=== PATIENT | male | born 1950 | race Caucasian/White ===

== ENCOUNTER 2018-04-24 16:20 | Inpatient (IN) | payer BC, OTHER ==
[2018-04-24 16:48] LABS: BASO % 0.9 % (0-2.0); EOS % 1.5 % (0-4.5); HEMATOCRIT 39.1 % (35.4-49); HEMOGLOBIN 13.2 GM/dL (11.7-16.9); LYMPH % 15.2 % (8-40); MCH 29.9 pg (25.7-33.7); MCHC 33.7 g/dl (32.0-35.9); MEAN CELL VOLUME 88.5 fl (80-96); MEAN PLT VOLUME 8.5 fl (7.5-11.1); MONO % 5.2 % (3.8-10.2); NEUT % 77.2 % (42.8-82.8); PLATELET COUNT 539 K/MM3 (134-434); RBC 4.41 M/mm3 (4.00-5.60); RDW 14.7 % (11.9-15.9)
[2018-04-24 16:51] LABS: VENOUS PC02 50.3 mmHg (38-52); VENOUS PH 7.32 (7.32-7.42); VENOUS PO2 74.2 mmHg (28-48)
[2018-04-24] MEDS ORDERED: methylPREDNISolone NA SUCC 125 MG/2 ML VIAL IVPB ONE (16:51)
[2018-04-24] MEDS ORDERED: ALBUTEROL SO4 0.083% IH SOL 2.5 MG/3 ML VIAL.NEB. NEB ONE (16:51)
--- NOTE | 2018-04-24 16:54 | PDOC ---
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 Per EMS received call from [facility] that patient disoriented, unable to follow commands, hypoxic, short of breath, and lethargic appearing, beginning this AM. EMS on scene note that patient hypoxic to 70 % O2 on vent, 02 improved to 95% on trach/bag mask ventilation. EMS reports increased resistance with bag ventilation. Received 2 duoneb treatments in route. Patient unable to provide history. PMHx: as noted above ROS: as noted Allergies: NKDA Past History - Past Medical History Allergies/Adverse Reactions: Allergies Allergy/AdvReac Type Severity Reaction Status Date / Time No Known Allergies Allergy Verified 04/24/18 16:46 Home Medications: Ambulatory Orders Acetylcysteine 220 mg GT DAILY 04/24/18 Albuterol 0.083% Nebulizer Asmita [Ventolin 0.083%] 1 neb NEB QID 04/24/18 Aspirin 81 mg GT DAILY 04/24/18 Atorvastatin Ca [Lipitor] 40 mg GT HS 04/24/18 Carvedilol 12.5 mg GT BID 04/24/18 Doxazosin Mesylate [Cardura -] 2 mg GT HS 04/24/18 Enoxaparin [Lovenox -] 40 mg SQ DAILY 04/24/18 Multivitamins [Tab-A-Vit -] 1 tab GT DAILY 04/24/18 Ramipril 1.25 mg GT DAILY 04/24/18 Simethicone 40 mg GT TID 04/24/18 Review of Systems - Review of Systems Comments:: 04/24/18 17:06 Unable to provide 13 point ROS inspection *Physical Exam - Physical Exam Comments: 04/24/18 17:07 GENERAL: Awake, alert, oriented,to self, able to follow commands. HEAD: No signs of trauma, normocephalic, atraumatic EYES: PERRLA, EOMI, sclera anicteric, conjunctiva clear ENT: Auricles normal inspection, hearing grossly normal, nares patent, oropharynx clear without exudates. Moist mucosa NECK: Normal ROM, supple, no lymphadenopathy, JVD, or masses LUNGS: + Diffuse exp wheezing, audible at bedside. +Labored breathing, with accessory muscle use. HEART: Regular rate and rhythm, normal S1 and S2, no murmurs, rubs or gallops, peripheral pulses normal and equal bilaterally. ABDOMEN: Soft, nontender, normoactive bowel sounds. No guarding, no rebound. No masses EXTREMITIES : Normal inspection, Normal range of motion, no edema. No clubbing or cyanosis. NEUROLOGICAL: Cranial nerves II through XII grossly intact. 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 HR 50, O2 95% on trach, with vent settings 450/16/5/100. + Diffuse exp wheezing, audible at bedside. +Labored breathing, with accessory muscle use. Patient with evidence of acute hypoxic resp distress. Will consider asthma/COPD exacerbation, or other obstructive process. + Resistance with bag mask ventilation. Possible mucous plugging. Will also consider other acute process, including PNA, PTX, PE, acute CHF exacerbation. Ed Course: Duonebs x 3, Methylprednisilone Per dr Pepe/ENT not available to come to ED, trach is able to be replaced within several weeks of initial placement, as tract has had time to matrue. Will require same size trach with obturator. Per ENT, surgery usually safety companion for trach malfunction at [facility] institution. 04/24/18 17:18 WBC: 24.0 BNP: 2665 04/24/18 17:22 VB.32/ 50.3/74.2 04/24/18 17:37 Called ICU consult pager, awaiting call back Called Dr. Gonzalez/Thien answering service. Awaiting call back 04/24/18 18:[address] Neumann, provide suction, possible trach change. No evidence of mucous plugging on CXR Patient endorsed to Miguel A ARTIFICIAL STONE SETTER 04/24/18 18:16 Miguel A at bedside to provide trach change. Following trach change, note rapid improvement in ventilation, and improvement of PIP and patient Tidal volume. Patient endorsed to Dr. Ocampo. *DC/Admit/Observation/Transfer Diagnosis at time of Disposition: Acute respiratory failure with hypoxia, COPD exacerbation - Discharge Dispostion Condition at time of disposition: Stable Decision to Admit order: Yes - Referrals - Patient Instructions - Post Discharge Activity
[2018-04-24] MEDS ORDERED: methylPREDNISolone NA SUCC 125 MG/2 ML VIAL ONE (16:56)
[2018-04-24] MEDS ORDERED: ALBUTEROL SO4 2.5/IPRATROPIUM 0.5 INH SOL 3 ML VIAL.NEB. NEB ONE (17:03)
--- NOTE | 2018-04-24 17:15 | PDOC ---
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 Per EMS, pt was encountered hypoxic to 70-80 on trach collar. EMS attempted to bag pt but encountered significant resistance. Unable to suction anything out. 2 nebs given en route. In ED, pt was satting 100% while being bagged. Lung sounds + wheezing bilaterally Respiratory at bedside - attempts to pass suction catheter met with resistance. Saline flush administered with suction removal of thick mucus. Persistent resistance when passing suction catheter - Physicial Exam PE: 04/24/18 17:15 GENERAL: Awake, alert, and fully oriented, in no acute distress. HEAD: No signs of trauma EYES: PERRLA, EOMI, sclera anicteric, conjunctiva clear ENT: 8.[address] LUNGS: Breath sounds equal, + wheezing HEART: Regular rate and rhythm, normal S1 and S2, no murmurs, rubs or gallops ABDOMEN: Soft, nontender, normoactive bowel sounds. No guarding, no rebound. No masses EXTREMITIES: Normal range of motion, no edema. No clubbing or cyanosis. No cords, erythema, or tenderness NEUROLOGICAL: Cranial nerves II through XII intact. 5/5 strength and sensation in all extremities, Normal speech, normal gait, normal cerebellar function SKIN: Warm, Dry, normal turgor, no rashes or lesions noted. - Critical Care Time Total Critical Care Time: 120 Critical Care Statement: The care of this patient involved high complexity decision making to prevent further life threatening deterioration of the patient 's condition and/or to evaluate & treat vital organ system(s) failure or risk of failure. - Medical Decision Making 04/24/18 17:16 67 M with respiratory distress, found to be hypoxic at home. Significant difficulty bagging, with resistance when passing suction catheter. Concerning for mucus plug, with concomitant COPD exacerbation. Will also need to evaluate for trach dislodgment. Pt with bilateral breath sounds but will r/o PTX as well. - Labs, CXR - Nebs, steroids - ENT consult for trach eval - Pulm c/s for possible bronch 04/24/18 18:13 ENT called, unavailable to assist in ED ICU GENERATION ENGINEERING TECHNOLOGIST Miguel A in ED to assist with trach replacement Trach removed and replaced with new one Pt with improved work of breathing, now with better lung aeration, TV and pressures improved on vent
[2018-04-24 17:30] LABS: PLATELET ESTIMATE INCREASED
[2018-04-24 17:59] LABS: ALBUMIN 2.9 g/dl (3.4-5.0); ALK PHOS 270 U/L (45-117); ANION GAP 10 MMOL/L (8-16); BILIRUBIN,TOTAL 0.6 mg/dL (0.2-1); BLOOD UREA NITROGEN 26 mg/dL (7-18); CALCIUM 9.2 mg/dL (8.5-10.1); CHLORIDE 99 mmol/L (98-107); CO2 24 mmol/L (21-32); CREATININE 0.8 mg/dL (0.55-1.3); GLUCOSE,RANDOM 168 mg/dL (74-106); POTASSIUM 5.6 mmol/L (3.5-5.1); SGOT/AST 31 U/L (15-37); SGPT/ALT 36 U/L (13-61); SODIUM 134 mmol/L (136-145); TOT PROT 8.3 g/dl (6.4-8.2)
[2018-04-24] MEDS ORDERED: MIDAZOLAM HCL 2 MG/2 ML SINGLE DOSE VIAL IVPUSH ONE (18:00)
[2018-04-24 18:01] LABS: CARBOXYHEMOGLOBIN 0.8 gm% (0.5-2.0)
[2018-04-24 18:03] LABS: ARTERIAL BLOOD GAS BASE EXCESS 1.3 meq/l (-2-2); ARTERIAL BLOOD GAS PCO2 32.7 mmHg (35-45); ARTERIAL BLOOD GAS pH 7.48 (7.35-7.45)
[2018-04-24 18:05] LABS: ALLENS TEST POSITIVE
[2018-04-24] MEDS ORDERED: RAPID SEQUENCE INTUBATION KIT NR ONE (18:06)
[2018-04-24] MEDS ORDERED: MIDAZOLAM HCL 2 MG/2 ML SINGLE DOSE VIAL ONE (18:06)
[2018-04-24 18:10] LABS: ARTERIAL BLD GAS O2 SATURATION 99.7 % (90-98.9)
--- NOTE | 2018-04-24 18:30 | PN ---
Progress Note (short form) - Note Progress Note: Called to ED by ER MD for possible ICU admission. Pt 67 y/o man w/ hx of CVA, s/ p trach for airway protection unclear if [facility]. Today at [place] found to be hypoxic and in distress. Not getting good volumes on vent, unable to pass suction catheter, brought urgently to ED. Bagging via trach, stacked nebs assisted with pt getting better volumes. On evaluation pt is in distress, PIP of 60+ on vent, large leak out of mouth and pt with retractions, increased WOB. Pt has 8.0 DCT, that is significantly protruding from stoma. Pt given sedation 2mg Versed, Fent 100. Trach replaced with 8.0 portex (only 8 avail). Immediately after trach replacement PIP 60+--->27. Good TV on vent. Excellent air entry. No upper airway sounds. Care returned to ED staff. Plan for possible admission. Pulm/vent service to follow if pt admitted. Tadeo ACNP [phone]
--- NOTE | 2018-04-24 20:11 | PN ---
Teaching Attending Note Name of Resident: Helen Oh ATTENDING PHYSICIAN STATEMENT I saw and evaluated the patient. I reviewed the resident's note and discussed the case with the resident. I agree with the resident's findings and plan as documented. SUBJECTIVE: Seen and examined; please refer to resident note for further historical informaiton. Briefly, recent hemorrhagic CVA with R-sided hemiparesis (seen at [facility]), HTN, s/p PPM (2010), s/p tracheostomy 1 month ago (was unable to be weaned from the vent) who has been at [facility] for the past month. Hypoxic to 70s in [place] with apparent respiratory distress. Unable to suction easily and what they got was thick, brown. He was bagged and brought here; satting 100%. In ER tracheostomy was changed by ICU NETWORK MANAGEMENT SPECIALIST and his respiratory issues resolved; he had a 60+ PIP, large leak out of mouth, and the 8.0 DCT protruding rom the stoma. He continues to have the R-sided hemiparesis; normally can communicate but was sedated for the resident team; when I spoke with him he was more alert and can gesture with his hand. He told me the area around his trach is painful. His indicates he makes his own health care decisions. 10 sys ROS done and negative aside from HPI PMH, PSH (trach/peg, pacemaker 2010), Family hx, Social hx reviewed ASA, acetylcystine, ramipril, coreg, ventolin, atorva, cardura; confirming doses and reconciling OBJECTIVE: VS, labs, imaging reviewed NAD, opens eyes spontaneously and gestures with his L-arm. R-sided hemiparesis noted. R-facial droop and residual deficits noted PEG site clear with gauze Trach recently changed with no new issues; no copious secretions, etc. RRR s1/2 no mgr NT ND +BS Not agitated ASSESSMENT AND PLAN: Patient presents from his skilled nursing to the ER due to hypoxia and was found to have issue with his trach. Trach replaced with 8.0 portex with PIP from 60+ to 27 and acceptable TV. 1) Acute Respiratory Failure 2) S/P PPM (unknown primary condition with old records pending from [place]) 3) Hx recent hemorrhagic CVA w/ resulting R-sided hemiparesis 4) HTN 5) S/P PEG 6) S/P Tracheostomy -2/2 trach issue; resolved. Does not need ICU. Can place on observation with pulm/vent service to follow in AM. Likely DC soon. He did have what appeared to be large amount atelectesis vs pleural effusion on the L-side with elevated BNP so will obtain CT chest to investigate if any lung pathology and compare to old studies. Furthermore, given the elevated BNP, he likely had an echo done ( due to recent stroke) and we can see if there's any pump dysfunction on the old study. He is oxygenating very well on the vent and appears euvolemic and the BNP elevation could be due to cardiac strain from the preceeding event. Will continue other meds and observe.
[2018-04-24 20:25] LABS: GAMMA GLUTAMYL TRANSPEPTIDASE 70 U/L (5-85)
--- NOTE | 2018-04-24 20:34 | HP ---
CHIEF COMPLAINT: hypoxia, acute respiratory distress PCP: Dr. Mcknight (comes from [facility]) HISTORY OF PRESENT ILLNESS: Unable to speak to pt, history taken by family. 67M w/ pmhx of CVA (02/25/17) w/ R residual deficits s/p trach placement (04/05), TIA x2 (both in 01/2007), HTN, CAD, ? arrhythmia s/p PPM (07/26) was found to be hypoxic in ~70-80s at [facility] and in acute respiratory distress. Per ED documentation, pt was unable to be suctioned, bagged via trach which improved his O2 sat to 100% and given Duonebs. He was assessed by ICU SUPPORT WORKER after which trach tube was noticed to be protruding from stoma and as a result, trach tube was replaced. At baseline, pt is bed bound has R sided neurological deficits, but is alert and oriented and speaks with slurred speech according to family. He is able to move his L u/l extremities and respond to commands. POC: Julieta () - [phone] Travis (son) - [phone] ER course was notable for: (1) RR 50 --> 20, WBC 24, K 5.6, ABG showed acute respiratory alkalosis, ALK P 270, BNP 2665 (2) Trach changed by ICU SUPPORT WORKER, Versed 2 mg, Solumedrol 125, Fentanyl given (3) CXR ordered, pulm consulted Recent Travel: Denies PAST MEDICAL HISTORY: CVA (x2 in 2006) Hemorrhagic stroke (03/05) HTN CAD COPD PAST SURGICAL HISTORY: Trach placement (04/05) PPM placement (07/2010) Social History: Smoking: Stopped smoking x25 years ago Alcohol: prior to stroke, drank 3-4 alcoholic beverages multiple times a week Drugs: Denies 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 Family History: Mother- [place], Breast cx (diagnosed in her ~70s) Father- Lung cx (diagnosed at age 76) Brother- HLD, stroke ( at 54) Allergies No Known Allergies Allergy (Verified 04/24/18 16:46) HOME MEDICATIONS: Home Medications Medication Instructions Recorded Acetylcysteine 220 mg GT DAILY 04/24/18 Albuterol 0.083% Nebulizer Asmita 1 neb NEB QID 04/24/18 [Ventolin 0.083%] Aspirin 81 mg GT DAILY 04/24/18 Atorvastatin Ca [Lipitor] 40 mg GT HS 04/24/18 Carvedilol 12.5 mg GT BID 04/24/18 Doxazosin Mesylate [Cardura -] 2 mg GT HS 04/24/18 Enoxaparin [Lovenox -] 40 mg SQ DAILY 04/24/18 Multivitamins [Tab-A-Vit -] 1 tab GT DAILY 04/24/18 Ramipril 1.25 mg GT DAILY 04/24/18 Simethicone 40 mg GT TID 04/24/18 REVIEW OF SYSTEMS Unable to obtain PHYSICAL EXAMINATION Vital Signs - 24 hr 04/24/18 04/24/18 04/24/18 16:21 18:02 18:29 Temperature 99.2 F Pulse Rate 70 70 Pulse Rate [ 71 Apical] Respiratory 50 H 29 H 23 H Rate Blood Pressure 145/72 Blood Pressure 124/68 [Left Arm] O2 Sat by Pulse 99 99 Oximetry (%) 04/24/18 04/24/18 04/24/18 18:31 18:39 18:56 Temperature Pulse Rate 70 Pulse Rate [ 70 Apical] Respiratory 20 Rate Blood Pressure Blood Pressure 112/59 L [Left Arm] O2 Sat by Pulse 97 97 99 Oximetry (%) GENERAL: Awake, alert, NAD. Opens eyes spontaneously w/ L arm. HEENT: R sided facial droop. NECK: Trach changed in ED, no secretions noted. LUNGS: Breath sounds equal, clear to auscultation bilaterally. No wheezes, and no crackles. No accessory muscle use. HEART: RRR. Normal S1, S2. No murmurs noted. ABDOMEN: Soft, NT/ND. +G tube in place, gauze c/d/i. EXTREMITIES: 2+ dorsalis pedis pulses b/l, 2+ radial pulses b/l. Moves RUE spontaneously. NEUROLOGICAL: Responds to commands. Able to comprehend and respond to questions given hand gestures. Laboratory Results - last 24 hr 04/24/18 04/24/18 04/24/18 16:43 16:43 16:43 WBC 24.0 H RBC 4.41 Hgb 13.2 Hct 39.1 MCV 88.5 MCH 29.9 MCHC 33.7 RDW 14.7 Plt Count 539 H MPV 8.5 Absolute Neuts (auto) 18.5 H Neutrophils % 77.2 Neutrophils % (Manual) 65.0 Band Neutrophils % 8.0 Lymphocytes % 15.2 Lymphocytes % (Manual) 19.0 Monocytes % 5.2 Monocytes % (Manual) 4 Eosinophils % 1.5 Eosinophils % (Manual) 4.0 Basophils % 0.9 Basophils % (Manual) 0.0 Nucleated RBC % 0 Platelet Estimate Increased Platelet Comment No clumping noted Puncture Site ABG pH ABG pCO2 at Pt Temp ABG pO2 at Pt Temp ABG HCO3 ABG O2 Sat (Measured) ABG O2 Content ABG Base Excess Michael Test VBG pH 7.32 POC VBG pCO2 50.3 POC VBG pO2 74.2 H VBG Base Excess -1.3 Carboxyhemoglobin Methemoglobin Oxygen Flow Rate PEEP Sodium 134 L Potassium 5.6 H Chloride 99 Carbon Dioxide 24 Anion Gap 10 BUN 26 H Creatinine 0.8 Creat Clearance w eGFR > 60 Random Glucose 168 H Calcium 9.2 Total Bilirubin 0.6 GGT 70 AST 31 ALT 36 Alkaline Phosphatase 270 H B-Natriuretic Peptide Total Protein 8.3 H Albumin 2.9 L 04/24/18 04/24/18 04/24/18 16:43 17:42 17:46 WBC RBC Hgb Hct MCV MCH MCHC RDW Plt Count MPV Absolute Neuts (auto) Neutrophils % Neutrophils % (Manual) Band Neutrophils % Lymphocytes % Lymphocytes % (Manual) Monocytes % Monocytes % (Manual) Eosinophils % Eosinophils % (Manual) Basophils % Basophils % (Manual) Nucleated RBC % Platelet Estimate Platelet Comment Puncture Site Right radial ABG pH 7.48 H ABG pCO2 at Pt Temp 32.7 L ABG pO2 at Pt Temp 221.0 H* ABG HCO3 23.9 ABG O2 Sat (Measured) 99.7 H* ABG O2 Content 18.2 ABG Base Excess 1.3 Michael Test Positive VBG pH POC VBG pCO2 POC VBG pO2 VBG Base Excess Carboxyhemoglobin 0.8 Methemoglobin 0.2 L Oxygen Flow Rate Yes PEEP 5.0 Sodium Potassium Chloride Carbon Dioxide Anion Gap BUN Creatinine Creat Clearance w eGFR Random Glucose Calcium Total Bilirubin GGT AST ALT Alkaline Phosphatase B-Natriuretic Peptide 2665.1 H Total Protein Albumin CONSULT: Pulm- Dr. Neumann IMAGING: * CXR: * CT chest w/o contrast (prelim): No pneumonia. Dependent atelectasis b/l lungs , greatest in L lower lobe, trace L pleural fluid, tracheostomy tube, CAD, L chest ICD, R lung apex incompletely seen. * EKG: Paced rhythm, HR 119 bpm, QTc 301 Past Imaging: * ASSESSMENT/PLAN: 67M w/ pmhx of CVA (02/25/17) w/ R residual deficits s/p trach placement (04/05), TIA x2 (both in 01/2007), HTN, CAD, ? arrhythmia s/p PPM (07/26) was found to be in acute respiratory distress. #Acute Respiratory Failure; s/p trach (04/04) -Resolved. Pt's trach tube was replaced by ICU SUPPORT WORKER, and pt is now setting well at 100% on vent no longer in respiratory distress -CT chest w/o contrast (prelim) noted above, no evidence of pneumonia; will hold off on IV abx for now. -Pulm consult #COPD - #Hx of Stroke (03/05) w/ R sided residual deficits -Pt currently at baseline neurologically -Cont to monitor #HTN/CAD/HLD Cont home meds: ASA 81, Ramipril 1.25 GT daily, Atorvastatin 40 QD, Carvedilol 12.5 BID #S/p PPM (07/26) -Outpatient follow up #Prophylaxis -Lovenox 40 SQ #FEN -no IVf needed -recheck BMP (K+) -chopped diet w/ thin liquids dispo -admit to inpt med-surg -full code Visit type - Emergency Visit Emergency Visit: Yes ED Registration Date: 04/24/18 Care time: The patient presented to the Emergency Department on the above date and was hospitalized for further evaluation of their emergent condition. - New Patient This patient is new to me today: Yes Date on this admission: 04/26/18 - Critical Care Critical Care patient: No
[2018-04-24] MEDS ORDERED: ENOXAPARIN NA (PORCINE) 40 MG/0.4 ML DISP.SYRIN SQ ONE (21:54)
[2018-04-24] MEDS: ENOXAPARIN NA (PORCINE) 40 MG/0.4 ML DISP.SYRIN SQ SCH (22:00)
[2018-04-24 22:07] LABS: ANION GAP 11 MMOL/L (8-16); BLOOD UREA NITROGEN 28 mg/dL (7-18); CHLORIDE 100 mmol/L (98-107); CO2 24 mmol/L (21-32); CREATININE 0.8 mg/dL (0.55-1.3); GLUCOSE,RANDOM 147 mg/dL (74-106); POTASSIUM 4.9 mmol/L (3.5-5.1); SODIUM 135 mmol/L (136-145)
[2018-04-25] MEDS: CARVEDILOL 12.5 MG TABLET (FP) GT SCH ×3 (02:54→22:43)
[2018-04-25] MEDS: SIMETHICONE 40 MG/0.6 ML BOTTLE GT SCH ×4 (02:54→22:44)
[2018-04-25 06:42] LABS: BASO % 0.2 % (0-2.0); HEMATOCRIT 35.7 % (35.4-49); HEMOGLOBIN 12.2 GM/dL (11.7-16.9); LYMPH % 10.2 % (8-40); MCH 30.2 pg (25.7-33.7); MCHC 34.2 g/dl (32.0-35.9); MEAN CELL VOLUME 88.5 fl (80-96); MEAN PLT VOLUME 8.9 fl (7.5-11.1); MONO % 1.4 % (3.8-10.2); NEUT % 88.2 % (42.8-82.8); PLATELET COUNT 500 K/MM3 (134-434); RBC 4.04 M/mm3 (4.00-5.60); RDW 14.9 % (11.9-15.9); WHITE BLOOD COUNT 16.2 K/mm3 (4.0-10.0)
[2018-04-25 07:15] LABS: ALBUMIN 2.8 g/dl (3.4-5.0); ALK PHOS 214 U/L (45-117); ANION GAP 11 MMOL/L (8-16); BLOOD UREA NITROGEN 32 mg/dL (7-18); CHLORIDE 100 mmol/L (98-107); CO2 25 mmol/L (21-32); CREATININE 0.8 mg/dL (0.55-1.3); GLUCOSE,RANDOM 136 mg/dL (74-106); POTASSIUM 4.8 mmol/L (3.5-5.1); SGOT/AST 18 U/L (15-37); SGPT/ALT 31 U/L (13-61); SODIUM 135 mmol/L (136-145); TOT PROT 7.9 g/dl (6.4-8.2)
[2018-04-25] MEDS: ACETYLCYSTEINE 20% 200MG/ML 4 ML VIAL *FOR ORAL / INH USE ONLY NEB SCH ×4 (07:20→21:35)
[2018-04-25] MEDS ORDERED: ACETYLCYSTEINE 20% 200MG/ML 4 ML VIAL *FOR ORAL / INH USE ONLY GT SCH (08:00)
[2018-04-25] MEDS ORDERED: ALBUTEROL SO4 0.083% IH SOL 2.5 MG/3 ML VIAL.NEB. NEB ONE (10:22)
[2018-04-25 10:37] LABS: ANION GAP 10 MMOL/L (8-16); BLOOD UREA NITROGEN 34 mg/dL (7-18); CALCIUM 8.9 mg/dL (8.5-10.1); CHLORIDE 100 mmol/L (98-107); CO2 25 mmol/L (21-32); CREATININE 0.7 mg/dL (0.55-1.3); GLUCOSE,RANDOM 138 mg/dL (74-106); N-TERMINAL BNP 4942.2 pg/ml (5-125); POTASSIUM 4.6 mmol/L (3.5-5.1); SODIUM 136 mmol/L (136-145)
[2018-04-25] MEDS ORDERED: PT OWN MED DRAWER 7, Y5N ONE ×2 (10:58→21:32)
[2018-04-25] MEDS: ENOXAPARIN NA (PORCINE) 40 MG/0.4 ML DISP.SYRIN SQ SCH (11:06)
[2018-04-25] MEDS: ASPIRIN 81 MG CHEWABLE TABLETS GT SCH (11:06)
[2018-04-25] MEDS: ALBUTEROL SO4 0.083% IH SOL 2.5 MG/3 ML VIAL.NEB. NEB SCH ×3 (11:48→21:35)
--- NOTE | 2018-04-25 12:20 | CON.PULM ---
Consult Consult Specialty:: PULMONARY Referred by:: Dr. Mcknight Reason for Consultation:: hypoxia - History of Present Illness Chief Complaint: hypoxia History of Present Illness: 67yo male with h/o HTN, CAD, COPD, h/o CVA, chronic respiratory failure s/o tracheostomy who was transferred from the [facility] for hypoxia and respiratory distress. Pt unable to provide further history at this time. Per chart, pt was unable to be suctioned, oxygenation improved with ambu-bagging. Tracheostomy noted to be dislodged, replaced in the ER with improvement in symptoms and oxygenation. CT chest done showing bibasilar infiltrates. Febrile to 100.9 this admission. - History Source History Provided By: Medical Record Limitations to Obtaining History: Clinical Condition - Past Medical History Cardio/Vascular: Yes: CAD, HTN Pulmonary: Yes: COPD - Alcohol/Substance Use Hx Alcohol Use: No - Smoking History Smoking history: Unknown if ever smoked Have you smoked in the past 12 months: No Home Medications - Allergies Allergies/Adverse Reactions: Allergies Allergy/AdvReac Type Severity Reaction Status Date / Time No Known Allergies Allergy Verified 04/24/18 16:46 - Home Medications Home Medications: Ambulatory Orders Acetylcysteine 220 mg NEB QID 04/24/18 Albuterol 0.083% Nebulizer Asmita [Ventolin 0.083%] 1 neb NEB QID 04/24/18 Aspirin 81 mg GT DAILY 04/24/18 Atorvastatin Ca [Lipitor] 40 mg GT HS 04/24/18 Carvedilol 12.5 mg GT BID 04/24/18 Doxazosin Mesylate [Cardura -] 2 mg GT HS 04/24/18 Enoxaparin [Lovenox -] 1.2 ml GT Q8H 04/24/18 Multivitamins [Tab-A-Vit -] 1 tab GT DAILY 04/24/18 Ramipril 1.25 mg GT DAILY 04/24/18 Simethicone 40 mg GT TID 04/24/18 Review of Systems Unable to obtain ROS, reason: pt nonverbal Physical Exam Vital Sings: Vital Signs Temperature 98.6 F 04/25/18 10:00 Pulse Rate 70 04/25/18 10:00 Respiratory Rate 22 H 04/25/18 11:46 Blood Pressure 120/64 04/25/18 10:00 O2 Sat by Pulse Oximetry (%) 96 04/25/18 08:25 Constitutional: Yes: Calm Eyes: Yes: Conjunctiva Clear, EOM Intact HENT: Yes: Atraumatic, Normocephalic Neck: Yes: Supple, Trachea Midline Cardiovascular: Yes: Regular Rate and Rhythm Respiratory: Yes: Mechanically Ventilated, Rhonchi (scattered) ...Clubbing: No Gastrointestinal: Yes: Normal Bowel Sounds, Soft. No: Tenderness Edema: No Labs: CBC, BMP 04/25/18 06:12 04/25/18 09:40 ABG Results ABG pH 7.48 (7.35-7.45) H 04/24/18 17:46 ABG pCO2 at Pt Temp 32.7 mmHg (35-45) L 04/24/18 17:46 ABG pO2 at Pt Temp 221.0 mmHg (80-100) H* 04/24/18 17:46 ABG HCO3 23.9 meq/L (22-26) 04/24/18 17:46 ABG O2 Sat (Measured) 99.7 % (90-98.9) H* 04/24/18 17:46 ABG O2 Content 18.2 % vol (15-22) 04/24/18 17:46 ABG Base Excess 1.3 meq/l (-2-2) 04/24/18 17:46 Imaging - Results Chest X-ray: Report Reviewed, Image Reviewed Cat Scan: Report Reviewed, Image Reviewed (bibasilar infiltrates) Problem List - Problems (1) Acute respiratory failure with hypoxia Code(s): J96.01 - ACUTE RESPIRATORY FAILURE WITH HYPOXIA (2) Pneumonia Code(s): J18.9 - PNEUMONIA, UNSPECIFIED ORGANISM (3) COPD exacerbation Code(s): J44.1 - CHRONIC OBSTRUCTIVE PULMONARY DISEASE W (ACUTE) EXACERBATION Assessment/Plan Acute on Chronic Hypoxic Respiratory Failure Dislodged Tracheostomy replaced Pneumonia Severe Sepsis +Troponins likely Demand Ischemia Acute COPD Exacerbation CAD h/o CVA s/p PPM - would start antibiotics - send sputum cultures if any secretions - O2 to keep SpO2 >90% - inhaled bronchodilators - short course of medrol x 48hrs - consider ID eval - continue volume assist control for now - enteral feeds - DVT/GI prophylaxis
[2018-04-25] MEDS ORDERED: PIPERACILLIN/TAZOB 4.5 GM 4.5 GM in DEXTROSE 5%-WATER 100 ML IVPB SCH (12:30)
[2018-04-25] MEDS ORDERED: DEXTROSE 5%-WATER 100 ML IVPB ONE ×2 (13:00→18:10)
[2018-04-25] MEDS ORDERED: PIPERACILLIN/TAZOBACTAM 4.5 GM VIAL IVPB ONE ×2 (13:00→18:10)
[2018-04-25] MEDS: MULTIVIT-MINERALS ORAL LIQUID GT SCH (13:05)
[2018-04-25] MEDS: RAMIPRIL 1.25 MG CAPSULE GT SCH (13:07)
[2018-04-25] MEDS: methylPREDNISolone NA SUCC 40 MG/1 ML VIAL IVPUSH SCH ×2 (13:15→17:58)
--- NOTE | 2018-04-25 13:48 | PN ---
Progress Note, Physician Chief Complaint: patient seen and examined admitted for hypoxia chest ct done bibasilar consolidation - Current Medication List Current Medications: Active Medications Acetylcysteine (Mucomyst 20 Oral / Inh Use Only*) 220 mg NEB RQID [facility] Last Admin: 04/25/18 11:47 Dose: 220 mg Albuterol Sulfate (Ventolin 0.083% Nebulizer Soln -) 1 amp NEB RQID [facility] Last Admin: 04/25/18 11:48 Dose: 1 amp Aspirin (Asa -) 81 mg GT DAILY [facility] Last Admin: 04/25/18 11:06 Dose: 81 mg Atorvastatin Calcium (Lipitor -) 40 mg GT HS [facility] Carvedilol (Coreg -) 12.5 mg GT BID [facility] Last Admin: 04/25/18 11:06 Dose: 12.5 mg Doxazosin Mesylate (Cardura -) 2 mg GT HS [facility] Enoxaparin Sodium (Lovenox -) 40 mg SQ DAILY [facility] Last Admin: 04/25/18 11:06 Dose: 40 mg Piperacillin Sod/Tazobactam (Sod 4.5 gm/ Dextrose) 100 mls @ 200 mls/hr IVPB Q6H [facility]; Protocol Stop: 04/26/18 12:29 Last Admin: 04/25/18 13:33 Dose: 200 mls/hr Piperacillin Sod/Tazobactam (Sod 4.5 gm/ Dextrose) 100 mls @ 200 mls/hr IVPB Q6H [facility]; Protocol Stop: 04/26/18 12:29 Methylprednisolone Sodium Succinate (Solu-Medrol -) 40 mg IVPUSH Q8H-IV [facility] Stop: 04/27/18 02:01 Last Admin: 04/25/18 13:15 Dose: 40 mg Ramipril (Altace -) 1.25 mg GT DAILY [facility] Last Admin: 04/25/18 13:07 Dose: 1.25 mg Simethicone (Mylicon Liquid -) 40 mg GT TID [facility] Last Admin: 04/25/18 05:50 Dose: 40 mg - Objective Vital Signs: Vital Signs Temperature 98.6 F 04/25/18 10:00 Pulse Rate 70 04/25/18 10:00 Respiratory Rate 22 H 04/25/18 11:46 Blood Pressure 120/64 04/25/18 10:00 O2 Sat by Pulse Oximetry (%) 96 04/25/18 08:25 Constitutional: Yes: Calm Neck: Yes: Other (trach) Cardiovascular: Yes: Regular Rate and Rhythm, S1, S2 Respiratory: Yes: Diminished Gastrointestinal: Yes: Normal Bowel Sounds, Soft, Other (g tube) Labs: CBC, BMP 04/25/18 06:12 04/25/18 09:40 Problem List - Problems (1) Acute respiratory failure with hypoxia Assessment/Plan: medrol for 48 hrs pulm on board lovenox Code(s): J96.01 - ACUTE RESPIRATORY FAILURE WITH HYPOXIA (2) Pneumonia Assessment/Plan: ID eval zosyjeremy Code(s): J18.9 - PNEUMONIA, UNSPECIFIED ORGANISM
[2018-04-25 14:52] VITALS: BMI 28.4
--- NOTE | 2018-04-25 17:19 | PN ---
Progress Note (short form) - Note Progress Note: ID consult dictated imp/reccd acute hypoxia /chronic respiratory failure pneumonia- fever/leukocytosis trach malfunction positive troponins s/p CVA vanco/zosyn after sputum culture f/u blood cultures legionella urinary antigens Problem List - Problems (1) Acute and chronic respiratory failure (ozqoo-we-laqajhy) Code(s): J96.20 - ACUTE AND CHR RESP FAILURE, UNSP W HYPOXIA OR HYPERCAPNIA (2) Pneumonia Code(s): J18.9 - PNEUMONIA, UNSPECIFIED ORGANISM (3) Tracheostomy malfunction Code(s): J95.03 - MALFUNCTION OF TRACHEOSTOMY STOMA (4) Elevated troponin Code(s): R74.8 - ABNORMAL LEVELS OF OTHER SERUM ENZYMES (5) CVA, old, hemiparesis Code(s): I69.359 - HEMIPLGA FOLLOWING CEREBRAL INFARCTION AFFECTING UNSP SIDE
[2018-04-25] MEDS: VANCOMYCIN HCL 1,250 MG in DEXTROSE 5%-WATER - 250 ML IVPB SCH (17:58)
[2018-04-25] MEDS: PIPERACILLIN/TAZOB 4.5 GM 4.5 GM in DEXTROSE 5%-WATER 100 ML IVPB SCH (18:12)
--- NOTE | 2018-04-25 20:29 | CONS ---
DATE OF CONSULTATION: DATE OF DICTATION: 04/25/2018 INFECTIOUS DISEASE CONSULTATION REQUESTING PHYSICIAN: Sree Mcknight M.D. CONSULTING PHYSICIAN: Ariella Haynes M.D. HISTORY OF PRESENT ILLNESS: This is a 67-year-old man who is admitted from the [facility]. He has a history of a recent CVA in February of this year, and he required a tracheostomy in March. After that he was transferred to the [facility]. He presented to the ER with shortness of breath and hypoxia. He was saturating 70%. He was taken off the ventilator and bagged until saturations improved. But there was a feeling that there was a lot of resistance with the bagging. He was evaluated by the helicopter dispatcher, who noted that the trach was significantly protruding from the stoma. He was able to replace the trach with much improvement in the patient's respiratory status. The patient subsequently had a CAT scan of his chest that revealed bibasilar infiltrates, left greater than right. I am asked to see him for antibiotic management. He is currently awake and alert, and he is resting quite comfortably. PAST MEDICAL HISTORY: Notable for CVA in February of 2017 with subsequent trach placement in March of 2018. He also has a history of TIAs. He has had hypertension, coronary artery disease, and COPD. He has a history of an arrhythmia. He is status post pacemaker and tracheostomy. 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 ALLERGIES: No known drug allergies. MEDICATION: Include acetylcysteine, aspirin, atorvastatin, Coreg, Cardura, Lovenox, multivitamins, ramipril and simethicone. FAMILY HISTORY: Notable for breast cancer in his mother and lung cancer in his father. Brother of a stroke at age 54. ALLERGIES: No known drug allergies. REVIEW OF SYSTEMS: He notes he has frequent headaches, which he has had since his stroke, and he gets intermittent abdominal discomfort around the G-tube site. PHYSICAL EXAMINATION: GENERAL: He is awake and alert. VITAL SIGNS: Current temperature is 99.2, T-max is 100.9, pulse 74, blood pressure 127/74, respiratory rate 20. He is saturating well with FiO2 of 40%. HEENT: Normocephalic. Eyes are anicteric. He has a right hemiparesis. His trach is hooked up to the vent. He looks comfortable. HEART: Regular rate and rhythm. LUNGS: Diminished breath sounds at the bases. ABDOMEN: Soft, nontender. G-tube site is clean. EXTREMITIES: Without edema. He has a stage 2 sacral ulcer. LABORATORY: White count was 24,000 on admission, this morning is 16.2, hemoglobin of 12.2, platelets of 500,000. BUN and creatinine are 34 and 0.7. Blood cultures are pending. Chest CT as mentioned has bibasilar infiltrates left greater than right. IMPRESSION: 1. In summary, this is a 67-year-old man with pneumonia most likely on the basis of his trach malfunction and leukocytosis it certainly would be reasonable to treat him for hospital/[facility] acquired pneumonia with vancomycin and Zosyn. Would obtain cultures of sputum. Blood cultures have been sent as well as a legionella and pneumococcal antigen. 2. He has acute on chronic respiratory failure. 3. Dislodged trach. 4. Sepsis with positive troponins, most likely on the basis of the acute hypoxia. 5. Lastly, he is status post cerebrovascular accident. Further recommendations to follow. Caroline [id number] [place]
[2018-04-25] MEDS: ATORVASTATIN CA 40 MG TABLET (FP) GT SCH (22:43)
[2018-04-25] MEDS: DOXAZOSIN MESYLATE 2 MG TABLET (FP) GT SCH (22:43)
[2018-04-26] MEDS ORDERED: DEXTROSE 5%-WATER 100 ML IVPB ONE ×3 (00:52→16:34)
[2018-04-26] MEDS ORDERED: PIPERACILLIN/TAZOBACTAM 4.5 GM VIAL IVPB ONE ×3 (00:52→16:34)
[2018-04-26] MEDS: PIPERACILLIN/TAZOB 4.5 GM 4.5 GM in DEXTROSE 5%-WATER 100 ML IVPB SCH ×3 (01:44→17:59)
[2018-04-26] MEDS: methylPREDNISolone NA SUCC 40 MG/1 ML VIAL IVPUSH SCH ×3 (01:44→17:58)
[2018-04-26] MEDS: SIMETHICONE 40 MG/0.6 ML BOTTLE GT SCH ×3 (07:03→22:42)
[2018-04-26 07:19] LABS: BASO % 0.1 % (0-2.0); HEMATOCRIT 34.2 % (35.4-49); LYMPH % 9.8 % (8-40); MCH 30.7 pg (25.7-33.7); MCHC 35.1 g/dl (32.0-35.9); MEAN CELL VOLUME 87.6 fl (80-96); MEAN PLT VOLUME 8.9 fl (7.5-11.1); MONO % 2.7 % (3.8-10.2); NEUT % 87.4 % (42.8-82.8); PLATELET COUNT 515 K/MM3 (134-434); RBC 3.91 M/mm3 (4.00-5.60); RDW 15.2 % (11.9-15.9); WHITE BLOOD COUNT 17.5 K/mm3 (4.0-10.0)
[2018-04-26 07:47] LABS: ALBUMIN 2.7 g/dl (3.4-5.0); ALK PHOS 192 U/L (45-117); ANION GAP 11 MMOL/L (8-16); BILIRUBIN,TOTAL 0.6 mg/dL (0.2-1); BLOOD UREA NITROGEN 39 mg/dL (7-18); CALCIUM 9.1 mg/dL (8.5-10.1); CHLORIDE 100 mmol/L (98-107); CO2 26 mmol/L (21-32); CREATININE 0.9 mg/dL (0.55-1.3); GLUCOSE,RANDOM 209 mg/dL (74-106); POTASSIUM 4.4 mmol/L (3.5-5.1); SGOT/AST 15 U/L (15-37); SGPT/ALT 31 U/L (13-61); SODIUM 136 mmol/L (136-145); TOT PROT 7.6 g/dl (6.4-8.2)
[2018-04-26] MEDS: ACETYLCYSTEINE 20% 200MG/ML 4 ML VIAL *FOR ORAL / INH USE ONLY NEB SCH ×4 (08:55→19:59)
[2018-04-26] MEDS: ALBUTEROL SO4 0.083% IH SOL 2.5 MG/3 ML VIAL.NEB. NEB SCH ×4 (08:55→20:00)
--- NOTE | 2018-04-26 10:17 | CON.CARD ---
Consult Consult Specialty:: Cardiology Referred by:: Dr. Diaz Reason for Consultation:: elevated bnp, troponin - History of Present Illness Chief Complaint: sob History of Present Illness: 67 year old man with pmh HTN, CAD unknown details, reported h/o arrhythmia s/p PPM 07/2010, h/o CVA 2017, TIA x2 2006, residual deficits s/p trach 03/2018 sent from [place] for respiratory distress, hypoxia, unable to be suctioned, trach was replaced and hypoxia improved. Pt incidentally noted to have a minimally elevated troponin with a normal ck and elevated BNP. Pt seen and examined today in nad. awake and alert, able to communicate but difficult to understand. he denies having had any chest pain prior to this event. states he is feeling better now. no reported pnd, orthopnea, or LE edema. - History Source History Provided By: Patient, Medical Record Limitations to Obtaining History: Physical Impairment - Past Medical History Cardio/Vascular: Yes: CAD, HTN Pulmonary: Yes: COPD - Alcohol/Substance Use Hx Alcohol Use: No - Smoking History Smoking history: Unknown if ever smoked Have you smoked in the past 12 months: No - Social History Usual Living Arrangement: Correction ADL: Support Services History of Recent Travel: No Home Medications - Allergies Allergies/Adverse Reactions: Allergies Allergy/AdvReac Type Severity Reaction Status Date / Time No Known Allergies Allergy Verified 04/24/18 16:46 - Home Medications Home Medications: Ambulatory Orders Acetylcysteine 220 mg NEB QID 04/24/18 Albuterol 0.083% Nebulizer Asmita [Ventolin 0.083%] 1 neb NEB QID 04/24/18 Aspirin 81 mg GT DAILY 04/24/18 Atorvastatin Ca [Lipitor] 40 mg GT HS 04/24/18 Carvedilol 12.5 mg GT BID 04/24/18 Doxazosin Mesylate [Cardura -] 2 mg GT HS 04/24/18 Enoxaparin [Lovenox -] 1.2 ml GT Q8H 04/24/18 Multivitamins [Tab-A-Vit -] 1 tab GT DAILY 04/24/18 Ramipril 1.25 mg GT DAILY 04/24/18 Simethicone 40 mg GT TID 04/24/18 Family Disease History - Family Disease History Family History: Unable to Obtain Review of Systems - Review of Systems Constitutional: denies: No Symptoms, Chills, Diaphoresis, Fever, Lethargy, Loss of Appetite, Malaise, Night Sweats, Unintentional Wgt. Loss, Weakness, Other Eyes: denies: No Symptoms, Blind Spots, Blurred Vision, Double Vision, Eye Pain , Floaters, Photophobia, Recent Change in Vision, Other HENT: denies: No Symptoms, Difficult Swallowing, Ear Discharge, Ear Pain, Epistaxis, Gingival Bleeding, Hearing Loss, Mouth Swelling, Nasal Congestion, Ocular Prosthesis, Throat Pain, Toothache, Ringing in Ears, Other Neck: denies: No Symptoms, Decreased ROM, Lumps, Pain on Movement, Stiffness, Swollen Glands, Tenderness, Other Cardiovascular: reports: Shortness of Breath. denies: No Symptoms, Chest Pain, Edema, Palpitations, Other Respiratory: reports: SOB. denies: No Symptoms, Cough, Exercise Intolerance, Hemoptysis, Orthopnea, PND, Snoring, SOB on Exertion, Wheezing, Other Gastrointestinal: denies: No Symptoms, Abdominal Pain, Bloating, Constipation, Diarrhea, Dysphagia, Indigestion, Melena, Nausea, Rectal Bleeding, Vomiting, Vomiting Blood, Other Genitourinary: denies: No Symptoms, Burning, Discharge, Dysuria, Flank Pain, Frequency, Hematuria, Incontinence, Lesions, Menses, Pain, Testicular Mass, Testicular Pain, Testicular Swelling, Urgency, Vaginal Bleeding, Other Breasts: denies: No Symptoms Reported, See HPI, Breast Implants, Discharge from Nipple, Lumps, Pain, Skin Changes, Other Musculoskeletal: denies: No Symptoms, Back Pain, Crepitus, Decreased ROM, Extremity Pain, Joint Pain, Joint Swelling, Muscle Pain, Muscle Cramps, Muscle Weakness, Other Integumentary: denies: No Symptoms, Blister, Bruising, Change in Color, Eczema, Erythema, Incision, Lesions, Lump, Pallor, Pruritis, Rash, Wound, Other Neurological: denies: No Symptoms, Change in LOC, Change in Speech, Confusion, Dizziness, Headache, Incoordination, Numbness, Parasthesia, Pre-Existing Deficit , Seizure, Syncope, Tremors, Unsteady Gait, Weakness, Other Endocrine: denies: No Symptoms, Excessive Sweating, Flushing, Increased Hunger, Increased Thirst, Intolerance to Cold, Intolerance to Heat, Unexplained Weight Gain, Unexplained Weight Loss, Other Hematology/Lymphatic: denies: No Symptoms, Easily Bruised, Excessive Bleeding, Swollen Glands, Other Psychiatric: denies: No Symptoms, Altered Sleep Pattern, Anxiety, Depression, Hallucinations, Panic, Paranoia, Suicidal, Other Vital Signs: Vital Signs Temperature 98.1 F 04/26/18 07:22 Pulse Rate 70 04/26/18 08:54 Respiratory Rate 18 04/26/18 07:22 Blood Pressure 136/78 04/26/18 07:22 O2 Sat by Pulse Oximetry (%) 98 04/26/18 08:54 Constitutional: Yes: No Distress, Calm Eyes: Yes: Conjunctiva Clear, EOM Intact HENT: Yes: Atraumatic, Normocephalic Neck: Yes: Supple, Trachea Midline Respiratory: Yes: Regular, Diminished, Mechanically Ventilated, Rhonchi. No: Rales, SOB, Wheezes Gastrointestinal: Yes: Normal Bowel Sounds, Soft. No: Distention, Tenderness Cardiovascular: Yes: Regular Rate and Rhythm. No: Bradycardia, Tachycardia, Pulse Irregular, Gallop, Rub, Varicosities JVD: No Carotid Bruit: No PMI: Non-Displaced Heart Sounds: Yes: S1, S2. No: Split S2, S3, S4, Clicks, Gallop, Rub, Bruit Murmur: No: Systolic Murmur, Diastolic Murmur Edema: No Peripheral Pulses WNL: Yes Neurological: Yes: Alert Psychiatric: Yes: Alert - Other Data Labs, Other Data: CBC, BMP 04/26/18 06:40 04/26/18 06:40 Troponin, BNP 04/25/18 04/25/18 09:40 14:30 Troponin I 0.12 H B-Natriuretic Peptide 4942.2 H 3927.6 H Troponin, BNP 04/25/18 04/25/18 09:40 14:30 Troponin I 0.12 H B-Natriuretic Peptide 4942.2 H 3927.6 H not available in chart for review Echo: Pending Imaging - Results Chest X-ray: Report Reviewed, Image Reviewed EKG: Report Reviewed, Image Reviewed Other: Report Reviewed, Image Reviewed Assessment/Plan 67 year old man with pmh HTN, CAD unknown details, reported h/o arrhythmia s/p PPM 07/2010, h/o CVA 2017, TIA x2 2006, residual deficits s/p trach 03/2018 sent [place] for respiratory distress, hypoxia, unable to be suctioned, trach was replaced and hypoxia improved. Pt incidentally noted to have a minimally elevated troponin with a normal ck and elevated BNP. awake and alert, able to communicate but difficult to understand. he denies having had any chest pain prior to this event. states he is feeling better now. no reported pnd, orthopnea, or LE edema. Elevated troponin, normal CK, elevated BNP -in setting of presumed sepsis, respiratory failure, PNA -unlikely ACS, unlikely type 1 [place] -does not appear to be in decompensated CHF -most likely demand ischemia secondary to respiratory distress and presumed sepsis -fup echo -does not require diuresis at this time, can use lasix prn -cont asa, lipitor and coreg -check EKG if not already done (not in chart) -would not pursue an ischemic work up at this time. -will fup
--- NOTE | 2018-04-26 11:06 | PN ---
Progress Note (short form) - Note Progress Note: PULMONARY Vented on volume assist control. Feels congested. More awake, alert today. Vital Signs Period Temp Pulse Resp BP Sys/Richards Pulse Ox Last 24 Hr 98.1 F-99.2 F 70-136 14-24 119-140/58-78 98 Gen: vented, awake Heart: RRR Lung: scattered rhonchi Abd: soft, nontender Ext: no edema CBC, BMP 04/26/18 06:40 04/26/18 06:40 Active Medications Acetylcysteine (Mucomyst 20 Oral / Inh Use Only*) 220 mg NEB RQID [facility]UD[facility] Last Admin: 04/26/18 08:55 Dose: 220 mg Albuterol Sulfate (Ventolin 0.083% Nebulizer Soln -) 1 amp NEB RQID [facility] Last Admin: 04/26/18 08:55 Dose: 1 amp Aspirin (Asa -) 81 mg GT DAILY [facility] Last Admin: 04/25/18 11:06 Dose: 81 mg Atorvastatin Calcium (Lipitor -) 40 mg GT HS [facility] Last Admin: 04/25/18 22:43 Dose: 40 mg Carvedilol (Coreg -) 12.5 mg GT BID [facility] Last Admin: 04/25/18 22:43 Dose: 12.5 mg Doxazosin Mesylate (Cardura -) 2 mg GT HS [facility] Last Admin: 04/25/18 22:43 Dose: 2 mg Enoxaparin Sodium (Lovenox -) 40 mg SQ DAILY [facility] Last Admin: 04/25/18 11:06 Dose: 40 mg Piperacillin Sod/Tazobactam (Sod 4.5 gm/ Dextrose) 100 mls @ 200 mls/hr IVPB Q8H-IV [facility]; Protocol Last Admin: 04/26/18 01:44 Dose: 200 mls/hr Vancomycin HCl 1,250 mg/ (Dextrose) 250 mls @ 250 mls/2 hr IVPB Q24H [facility]; Protocol Last Admin: 04/25/18 17:58 Dose: 250 mls/2 hr Methylprednisolone Sodium Succinate (Solu-Medrol -) 40 mg IVPUSH Q8H-IV [facility] Stop: 04/27/18 02:01 Last Admin: 04/26/18 01:44 Dose: 40 mg Ramipril (Altace -) 1.25 mg GT DAILY [facility] Last Admin: 04/25/18 13:07 Dose: 1.25 mg Simethicone (Mylicon Liquid -) 40 mg GT TID [facility] Last Admin: 04/26/18 07:03 Dose: 40 mg A/P Acute on Chronic Hypoxic Respiratory Failure Dislodged Tracheostomy replaced Pneumonia Severe Sepsis +Troponins likely Demand Ischemia Acute COPD Exacerbation CAD h/o CVA s/p PPM - continue antibiotics - f/u cultures - O2 to keep SpO2 >90% - inhaled bronchodilators - short course of medrol x 48hrs - spontaneous breathing trials as tolerated - enteral feeds - DVT/GI prophylaxis Problem List - Problems (1) Acute respiratory failure with hypoxia Code(s): J96.01 - ACUTE RESPIRATORY FAILURE WITH HYPOXIA (2) Pneumonia Code(s): J18.9 - PNEUMONIA, UNSPECIFIED ORGANISM (3) COPD exacerbation Code(s): J44.1 - CHRONIC OBSTRUCTIVE PULMONARY DISEASE W (ACUTE) EXACERBATION
[2018-04-26] MEDS: CARVEDILOL 12.5 MG TABLET (FP) GT SCH ×2 (12:22→22:42)
[2018-04-26] MEDS: ENOXAPARIN NA (PORCINE) 40 MG/0.4 ML DISP.SYRIN SQ SCH (12:22)
[2018-04-26] MEDS: RAMIPRIL 1.25 MG CAPSULE GT SCH (12:23)
[2018-04-26] MEDS: MULTIVIT-MINERALS ORAL LIQUID GT SCH (12:23)
[2018-04-26] MEDS: ASPIRIN 81 MG CHEWABLE TABLETS GT SCH (12:25)
--- NOTE | 2018-04-26 15:30 | PN ---
Progress Note (short form) - Note Progress Note: awake and alert wants some juice trach to vent Vital Signs Period Temp Pulse Resp BP Sys/Richards Pulse Ox Last 24 Hr 98.1 F-99.2 F 70-136 12-24 119-146/58-79 98-98 cor-rrr lungs decreased bs at bases abd soft,nt +GT ext no edema CBC, BMP 04/26/18 06:40 04/26/18 06:40 Microbiology 04/24/18 17:50 Blood - Peripheral Venous Blood Culture - Preliminary NO GROWTH OBTAINED AFTER 24 HOURS, INCUBATION TO CONTINUE FOR 4 DAYS. 04/24/18 16:43 Blood - Peripheral Venous Blood Culture - Preliminary NO GROWTH OBTAINED AFTER 24 HOURS, INCUBATION TO CONTINUE FOR 4 DAYS. sputum culture pending Active Medications Acetylcysteine (Mucomyst 20 Oral / Inh Use Only*) 220 mg NEB RQID TRUDY Last Admin: 04/26/18 11:19 Dose: 220 mg Albuterol Sulfate (Ventolin 0.083% Nebulizer Soln -) 1 amp NEB RQID [facility] Last Admin: 04/26/18 11:19 Dose: 1 amp Aspirin (Asa -) 81 mg GT DAILY [facility] Last Admin: 04/26/18 12:25 Dose: 81 mg Atorvastatin Calcium (Lipitor -) 40 mg GT HS [facility] Last Admin: 04/25/18 22:43 Dose: 40 mg Carvedilol (Coreg -) 12.5 mg GT BID [facility] Last Admin: 04/26/18 12:22 Dose: 12.5 mg Doxazosin Mesylate (Cardura -) 2 mg GT HS [facility] Last Admin: 04/25/18 22:43 Dose: 2 mg Enoxaparin Sodium (Lovenox -) 40 mg SQ DAILY [facility] Last Admin: 04/26/18 12:22 Dose: 40 mg Piperacillin Sod/Tazobactam (Sod 4.5 gm/ Dextrose) 100 mls @ 200 mls/hr IVPB Q8H-IV [facility]; Protocol Last Admin: 04/26/18 12:22 Dose: 200 mls/hr Vancomycin HCl 1,250 mg/ (Dextrose) 250 mls @ 250 mls/2 hr IVPB Q24H [facility]; Protocol Last Admin: 04/25/18 17:58 Dose: 250 mls/2 hr Methylprednisolone Sodium Succinate (Solu-Medrol -) 40 mg IVPUSH Q8H-IV [facility] Stop: 04/27/18 02:01 Last Admin: 04/26/18 12:23 Dose: 40 mg Ramipril (Altace -) 1.25 mg GT DAILY [facility] Last Admin: 04/26/18 12:23 Dose: 1.25 mg Simethicone (Mylicon Liquid -) 40 mg GT TID [facility] Last Admin: 04/26/18 07:03 Dose: 40 mg imp/reccd acute hypoxia /chronic respiratory failure pneumonia- fever/leukocytosis trach malfunction positive troponins s/p CVA vanco/zosyn legionella urinary antigen sputum culture pending leukocytosis may be partially due to steroids Problem List - Problems (1) Acute and chronic respiratory failure ([id number]-bphesla) Code(s): J96.20 - ACUTE AND CHR RESP FAILURE, UNSP W HYPOXIA OR HYPERCAPNIA (2) Pneumonia Code(s): J18.9 - PNEUMONIA, UNSPECIFIED ORGANISM (3) Tracheostomy malfunction Code(s): J95.03 - MALFUNCTION OF TRACHEOSTOMY STOMA (4) Elevated troponin Code(s): R74.8 - ABNORMAL LEVELS OF OTHER SERUM ENZYMES (5) CVA, old, hemiparesis Code(s): I69.359 - HEMIPLGA FOLLOWING CEREBRAL INFARCTION AFFECTING UNSP SIDE
[2018-04-26] MEDS ORDERED: ACETAMINOPHEN 325 MG TABLET (FP) PO PRN (16:00)
--- NOTE | 2018-04-26 16:05 | PN ---
Progress Note, Physician Chief Complaint: Hypoxia Pneumonia History of Present Illness: Previous notes and events reviewed awake and alert NAD mechanically ventilated c/o intermittent episodes of SOB complain of headache---tylenol PO ordered - Current Medication List Current Medications: Active Medications Acetylcysteine (Mucomyst 20 Oral / Inh Use Only*) 220 mg NEB RQID [facility] Last Admin: 04/26/18 11:19 Dose: 220 mg Albuterol Sulfate (Ventolin 0.083% Nebulizer Soln -) 1 amp NEB RQID [facility] Last Admin: 04/26/18 11:19 Dose: 1 amp Aspirin (Asa -) 81 mg GT DAILY [facility] Last Admin: 04/26/18 12:25 Dose: 81 mg Atorvastatin Calcium (Lipitor -) 40 mg GT HS [facility] Last Admin: 04/25/18 22:43 Dose: 40 mg Carvedilol (Coreg -) 12.5 mg GT BID [facility] Last Admin: 04/26/18 12:22 Dose: 12.5 mg Doxazosin Mesylate (Cardura -) 2 mg GT HS [facility] Last Admin: 04/25/18 22:43 Dose: 2 mg Enoxaparin Sodium (Lovenox -) 40 mg SQ DAILY [facility] Last Admin: 04/26/18 12:22 Dose: 40 mg Piperacillin Sod/Tazobactam (Sod 4.5 gm/ Dextrose) 100 mls @ 200 mls/hr IVPB Q8H-IV [facility]; Protocol Last Admin: 04/26/18 12:22 Dose: 200 mls/hr Vancomycin HCl 1,250 mg/ (Dextrose) 250 mls @ 250 mls/2 hr IVPB Q24H [facility]; Protocol Last Admin: 04/25/18 17:58 Dose: 250 mls/2 hr Methylprednisolone Sodium Succinate (Solu-Medrol -) 40 mg IVPUSH Q8H-IV TRUDY Stop: 04/27/18 02:01 Last Admin: 04/26/18 12:23 Dose: 40 mg Ramipril (Altace -) 1.25 mg GT DAILY [facility] Last Admin: 04/26/18 12:23 Dose: 1.25 mg Simethicone (Mylicon Liquid -) 40 mg GT TID [facility] Last Admin: 04/26/18 15:31 Dose: 40 mg - Objective Vital Signs: Vital Signs Temperature 98.8 F 04/26/18 13:56 Pulse Rate 70 04/26/18 13:56 Respiratory Rate 12 04/26/18 13:56 Blood Pressure 146/79 04/26/18 13:56 O2 Sat by Pulse Oximetry (%) 98 04/26/18 10:00 Constitutional: Yes: No Distress, Calm Eyes: Yes: Conjunctiva Clear HENT: Yes: Atraumatic Neck: Yes: Other (trach) Cardiovascular: Yes: Regular Rate and Rhythm Respiratory: Yes: Mechanically Ventilated, Rhonchi Gastrointestinal: Yes: Normal Bowel Sounds, Soft, Other (non tender) Genitourinary: Yes: [place] Present Musculoskeletal: Yes: Muscle Weakness Extremities: Yes: WNL Edema: No Peripheral Pulses WNL: Yes Neurological: Yes: Alert, Oriented Psychiatric: Yes: Alert, Oriented Labs: CBC, BMP 04/26/18 06:40 04/26/18 06:40 Microbiology 04/25/18 18:34 Sputum - Endotrachea Suction/Ventilator Gram Stain - Final 04/24/18 17:50 Blood - Peripheral Venous Blood Culture - Preliminary NO GROWTH OBTAINED AFTER 24 HOURS, INCUBATION TO CONTINUE FOR 4 DAYS. 04/24/18 16:43 Blood - Peripheral Venous Blood Culture - Preliminary NO GROWTH OBTAINED AFTER 24 HOURS, INCUBATION TO CONTINUE FOR 4 DAYS. <Jerri Longoria - Last Filed: 04/26/18 15:59> - Current Medication List Current Medications: Active Medications Acetaminophen (Tylenol Oral Solution -) 650 mg GT Q6H PRN PRN Reason: PAIN LEVEL 1-5 Last Admin: 04/26/18 16:36 Dose: 650 mg Acetylcysteine (Mucomyst 20 Oral / Inh Use Only*) 220 mg NEB RQID [facility] Last Admin: 04/27/18 08:14 Dose: 220 mg Albuterol Sulfate (Ventolin 0.083% Nebulizer Soln -) 1 amp NEB RQID [facility] Last Admin: 04/27/18 08:14 Dose: 1 amp Aspirin (Asa -) 81 mg GT DAILY [facility] Last Admin: 04/26/18 12:25 Dose: 81 mg Atorvastatin Calcium (Lipitor -) 40 mg GT HS [facility] Last Admin: 04/26/18 22:42 Dose: 40 mg Carvedilol (Coreg -) 12.5 mg GT BID [facility] Last Admin: 04/26/18 22:42 Dose: 12.5 mg Doxazosin Mesylate (Cardura -) 2 mg GT HS TRUDY Last Admin: 04/26/18 22:42 Dose: 2 mg Enoxaparin Sodium (Lovenox -) 40 mg SQ DAILY [facility] Last Admin: 04/26/18 12:22 Dose: 40 mg Piperacillin Sod/Tazobactam (Sod 4.5 gm/ Dextrose) 100 mls @ 200 mls/hr IVPB Q8H-IV TRUDY; Protocol Last Admin: 04/27/18 01:30 Dose: 200 mls/hr Vancomycin HCl 1,250 mg/ (Dextrose) 250 mls @ 250 mls/2 hr IVPB Q24H [facility]; Protocol Last Admin: 04/26/18 16:33 Dose: 250 mls/2 hr Ramipril (Altace -) 1.25 mg GT DAILY [facility] Last Admin: 04/26/18 12:23 Dose: 1.25 mg Simethicone (Mylicon Liquid -) 40 mg GT TID [facility] Last Admin: 04/27/18 06:53 Dose: 40 mg - Objective Vital Signs: Vital Signs Temperature 99.5 F 04/27/18 06:00 Pulse Rate 70 04/27/18 08:13 Respiratory Rate 16 04/27/18 08:13 Blood Pressure 144/75 04/27/18 06:00 O2 Sat by Pulse Oximetry (%) 98 04/27/18 08:13 Labs: CBC, BMP 04/27/18 06:00 04/27/18 06:00 <Elva Carias - Last Filed: 04/27/18 08:57> Problem List - Problems (1) Acute and chronic respiratory failure ([id number]) Assessment/Plan: -pulm on board -mechanically ventilated -albuterol tx via neb PRN for SOB -keep SpO2 >90% Code(s): J96.20 - ACUTE AND CHR RESP FAILURE, UNSP W HYPOXIA OR HYPERCAPNIA (2) COPD exacerbation Assessment/Plan: -pulm on board -albuterol tx via neb PRN for SOB -keep SpO2 >90% -BNP 3927.6 Code(s): J44.1 - CHRONIC OBSTRUCTIVE PULMONARY DISEASE W (ACUTE) EXACERBATION (3) CVA, old, hemiparesis Assessment/Plan: -fall precaution -PT Code(s): I69.359 - HEMIPLGA FOLLOWING CEREBRAL INFARCTION AFFECTING UNSP SIDE (4) Pneumonia Assessment/Plan: -pulm and ID on board -continue IV vanco and zosyn -wbc 17.5 -Chest CT show bibasilar atelectasis/consolidation, left greater than right with trace pleural fluid Code(s): J18.9 - PNEUMONIA, UNSPECIFIED ORGANISM (5) Elevated troponin Assessment/Plan: -trop trendin down, current 0.12 -cardiology on board Code(s): R74.8 - ABNORMAL LEVELS OF OTHER SERUM ENZYMES <Jerri Longoria - Last Filed: 04/26/18 15:59> Assessment/Plan see problem list dvt ppx <Jerri Longoria - Last Filed: 04/26/18 15:59> PATIENT SEEN AND EXAMINED AND I AGREE WITH ABOVE NOTE <Elva Carias - Last Filed: 04/27/18 08:57>
[2018-04-26] MEDS: VANCOMYCIN HCL 1,250 MG in DEXTROSE 5%-WATER - 250 ML IVPB SCH (16:33)
[2018-04-26] MEDS: ACETAMINOPHEN 650 MG/20.3 ML ORAL SOLUTION (CUPS) GT PRN (16:36)
--- NOTE | 2018-04-26 17:00 | ECHO ---
Name: ALYCE SCANLON Exam:Adult Echocardiogram Study Date: 04/26/2018 11:04 AM Age: 67 yrs Reason For Study: LVEF WALL MOTION Height: 70 in Weight: 198 lb BSA: 2.1 m2 MMode/2D Measurements & Calculations IVSd: 1.0 cm Ao root diam: 3.3 cm LVIDd: 5.6 cm LA dimension: 4.9 cm LVIDs: 4.1 cm LVPWd: 1.1 cm EDV(Teich): 155.0 ml ESV(Teich): 75.3 ml Doppler Measurements & Calculations MV E max bridger: 77.5 cm/sec Ao V2 max: 96.2 cm/sec MV A max bridger: 29.6 cm/sec Ao max P.7 mmHg MV E/A: 2.6 MV dec time: 0.25 sec LV V1 max P.7 mmHg MR max bridger: 416.4 cm/sec LV V1 max: 64.8 cm/sec MR max P.0 mmHg TR max bridger: 164.0 cm/sec Med Peak E' Bridger: 3.4 cm/sec TR max P.8 mmHg Med E/e': 22.9 Lat Peak E' Bridger: 7.7 cm/sec Lat E/e': 10.0 Procedure The study was technically difficult with many images being suboptimal in quality. The study was techn ically limited with all images being suboptimal in quality. Left Ventricle The left ventricle is grossly normal size. Paradoxical septal motion. Left ventricular systolic funct ion is low normal. E/A reversal consistent with but not diagnostic of poor LV compliance. Right Ventricle The right ventricle is not well visualized. Atria The left atrium is mildly dilated. Right atrial size is normal. Mitral Valve The mitral valve is not well visualized. Tricuspid Valve The tricuspid valve is not well visualized. Aortic Valve The aortic valve is not well visualized. Pulmonic Valve The pulmonic valve is not well visualized. Great Vessels The aortic root is not well visualized. Pericardium/Pleura There is no pericardial effusion. Interpretation Summary The study was technically difficult with many images being suboptimal in quality. The study was techn ically limited with all images being suboptimal in quality. The left ventricle is grossly normal size. Paradoxical septal motion. Left ventricular systolic funct ion is low normal. The right ventricle is not well visualized. The left atrium is mildly dilated. Right atrial size is normal. The aortic valve is not well visualized. The mitral valve is not well visualized. The tricuspid valve is not well visualized. MD Wanda Barnett 04/26/2018 05:00 PM
[2018-04-26] MEDS ORDERED: PT OWN MED DRAWER 7, Y5N ONE ×2 (21:11→22:56)
[2018-04-26] MEDS: DOXAZOSIN MESYLATE 2 MG TABLET (FP) GT SCH (22:42)
[2018-04-26] MEDS: ATORVASTATIN CA 40 MG TABLET (FP) GT SCH (22:42)
[2018-04-27] MEDS ORDERED: PIPERACILLIN/TAZOBACTAM 4.5 GM VIAL IVPB ONE ×3 (00:34→17:54)
[2018-04-27] MEDS ORDERED: DEXTROSE 5%-WATER 100 ML IVPB ONE ×3 (00:34→17:54)
[2018-04-27] MEDS: PIPERACILLIN/TAZOB 4.5 GM 4.5 GM in DEXTROSE 5%-WATER 100 ML IVPB SCH ×3 (01:30→18:11)
[2018-04-27] MEDS: methylPREDNISolone NA SUCC 40 MG/1 ML VIAL IVPUSH SCH ×3 (01:30→23:08)
[2018-04-27 06:38] LABS: HEMATOCRIT 32.5 % (35.4-49); HEMOGLOBIN 11.2 GM/dL (11.7-16.9); MCH 30.1 pg (25.7-33.7); MCHC 34.4 g/dl (32.0-35.9); MEAN CELL VOLUME 87.4 fl (80-96); MEAN PLT VOLUME 8.4 fl (7.5-11.1); PLATELET COUNT 482 K/MM3 (134-434); RBC 3.72 M/mm3 (4.00-5.60); WHITE BLOOD COUNT 15.7 K/mm3 (4.0-10.0)
[2018-04-27] MEDS: SIMETHICONE 40 MG/0.6 ML BOTTLE GT SCH ×3 (06:53→23:07)
[2018-04-27 07:16] LABS: ALBUMIN 2.5 g/dl (3.4-5.0); ALK PHOS 173 U/L (45-117); ANION GAP 8 MMOL/L (8-16); BILIRUBIN,TOTAL 0.5 mg/dL (0.2-1); BLOOD UREA NITROGEN 35 mg/dL (7-18); CALCIUM 8.4 mg/dL (8.5-10.1); CHLORIDE 100 mmol/L (98-107); CO2 27 mmol/L (21-32); CREATININE 0.8 mg/dL (0.55-1.3); GLUCOSE,RANDOM 251 mg/dL (74-106); POTASSIUM 4.2 mmol/L (3.5-5.1); SGOT/AST 20 U/L (15-37); SGPT/ALT 41 U/L (13-61); SODIUM 134 mmol/L (136-145); TOT PROT 7.2 g/dl (6.4-8.2)
[2018-04-27] MEDS: ACETYLCYSTEINE 20% 200MG/ML 4 ML VIAL *FOR ORAL / INH USE ONLY NEB SCH ×4 (08:14→20:51)
[2018-04-27] MEDS: ALBUTEROL SO4 0.083% IH SOL 2.5 MG/3 ML VIAL.NEB. NEB SCH ×4 (08:14→20:51)
--- NOTE | 2018-04-27 08:59 | PN ---
Progress Note, Physician Chief Complaint: AWAKE AND TALKING LIPSYNCHING EVENTS AND NOTES REVIEWED - Current Medication List Current Medications: Active Medications Acetaminophen (Tylenol Oral Solution -) 650 mg GT Q6H PRN PRN Reason: PAIN LEVEL 1-5 Last Admin: 04/26/18 16:36 Dose: 650 mg Acetylcysteine (Mucomyst 20 Oral / Inh Use Only*) 220 mg NEB RQID [facility] Last Admin: 04/27/18 08:14 Dose: 220 mg Albuterol Sulfate (Ventolin 0.083% Nebulizer Soln -) 1 amp NEB RQID [facility] Last Admin: 04/27/18 08:14 Dose: 1 amp Aspirin (Asa -) 81 mg GT DAILY [facility] Last Admin: 04/26/18 12:25 Dose: 81 mg Atorvastatin Calcium (Lipitor -) 40 mg GT HS [facility] Last Admin: 04/26/18 22:42 Dose: 40 mg Carvedilol (Coreg -) 12.5 mg GT BID [facility] Last Admin: 04/26/18 22:42 Dose: 12.5 mg Doxazosin Mesylate (Cardura -) 2 mg GT HS [facility] Last Admin: 04/26/18 22:42 Dose: 2 mg Enoxaparin Sodium (Lovenox -) 40 mg SQ DAILY [facility] Last Admin: 04/26/18 12:22 Dose: 40 mg Piperacillin Sod/Tazobactam (Sod 4.5 gm/ Dextrose) 100 mls @ 200 mls/hr IVPB Q8H-IV TRUDY; Protocol Last Admin: 04/27/18 01:30 Dose: 200 mls/hr Vancomycin HCl 1,250 mg/ (Dextrose) 250 mls @ 250 mls/2 hr IVPB Q24H [facility]; Protocol Last Admin: 04/26/18 16:33 Dose: 250 mls/2 hr Ramipril (Altace -) 1.25 mg GT DAILY [facility] Last Admin: 04/26/18 12:23 Dose: 1.25 mg Simethicone (Mylicon Liquid -) 40 mg GT TID [facility] Last Admin: 04/27/18 06:53 Dose: 40 mg - Objective Vital Signs: Vital Signs Temperature 99.5 F 04/27/18 06:00 Pulse Rate 70 04/27/18 08:13 Respiratory Rate 16 04/27/18 08:13 Blood Pressure 144/75 04/27/18 06:00 O2 Sat by Pulse Oximetry (%) 98 04/27/18 08:13 Constitutional: Yes: Mild Distress Eyes: Yes: WNL Cardiovascular: Yes: Regular Rate and Rhythm Respiratory: Yes: Mechanically Ventilated Gastrointestinal: Yes: Soft Genitourinary: Yes: Incontinence Musculoskeletal: Yes: Muscle Weakness Edema: No Neurological: Yes: Pre-Existing Deficit Labs: CBC, BMP 04/27/18 06:00 04/27/18 06:00 Problem List - Problems (1) Acute and chronic respiratory failure ([id number]) Code(s): J96.20 - ACUTE AND CHR RESP FAILURE, UNSP W HYPOXIA OR HYPERCAPNIA (2) Acute respiratory failure with hypoxia Code(s): J96.01 - ACUTE RESPIRATORY FAILURE WITH HYPOXIA (3) COPD exacerbation Code(s): J44.1 - CHRONIC OBSTRUCTIVE PULMONARY DISEASE W (ACUTE) EXACERBATION (4) CVA, old, hemiparesis Code(s): I69.359 - HEMIPLGA FOLLOWING CEREBRAL INFARCTION AFFECTING UNSP SIDE (5) Pneumonia Code(s): J18.9 - PNEUMONIA, UNSPECIFIED ORGANISM (6) Tracheostomy malfunction Code(s): J95.03 - MALFUNCTION OF TRACHEOSTOMY STOMA Assessment/Plan IV ABX PER ID 02 SUPPORT DVT PROPHYLAXIS [place] CATH FOR PAGE AWAIT CX PULM CLEARANCE BACK TO SNF
--- NOTE | 2018-04-27 10:26 | PN ---
Progress Note (short form) - Note Progress Note: awake and alert trached one month ago at [facility], GT plced at that time has been NPO since Vital Signs Period Temp Pulse Resp BP Sys/[place] Pulse Ox Last 24 Hr 98.8 F-99.5 F 70-72 12-26 132-146/53-79 98-99 trach to vent cor-rrr lungs decreased bs at bases abd soft, +GT ext no edema CBC, BMP 04/27/18 06:00 04/27/18 06:00 Microbiology 04/24/18 17:50 Blood - Peripheral Venous Blood Culture - Preliminary NO GROWTH OBTAINED AFTER 48 HOURS, INCUBATION TO CONTINUE FOR 3 DAYS. 04/24/18 16:43 Blood - Peripheral Venous Blood Culture - Preliminary NO GROWTH OBTAINED AFTER 48 HOURS, INCUBATION TO CONTINUE FOR 3 DAYS. 04/25/18 18:34 Sputum - Endotrachea Suction/Ventilator Gram Stain - Final Current Medications Acetaminophen (Tylenol Oral Solution -) 650 mg GT Q6H PRN PRN Reason: PAIN LEVEL 1-5 Last Admin: 04/26/18 16:36 Dose: 650 mg Acetylcysteine (Mucomyst 20 Oral / Inh Use Only*) 220 mg NEB RQID [facility] Last Admin: 04/27/18 08:14 Dose: 220 mg Albuterol Sulfate (Ventolin 0.083% Nebulizer Soln -) 1 amp NEB RQID [facility] Last Admin: 04/27/18 08:14 Dose: 1 amp Aspirin (Asa -) 81 mg GT DAILY [facility] Last Admin: 04/26/18 12:25 Dose: 81 mg Atorvastatin Calcium (Lipitor -) 40 mg GT HS [facility] Last Admin: 04/26/18 22:42 Dose: 40 mg Carvedilol (Coreg -) 12.5 mg GT BID [facility] Last Admin: 04/26/18 22:42 Dose: 12.5 mg Doxazosin Mesylate (Cardura -) 2 mg GT HS TRUDY Last Admin: 04/26/18 22:42 Dose: 2 mg Enoxaparin Sodium (Lovenox -) 40 mg SQ DAILY [facility] Last Admin: 04/26/18 12:22 Dose: 40 mg Piperacillin Sod/Tazobactam (Sod 4.5 gm/ Dextrose) 100 mls @ 200 mls/hr IVPB Q8H-IV TRUDY; Protocol Last Admin: 04/27/18 01:30 Dose: 200 mls/hr Vancomycin HCl 1,250 mg/ (Dextrose) 250 mls @ 250 mls/2 hr IVPB Q24H [facility]UD[facility]; Protocol Last Admin: 04/26/18 16:33 Dose: 250 mls/2 hr Ramipril (Altace -) 1.25 mg GT DAILY [facility] Last Admin: 04/26/18 12:23 Dose: 1.25 mg Simethicone (Mylicon Liquid -) 40 mg GT TID [facility] Last Admin: 04/27/18 06:53 Dose: 40 mg imp/reccd acute hypoxia /chronic respiratory failure pneumonia- fever/leukocytosis trach malfunction positive troponins s/p CVA vanco/zosyn legionella urinary antigen sputum culture pending leukocytosis may be partially due to steroids- now discontinued d/w at bedside Problem List - Problems (1) Acute and chronic respiratory failure ([id number]) Code(s): J96.20 - ACUTE AND CHR RESP FAILURE, UNSP W HYPOXIA OR HYPERCAPNIA (2) Pneumonia Code(s): J18.9 - PNEUMONIA, UNSPECIFIED ORGANISM (3) Tracheostomy malfunction Code(s): J95.03 - MALFUNCTION OF TRACHEOSTOMY STOMA (4) Elevated troponin Code(s): R74.8 - ABNORMAL LEVELS OF OTHER SERUM ENZYMES (5) CVA, old, hemiparesis Code(s): I69.359 - HEMIPLGA FOLLOWING CEREBRAL INFARCTION AFFECTING UNSP SIDE
[2018-04-27] MEDS ORDERED: PT OWN MED DRAWER 7, Y5N ONE ×3 (11:12→22:31)
[2018-04-27] MEDS: ASPIRIN 81 MG CHEWABLE TABLETS GT SCH (11:19)
[2018-04-27] MEDS: CARVEDILOL 12.5 MG TABLET (FP) GT SCH ×2 (11:19→23:08)
[2018-04-27] MEDS: ENOXAPARIN NA (PORCINE) 40 MG/0.4 ML DISP.SYRIN SQ SCH (11:19)
[2018-04-27] MEDS: MULTIVIT-MINERALS ORAL LIQUID GT SCH (11:20)
[2018-04-27] MEDS: RAMIPRIL 1.25 MG CAPSULE GT SCH (11:21)
[2018-04-27] MEDS: ACETAMINOPHEN 650 MG/20.3 ML ORAL SOLUTION (CUPS) GT PRN (11:26)
--- NOTE | 2018-04-27 13:13 | PN ---
Progress Note, Physician History of Present Illness: pulmonary alert,on vent support,ac mode,less congested - Current Medication List Current Medications: Active Medications Acetaminophen (Tylenol Oral Solution -) 650 mg GT Q6H PRN PRN Reason: PAIN LEVEL 1-5 Last Admin: 04/27/18 11:26 Dose: 650 mg Acetylcysteine (Mucomyst 20 Oral / Inh Use Only*) 220 mg NEB RQID [facility] Last Admin: 04/27/18 12:17 Dose: 220 mg Albuterol Sulfate (Ventolin 0.083% Nebulizer Soln -) 1 amp NEB RQID [facility] Last Admin: 04/27/18 12:17 Dose: 1 amp Aspirin (Asa -) 81 mg GT DAILY [facility] Last Admin: 04/27/18 11:19 Dose: 81 mg Atorvastatin Calcium (Lipitor -) 40 mg GT HS TRUDY Last Admin: 04/26/18 22:42 Dose: 40 mg Carvedilol (Coreg -) 12.5 mg GT BID [facility] Last Admin: 04/27/18 11:19 Dose: 12.5 mg Doxazosin Mesylate (Cardura -) 2 mg GT HS [facility] Last Admin: 04/26/18 22:42 Dose: 2 mg Enoxaparin Sodium (Lovenox -) 40 mg SQ DAILY [facility] Last Admin: 04/27/18 11:19 Dose: 40 mg Piperacillin Sod/Tazobactam (Sod 4.5 gm/ Dextrose) 100 mls @ 200 mls/hr IVPB Q8H-IV TRUDY; Protocol Last Admin: 04/27/18 11:19 Dose: 200 mls/hr Vancomycin HCl 1,250 mg/ (Dextrose) 250 mls @ 250 mls/2 hr IVPB Q24H [facility]; Protocol Last Admin: 04/26/18 16:33 Dose: 250 mls/2 hr Ramipril (Altace -) 1.25 mg GT DAILY [facility] Last Admin: 04/27/18 11:21 Dose: 1.25 mg Simethicone (Mylicon Liquid -) 40 mg GT TID [facility] Last Admin: 04/27/18 06:53 Dose: 40 mg - Objective Vital Signs: Vital Signs Temperature 98.6 F 04/27/18 10:00 Pulse Rate 70 04/27/18 10:00 Respiratory Rate 22 H 04/27/18 12:16 Blood Pressure 154/77 04/27/18 10:00 O2 Sat by Pulse Oximetry (%) 98 04/27/18 08:13 Constitutional: Yes: Well Nourished, Calm Eyes: Yes: WNL HENT: Yes: WNL Neck: Yes: Supple (trach) Cardiovascular: Yes: Regular Rate and Rhythm, S1, S2 Respiratory: Yes: Rhonchi (scattered courtney rhonchi) Gastrointestinal: Yes: Normal Bowel Sounds, Soft Extremities: Yes: WNL Edema: No Labs: CBC, BMP 04/27/18 06:00 04/27/18 06:00 Problem List - Problems (1) Acute and chronic respiratory failure ([id number]) Code(s): J96.20 - ACUTE AND CHR RESP FAILURE, UNSP W HYPOXIA OR HYPERCAPNIA (2) Elevated troponin Code(s): R74.8 - ABNORMAL LEVELS OF OTHER SERUM ENZYMES (3) Tracheostomy malfunction Code(s): J95.03 - MALFUNCTION OF TRACHEOSTOMY STOMA Assessment/Plan A/P Acute on Chronic Hypoxic Respiratory Failure Dislodged Tracheostomy replaced Pneumonia Severe Sepsis +Troponins likely Demand Ischemia Acute COPD Exacerbation CAD h/o CVA s/p PPM - antibiotics - O2 to keep SpO2 >90% - inhaled bronchodilators - short course of medrol - spontaneous breathing trials as tolerated - enteral feeds - DVT/GI prophylaxis Problem List - Problems (1) Acute respiratory failure with hypoxia Code(s): J96.01 - ACUTE RESPIRATORY FAILURE WITH HYPOXIA (2) Pneumonia Code(s): J18.9 - PNEUMONIA, UNSPECIFIED ORGANISM (3) COPD exacerbation Code(s): J44.1 - CHRONIC OBSTRUCTIVE PULMONARY DISEASE W (ACUTE) EXACERBATION
[2018-04-27] MEDS: VANCOMYCIN HCL 1,250 MG in DEXTROSE 5%-WATER - 250 ML IVPB SCH (18:11)
--- NOTE | 2018-04-27 20:10 | PN ---
Progress Note, Physician Chief Complaint: The patient appears comfortable, awake and alter. No acute distress. History of Present Illness: 67 year old man with a PMHx of HTN, CAD unknown details, reported h/o arrhythmia s/p PPM 07/2010, h/o CVA 2017, TIA x2 2006, residual deficits s/p trach 03/2018 sent from [place] for respiratory distress, hypoxia, unable to be suctioned, trach was replaced and hypoxia improved. Pt incidentally noted to have a minimally elevated troponin with a normal ck and elevated BNP. Echo 04/26/2018: Very technically difficult study with limited information. LV grossly normal in size with paradoxical septal motion and low normal LV systolic function. Elevated troponin, normal CK, elevated BNP -in setting of presumed sepsis, respiratory failure, PNA -unlikely ACS, unlikely type 1 ID -does not appear to be in decompensated CHF -most likely demand ischemia secondary to respiratory distress and presumed sepsis -fup echo -does not require diuresis at this time, can use lasix prn -cont asa, lipitor and coreg -check EKG if not already done (not in chart) -would not pursue an ischemic work up at this time. -will fup - Current Medication List Current Medications: Active Medications Acetaminophen (Tylenol Oral Solution -) 650 mg GT Q6H PRN PRN Reason: PAIN LEVEL 1-5 Last Admin: 04/27/18 11:26 Dose: 650 mg Acetylcysteine (Mucomyst 20 Oral / Inh Use Only*) 220 mg NEB RQID [facility] Last Admin: 04/27/18 16:14 Dose: 220 mg Albuterol Sulfate (Ventolin 0.083% Nebulizer Soln -) 1 amp NEB RQID [facility] Last Admin: 04/27/18 16:15 Dose: 1 amp Aspirin (Asa -) 81 mg GT DAILY [facility] Last Admin: 04/27/18 11:19 Dose: 81 mg Atorvastatin Calcium (Lipitor -) 40 mg GT HS [facility] Last Admin: 04/26/18 22:42 Dose: 40 mg Carvedilol (Coreg -) 12.5 mg GT BID [facility] Last Admin: 04/27/18 11:19 Dose: 12.5 mg Doxazosin Mesylate (Cardura -) 2 mg GT HS [facility] Last Admin: 04/26/18 22:42 Dose: 2 mg Enoxaparin Sodium (Lovenox -) 40 mg SQ DAILY [facility] Last Admin: 04/27/18 11:19 Dose: 40 mg Piperacillin Sod/Tazobactam (Sod 4.5 gm/ Dextrose) 100 mls @ 200 mls/hr IVPB Q8H-IV TRUDY; Protocol Last Admin: 04/27/18 18:11 Dose: 200 mls/hr Vancomycin HCl 1,250 mg/ (Dextrose) 250 mls @ 250 mls/2 hr IVPB Q24H [facility]UD[facility]; Protocol Last Admin: 04/27/18 18:11 Dose: 250 mls/2 hr Methylprednisolone Sodium Succinate (Solu-Medrol -) 40 mg IVPUSH Q6H-IV [facility] Last Admin: 04/27/18 16:02 Dose: 40 mg Ramipril (Altace -) 1.25 mg GT DAILY [facility] Last Admin: 04/27/18 11:21 Dose: 1.25 mg Simethicone (Mylicon Liquid -) 40 mg GT TID [facility] Last Admin: 04/27/18 16:02 Dose: 40 mg - Objective Vital Signs: Vital Signs Temperature 97.8 F 04/27/18 18:30 Pulse Rate 70 04/27/18 18:30 Respiratory Rate 14 04/27/18 18:30 Blood Pressure 137/68 04/27/18 18:30 O2 Sat by Pulse Oximetry (%) 98 04/27/18 09:00 General: Well developed. Well nourished. No acute distress. Head: Normocephalic. Atraumatic, Eyes: PERRLA, EOMI. Sclerae anicteric. Conjunctivae clear. Neck: Trach in place.. Heart: Normal S1, S2: Regular rhythm and rate. No murmur. No gallop or rub. Lungs: Symmetrical Coarse BS. No crackle. No wheezing or rhonchi. Abdomen: Soft. Bowel sound positive. Non tender. No masses. Extremities: No edema. No clubbing or cyanosis. Labs: CBC, BMP 04/27/18 06:00 04/27/18 06:00 Assessment/Plan 67 year old man with a PMHx of HTN, CAD unknown details, reported h/o arrhythmia s/p PPM 07/2010, h/o CVA 2017, TIA x2 2006, residual deficits s/p trach 03/2018 sent from [place] for respiratory distress, hypoxia, unable to be suctioned, trach was replaced and hypoxia improved. Pt incidentally noted to have a minimally elevated troponin with a normal ck and elevated BNP. Echo 04/26/2018: Very technically difficult study with limited information. LV grossly normal in size with paradoxical septal motion and low normal LV systolic function. Elevated troponin, normal CK, elevated BNP -in setting of presumed sepsis, respiratory failure, PNA -unlikely ACS, most likely demand ischemia secondary to respiratory distress and presumed sepsis. -does not appear to be in decompensated CHF, euvolemic with preserved LV systolic function from TDS echo on 04/26/2018. -does not require diuresis at this time, can use lasix prn -cont asa, lipitor and coreg -would not pursue an ischemic work up at this time. Please call us for reconsult as needed.
[2018-04-27] MEDS: ATORVASTATIN CA 40 MG TABLET (FP) GT SCH (23:11)
[2018-04-27] MEDS: DOXAZOSIN MESYLATE 2 MG TABLET (FP) GT SCH (23:11)
[2018-04-28] MEDS ORDERED: PIPERACILLIN/TAZOBACTAM 4.5 GM VIAL IVPB ONE ×2 (00:29→17:22)
[2018-04-28] MEDS ORDERED: DEXTROSE 5%-WATER 100 ML IVPB ONE ×2 (00:29→17:22)
[2018-04-28] MEDS: PIPERACILLIN/TAZOB 4.5 GM 4.5 GM in DEXTROSE 5%-WATER 100 ML IVPB SCH ×3 (01:55→17:24)
[2018-04-28] MEDS: methylPREDNISolone NA SUCC 40 MG/1 ML VIAL IVPUSH SCH ×2 (02:02→10:27)
[2018-04-28] MEDS: SIMETHICONE 40 MG/0.6 ML BOTTLE GT SCH ×3 (05:55→21:01)
[2018-04-28] MEDS: ACETYLCYSTEINE 20% 200MG/ML 4 ML VIAL *FOR ORAL / INH USE ONLY NEB SCH ×4 (08:41→21:46)
[2018-04-28] MEDS: ALBUTEROL SO4 0.083% IH SOL 2.5 MG/3 ML VIAL.NEB. NEB SCH ×4 (08:42→21:46)
--- NOTE | 2018-04-28 09:56 | PN ---
Progress Note, Physician Chief Complaint: C/O HEADACHE NO FEVER - Current Medication List Current Medications: Active Medications Acetaminophen (Tylenol Oral Solution -) 650 mg GT Q6H PRN PRN Reason: PAIN LEVEL 1-5 Last Admin: 04/27/18 11:26 Dose: 650 mg Acetylcysteine (Mucomyst 20 Oral / Inh Use Only*) 220 mg NEB RQID TRUDY Last Admin: 04/28/18 08:41 Dose: 220 mg Albuterol Sulfate (Ventolin 0.083% Nebulizer Soln -) 1 amp NEB RQID TRUDY Last Admin: 04/28/18 08:42 Dose: 1 amp Aspirin (Asa -) 81 mg GT DAILY TRUDY Last Admin: 04/27/18 11:19 Dose: 81 mg Atorvastatin Calcium (Lipitor -) 40 mg GT HS TRUDY Last Admin: 04/27/18 23:11 Dose: 40 mg Carvedilol (Coreg -) 12.5 mg GT BID TRUDY Last Admin: 04/27/18 23:08 Dose: 12.5 mg Doxazosin Mesylate (Cardura -) 2 mg GT HS TRUDY Last Admin: 04/27/18 23:11 Dose: 2 mg Enoxaparin Sodium (Lovenox -) 40 mg SQ DAILY TRUDY Last Admin: 04/27/18 11:19 Dose: 40 mg Piperacillin Sod/Tazobactam (Sod 4.5 gm/ Dextrose) 100 mls @ 200 mls/hr IVPB Q8H-IV TRUDY; Protocol Last Admin: 04/28/18 01:55 Dose: 200 mls/hr Vancomycin HCl 1,250 mg/ (Dextrose) 250 mls @ 250 mls/2 hr IVPB Q24H TRUDY; Protocol Last Admin: 04/27/18 18:11 Dose: 250 mls/2 hr Methylprednisolone Sodium Succinate (Solu-Medrol -) 40 mg IVPUSH Q6H-IV TRUDY Last Admin: 04/28/18 02:02 Dose: 40 mg Ramipril (Altace -) 1.25 mg GT DAILY TRUDY Last Admin: 04/27/18 11:21 Dose: 1.25 mg Simethicone (Mylicon Liquid -) 40 mg GT TID TRUDY Last Admin: 04/28/18 05:55 Dose: 40 mg - Objective Vital Signs: Vital Signs Temperature 98.8 F 03/14/19 09:51 Pulse Rate 70 04/28/18 09:51 Respiratory Rate 20 04/28/18 09:51 Blood Pressure 155/83 04/28/18 09:51 O2 Sat by Pulse Oximetry (%) 99 04/28/18 08:39 Constitutional: Yes: Mild Distress HENT: Yes: WNL Neck: Yes: WNL Cardiovascular: Yes: Regular Rate and Rhythm Respiratory: Yes: Mechanically Ventilated Gastrointestinal: Yes: Soft Genitourinary: Yes: Incontinence Edema: No Integumentary: Yes: Pressure Ulcer Neurological: Yes: Pre-Existing Deficit Labs: CBC, BMP 04/27/18 06:00 04/27/18 06:00 Problem List - Problems (1) Acute and chronic respiratory failure ([id number]) Code(s): J96.20 - ACUTE AND CHR RESP FAILURE, UNSP W HYPOXIA OR HYPERCAPNIA (2) Acute respiratory failure with hypoxia Code(s): J96.01 - ACUTE RESPIRATORY FAILURE WITH HYPOXIA (3) COPD exacerbation Code(s): J44.1 - CHRONIC OBSTRUCTIVE PULMONARY DISEASE W (ACUTE) EXACERBATION (4) CVA, old, hemiparesis Code(s): I69.359 - HEMIPLGA FOLLOWING CEREBRAL INFARCTION AFFECTING UNSP SIDE (5) Pneumonia Code(s): J18.9 - PNEUMONIA, UNSPECIFIED ORGANISM (6) Tracheostomy malfunction Code(s): J95.03 - MALFUNCTION OF TRACHEOSTOMY STOMA Assessment/Plan IV ABX PER ID ID F/U NEEDS PICC LINE? ILADSCHIDI TUTTLE SN[facility] TORADOL PRN 02 SUPPORT DVT PROPHYLAXIS [facility] PAGE AWAIT CX PULM CLEARANCE
[2018-04-28] MEDS ORDERED: PT OWN MED DRAWER 7, Y5N ONE ×3 (10:22→20:00)
[2018-04-28] MEDS: CARVEDILOL 12.5 MG TABLET (FP) GT SCH ×2 (10:27→21:01)
[2018-04-28] MEDS: ASPIRIN 81 MG CHEWABLE TABLETS GT SCH (10:27)
[2018-04-28] MEDS: ENOXAPARIN NA (PORCINE) 40 MG/0.4 ML DISP.SYRIN SQ SCH (10:28)
[2018-04-28] MEDS: RAMIPRIL 1.25 MG CAPSULE GT SCH (10:28)
[2018-04-28] MEDS: MULTIVIT-MINERALS ORAL LIQUID GT SCH (10:29)
[2018-04-28] MEDS: KETOROLAC TROMETHAMINE 15 MG/ML VIAL IVPUSH PRN ×2 (10:29→17:22)
--- NOTE | 2018-04-28 10:43 | PN ---
Progress Note (short form) - Note Progress Note: PULMONARY Vented on volume assist control. Feels congested. No fevers recorded. Vital Signs Period Temp Pulse Resp BP Sys/Richards Pulse Ox Last 24 Hr 97.5 F-99.1 F 70-70 12-22 132-155/68-83 99-99 Gen: vented, awake Heart: RRR Lung: scattered rhonchi Abd: soft, nontender Ext: no edema CBC, BMP 04/27/18 06:00 04/27/18 06:00 Active Medications Acetaminophen (Tylenol Oral Solution -) 650 mg GT Q6H PRN PRN Reason: PAIN LEVEL 1-5 Last Admin: 04/27/18 11:26 Dose: 650 mg Acetylcysteine (Mucomyst 20 Oral / Inh Use Only*) 220 mg NEB RQID TRUDY Last Admin: 04/28/18 08:41 Dose: 220 mg Albuterol Sulfate (Ventolin 0.083% Nebulizer Soln -) 1 amp NEB RQID TRUDY Last Admin: 04/28/18 08:42 Dose: 1 amp Aspirin (Asa -) 81 mg GT DAILY TRUDY Last Admin: 04/28/18 10:27 Dose: 81 mg Atorvastatin Calcium (Lipitor -) 40 mg GT HS TRUDY Last Admin: 04/27/18 23:11 Dose: 40 mg Carvedilol (Coreg -) 12.5 mg GT BID TRUDY Last Admin: 04/28/18 10:27 Dose: 12.5 mg Doxazosin Mesylate (Cardura -) 2 mg GT HS TRUDY Last Admin: 04/27/18 23:11 Dose: 2 mg Enoxaparin Sodium (Lovenox -) 40 mg SQ DAILY TRUDY Last Admin: 04/28/18 10:28 Dose: 40 mg Piperacillin Sod/Tazobactam (Sod 4.5 gm/ Dextrose) 100 mls @ 200 mls/hr IVPB Q8H-IV TRUDY; Protocol Last Admin: 04/28/18 10:35 Dose: 200 mls/hr Vancomycin HCl 1,250 mg/ (Dextrose) 250 mls @ 250 mls/2 hr IVPB Q24H TRUDY; Protocol Last Admin: 04/27/18 18:11 Dose: 250 mls/2 hr Ketorolac Tromethamine (Toradol Injection -) 15 mg IVPUSH Q6H PRN PRN Reason: PAIN LEVEL 6-10 Stop: 05/03/18 09:54 Last Admin: 04/28/18 10:29 Dose: 15 mg Methylprednisolone Sodium Succinate (Solu-Medrol -) 40 mg IVPUSH Q6H-IV [facility] Last Admin: 04/28/18 10:27 Dose: 40 mg Ramipril (Altace -) 1.25 mg GT DAILY [facility] Last Admin: 04/28/18 10:28 Dose: 1.25 mg Simethicone (Mylicon Liquid -) 40 mg GT TID [facility] Last Admin: 04/28/18 05:55 Dose: 40 mg A/P Acute on Chronic Hypoxic Respiratory Failure Dislodged Tracheostomy replaced Pneumonia Severe Sepsis +Troponins likely Demand Ischemia Acute COPD Exacerbation CAD h/o CVA s/p PPM - continue antibiotics - f/u cultures - O2 to keep SpO2 >90% - inhaled bronchodilators - can d/c medrol - spontaneous breathing trials as tolerated - PMV eval - enteral feeds - DVT/GI prophylaxis Problem List - Problems (1) Acute respiratory failure with hypoxia Code(s): J96.01 - ACUTE RESPIRATORY FAILURE WITH HYPOXIA (2) Pneumonia Code(s): J18.9 - PNEUMONIA, UNSPECIFIED ORGANISM (3) COPD exacerbation Code(s): J44.1 - CHRONIC OBSTRUCTIVE PULMONARY DISEASE W (ACUTE) EXACERBATION
--- NOTE | 2018-04-28 11:30 | CONSULT ---
Admitting History and Physical - Admission History of Present Illness: Per EMR; 67M w/ pmhx of CVA (02/25/17) w/ R residual deficits s/p trach placement (04/05), TIA x2 (both in 01/2007), HTN, CAD, ? arrhythmia s/p PPM (07/26) was found to be hypoxic in ~70-80s at [facility] and in acute respiratory distress. Per ED documentation, pt was unable to be suctioned, bagged via trach which improved his O2 sat to 100% and given Duonebs. He was assessed by ICU WALL MAN after which trach tube was noticed to be protruding from stoma and as a result, trach tube was replaced. At baseline, pt is bed bound has R sided neurological deficits, but is alert and oriented and speaks with slurred speech according to family. He is able to move his L u/l extremities and respond to commands. trached one month ago at [facility], GT plced at that time has been NPO since PMV trials performed at [facility]. History Source: Patient, Medical Record Limitations to Obtaining History: Clinical Condition - Past Medical History Cardiovascular: Yes: CAD, HTN Pulmonary: Yes: COPD - Smoking History Smoking history: Unknown if ever smoked Have you smoked in the past 12 months: No - Alcohol/Substance Use Hx Alcohol Use: No - Social History ADL: Support Services History of Recent Travel: No History - Admission Reason For Visit: ACUTE RESPIRATORY FAILURE WITH HYPOXIA ACUTE - Diagnostics X-ray: Report Reviewed CT Scan: Report Reviewed - General Mental Status: Alert and Oriented, Awake and Alert, Able to Follow Commands, Vague Attention: Distractible Ability to Follow Directions: Fair Head/Neck Control: Fair - Hearing Hearing: Normal With Patient: No Speech Evaluation - Communication Primary Language: LAO Communication: Yes: Non-Communicable (on vent. Mouthing words but difficult to read his lips) - Speech Characteristics Articulation: Yes: Imprecise - Swallow Evaluation/Bedside Assessment Current Nutritional Intake: NPO Facial Symmetry at Rest: Facial Droop Right Facial Symmetry on Retraction: Facial Droop Right Lingual Movement: Symmetric Lingual Speed of Movement: Reduced Lingual Movement Strgth Against Opposition: Reduced Lingual Movement Characteristics: Normal Laryngeal Movement: Reduced Excursion, Labored,delay initiation, Reduced Velocity Timing of Swallow: Delayed Recommendations - Speech Evaluation, Impression/Plan Impression: Slow to respond. Distractible. Vent. For PMV Recommendations: Passy [place] Valve
--- NOTE | 2018-04-28 14:01 | CONSULT ---
[place] Valve Eval - Assessment Prior to PMV Placement Patient and/or family educated re PMV: Yes Mental Status: Awake, Alert, Attempting to Communicate Pulse Rate: 70 O2 Sat by Pulse Oximetry (%): 100 Secretions: Small Amount Patient on Ventilator: Yes Patient on Trach Collar: No Suctioned: Yes Trach Type: Portex Trach Size: 8.0 Cuff Status: Inflated [place] Valve in Place - Speech Characteristics Able to Phonate with PMV in place: Yes Voice Loudness: Moderately Soft/Quiet, Excessive Variation Voice Pitch: Normal Voice Phonatory-based Quality: Dysphonia (intermittent sec reduced respiratory/ phonatory coordination vs size 8 trach too large for efficient PMV use) Speech Pattern: Impaired Speech Clarity: < 50% Nasal Resonance: Normal Articulation: Imprecise (mild) Rate of Speech: Too Fast - Assessment with PMV in Place Pulse Rate: 70 O2 Sat by Pulse Oximetry (%): 100 Change in Mental Status with PMV in Place: Yes (intermittently distractible. Flushed.) Length of time with PMV in place: 10 - Recommendations Recommendations: PMV as tolerated, Monitor Pulse Ox PMV on, Supervision while PMV on, Other (May benefit from downsizing trach size if Pulmonary/ENT agree Overtly tolerated trials of puree. Suggest MBS to r/o aspiration)
[2018-04-28 15:45] LABS: HEMATOCRIT 35.4 % (35.4-49); MCH 30.1 pg (25.7-33.7); MCHC 33.8 g/dl (32.0-35.9); MEAN CELL VOLUME 88.9 fl (80-96); MEAN PLT VOLUME 8.7 fl (7.5-11.1); PLATELET COUNT 497 K/MM3 (134-434); RBC 3.98 M/mm3 (4.00-5.60); RDW 15.1 % (11.9-15.9); WHITE BLOOD COUNT 13.4 K/mm3 (4.0-10.0)
[2018-04-28] MEDS: ACETAMINOPHEN 650 MG/20.3 ML ORAL SOLUTION (CUPS) GT PRN (15:49)
[2018-04-28 16:18] LABS: ANION GAP 8 MMOL/L (8-16); BLOOD UREA NITROGEN 35 mg/dL (7-18); CALCIUM 8.6 mg/dL (8.5-10.1); CHLORIDE 98 mmol/L (98-107); CO2 29 mmol/L (21-32); CREATININE 0.8 mg/dL (0.55-1.3); GLUCOSE,RANDOM 235 mg/dL (74-106); MAGNESIUM 2.6 mg/dL (1.8-2.4); POTASSIUM 4.1 mmol/L (3.5-5.1); SODIUM 135 mmol/L (136-145)
[2018-04-28] MEDS: VANCOMYCIN HCL 1,250 MG in DEXTROSE 5%-WATER - 250 ML IVPB SCH (18:05)
[2018-04-28] MEDS: DOXAZOSIN MESYLATE 2 MG TABLET (FP) GT SCH (21:01)
[2018-04-28] MEDS: ATORVASTATIN CA 40 MG TABLET (FP) GT SCH (21:01)
[2018-04-29] MEDS ORDERED: PIPERACILLIN/TAZOBACTAM 4.5 GM VIAL IVPB ONE ×3 (00:29→16:49)
[2018-04-29] MEDS ORDERED: DEXTROSE 5%-WATER 100 ML IVPB ONE ×3 (00:30→16:49)
[2018-04-29] MEDS: KETOROLAC TROMETHAMINE 15 MG/ML VIAL IVPUSH PRN ×3 (00:33→13:24)
[2018-04-29] MEDS: PIPERACILLIN/TAZOB 4.5 GM 4.5 GM in DEXTROSE 5%-WATER 100 ML IVPB SCH ×3 (01:48→17:03)
[2018-04-29] MEDS: ACETAMINOPHEN 650 MG/20.3 ML ORAL SOLUTION (CUPS) GT PRN (01:49)
[2018-04-29] MEDS: SIMETHICONE 40 MG/0.6 ML BOTTLE GT SCH ×4 (06:30→21:30)
[2018-04-29 07:38] LABS: BASO % 0.1 % (0-2.0); HEMATOCRIT 34.9 % (35.4-49); HEMOGLOBIN 11.8 GM/dL (11.7-16.9); LYMPH % 9.6 % (8-40); MCH 29.8 pg (25.7-33.7); MCHC 33.9 g/dl (32.0-35.9); MEAN CELL VOLUME 87.9 fl (80-96); MEAN PLT VOLUME 8.5 fl (7.5-11.1); MONO % 7.9 % (3.8-10.2); NEUT % 82.4 % (42.8-82.8); PLATELET COUNT 467 K/MM3 (134-434); RBC 3.97 M/mm3 (4.00-5.60); RDW 14.8 % (11.9-15.9); WHITE BLOOD COUNT 13.4 K/mm3 (4.0-10.0)
[2018-04-29] MEDS: ALBUTEROL SO4 0.083% IH SOL 2.5 MG/3 ML VIAL.NEB. NEB SCH ×4 (07:59→20:50)
[2018-04-29] MEDS: ACETYLCYSTEINE 20% 200MG/ML 4 ML VIAL *FOR ORAL / INH USE ONLY NEB SCH ×4 (07:59→20:50)
[2018-04-29] MEDS ORDERED: PT OWN MED DRAWER 7, Y5N ONE (08:50)
[2018-04-29] MEDS: CARVEDILOL 12.5 MG TABLET (FP) GT SCH ×2 (10:33→21:30)
[2018-04-29] MEDS: ASPIRIN 81 MG CHEWABLE TABLETS GT SCH (10:33)
[2018-04-29] MEDS: RAMIPRIL 1.25 MG CAPSULE GT SCH (10:33)
[2018-04-29] MEDS: MULTIVIT-MINERALS ORAL LIQUID GT SCH (10:34)
[2018-04-29] MEDS: ENOXAPARIN NA (PORCINE) 40 MG/0.4 ML DISP.SYRIN SQ SCH (10:35)
--- NOTE | 2018-04-29 11:23 | PN ---
Progress Note (short form) - Note Progress Note: awake and alert c/o daily headaches, worse today Vital Signs Period Temp Pulse Resp BP Sys/Richards Pulse Ox Last 24 Hr 98.2 F-100.3 F 70-70 14-23 140-150/58-89 98-100 cor-rrr lungs decreased bs at bases abd soft,+GT ext no edema CBC, BMP 04/29/18 07:00 04/28/18 15:20 Microbiology 04/24/18 17:50 Blood - Peripheral Venous Blood Culture - Preliminary NO GROWTH OBTAINED AFTER 96 HOURS, INCUBATION TO CONTINUE FOR 1 DAYS. 04/24/18 16:43 Blood - Peripheral Venous Blood Culture - Preliminary NO GROWTH OBTAINED AFTER 96 HOURS, INCUBATION TO CONTINUE FOR 1 DAYS. 04/25/18 18:34 Sputum - Endotrachea Suction/Ventilator Gram Stain - Final 04/25/18 18:34 Sputum - Endotrachea Suction/Ventilator Sputum Culture - Preliminary Citrobacter Koseri Lactose Fermenting Neg Bacilli Pending Organism (no staph) 04/26/18 18:00 Urine For Antigen Detection Legionella Antigen - Final 04/26/18 18:00 Urine For Antigen Detection Streptococcus pneumoniae Antigen (M - Final Current Medications Acetaminophen (Tylenol Oral Solution -) 650 mg GT Q6H PRN PRN Reason: PAIN LEVEL 1-5 Last Admin: 04/29/18 01:49 Dose: 650 mg Acetylcysteine (Mucomyst 20 Oral / Inh Use Only*) 220 mg NEB RQID TRUDY Last Admin: 04/29/18 07:59 Dose: 220 mg Albuterol Sulfate (Ventolin 0.083% Nebulizer Soln -) 1 amp NEB RQID TRUDY Last Admin: 04/29/18 07:59 Dose: 1 amp Aspirin (Asa -) 81 mg GT DAILY [facility] Last Admin: 04/29/18 10:33 Dose: 81 mg Atorvastatin Calcium (Lipitor -) 40 mg GT HS TRUDY Last Admin: 04/28/18 21:01 Dose: 40 mg Carvedilol (Coreg -) 12.5 mg GT BID [facility] Last Admin: 04/29/18 10:33 Dose: 12.5 mg Doxazosin Mesylate (Cardura -) 2 mg GT HS TRUDY Last Admin: 04/28/18 21:01 Dose: 2 mg Enoxaparin Sodium (Lovenox -) 40 mg SQ DAILY [facility] Last Admin: 04/29/18 10:35 Dose: 40 mg Piperacillin Sod/Tazobactam (Sod 4.5 gm/ Dextrose) 100 mls @ 200 mls/hr IVPB Q8H-IV TRUDY; Protocol Last Admin: 04/29/18 10:32 Dose: 200 mls/hr Ketorolac Tromethamine (Toradol Injection -) 15 mg IVPUSH Q6H PRN PRN Reason: PAIN LEVEL 6-10 Stop: 05/03/18 09:54 Last Admin: 04/29/18 06:49 Dose: 15 mg Ramipril (Altace -) 1.25 mg GT DAILY [facility] Last Admin: 04/29/18 10:33 Dose: 1.25 mg Simethicone (Mylicon Liquid -) 40 mg GT TID [facility] Last Admin: 04/29/18 06:49 Dose: 40 mg imp/reccd acute hypoxia /chronic respiratory failure pneumonia- fever/leukocytosis -improved, will d/c vancomycin, continue zosyn for now, repeat cxray trach malfunction positive troponins s/p CVA headaches- not improving with pain meds will get head ct he is awake and alert Problem List - Problems (1) Acute and chronic respiratory failure (exrcq-wg-pheenup) Code(s): J96.20 - ACUTE AND CHR RESP FAILURE, UNSP W HYPOXIA OR HYPERCAPNIA (2) Pneumonia Code(s): J18.9 - PNEUMONIA, UNSPECIFIED ORGANISM (3) Tracheostomy malfunction Code(s): J95.03 - MALFUNCTION OF TRACHEOSTOMY STOMA (4) Elevated troponin Code(s): R74.8 - ABNORMAL LEVELS OF OTHER SERUM ENZYMES (5) CVA, old, hemiparesis Code(s): I69.359 - HEMIPLGA FOLLOWING CEREBRAL INFARCTION AFFECTING UNSP SIDE
--- NOTE | 2018-04-29 15:21 | PN ---
Progress Note, Physician Chief Complaint: Hypoxia Pneumonia History of Present Illness: Previous notes and events reviewed awake and alert NAD mechanically ventilated patient complained of headache which is worse today, Head CT scan done STAT and show findings suspicious with acute/subacute infarct, no prior available for comparison on examination patient noted with R sided facial droop, code tesfaye called - Current Medication List Current Medications: Active Medications Acetaminophen (Tylenol Oral Solution -) 650 mg GT Q6H PRN PRN Reason: PAIN LEVEL 1-5 Last Admin: 04/29/18 01:49 Dose: 650 mg Acetylcysteine (Mucomyst 20 Oral / Inh Use Only*) 220 mg NEB RQID TRUDY Last Admin: 04/29/18 12:13 Dose: 220 mg Albuterol Sulfate (Ventolin 0.083% Nebulizer Soln -) 1 amp NEB RQID TRUDY Last Admin: 04/29/18 12:14 Dose: 1 amp Aspirin (Asa -) 81 mg GT DAILY [facility] Last Admin: 04/29/18 10:33 Dose: 81 mg Atorvastatin Calcium (Lipitor -) 40 mg GT HS TRUDY Last Admin: 04/28/18 21:01 Dose: 40 mg Carvedilol (Coreg -) 12.5 mg GT BID TRUD[facility] Last Admin: 04/29/18 10:33 Dose: 12.5 mg Doxazosin Mesylate (Cardura -) 2 mg GT HS TRUDY Last Admin: 04/28/18 21:01 Dose: 2 mg Enoxaparin Sodium (Lovenox -) 40 mg SQ DAILY [facility] Last Admin: 04/29/18 10:35 Dose: 40 mg Piperacillin Sod/Tazobactam (Sod 4.5 gm/ Dextrose) 100 mls @ 200 mls/hr IVPB Q8H-IV TRUDY; Protocol Last Admin: 04/29/18 10:32 Dose: 200 mls/hr Ketorolac Tromethamine (Toradol Injection -) 15 mg IVPUSH Q6H PRN PRN Reason: PAIN LEVEL 6-10 Stop: 05/03/18 09:54 Last Admin: 04/29/18 13:24 Dose: 15 mg Ramipril (Altace -) 1.25 mg GT DAILY [facility] Last Admin: 04/29/18 10:33 Dose: 1.25 mg Simethicone (Mylicon Liquid -) 40 mg GT TID [facility]UD[facility] Last Admin: 04/29/18 13:26 Dose: 40 mg - Objective Vital Signs: Vital Signs Temperature 99 F 04/29/18 14:12 Pulse Rate 71 04/29/18 14:12 Respiratory Rate 18 04/29/18 14:12 Blood Pressure 148/75 04/29/18 14:12 O2 Sat by Pulse Oximetry (%) 99 04/29/18 11:06 Constitutional: Yes: Mild Distress Eyes: Yes: Conjunctiva Clear HENT: Yes: Atraumatic, Other ( sided facial droop noted, asymmetrical smile) Neck: Yes: Other (trach) Cardiovascular: Yes: Bradycardia Respiratory: Yes: Diminished, Mechanically Ventilated Gastrointestinal: Yes: Normal Bowel Sounds, Soft, Other (non tender) Musculoskeletal: Yes: Muscle Weakness (RUE and RLE) Edema: No Neurological: Yes: Alert, Babinski positive (R foot), Facial Droop Psychiatric: Yes: Alert Labs: CBC, BMP 04/29/18 07:00 04/28/18 15:20 - ....Imaging Cat Scan: Report Reviewed Problem List - Problems (1) Acute and chronic respiratory failure (dyyak-em-ozchbpm) Assessment/Plan: -pulm on board -mechanically ventilated -albuterol tx via neb PRN for SOB -keep SpO2 >90% Code(s): J96.20 - ACUTE AND CHR RESP FAILURE, UNSP W HYPOXIA OR HYPERCAPNIA (2) COPD exacerbation Assessment/Plan: -pulm on board -albuterol tx via neb PRN for SOB -keep SpO2 >90% -BNP 3927.6 Code(s): J44.1 - CHRONIC OBSTRUCTIVE PULMONARY DISEASE W (ACUTE) EXACERBATION (3) CVA, old, hemiparesis Assessment/Plan: -fall precaution -PT Code(s): I69.359 - HEMIPLGA FOLLOWING CEREBRAL INFARCTION AFFECTING UNSP SIDE (4) Pneumonia Assessment/Plan: -pulm and ID on board -continue IV vanco and zosyn -wbc 13.4 -Chest CT show bibasilar atelectasis/consolidation, left greater than right with trace pleural fluid Code(s): J18.9 - PNEUMONIA, UNSPECIFIED ORGANISM (5) Elevated troponin Assessment/Plan: -trop trendin down, current 0.12 -cardiology on board Code(s): R74.8 - ABNORMAL LEVELS OF OTHER SERUM ENZYMES (6) Abnormal CT scan, head Assessment/Plan: -CT scan show findings suspicious of an acute/subacute infarct, no prior available for comparison -code tesfaye called -carotid US ordered -lipid panel stat -neurology consult -continue with aspirin and atorvastatin -fall precaution -neuro checks q4h -transfer to ICU Code(s): R93.0 - ABNORMAL FINDINGS ON DX IMAGING OF SKULL AND HEAD, NEC
--- NOTE | 2018-04-29 15:38 | PN ---
Progress Note (short form) - Note Progress Note: Attempted to call patient REDDY Rojas at [phone] 3 times in regards to husbands status. Message left for her to call back 5S unit. Problem List - Problems (1) Acute and chronic respiratory failure (gtgpy-ih-xfhnomn) Code(s): J96.20 - ACUTE AND CHR RESP FAILURE, UNSP W HYPOXIA OR HYPERCAPNIA (2) COPD exacerbation Code(s): J44.1 - CHRONIC OBSTRUCTIVE PULMONARY DISEASE W (ACUTE) EXACERBATION (3) CVA, old, hemiparesis Code(s): I69.359 - HEMIPLGA FOLLOWING CEREBRAL INFARCTION AFFECTING UNSP SIDE (4) Pneumonia Code(s): J18.9 - PNEUMONIA, UNSPECIFIED ORGANISM (5) Elevated troponin Code(s): R74.8 - ABNORMAL LEVELS OF OTHER SERUM ENZYMES (6) Abnormal CT scan, head Code(s): R93.0 - ABNORMAL FINDINGS ON DX IMAGING OF SKULL AND HEAD, NEC
--- NOTE | 2018-04-29 15:43 | CONSULT ---
Consult Consult Specialty:: Intesive Care Reason for Consultation:: Headache - History of Present Illness Chief Complaint: Headache History of Present Illness: 67 year old male with PMH trach, CVA with right sided residual defects, HTN, CAD , pacer presented to ED 04/24/18 from [facility] for acute shortness of breath and hypoxia. Pt was satting in the 70s, was bagged by EMS with improvement of saturation to 95%. Trach was seen to be protruding from stoma, was changed by ICU BOAT RENTAL CLERK to a 8.0 portex with improvement of PIP from 60+ to 27 immediately. Pt was found to have bibasilar consolidations, suspected HCAP with positive troponins, thought to be secondary to demand of sepsis. Pt was placed on Zosyn, Vancomycin. On 04/29/18 pt developed severe headache, tiarra tesfaye was called, and had stat head CT. RN reported pt is at his baseline neurologically except for a headache. Head CT 04/29/18 performed at 1117 report: Large area of low-attenuation density involving the left putamen, external and extreme capsule region extending to the left periventricular white matter with sparing of the left insular cortex. Findings are suspicious an acute/subacute infarct. no prior available for comparison. correlation with MRI of brain is needed. suggestion of chronic lacunar infarct in the left anterior paramedian aspect of the jasmeet. no gross mass lesion or acute intracranial hemorrhage are identified. Head CT 04/29/18 performed at 1532 report: no change from prior. Pt was seen and examined, complained of headache. 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 Cardio/Vascular: Yes: CAD, HTN, Other (Pacemaker) Pulmonary: Yes: COPD - Alcohol/Substance Use Hx Alcohol Use: No - Smoking History Smoking history: Unknown if ever smoked Have you smoked in the past 12 months: No - Social History Usual Living Arrangement: Retirement ADL: Support Services History of Recent Travel: No Home Medications - Allergies Allergies/Adverse Reactions: Allergies Allergy/AdvReac Type Severity Reaction Status Date / Time No Known Allergies Allergy Verified 04/24/18 16:46 - Home Medications Home Medications: Ambulatory Orders Acetylcysteine 220 mg NEB QID 04/24/18 Albuterol 0.083% Nebulizer Asmita [Ventolin 0.083%] 1 neb NEB QID 04/24/18 Aspirin 81 mg GT DAILY 04/24/18 Atorvastatin Ca [Lipitor] 40 mg GT HS 04/24/18 Carvedilol 12.5 mg GT BID 04/24/18 Doxazosin Mesylate [Cardura -] 2 mg GT HS 04/24/18 Enoxaparin [Lovenox -] 1.2 ml GT Q8H 04/24/18 Multivitamins [Tab-A-Vit -] 1 tab GT DAILY 04/24/18 Ramipril 1.25 mg GT DAILY 04/24/18 Simethicone 40 mg GT TID 04/24/18 Review of Systems - Review of Systems Constitutional: denies: Chills, Fever, Weakness Eyes: denies: Blurred Vision, Recent Change in Vision HENT: denies: Epistaxis, Throat Pain Neck: denies: Decreased ROM, Pain on Movement Cardiovascular: denies: Chest Pain, Palpitations, Shortness of Breath Respiratory: denies: Cough, SOB Gastrointestinal: denies: Abdominal Pain, Diarrhea, Nausea, Vomiting Genitourinary: denies: Burning, Discharge, Dysuria Musculoskeletal: denies: Muscle Pain Neurological: reports: Headache, Pre-Existing Deficit. denies: Change in Speech , Dizziness, Parasthesia, Seizure, Weakness Psychiatric: denies: Anxiety, Depression Physical Exam Vital Signs: Vital Signs Temperature 99 F 04/29/18 14:12 Pulse Rate 71 04/29/18 14:12 Respiratory Rate 18 04/29/18 14:12 Blood Pressure 148/75 04/29/18 14:12 O2 Sat by Pulse Oximetry (%) 99 04/29/18 11:06 Constitutional: Yes: Other (Awake, alert and in no distress.) Eyes: Yes: EOM Intact, PERRL HENT: No: Pharyngeal Erythema Neck: No: Decreased ROM, Tenderness Cardiovascular: Yes: Other (Normal S1 and S2.). No: Murmur Respiratory: Yes: WNL. No: Rales, Rhonchi, Stridor, Wheezes Gastrointestinal: Yes: WNL, Normal Bowel Sounds, Soft. No: Tenderness ...Rectal Exam: Yes: Deferred Musculoskeletal: Yes: WNL Extremities: Yes: WNL Peripheral Pulses WNL: Yes Neurological: Yes: Alert, Oriented, Other (CN2-12 intact on left. CN 11 not intact on right. Lip drooping on right. 0/5 stregth RUE, RLE. 5/5 strength LLE and LUE.) Psychiatric: Yes: Alert, Oriented Labs: CBC, BMP 04/29/18 07:00 04/28/18 15:20 Assessment/Plan ASSESSMENT AND PLAN: NEURO: -CT revealed large subacute/acute to the left putamen area -Pt remained neurologically at baseline with 0/5 on the right and 5/5 on the left, confirmed by his nurse and family at bedside. When asking patient if headache has improved, patient nodded yes. Patient has had prior CVA's and a recent hemorrhagic stroke. He is currently on ASA and Lipitor. Patient may still be monitored on the floors with frequent neuro checks and BP checks. Patient may maintain BP around 150 SBP in the next 24 hours. Documented vitals reveal SBP between 120s-150's Spoke to the medicine team, Jerri. Recommend contacting neurology team Continue ASA and Lipitor Continue frequent checks, fall precaution, aspiration precaution, HOB Patient continues to be at baseline. If symptoms worsen such as Altered mental status, vision changes, worsening weakness, or new focal deficits, will re- evaluate for transfer to the ICU. Discussed case with senior resident, Dr. Singh who also discussed case with Attending, Dr. Vasquez.
[2018-04-29 16:44] LABS: ARTERIAL BLD GAS O2 SATURATION 99.7 % (95-98); ARTERIAL BLOOD GAS BASE EXCESS 7.2 meq/l (-2-2); ARTERIAL BLOOD GAS PCO2 37.6 mmHg (35-45); ARTERIAL BLOOD GAS PO2 153 mmHg (80-105); ARTERIAL BLOOD GAS pH 7.52 (7.35-7.45)
[2018-04-29 16:46] LABS: ALLENS TEST POSITIVE
[2018-04-29 17:27] LABS: CHOLESTEROL 130 mg/dL (50-200); HDL CHOLESTEROL 32 mg/dL (40-60); TRIGLYCERIDES 159 mg/dL (0-150)
--- NOTE | 2018-04-29 19:56 | CONSULT ---
Consult - text type - Consultation Consultation Note: NEUROLOGY CONSULTATION is greatly appreciated: Events reviewed and discussed with Dr. Winchester, Jerri Longoria, FRAUD ANALYST, MICHELLE Moser and Patients family at the bedside. This 67 yo RH man with HTN, COPD, ASHD is s/p Left CVA in February with residual , severe Right hemiparesis. His described his presentation at [facility] and transfer to [facility] due to "hemorrhage." S/P trache in Mar due to respiratory arrest +/- anoxia. [place] but now admitted with dislodged trache, hypoxemia and bronchial plugging due to secretions. Found to have Klebsiella sp. pneumonia. WBC= 24K Now on Zosyn. According to history of others, Pt notes exacerbation of chronic headaches but denies significant prior h/o headaches. She and her son note about 1 week of persistent headaches. CRP (04/22/18)= 84 mg% CT of head x 2 (reviewed): Old left Basal ganglia/internal capsule CVA, Mild generalized atrophy, No edema or mass effect LORETA: No bruits. Neck supple. Neg. Kernigs. Cor reg. No TA palp tenderness. NEURO: MS/Speech: Awake, alert. In NAD. Follows all commands. No speech secondary to trache CN II-XII: No blink to threat from the right. Right exotropia and Ptosis. Mild right facial Motor: Right hemiplegia. Brisk reflexes. R Babinski. Left side moves well Coord: No Left FTN dystaxia Sensory: Decreased sensation right body. IMP: 1. s/p Left CVA with right hemiplegia. No evidence of new CVA or increased ICP. 2. Toxic-metabolic encephalopathy due to Klebsiella Pneumonia/ hypoxemia. 3. Consider Temporal Arteritis (helga with milagros high CRP as out pt)> SUGGEST: Repeat ESR, CRP If elevated would consider left temporal artery Biopsy and trial of Prednisone (60 PO qd x4d, 40 mg PO qd x 4 days then 20 mg qd) Continue antibiotics and hydration Ophthalmol;ogy consultation Tylenol 1 gm q 6 hrs PRN. Thank you very much, Kyle Rahman MD
[2018-04-29] MEDS: DOXAZOSIN MESYLATE 2 MG TABLET (FP) GT SCH (21:30)
[2018-04-29] MEDS: ATORVASTATIN CA 40 MG TABLET (FP) GT SCH (21:30)
[2018-04-30] MEDS ORDERED: DEXTROSE 5%-WATER 100 ML IVPB ONE ×3 (00:58→13:56)
[2018-04-30] MEDS ORDERED: PIPERACILLIN/TAZOBACTAM 4.5 GM VIAL IVPB ONE ×2 (00:58→10:27)
[2018-04-30] MEDS: PIPERACILLIN/TAZOB 4.5 GM 4.5 GM in DEXTROSE 5%-WATER 100 ML IVPB SCH ×2 (01:10→10:28)
[2018-04-30] MEDS: ACETAMINOPHEN 650 MG/20.3 ML ORAL SOLUTION (CUPS) GT PRN ×3 (05:28→21:39)
[2018-04-30] MEDS: SIMETHICONE 40 MG/0.6 ML BOTTLE GT SCH ×3 (05:28→21:39)
[2018-04-30] MEDS: ALBUTEROL SO4 0.083% IH SOL 2.5 MG/3 ML VIAL.NEB. NEB SCH ×4 (08:16→20:54)
[2018-04-30] MEDS: ACETYLCYSTEINE 20% 200MG/ML 4 ML VIAL *FOR ORAL / INH USE ONLY NEB SCH ×4 (08:16→20:53)
[2018-04-30 08:41] LABS: HEMATOCRIT 35.4 % (35.4-49); HEMOGLOBIN 12.1 GM/dL (11.7-16.9); MCHC 34.2 g/dl (32.0-35.9); MEAN CELL VOLUME 87.6 fl (80-96); MEAN PLT VOLUME 8.4 fl (7.5-11.1); PLATELET COUNT 492 K/MM3 (134-434); RBC 4.04 M/mm3 (4.00-5.60); RDW 15.1 % (11.9-15.9); WHITE BLOOD COUNT 15.9 K/mm3 (4.0-10.0)
[2018-04-30] MEDS: KETOROLAC TROMETHAMINE 15 MG/ML VIAL IVPUSH PRN ×2 (08:41→18:32)
[2018-04-30 10:06] LABS: ALBUMIN 2.4 g/dl (3.4-5.0); ALK PHOS 150 U/L (45-117); ANION GAP 7 MMOL/L (8-16); BILIRUBIN,TOTAL 0.4 mg/dL (0.2-1); BLOOD UREA NITROGEN 32 mg/dL (7-18); CALCIUM 8.3 mg/dL (8.5-10.1); CHLORIDE 98 mmol/L (98-107); CO2 30 mmol/L (21-32); CREATININE 0.6 mg/dL (0.55-1.3); GLUCOSE,RANDOM 164 mg/dL (74-106); POTASSIUM 4.4 mmol/L (3.5-5.1); SGOT/AST 29 U/L (15-37); SGPT/ALT 69 U/L (13-61); SODIUM 135 mmol/L (136-145); TOT PROT 6.4 g/dl (6.4-8.2)
[2018-04-30] MEDS: CARVEDILOL 12.5 MG TABLET (FP) GT SCH ×2 (10:28→21:39)
[2018-04-30] MEDS: ASPIRIN 81 MG CHEWABLE TABLETS GT SCH (10:28)
[2018-04-30] MEDS: RAMIPRIL 1.25 MG CAPSULE GT SCH (10:29)
[2018-04-30] MEDS ORDERED: PT OWN MED DRAWER 7, Y5N ONE ×2 (10:29→21:38)
[2018-04-30] MEDS: MULTIVIT-MINERALS ORAL LIQUID GT SCH (10:30)
--- NOTE | 2018-04-30 12:16 | PN ---
Progress Note (short form) - Note Progress Note: awake and alert still with headache Vital Signs Period Temp Pulse Resp BP Sys/Richards Pulse Ox Last 24 Hr 98.2 F-99 F 70-75 14-30 124-148/68-86 98-100 cor-rrr lungs decreased bs at bases abd soft,nt ext no edema trach to vent CBC, BMP 04/30/18 07:00 04/30/18 07:00 Microbiology 04/25/18 18:34 Sputum - Endotrachea Suction/Ventilator Gram Stain - Final 04/25/18 18:34 Sputum - Endotrachea Suction/Ventilator Sputum Culture - Preliminary Citrobacter Koseri Klebsiella Pneumoniae Streptococcus Pyogenes Grp A 04/24/18 17:50 Blood - Peripheral Venous Blood Culture - Final NO GROWTH AFTER 5 DAYS INCUBATION 04/24/18 16:43 Blood - Peripheral Venous Blood Culture - Final NO GROWTH AFTER 5 DAYS INCUBATION 04/26/18 18:00 Urine For Antigen Detection Legionella Antigen - Final 04/26/18 18:00 Urine For Antigen Detection Streptococcus pneumoniae Antigen (M - Final Current Medications Acetaminophen (Tylenol Oral Solution -) 650 mg GT Q6H PRN PRN Reason: PAIN LEVEL 1-5 Last Admin: 04/30/18 05:28 Dose: 650 mg Acetylcysteine (Mucomyst 20 Oral / Inh Use Only*) 220 mg NEB RQID [facility] Last Admin: 04/30/18 08:16 Dose: 220 mg Aspirin (Asa -) 81 mg GT DAILY [facility] Last Admin: 04/30/18 10:28 Dose: 81 mg Atorvastatin Calcium (Lipitor -) 40 mg GT HS [facility] Last Admin: 04/29/18 21:30 Dose: 40 mg Carvedilol (Coreg -) 12.5 mg GT BID [facility] Last Admin: 04/30/18 10:28 Dose: 12.5 mg Doxazosin Mesylate (Cardura -) 2 mg GT HS [facility] Last Admin: 04/29/18 21:30 Dose: 2 mg Enoxaparin Sodium (Lovenox -) 40 mg SQ DAILY [facility] Last Admin: 04/29/18 10:35 Dose: 40 mg Piperacillin Sod/Tazobactam (Sod 4.5 gm/ Dextrose) 100 mls @ 200 mls/hr IVPB Q8H-IV [facility]; Protocol Last Admin: 04/30/18 10:28 Dose: 200 mls/hr Ketorolac Tromethamine (Toradol Injection -) 15 mg IVPUSH Q6H PRN PRN Reason: PAIN LEVEL 6-10 Stop: 05/03/18 09:54 Last Admin: 04/30/18 08:41 Dose: 15 mg Ramipril (Altace -) 1.25 mg GT DAILY [facility] Last Admin: 04/30/18 10:29 Dose: 1.25 mg Simethicone (Mylicon Liquid -) 40 mg GT TID [facility] Last Admin: 04/30/18 05:28 Dose: 40 mg imp/reccd acute hypoxia /chronic respiratory failure pneumonia- fever/leukocytosis -day #5 antibiotics, switch to ceftriaxone trach malfunction positive troponins s/p CVA headaches- not improving with pain meds neurology f/u Problem List - Problems (1) Acute and chronic respiratory failure ([id number]) Code(s): J96.20 - ACUTE AND CHR RESP FAILURE, UNSP W HYPOXIA OR HYPERCAPNIA (2) Pneumonia Code(s): J18.9 - PNEUMONIA, UNSPECIFIED ORGANISM (3) Tracheostomy malfunction Code(s): J95.03 - MALFUNCTION OF TRACHEOSTOMY STOMA (4) Elevated troponin Code(s): R74.8 - ABNORMAL LEVELS OF OTHER SERUM ENZYMES (5) CVA, old, hemiparesis Code(s): I69.359 - HEMIPLGA FOLLOWING CEREBRAL INFARCTION AFFECTING UNSP SIDE
[2018-04-30] MEDS: ENOXAPARIN NA (PORCINE) 40 MG/0.4 ML DISP.SYRIN SQ SCH (12:25)
--- NOTE | 2018-04-30 12:34 | PN ---
Progress Note, Physician Chief Complaint: Hypoxia Pneumonia History of Present Illness: Still having headaches Seen by Neurology ESR/CRP elevated Ophthalmology consult pending Mechanically ventilated NAD Being treated for pne Seen by ID On IV abx afebrile overnight - Current Medication List Current Medications: Active Medications Acetaminophen (Tylenol Oral Solution -) 650 mg GT Q6H PRN PRN Reason: PAIN LEVEL 1-5 Last Admin: 04/30/18 05:28 Dose: 650 mg Acetylcysteine (Mucomyst 20 Oral / Inh Use Only*) 220 mg NEB RQID [facility] Last Admin: 04/30/18 08:16 Dose: 220 mg Aspirin (Asa -) 81 mg GT DAILY [facility] Last Admin: 04/30/18 10:28 Dose: 81 mg Atorvastatin Calcium (Lipitor -) 40 mg GT HS [facility] Last Admin: 04/29/18 21:30 Dose: 40 mg Carvedilol (Coreg -) 12.5 mg GT BID [facility] Last Admin: 04/30/18 10:28 Dose: 12.5 mg Doxazosin Mesylate (Cardura -) 2 mg GT HS [facility] Last Admin: 04/29/18 21:30 Dose: 2 mg Enoxaparin Sodium (Lovenox -) 40 mg SQ DAILY [facility] Last Admin: 04/30/18 12:25 Dose: 40 mg Ceftriaxone Sodium 2 gm/ (Dextrose) 100 mls @ 100 mls/hr IVPB DAILY [facility]; Protocol Ketorolac Tromethamine (Toradol Injection -) 15 mg IVPUSH Q6H PRN PRN Reason: PAIN LEVEL 6-10 Stop: 05/03/18 09:54 Last Admin: 04/30/18 08:41 Dose: 15 mg Ramipril (Altace -) 1.25 mg GT DAILY [facility] Last Admin: 04/30/18 10:29 Dose: 1.25 mg Simethicone (Mylicon Liquid -) 40 mg GT TID [facility] Last Admin: 04/30/18 05:28 Dose: 40 mg - Objective Vital Signs: Vital Signs Temperature 98.2 F 04/30/18 10:00 Pulse Rate 70 04/30/18 10:01 Respiratory Rate 18 04/30/18 10:00 Blood Pressure 141/68 04/30/18 10:00 O2 Sat by Pulse Oximetry (%) 100 04/30/18 10:01 Constitutional: Yes: Well Nourished, No Distress, Calm Cardiovascular: Yes: Regular Rate and Rhythm Respiratory: Yes: Mechanically Ventilated Gastrointestinal: Yes: Normal Bowel Sounds, Soft Genitourinary: Yes: Incontinence Musculoskeletal: Yes: WNL Extremities: Yes: WNL Edema: No Peripheral Pulses WNL: Yes Neurological: Yes: Alert, Pre-Existing Deficit Psychiatric: Yes: Alert Labs: CBC, BMP 04/30/18 07:00 04/30/18 07:00 Problem List - Problems (1) Acute respiratory failure with hypoxia Assessment/Plan: -pulm on board -mechanically ventilated -Bronchodilators -keep SpO2 >90% Code(s): J96.01 - ACUTE RESPIRATORY FAILURE WITH HYPOXIA (2) Pneumonia Assessment/Plan: cultures: Microbiology 04/25/18 18:34 Sputum - Endotrachea Suction/Ventilator Gram Stain - Final 04/25/18 18:34 Sputum - Endotrachea Suction/Ventilator Sputum Culture - Preliminary Citrobacter Koseri Klebsiella Pneumoniae Streptococcus Pyogenes Grp A 04/24/18 17:50 Blood - Peripheral Venous Blood Culture - Final NO GROWTH AFTER 5 DAYS INCUBATION 04/24/18 16:43 Blood - Peripheral Venous Blood Culture - Final NO GROWTH AFTER 5 DAYS INCUBATION 04/26/18 18:00 Urine For Antigen Detection Legionella Antigen - Final 04/26/18 18:00 Urine For Antigen Detection Streptococcus pneumoniae Antigen (M - Final -IV abx changed by ID -ID and pulmonary on board -Afebrile Code(s): J18.9 - PNEUMONIA, UNSPECIFIED ORGANISM (3) CVA (cerebral vascular accident) Assessment/Plan: -CT scan show findings suspicious of an acute/subacute infarct, no prior available for comparison-No new deficits -carotid US pending -LDL at goal -Seen by neurology consult -continue with aspirin and atorvastatin -fall precaution -neuro checks q4h Code(s): I63.9 - CEREBRAL INFARCTION, UNSPECIFIED (4) Headache Assessment/Plan: -ESR+ CRp elevated -Seen by Neurology -Suspicion fro temporal arteritis -Ophthalmology consult -Would start prednisone at 60 mg until diagnosis is confirmed Code(s): R51 - HEADACHE Assessment/Plan see problem list
--- NOTE | 2018-04-30 13:15 | EKG ---
Test Reason : Blood Pressure : / mmHG Vent. Rate : 096 BPM Atrial Rate : 063 BPM P-R Int : 000 ms QRS Dur : 202 ms QT Int : 472 ms P-R-T Axes : 000 -61 111 degrees QTc Int : 596 ms Ventricular-paced rhythm WITH FREQUENT PREMATURE VENTRICULAR COMPLEXES ABNORMAL ECG WHEN COMPARED WITH ECG OF 29-APR-2018 11:59, PREMATURE VENTRICULAR COMPLEXES ARE NOW PRESENT VENT. RATE HAS INCREASED BY 26 BPM Confirmed by MD RHODA, LAKESHA ([id number]) on 04/30/2018 1:15:04 PM Referred By: Confirmed By:LAKESHA DUONG MD
--- NOTE | 2018-04-30 13:28 | PN ---
Progress Note, Physician Chief Complaint: Reconsult for acute/early subacute left basal ganglaia infarct. The patient complains of headache, awake and alter. No acute distress. History of Present Illness: 67 year old man with a PMHx of HTN, CAD unknown details, reported h/o arrhythmia s/p PPM 07/2010, h/o CVA 2017, TIA x2 2006, residual deficits s/p trach 03/2018 [place] for [place], hypoxia, unable to be suctioned, trach was replaced and hypoxia improved. Pt incidentally noted to have a minimally elevated troponin with a normal ck and elevated BNP. CT Head 04/29/2018 showed a large (5.3 X4.0 X1.4 cm) acute/early subacute non- hemorrhagic infarct within left basal ganglia extending to frontal sumner. Seen by Dr. Rahman for neurology evaluation. Temporal arteritis suspected. ECG 04/29/2018 showed atrial fibrillation with ventricular paced rhythm. Echo 04/26/2018: Very technically difficult study with limited information. LV grossly normal in size with paradoxical septal motion and low normal LV systolic function. - Current Medication List Current Medications: Active Medications Acetaminophen (Tylenol Oral Solution -) 650 mg GT Q6H PRN PRN Reason: PAIN LEVEL 1-5 Last Admin: 04/30/18 05:28 Dose: 650 mg Acetylcysteine (Mucomyst 20 Oral / Inh Use Only*) 220 mg NEB RQID [facility] Last Admin: 04/30/18 08:16 Dose: 220 mg Aspirin (Asa -) 81 mg GT DAILY [facility] Last Admin: 04/30/18 10:28 Dose: 81 mg Atorvastatin Calcium (Lipitor -) 40 mg GT HS [facility] Last Admin: 04/29/18 21:30 Dose: 40 mg Carvedilol (Coreg -) 12.5 mg GT BID [facility] Last Admin: 04/30/18 10:28 Dose: 12.5 mg Doxazosin Mesylate (Cardura -) 2 mg GT HS [facility] Last Admin: 04/29/18 21:30 Dose: 2 mg Enoxaparin Sodium (Lovenox -) 40 mg SQ DAILY [facility] Last Admin: 04/30/18 12:25 Dose: 40 mg Ceftriaxone Sodium 2 gm/ (Dextrose) 100 mls @ 100 mls/hr IVPB DAILY [facility]; Protocol Ketorolac Tromethamine (Toradol Injection -) 15 mg IVPUSH Q6H PRN PRN Reason: PAIN LEVEL 6-10 Stop: 05/03/18 09:54 Last Admin: 04/30/18 08:41 Dose: 15 mg Prednisone (Deltasone -) 60 mg GT DAILY [facility] Ramipril (Altace -) 1.25 mg GT DAILY [facility] Last Admin: 04/30/18 10:29 Dose: 1.25 mg Simethicone (Mylicon Liquid -) 40 mg GT TID [facility] Last Admin: 04/30/18 05:28 Dose: 40 mg - Objective Vital Signs: Vital Signs Temperature 98.2 F 04/30/18 10:00 Pulse Rate 70 04/30/18 12:50 Respiratory Rate 18 04/30/18 12:50 Blood Pressure 130/72 04/30/18 12:50 O2 Sat by Pulse Oximetry (%) 100 04/30/18 10:01 General: Well developed. Well nourished. No acute distress. Head: Normocephalic. Atraumatic, Eyes: PERRLA, EOMI. Sclerae anicteric. Conjunctivae clear. Neck: Trach in place.. Heart: Normal S1, S2: Regular rhythm and rate. No murmur. No gallop or rub. Lungs: Symmetrical Coarse BS. No crackle. No wheezing or rhonchi. Abdomen: Soft. Bowel sound positive. Non tender. No masses. Extremities: No edema. No clubbing or cyanosis. Labs: CBC, BMP 04/30/18 07:00 04/30/18 07:00 Assessment/Plan 67 year old man with a PMHx of HTN, CAD unknown details, reported h/o arrhythmia s/p PPM 07/2010, h/o CVA 2017, TIA x2 2006, residual deficits s/p trach 03/2018 [place] respiratory distress, hypoxia, unable to be suctioned, trach was replaced and hypoxia improved. Pt incidentally noted to have a minimally elevated troponin with a normal ck and elevated BNP. CT Head 04/29/2018 showed a large (5.3 X4.0 X1.4 cm) acute/early subacute non- hemorrhagic infarct within left basal ganglia extending to frontal sumner. Seen by Dr. Rahman for neurology evaluation. Temporal arteritis suspected. ECG 04/29/2018 showed atrial fibrillation with ventricular paced rhythm. Echo 04/26/2018: Very technically difficult study with limited information. LV grossly normal in size with paradoxical septal motion and low normal LV systolic function. 1) Acute/subacute acute/early subacute non-hemorrhagic infarct within left basal ganglia, likely embolic origin. The patient has persistent atrial fibrillation with paced rhythm. Atrial fibrillation is likely the cause of CVA. Full anticoagulation with warfarin or one of the NOACs recommended if no neurological contraindications. 2) Elevated troponin, normal CK, elevated BNP -in setting of presumed sepsis, respiratory failure, PNA -unlikely ACS, most likely demand ischemia secondary to respiratory distress and presumed sepsis. -does not appear to be in decompensated CHF, euvolemic with preserved LV systolic function from TDS echo on 04/26/2018. -does not require diuresis at this time, can use lasix prn -cont asa, lipitor and coreg -would not pursue an ischemic work up at this time. Please call us for reconsult as needed.
[2018-04-30] MEDS: predniSONE 20 MG TABLET (UD) GT SCH (13:45)
--- NOTE | 2018-04-30 14:12 | PN ---
Progress Note (short form) - Note Progress Note: PULMONARY Vented on volume assist control. Less congested. No fevers recorded. Vital Signs Period Temp Pulse Resp BP Sys/Richards Pulse Ox Last 24 Hr 98.2 F-99 F 70-75 14-30 124-148/68-86 99-100 Gen: vented, awake Heart: RRR Lung: scattered rhonchi Abd: soft, nontender Ext: no edema CBC, BMP 04/30/18 07:00 04/30/18 07:00 Active Medications Acetaminophen (Tylenol Oral Solution -) 650 mg GT Q6H PRN PRN Reason: PAIN LEVEL 1-5 Last Admin: 04/30/18 05:28 Dose: 650 mg Acetylcysteine (Mucomyst 20 Oral / Inh Use Only*) 220 mg NEB RQID [facility] Last Admin: 04/30/18 11:25 Dose: 220 mg Albuterol Sulfate (Ventolin 0.083% Nebulizer Soln -) 1 amp NEB RQID [facility] Last Admin: 04/30/18 11:25 Dose: 1 amp Aspirin (Asa -) 81 mg GT DAILY [facility] Last Admin: 04/30/18 10:28 Dose: 81 mg Atorvastatin Calcium (Lipitor -) 40 mg GT HS [facility] Last Admin: 04/29/18 21:30 Dose: 40 mg Carvedilol (Coreg -) 12.5 mg GT BID [facility] Last Admin: 04/30/18 10:28 Dose: 12.5 mg Doxazosin Mesylate (Cardura -) 2 mg GT HS [facility] Last Admin: 04/29/18 21:30 Dose: 2 mg Enoxaparin Sodium (Lovenox -) 40 mg SQ DAILY [facility] Last Admin: 04/30/18 12:25 Dose: 40 mg Ceftriaxone Sodium 2 gm/ (Dextrose) 100 mls @ 100 mls/hr IVPB DAILY [facility]; Protocol Ketorolac Tromethamine (Toradol Injection -) 15 mg IVPUSH Q6H PRN PRN Reason: PAIN LEVEL 6-10 Stop: 05/03/18 09:54 Last Admin: 04/30/18 08:41 Dose: 15 mg Prednisone (Deltasone -) 60 mg GT DAILY [facility] Last Admin: 04/30/18 13:45 Dose: 60 mg Ramipril (Altace -) 1.25 mg GT DAILY [facility] Last Admin: 04/30/18 10:29 Dose: 1.25 mg Simethicone (Mylicon Liquid -) 40 mg GT TID [facility] Last Admin: 04/30/18 13:46 Dose: 40 mg A/P Acute on Chronic Hypoxic Respiratory Failure Dislodged Tracheostomy replaced Pneumonia Severe Sepsis +Troponins likely Demand Ischemia Acute COPD Exacerbation CAD h/o CVA s/p PPM - continue antibiotics - f/u cultures - O2 to keep SpO2 >90% - inhaled bronchodilators - can d/c steroids - spontaneous breathing trials/PMV as tolerated - enteral feeds - DVT/GI prophylaxis Problem List - Problems (1) Acute respiratory failure with hypoxia Code(s): J96.01 - ACUTE RESPIRATORY FAILURE WITH HYPOXIA (2) Pneumonia Code(s): J18.9 - PNEUMONIA, UNSPECIFIED ORGANISM (3) COPD exacerbation Code(s): J44.1 - CHRONIC OBSTRUCTIVE PULMONARY DISEASE W (ACUTE) EXACERBATION
[2018-04-30] MEDS: CEFTRIAXONE 2 GM in DEXTROSE 5%-WATER 100 ML IVPB SCH (14:47)
--- NOTE | 2018-04-30 18:04 | EKG ---
Test Reason : Blood Pressure : / mmHG Vent. Rate : 070 BPM Atrial Rate : 052 BPM P-R Int : 000 ms QRS Dur : 200 ms QT Int : 472 ms P-R-T Axes : 000 -63 107 degrees QTc Int : 509 ms ATRIAL FIBRILLATION Ventricular-paced rhythm ABNORMAL ECG WHEN COMPARED WITH ECG OF 24-APR-2018 16:33, VENT. RATE HAS DECREASED BY 49 BPM Confirmed by MD RHODA, LAKESHA ([id number]) on 04/30/2018 6:04:25 PM Referred By: SOCO STAPLETON Confirmed By:LAKESHA DUONG MD
[2018-04-30] MEDS: ATORVASTATIN CA 40 MG TABLET (FP) GT SCH (21:39)
[2018-04-30] MEDS: DOXAZOSIN MESYLATE 2 MG TABLET (FP) GT SCH (21:39)
[2018-05-01] MEDS: SIMETHICONE 40 MG/0.6 ML BOTTLE GT SCH ×3 (05:50→22:07)
[2018-05-01] MEDS: KETOROLAC TROMETHAMINE 15 MG/ML VIAL IVPUSH PRN ×2 (05:51→16:23)
[2018-05-01] MEDS: ACETYLCYSTEINE 20% 200MG/ML 4 ML VIAL *FOR ORAL / INH USE ONLY NEB SCH ×4 (08:00→20:50)
[2018-05-01] MEDS: ALBUTEROL SO4 0.083% IH SOL 2.5 MG/3 ML VIAL.NEB. NEB SCH ×4 (08:00→20:50)
[2018-05-01 08:37] LABS: BASO % 0.1 % (0-2.0); EOS % 0.3 % (0-4.5); HEMATOCRIT 34.8 % (35.4-49); HEMOGLOBIN 12.2 GM/dL (11.7-16.9); LYMPH % 10.1 % (8-40); MCH 30.6 pg (25.7-33.7); MCHC 35.1 g/dl (32.0-35.9); MEAN CELL VOLUME 87.3 fl (80-96); MEAN PLT VOLUME 8.3 fl (7.5-11.1); MONO % 5.4 % (3.8-10.2); NEUT % 84.1 % (42.8-82.8); PLATELET COUNT 466 K/MM3 (134-434); RBC 3.98 M/mm3 (4.00-5.60); RDW 15.4 % (11.9-15.9); WHITE BLOOD COUNT 15.4 K/mm3 (4.0-10.0)
--- NOTE | 2018-05-01 09:16 | CONSULT ---
Consult - text type - Consultation Consultation Note: Ophthalmology Consult: 67 year old male with PMH HTN, CAD, CVA 03/04 with right sided mik, trach collar , non-verbal, but communicative, s/p ppm , afib admitted on 04/24/18 with hypoxia , trach collar changed and diagnosed with Klebsiella PNA and started on Vancomycin and Zosyn. On 04/29, after starting Abx, developed left sided frontal headaches requiring ice packs. Stat CT scan showed subacute/acute CVA ( large area of low-attenuation denistiy involving the left putamen, external and extreme capsule region, extending to the left periventricular white matter with sparing of the left insular cortex. Chronic lacunar infarct in left anterior paramedian aspect of left jasmeet. No gross mass lesion or acute hemmorhage noted. He denies changes in vision diplopia, or pain on eye movement, jaw claudication. He nods yes to scalp tenderness. PMHX: HTN, CVA, CAD, CVA on trach, ppm, afib ALL: NKDA Social: [facility], non-smoker POCHx: unknown FOCHx: unknown Meds: Tylenol, mucomyst, albertol sulfate, ASA, lipitor, coreg, cardura, lovenox , ceftriaxone, ketorolac, prednisone 60 mg, ramipril, simethicone Exam: VAsc 20/50 od 20/100 os on near card, P2 sluggish ou no apd, Rotations: 3- limited adduction od, large XT (90 by hirsberg) and RHT, no proptosis, PLE: LLL ptosis right >left , mrd O right mrd 2 left, sc white, k clear ou, AC formed ou, I wnl, L ns OU DFE: c:d o.2 m/v wnl, p drusen OD Imp: Left-sided headache with Right third nerve palsy: Discussed with Dr. Rahman who states that headache in this condition is non-localizable. Suspicion for GCA is low, given ESR 44 (very mild elevation) and young age. Would re-check CRP and d/c Prednisone 60mg. Would obtain stat CTA of deshawn r/o PCOM aneurysm as patient unable to undergo MRI/MRA given pacemaker, despite lack of pupillary involvement at this time. Thank you for this consultation Irma Delarosa MD
[2018-05-01] MEDS ORDERED: DEXTROSE 5%-WATER 100 ML IVPB ONE (10:46)
[2018-05-01] MEDS: ACETAMINOPHEN 650 MG/20.3 ML ORAL SOLUTION (CUPS) GT PRN ×2 (10:59→22:13)
[2018-05-01] MEDS: CARVEDILOL 12.5 MG TABLET (FP) GT SCH ×2 (11:00→22:07)
[2018-05-01] MEDS: predniSONE 20 MG TABLET (UD) GT SCH (11:00)
[2018-05-01] MEDS: CEFTRIAXONE 2 GM in DEXTROSE 5%-WATER 100 ML IVPB SCH (11:00)
[2018-05-01] MEDS: ASPIRIN 81 MG CHEWABLE TABLETS GT SCH (11:01)
[2018-05-01] MEDS: RAMIPRIL 1.25 MG CAPSULE GT SCH (11:01)
[2018-05-01] MEDS: ENOXAPARIN NA (PORCINE) 40 MG/0.4 ML DISP.SYRIN SQ SCH (11:01)
[2018-05-01] MEDS: MULTIVIT-MINERALS ORAL LIQUID GT SCH (11:04)
--- NOTE | 2018-05-01 11:25 | PN ---
Progress Note, Physician Chief Complaint: Hypoxia Pneumonia History of Present Illness: Still having headaches Seen by Neurology ESR/CRP elevated Ophthalmology consult appreciated Mechanically ventilated NAD Being treated for pne Seen by ID On IV abx afebrile overnight Going to radiology for CTA of deshawn r/o PCOM aneurysm as patient unable to undergo MRI/MRA given pacemaker - Current Medication List Current Medications: Active Medications Acetaminophen (Tylenol Oral Solution -) 650 mg GT Q6H PRN PRN Reason: PAIN LEVEL 1-5 Last Admin: 05/01/18 10:59 Dose: 650 mg Acetylcysteine (Mucomyst 20 Oral / Inh Use Only*) 220 mg NEB RQID [facility] Last Admin: 05/01/18 11:20 Dose: 220 mg Albuterol Sulfate (Ventolin 0.083% Nebulizer Soln -) 1 amp NEB RQID [facility] Last Admin: 05/01/18 11:21 Dose: 1 amp Aspirin (Asa -) 81 mg GT DAILY [facility] Last Admin: 05/01/18 11:01 Dose: 81 mg Atorvastatin Calcium (Lipitor -) 40 mg GT HS [facility] Last Admin: 04/30/18 21:39 Dose: 40 mg Carvedilol (Coreg -) 12.5 mg GT BID [facility] Last Admin: 05/01/18 11:00 Dose: 12.5 mg Doxazosin Mesylate (Cardura -) 2 mg GT HS [facility] Last Admin: 04/30/18 21:39 Dose: 2 mg Enoxaparin Sodium (Lovenox -) 40 mg SQ DAILY [facility] Last Admin: 05/01/18 11:01 Dose: 40 mg Ceftriaxone Sodium 2 gm/ (Dextrose) 100 mls @ 100 mls/hr IVPB DAILY [facility]; Protocol Last Admin: 05/01/18 11:00 Dose: 100 mls/hr Ketorolac Tromethamine (Toradol Injection -) 15 mg IVPUSH Q6H PRN PRN Reason: PAIN LEVEL 6-10 Stop: 05/03/18 09:54 Last Admin: 05/01/18 05:51 Dose: 15 mg Prednisone (Deltasone -) 60 mg GT DAILY [facility] Last Admin: 05/01/18 11:00 Dose: 60 mg Ramipril (Altace -) 1.25 mg GT DAILY [facility] Last Admin: 05/01/18 11:01 Dose: 1.25 mg Simethicone (Mylicon Liquid -) 40 mg GT TID [facility] Last Admin: 05/01/18 05:50 Dose: 40 mg - Objective Vital Signs: Vital Signs Temperature 98.9 F 05/01/18 10:00 Pulse Rate 71 05/01/18 10:00 Respiratory Rate 22 H 05/01/18 10:00 Blood Pressure 144/81 05/01/18 10:00 O2 Sat by Pulse Oximetry (%) 100 05/01/18 10:00 Constitutional: Yes: Well Nourished, No Distress, Calm Cardiovascular: Yes: Regular Rate and Rhythm Respiratory: Yes: Mechanically Ventilated Gastrointestinal: Yes: Normal Bowel Sounds, Soft Musculoskeletal: Yes: Muscle Weakness Extremities: Yes: WNL Edema: No Neurological: Yes: Alert, Pre-Existing Deficit Psychiatric: Yes: Alert Labs: CBC, BMP 05/01/18 07:30 04/30/18 07:00 Problem List - Problems (1) Acute respiratory failure with hypoxia Assessment/Plan: -pulm on board -mechanically ventilated -Bronchodilators -keep SpO2 >90% Code(s): J96.01 - ACUTE RESPIRATORY FAILURE WITH HYPOXIA (2) Pneumonia Assessment/Plan: cultures: Microbiology 04/25/18 18:34 Sputum - Endotrachea Suction/Ventilator Gram Stain - Final 04/25/18 18:34 Sputum - Endotrachea Suction/Ventilator Sputum Culture - Preliminary Citrobacter Koseri Klebsiella Pneumoniae Streptococcus Pyogenes Grp A 04/24/18 17:50 Blood - Peripheral Venous Blood Culture - Final NO GROWTH AFTER 5 DAYS INCUBATION 04/24/18 16:43 Blood - Peripheral Venous Blood Culture - Final NO GROWTH AFTER 5 DAYS INCUBATION 04/26/18 18:00 Urine For Antigen Detection Legionella Antigen - Final 04/26/18 18:00 Urine For Antigen Detection Streptococcus pneumoniae Antigen (M - Final -IV abx changed by ID -ID and pulmonary on board -Afebrile Code(s): J18.9 - PNEUMONIA, UNSPECIFIED ORGANISM (3) CVA (cerebral vascular accident) Assessment/Plan: -CT scan show findings suspicious of an acute/subacute infarct, no prior available for comparison-No new deficits -carotid US pending -LDL at goal -Seen by neurology consult -continue with aspirin and atorvastatin -fall precaution -neuro checks q4h Code(s): I63.9 - CEREBRAL INFARCTION, UNSPECIFIED (4) Headache Assessment/Plan: -Repeat ESR+ CRP -Seen by Neurology -Ophthalmology consult appreciated Code(s): R51 - HEADACHE (5) Functional quadriplegia Code(s): R53.2 - FUNCTIONAL QUADRIPLEGIA Assessment/Plan see problem list
--- NOTE | 2018-05-01 11:41 | PN ---
Progress Note (short form) - Note Progress Note: PULMONARY Vented on volume assist control. No fevers recorded. Still with headache. Vital Signs Period Temp Pulse Resp BP Sys/Richards Pulse Ox Last 24 Hr 97.7 F-99.2 F 70-82 18-27 130-154/72-82 98-100 Gen: vented, awake Heart: RRR Lung: scattered rhonchi Abd: soft, nontender Ext: no edema CBC, BMP 05/01/18 07:30 04/30/18 07:00 Active Medications Acetaminophen (Tylenol Oral Solution -) 650 mg GT Q6H PRN PRN Reason: PAIN LEVEL 1-5 Last Admin: 05/01/18 10:59 Dose: 650 mg Acetylcysteine (Mucomyst 20 Oral / Inh Use Only*) 220 mg NEB RQID [facility] Last Admin: 05/01/18 11:20 Dose: 220 mg Albuterol Sulfate (Ventolin 0.083% Nebulizer Soln -) 1 amp NEB RQID [facility] Last Admin: 05/01/18 11:21 Dose: 1 amp Aspirin (Asa -) 81 mg GT DAILY [facility] Last Admin: 05/01/18 11:01 Dose: 81 mg Atorvastatin Calcium (Lipitor -) 40 mg GT HS [facility] Last Admin: 04/30/18 21:39 Dose: 40 mg Carvedilol (Coreg -) 12.5 mg GT BID [facility] Last Admin: 05/01/18 11:00 Dose: 12.5 mg Doxazosin Mesylate (Cardura -) 2 mg GT HS [facility] Last Admin: 04/30/18 21:39 Dose: 2 mg Enoxaparin Sodium (Lovenox -) 40 mg SQ DAILY [facility] Last Admin: 05/01/18 11:01 Dose: 40 mg Ceftriaxone Sodium 2 gm/ (Dextrose) 100 mls @ 100 mls/hr IVPB DAILY [facility]; Protocol Last Admin: 05/01/18 11:00 Dose: 100 mls/hr Ketorolac Tromethamine (Toradol Injection -) 15 mg IVPUSH Q6H PRN PRN Reason: PAIN LEVEL 6-10 Stop: 05/03/18 09:54 Last Admin: 05/01/18 05:51 Dose: 15 mg Prednisone (Deltasone -) 60 mg GT DAILY [facility] Last Admin: 05/01/18 11:00 Dose: 60 mg Ramipril (Altace -) 1.25 mg GT DAILY [facility] Last Admin: 05/01/18 11:01 Dose: 1.25 mg Simethicone (Mylicon Liquid -) 40 mg GT TID [facility] Last Admin: 05/01/18 05:50 Dose: 40 mg A/P Acute on Chronic Hypoxic Respiratory Failure Dislodged Tracheostomy replaced Pneumonia Severe Sepsis +Troponins likely Demand Ischemia COPD CAD h/o CVA s/p PPM - continue antibiotics - f/u cultures - O2 to keep SpO2 >90% - inhaled bronchodilators - on prednisone per neuro - spontaneous breathing trials/PMV as tolerated - enteral feeds - DVT/GI prophylaxis Problem List - Problems (1) Acute respiratory failure with hypoxia Code(s): J96.01 - ACUTE RESPIRATORY FAILURE WITH HYPOXIA (2) Pneumonia Code(s): J18.9 - PNEUMONIA, UNSPECIFIED ORGANISM (3) COPD exacerbation Code(s): J44.1 - CHRONIC OBSTRUCTIVE PULMONARY DISEASE W (ACUTE) EXACERBATION
[2018-05-01] MEDS ORDERED: PT OWN MED DRAWER 7, Y5N ONE (20:54)
[2018-05-01] MEDS: DOXAZOSIN MESYLATE 2 MG TABLET (FP) GT SCH (22:07)
[2018-05-01] MEDS: ATORVASTATIN CA 40 MG TABLET (FP) GT SCH (22:07)
[2018-05-01] MEDS: LYTES/YERBA SANTA 240 ML BOTTLE MM PRN (22:11)
[2018-05-02] MEDS: KETOROLAC TROMETHAMINE 15 MG/ML VIAL IVPUSH PRN ×2 (05:31→21:41)
[2018-05-02] MEDS: SIMETHICONE 40 MG/0.6 ML BOTTLE GT SCH ×3 (05:32→21:38)
[2018-05-02 07:36] LABS: BASO % 0.2 % (0-2.0); EOS % 0.7 % (0-4.5); HEMATOCRIT 34.9 % (35.4-49); LYMPH % 12.3 % (8-40); MCH 30.3 pg (25.7-33.7); MCHC 34.5 g/dl (32.0-35.9); MEAN CELL VOLUME 87.8 fl (80-96); MEAN PLT VOLUME 8.6 fl (7.5-11.1); MONO % 6.4 % (3.8-10.2); NEUT % 80.4 % (42.8-82.8); PLATELET COUNT 436 K/MM3 (134-434); RBC 3.97 M/mm3 (4.00-5.60); RDW 15.2 % (11.9-15.9)
[2018-05-02] MEDS: ALBUTEROL SO4 0.083% IH SOL 2.5 MG/3 ML VIAL.NEB. NEB SCH ×4 (07:58→21:56)
[2018-05-02] MEDS: ACETYLCYSTEINE 20% 200MG/ML 4 ML VIAL *FOR ORAL / INH USE ONLY NEB SCH ×4 (07:58→21:57)
[2018-05-02 08:00] LABS: ALBUMIN 2.3 g/dl (3.4-5.0); ALK PHOS 144 U/L (45-117); BILIRUBIN,TOTAL 0.6 mg/dL (0.2-1); BLOOD UREA NITROGEN 32 mg/dL (7-18); CALCIUM 8.1 mg/dL (8.5-10.1); CHLORIDE 100 mmol/L (98-107); CO2 27 mmol/L (21-32); CREATININE 0.5 mg/dL (0.55-1.3); GLUCOSE,RANDOM 161 mg/dL (74-106); POTASSIUM 4.7 mmol/L (3.5-5.1); SGOT/AST 41 U/L (15-37); SGPT/ALT 51 U/L (13-61); SODIUM 136 mmol/L (136-145); TOT PROT 6.1 g/dl (6.4-8.2)
[2018-05-02 08:25] LABS: ANION GAP 10 MMOL/L (8-16)
[2018-05-02 08:35] LABS: ERYTHROCYTE SEDIMENTATION RATE 36 mm/hr (0-20)
[2018-05-02] MEDS ORDERED: PT OWN MED DRAWER 7, Y5N ONE (10:37)
[2018-05-02] MEDS ORDERED: DEXTROSE 5%-WATER 100 ML IVPB ONE (10:38)
--- NOTE | 2018-05-02 10:51 | PN ---
Progress Note (short form) - Note Progress Note: NEUROLOGY PROGRESS: Events reviewed and discussed with staff. Ophthalmology consult appreciated. Case d/w Drs. Delarosa and Christina. Pt. still c/o frontal headache, however, these are less frequent and less severe. No associated PP/PP/N/V/Kinesiophobia. Continues on prednisone taper at this time. Receiving tylenol 650mg q6H prn. CTA brain (reviewed): No AVM or aneurysm appreciated carotid duplex doppler: no hemodynamically significant stenosis ESR downtrending to 36, CRP 0.5; WBC still 14 with L shift LORETA: BP 130/70s. Oral temp 99.4. Rectal temp 100. S/P trache. Cor reg. Neck supple. Neg Kernig's. On vent and PEG. Incontinent in diaper NEURO: Able to nod and follow simple commands. Attempts at speech. R exotropia and ptosis. R facial. R hemiparesis. Strength normal on L. Brisk reflexes R > L. R Babinski. No L FTN dystaxia. Reduced pinch on R. Impression: 1. s/p Left CVA with right hemiplegia 2. 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 New onset headache- improving 4. Toxic-metabolic encephalopathy (Klebsiella Pneumonia, ? R/O UTI) Suggest: D/C Prednisone, low suspicion for Temporal Arteritis and agreement from pulmonary standpoint Would increase carvedilol to 25 mg BID to help with migraine prophylaxis Continue Tylenol prn for breakthrough headache Continue Abx, tube feeds, hydration Obtain UA, C & S Trial of PMV as tolerated Thank you very much, Kyle Rahman MD
[2018-05-02] MEDS: predniSONE 20 MG TABLET (UD) GT SCH (11:01)
[2018-05-02] MEDS: ENOXAPARIN NA (PORCINE) 40 MG/0.4 ML DISP.SYRIN SQ SCH (11:01)
[2018-05-02] MEDS: CEFTRIAXONE 2 GM in DEXTROSE 5%-WATER 100 ML IVPB SCH (11:01)
[2018-05-02] MEDS: CARVEDILOL 12.5 MG TABLET (FP) GT SCH (11:02)
[2018-05-02] MEDS: ASPIRIN 81 MG CHEWABLE TABLETS GT SCH (11:02)
[2018-05-02] MEDS: MULTIVIT-MINERALS ORAL LIQUID GT SCH (11:03)
[2018-05-02] MEDS: RAMIPRIL 1.25 MG CAPSULE GT SCH (11:04)
--- NOTE | 2018-05-02 11:30 | PN ---
Progress Note (short form) - Note Progress Note: Vented on volume assist control. No fevers recorded. No acute events overnight. Intake & Output 04/29/18 04/30/18 05/01/18 05/02/18 23:59 23:59 23:59 23:59 Intake Total 1250 2500 1360 1195 Balance 1250 2500 1360 1195 Last Vital Signs Temp Pulse Resp BP Pulse Ox 99.4 F 70 17 136/73 99 05/02/18 09:00 05/02/18 10:10 05/02/18 10:06 05/02/18 09:00 05/02/18 10:10 Active Medications Acetaminophen (Tylenol Oral Solution -) 650 mg GT Q6H PRN PRN Reason: PAIN LEVEL 1-5 Last Admin: 05/01/18 22:13 Dose: 650 mg Acetylcysteine (Mucomyst 20 Oral / Inh Use Only*) 220 mg NEB RQID [facility] Last Admin: 05/02/18 11:13 Dose: 220 mg Albuterol Sulfate (Ventolin 0.083% Nebulizer Soln -) 1 amp NEB RQID [facility] Last Admin: 05/02/18 11:14 Dose: 1 amp Aspirin (Asa -) 81 mg GT DAILY [facility] Last Admin: 05/02/18 11:02 Dose: 81 mg Atorvastatin Calcium (Lipitor -) 40 mg GT HS [facility] Last Admin: 05/01/18 22:07 Dose: 40 mg Carvedilol (Coreg -) 25 mg GT BID [facility] Doxazosin Mesylate (Cardura -) 2 mg GT HS [facility] Last Admin: 05/01/18 22:07 Dose: 2 mg Enoxaparin Sodium (Lovenox -) 40 mg SQ DAILY [facility] Last Admin: 05/02/18 11:01 Dose: 40 mg Ceftriaxone Sodium 2 gm/ (Dextrose) 100 mls @ 100 mls/hr IVPB DAILY [facility]; Protocol Last Admin: 05/02/18 11:01 Dose: 100 mls/hr Ketorolac Tromethamine (Toradol Injection -) 15 mg IVPUSH Q6H PRN PRN Reason: PAIN LEVEL 6-10 Stop: 05/03/18 09:54 Last Admin: 05/02/18 05:31 Dose: 15 mg Prednisone (Deltasone -) 60 mg GT DAILY [facility] Last Admin: 05/02/18 11:01 Dose: 60 mg Ramipril (Altace -) 1.25 mg GT DAILY [facility] Last Admin: 05/02/18 11:04 Dose: 1.25 mg Saliva Substitute (Mouthkote Solution -) 1 applic MM DAILY PRN PRN Reason: dry mouth Last Admin: 05/01/18 22:11 Dose: 1 applic Simethicone (Mylicon Liquid -) 40 mg GT TID [facility] Last Admin: 05/02/18 05:32 Dose: 40 mg Gen: vented, awake Heart: RRR Lung: scattered rhonchi Abd: soft, nontender Ext: no edema Laboratory Results - last 24 hr 05/02/18 05/02/18 05:30 05:30 WBC 14.0 H RBC 3.97 L Hgb 12.0 Hct 34.9 L MCV 87.8 MCH 30.3 MCHC 34.5 RDW 15.2 Plt Count 436 H MPV 8.6 Absolute Neuts (auto) 11.3 H Neutrophils % 80.4 Lymphocytes % 12.3 D Monocytes % 6.4 Eosinophils % 0.7 D Basophils % 0.2 Nucleated RBC % 0 ESR 36 H Sodium 136 Potassium 4.7 Chloride 100 Carbon Dioxide 27 Anion Gap 10 BUN 32 H Creatinine 0.5 L Creat Clearance w eGFR 166.36 Random Glucose 161 H Calcium 8.1 L Total Bilirubin 0.6 AST 41 H ALT 51 Alkaline Phosphatase 144 H C-Reactive Protein 0.5 H Total Protein 6.1 L Albumin 2.3 L Problem List - Problems (1) Acute respiratory failure with hypoxia Code(s): J96.01 - ACUTE RESPIRATORY FAILURE WITH HYPOXIA (2) Pneumonia Code(s): J18.9 - PNEUMONIA, UNSPECIFIED ORGANISM (3) COPD exacerbation Code(s): J44.1 - CHRONIC OBSTRUCTIVE PULMONARY DISEASE W (ACUTE) EXACERBATION A/P Acute on Chronic Hypoxic Respiratory Failure Dislodged Tracheostomy replaced Pneumonia Severe Sepsis +Troponins likely Demand Ischemia COPD CAD h/o CVA s/p PPM - ABX - Current vent settings - inhaled bronchodilators - D/C Prednisone as there is no longer a suspicion of Temporal arteritis - spontaneous breathing trials/PMV as tolerated - enteral feeds - DVT/GI prophylaxis Dr Vasquez
--- NOTE | 2018-05-02 16:31 | PN ---
Progress Note, [employer] - Note Progress Note: Po trials noted on 04/30 with cuff deflated/pmv in place with reported chocolate pudding noted at trach site, consistent with aspiration. Selected Entries 04/30/18 04/30/18 04/30/18 04:59 10:00 14:45 Temperature 98.7 F 98.2 F 98.2 F 04/30/18 05/01/18 05/01/18 18:17 06:00 10:00 Temperature 97.7 F 99.2 F 98.9 F 05/01/18 05/01/18 05/02/18 14:50 18:10 06:00 Temperature 98.9 F 98.3 F 99.2 F 05/02/18 05/02/18 05/02/18 09:00 11:50 13:52 Temperature 99.4 F 100.0 F H 98.6 F Laboratory Tests 04/28/18 04/29/18 04/30/18 15:20 07:00 07:00 WBC 13.4 H 13.4 H 15.9 H 05/01/18 05/02/18 07:30 05:30 WBC 15.4 H 14.0 H I believe PO trials and PMV has not been attempted since. Pt with size 8 Portex-possibly adversely affecting speech and swallow function. Consider assessment to downsize trach, if not medically contraindicated.
--- NOTE | 2018-05-02 16:57 | PN ---
Progress Note, Physician Chief Complaint: Hypoxia Pneumonia History of Present Illness: Previous notes and events reviewed awake and alert NAD mechanically ventilated continue to complain of headache low grade fever 100F noted x 1 episode which went down to 98.6F - Current Medication List Current Medications: Active Medications Acetaminophen (Tylenol Oral Solution -) 650 mg GT Q6H PRN PRN Reason: PAIN LEVEL 1-5 Last Admin: 05/01/18 22:13 Dose: 650 mg Acetylcysteine (Mucomyst 20 Oral / Inh Use Only*) 220 mg NEB RQID [facility] Last Admin: 05/02/18 11:13 Dose: 220 mg Albuterol Sulfate (Ventolin 0.083% Nebulizer Soln -) 1 amp NEB RQID [facility] Last Admin: 05/02/18 11:14 Dose: 1 amp Aspirin (Asa -) 81 mg GT DAILY [facility] Last Admin: 05/02/18 11:02 Dose: 81 mg Atorvastatin Calcium (Lipitor -) 40 mg GT HS [facility] Last Admin: 05/01/18 22:07 Dose: 40 mg Carvedilol (Coreg -) 25 mg GT BID [facility] Doxazosin Mesylate (Cardura -) 2 mg GT HS [facility] Last Admin: 05/01/18 22:07 Dose: 2 mg Enoxaparin Sodium (Lovenox -) 40 mg SQ DAILY [facility] Last Admin: 05/02/18 11:01 Dose: 40 mg Ceftriaxone Sodium 2 gm/ (Dextrose) 100 mls @ 100 mls/hr IVPB DAILY [facility]; Protocol Last Admin: 05/02/18 11:01 Dose: 100 mls/hr Ketorolac Tromethamine (Toradol Injection -) 15 mg IVPUSH Q6H PRN PRN Reason: PAIN LEVEL 6-10 Stop: 05/03/18 09:54 Last Admin: 05/02/18 05:31 Dose: 15 mg Prednisone (Deltasone -) 60 mg GT DAILY [facility] Last Admin: 05/02/18 11:01 Dose: 60 mg Ramipril (Altace -) 1.25 mg GT DAILY [facility] Last Admin: 05/02/18 11:04 Dose: 1.25 mg Saliva Substitute (Mouthkote Solution -) 1 applic MM DAILY PRN PRN Reason: dry mouth Last Admin: 05/01/18 22:11 Dose: 1 applic Simethicone (Mylicon Liquid -) 40 mg GT TID [facility] Last Admin: 03/18/19 05:32 Dose: 40 mg - Objective Vital Signs: Vital Signs Temperature 98.6 F 05/02/18 13:52 Pulse Rate 70 05/02/18 13:21 Respiratory Rate 22 H 05/02/18 14:03 Blood Pressure 138/71 05/02/18 13:21 O2 Sat by Pulse Oximetry (%) 99 05/02/18 10:10 Constitutional: Yes: No Distress, Calm Eyes: Yes: Conjunctiva Clear HENT: Yes: Atraumatic Neck: Yes: Other (trach) Cardiovascular: Yes: Regular Rate and Rhythm Respiratory: Yes: Mechanically Ventilated, Rales Gastrointestinal: Yes: Normal Bowel Sounds, Soft, Other (non tender, PEG tube) Musculoskeletal: Yes: Muscle Weakness Extremities: Yes: WNL Edema: No Neurological: Yes: Alert, Pre-Existing Deficit Psychiatric: Yes: Alert Labs: CBC, BMP 05/02/18 05:30 05/02/18 05:30 Microbiology 04/25/18 18:34 Sputum - Endotrachea Suction/Ventilator Gram Stain - Final 04/25/18 18:34 Sputum - Endotrachea Suction/Ventilator Sputum Culture - Final Citrobacter Koseri Klebsiella Pneumoniae Streptococcus Pyogenes Grp A 04/24/18 17:50 Blood - Peripheral Venous Blood Culture - Final NO GROWTH AFTER 5 DAYS INCUBATION 04/24/18 16:43 Blood - Peripheral Venous Blood Culture - Final NO GROWTH AFTER 5 DAYS INCUBATION 04/26/18 18:00 Urine For Antigen Detection Legionella Antigen - Final 04/26/18 18:00 Urine For Antigen Detection Streptococcus pneumoniae Antigen (M - Final Problem List - Problems (1) Acute and chronic respiratory failure ([id number]) Assessment/Plan: -pulm on board -mechanically ventilated -albuterol tx via neb PRN for SOB -keep SpO2 >90% Code(s): J96.20 - ACUTE AND CHR RESP FAILURE, UNSP W HYPOXIA OR HYPERCAPNIA (2) COPD exacerbation Assessment/Plan: -pulm on board -albuterol tx via neb PRN for SOB -keep SpO2 >90% -BNP 3927.6 Code(s): J44.1 - CHRONIC OBSTRUCTIVE PULMONARY DISEASE W (ACUTE) EXACERBATION (3) CVA, old, hemiparesis Assessment/Plan: -fall precaution -PT Code(s): I69.359 - HEMIPLGA FOLLOWING CEREBRAL INFARCTION AFFECTING UNSP SIDE (4) Pneumonia Assessment/Plan: -pulm and ID on board -continue IV ceftriaxone -wbc 14.0 -Chest CT show bibasilar atelectasis/consolidation, left greater than right with trace pleural fluid Code(s): J18.9 - PNEUMONIA, UNSPECIFIED ORGANISM (5) Elevated troponin Assessment/Plan: -trop trendin down, current 0.12 -cardiology on board Code(s): R74.8 - ABNORMAL LEVELS OF OTHER SERUM ENZYMES (6) Abnormal CT scan, head Assessment/Plan: -CT scan show findings suspicious of an acute/subacute infarct, no prior available for comparison -neurology on board -continue with aspirin and atorvastatin -fall precaution -neuro checks q4h Code(s): R93.0 - ABNORMAL FINDINGS ON DX IMAGING OF SKULL AND HEAD, NEC (7) Headache Assessment/Plan: -Head CTA show findings may represent subacute stroke possibly resolving basal ganglia hematoma, no evidence of aneurysm, no evidence of AVM, dominant left vertebral artery, no significant occlusion or stenosis identified -Carotid US show moderate atherosclerotic disease with no evidence of hemodynamically signficant stenoses -neurology on board -optho on board -CRP and ESR elev but trending down Code(s): R51 - HEADACHE
[2018-05-02 19:03] LABS: URINE APPEARANCE CLEAR; URINE BILIRUBIN NEGATIVE (<2.0 mg/dL); URINE COLOR YELLOW; URINE GLUCOSE (UA) NEGATIVE (NEGATIVE); URINE KETONE NEGATIVE (NEGATIVE); URINE LEUK ESTERASE NEGATIVE (NEGATIVE); URINE NITRITE NEGATIVE (NEGATIVE); URINE PROTEIN NEGATIVE (NEGATIVE); URINE UROBILINOGEN 4.0 E.U/dl mg/dL (0.2-1.0)
[2018-05-02] MEDS: DOXAZOSIN MESYLATE 2 MG TABLET (FP) GT SCH (21:38)
[2018-05-02] MEDS: ATORVASTATIN CA 40 MG TABLET (FP) GT SCH (21:40)
[2018-05-02] MEDS: CARVEDILOL 25 MG TABLET (FP) GT SCH (21:41)
[2018-05-03] MEDS: KETOROLAC TROMETHAMINE 15 MG/ML VIAL IVPUSH PRN (05:11)
[2018-05-03] MEDS: SIMETHICONE 40 MG/0.6 ML BOTTLE GT SCH ×3 (05:11→21:40)
[2018-05-03 07:16] LABS: BASO % 0.1 % (0-2.0); EOS % 0.4 % (0-4.5); HEMATOCRIT 34.4 % (35.4-49); HEMOGLOBIN 11.9 GM/dL (11.7-16.9); LYMPH % 12.4 % (8-40); MCH 30.3 pg (25.7-33.7); MCHC 34.5 g/dl (32.0-35.9); MEAN CELL VOLUME 87.9 fl (80-96); MEAN PLT VOLUME 8.6 fl (7.5-11.1); MONO % 7.1 % (3.8-10.2); PLATELET COUNT 420 K/MM3 (134-434); RBC 3.92 M/mm3 (4.00-5.60); RDW 15.6 % (11.9-15.9); WHITE BLOOD COUNT 14.3 K/mm3 (4.0-10.0)
[2018-05-03 07:50] LABS: ALBUMIN 2.4 g/dl (3.4-5.0); ALK PHOS 140 U/L (45-117); ANION GAP 7 MMOL/L (8-16); BILIRUBIN,TOTAL 0.5 mg/dL (0.2-1); BLOOD UREA NITROGEN 33 mg/dL (7-18); CALCIUM 8.4 mg/dL (8.5-10.1); CHLORIDE 100 mmol/L (98-107); CO2 30 mmol/L (21-32); CREATININE 0.5 mg/dL (0.55-1.3); GLUCOSE,RANDOM 157 mg/dL (74-106); POTASSIUM 4.6 mmol/L (3.5-5.1); SGOT/AST 25 U/L (15-37); SGPT/ALT 52 U/L (13-61); SODIUM 136 mmol/L (136-145); TOT PROT 6.1 g/dl (6.4-8.2)
[2018-05-03] MEDS: ACETYLCYSTEINE 20% 200MG/ML 4 ML VIAL *FOR ORAL / INH USE ONLY NEB SCH ×4 (08:53→20:48)
[2018-05-03] MEDS: ALBUTEROL SO4 0.083% IH SOL 2.5 MG/3 ML VIAL.NEB. NEB SCH ×4 (08:53→20:48)
[2018-05-03] MEDS ORDERED: PT OWN MED DRAWER 7, Y5N ONE ×2 (10:40→20:32)
[2018-05-03] MEDS ORDERED: DEXTROSE 5%-WATER 100 ML IVPB ONE (10:41)
[2018-05-03] MEDS: ENOXAPARIN NA (PORCINE) 40 MG/0.4 ML DISP.SYRIN SQ SCH (10:43)
[2018-05-03] MEDS: CARVEDILOL 25 MG TABLET (FP) GT SCH ×2 (10:43→21:40)
[2018-05-03] MEDS: predniSONE 20 MG TABLET (UD) GT SCH (10:44)
[2018-05-03] MEDS: ASPIRIN 81 MG CHEWABLE TABLETS GT SCH (10:44)
[2018-05-03] MEDS: MULTIVIT-MINERALS ORAL LIQUID GT SCH (10:45)
[2018-05-03] MEDS: CEFTRIAXONE 2 GM in DEXTROSE 5%-WATER 100 ML IVPB SCH (11:06)
[2018-05-03] MEDS: RAMIPRIL 1.25 MG CAPSULE GT SCH (11:08)
--- NOTE | 2018-05-03 11:41 | PN ---
Progress Note (short form) - Note Progress Note: Vented on volume assist control. No fevers recorded. No acute events overnight. Intake & Output 04/30/18 05/01/18 05/02/18 05/03/18 23:59 23:59 23:59 23:59 Intake Total 2500 1360 2870 785 Balance 2500 1360 2870 785 Last Vital Signs Temp Pulse Resp BP Pulse Ox 98.2 F 70 23 H 133/77 100 05/03/18 08:30 05/03/18 08:56 05/03/18 08:55 05/03/18 08:30 05/03/18 08:56 Active Medications Acetaminophen (Tylenol Oral Solution -) 650 mg GT Q6H PRN PRN Reason: PAIN LEVEL 1-5 Last Admin: 05/01/18 22:13 Dose: 650 mg Acetylcysteine (Mucomyst 20 Oral / Inh Use Only*) 220 mg NEB RQID [facility] Last Admin: 05/03/18 08:53 Dose: 220 mg Albuterol Sulfate (Ventolin 0.083% Nebulizer Soln -) 1 amp NEB RQID [facility] Last Admin: 05/03/18 08:53 Dose: 1 amp Aspirin (Asa -) 81 mg GT DAILY [facility] Last Admin: 05/03/18 10:44 Dose: 81 mg Atorvastatin Calcium (Lipitor -) 40 mg GT HS [facility] Last Admin: 05/02/18 21:40 Dose: 40 mg Carvedilol (Coreg -) 25 mg GT BID [facility] Last Admin: 05/03/18 10:43 Dose: 25 mg Doxazosin Mesylate (Cardura -) 2 mg GT HS [facility] Last Admin: 05/02/18 21:38 Dose: 2 mg Enoxaparin Sodium (Lovenox -) 40 mg SQ DAILY [facility] Last Admin: 05/03/18 10:43 Dose: 40 mg Ceftriaxone Sodium 2 gm/ (Dextrose) 100 mls @ 100 mls/hr IVPB DAILY [facility]; Protocol Last Admin: 05/03/18 11:06 Dose: 100 mls/hr Prednisone (Deltasone -) 60 mg GT DAILY [facility] Last Admin: 05/03/18 10:44 Dose: 60 mg Ramipril (Altace -) 1.25 mg GT DAILY [facility] Last Admin: 05/03/18 11:08 Dose: 1.25 mg Saliva Substitute (Mouthkote Solution -) 1 applic MM DAILY PRN PRN Reason: dry mouth Last Admin: 05/01/18 22:11 Dose: 1 applic Simethicone (Mylicon Liquid -) 40 mg GT TID [facility] Last Admin: 05/03/18 05:11 Dose: 40 mg Gen: vented, awake Heart: RRR Lung: scattered rhonchi Abd: soft, nontender Ext: no edema Laboratory Results - last 24 hr 05/02/18 05/03/18 05/03/18 17:35 06:05 06:05 WBC 14.3 H RBC 3.92 L Hgb 11.9 Hct 34.4 L MCV 87.9 MCH 30.3 MCHC 34.5 RDW 15.6 Plt Count 420 MPV 8.6 Absolute Neuts (auto) 11.4 H Neutrophils % 80.0 Lymphocytes % 12.4 Monocytes % 7.1 Eosinophils % 0.4 Basophils % 0.1 Nucleated RBC % 0 ESR Sodium 136 Potassium 4.6 Chloride 100 Carbon Dioxide 30 Anion Gap 7 L BUN 33 H Creatinine 0.5 L Creat Clearance w eGFR 166.36 Random Glucose 157 H Calcium 8.4 L Total Bilirubin 0.5 AST 25 ALT 52 Alkaline Phosphatase 140 H C-Reactive Protein Total Protein 6.1 L Albumin 2.4 L Urine Color Yellow Urine Appearance Clear Urine pH 8.0 Ur Specific Clubb 1.014 Urine Protein Negative Urine Glucose (UA) Negative Urine Ketones Negative Urine Blood Negative Urine Nitrite Negative Urine Bilirubin Negative Urine Urobilinogen 4.0 e.u/dl Ur Leukocyte Esterase Negative 05/03/18 05/03/18 06:05 06:05 WBC RBC Hgb Hct MCV MCH MCHC RDW Plt Count MPV Absolute Neuts (auto) Neutrophils % Lymphocytes % Monocytes % Eosinophils % Basophils % Nucleated RBC % ESR 33 H Sodium Potassium Chloride Carbon Dioxide Anion Gap BUN Creatinine Creat Clearance w eGFR Random Glucose Calcium Total Bilirubin AST ALT Alkaline Phosphatase C-Reactive Protein 0.4 H Total Protein Albumin Urine Color Urine Appearance Urine pH Ur Specific Clubb Urine Protein Urine Glucose (UA) Urine Ketones Urine Blood Urine Nitrite Urine Bilirubin Urine Urobilinogen Ur Leukocyte Esterase Problem List - Problems (1) Acute respiratory failure with hypoxia Code(s): J96.01 - ACUTE RESPIRATORY FAILURE WITH HYPOXIA (2) Pneumonia Code(s): J18.9 - PNEUMONIA, UNSPECIFIED ORGANISM (3) COPD exacerbation Code(s): J44.1 - CHRONIC OBSTRUCTIVE PULMONARY DISEASE W (ACUTE) EXACERBATION A/P Acute on Chronic Hypoxic Respiratory Failure Dislodged Tracheostomy replaced Pneumonia Severe Sepsis +Troponins likely Demand Ischemia COPD CAD h/o CVA s/p PPM - ABX - Current vent settings - inhaled bronchodilators - Monitor off Prednisone as there is no longer a suspicion of Temporal arteritis - Can call ENT to assess for Trach downsizing - Enteral feeds - DVT/GI prophylaxis Dr Vasquez
--- NOTE | 2018-05-03 12:21 | PN ---
Progress Note, Physician - Current Medication List Current Medications: Active Medications Acetaminophen (Tylenol Oral Solution -) 650 mg GT Q6H PRN PRN Reason: PAIN LEVEL 1-5 Last Admin: 05/01/18 22:13 Dose: 650 mg Acetylcysteine (Mucomyst 20 Oral / Inh Use Only*) 220 mg NEB RQID [facility] Last Admin: 05/03/18 08:53 Dose: 220 mg Albuterol Sulfate (Ventolin 0.083% Nebulizer Soln -) 1 amp NEB RQID [facility] Last Admin: 05/03/18 08:53 Dose: 1 amp Aspirin (Asa -) 81 mg GT DAILY [facility] Last Admin: 05/03/18 10:44 Dose: 81 mg Atorvastatin Calcium (Lipitor -) 40 mg GT HS [facility] Last Admin: 05/02/18 21:40 Dose: 40 mg Carvedilol (Coreg -) 25 mg GT BID [facility] Last Admin: 05/03/18 10:43 Dose: 25 mg Doxazosin Mesylate (Cardura -) 2 mg GT [facility] Last Admin: 05/02/18 21:38 Dose: 2 mg Enoxaparin Sodium (Lovenox -) 40 mg SQ DAILY [facility] Last Admin: 05/03/18 10:43 Dose: 40 mg Ceftriaxone Sodium 2 gm/ (Dextrose) 100 mls @ 100 mls/hr IVPB DAILY [facility]; Protocol Last Admin: 05/03/18 11:06 Dose: 100 mls/hr Prednisone (Deltasone -) 60 mg GT DAILY [facility] Last Admin: 05/03/18 10:44 Dose: 60 mg Ramipril (Altace -) 1.25 mg GT DAILY [facility] Last Admin: 05/03/18 11:08 Dose: 1.25 mg Saliva Substitute (Mouthkote Solution -) 1 applic MM DAILY PRN PRN Reason: dry mouth Last Admin: 05/01/18 22:11 Dose: 1 applic Simethicone (Mylicon Liquid -) 40 mg GT TID [facility] Last Admin: 05/03/18 05:11 Dose: 40 mg - Objective Vital Signs: Vital Signs Temperature 98.2 F 05/03/18 08:30 Pulse Rate 70 05/03/18 08:56 Respiratory Rate 23 H 05/03/18 08:55 Blood Pressure 133/77 05/03/18 08:30 O2 Sat by Pulse Oximetry (%) 100 05/03/18 08:56 Labs: CBC, BMP 05/03/18 06:05 05/03/18 06:05 Microbiology 04/25/18 18:34 Sputum - Endotrachea Suction/Ventilator Gram Stain - Final 04/25/18 18:34 Sputum - Endotrachea Suction/Ventilator Sputum Culture - Final Citrobacter Koseri Klebsiella Pneumoniae Streptococcus Pyogenes Grp A 04/24/18 17:50 Blood - Peripheral Venous Blood Culture - Final NO GROWTH AFTER 5 DAYS INCUBATION 04/24/18 16:43 Blood - Peripheral Venous Blood Culture - Final NO GROWTH AFTER 5 DAYS INCUBATION 04/26/18 18:00 Urine For Antigen Detection Legionella Antigen - Final 04/26/18 18:00 Urine For Antigen Detection Streptococcus pneumoniae Antigen (M - Final Problem List - Problems (1) Acute and chronic respiratory failure ([id number]) Code(s): J96.20 - ACUTE AND CHR RESP FAILURE, UNSP W HYPOXIA OR HYPERCAPNIA (2) COPD exacerbation Code(s): J44.1 - CHRONIC OBSTRUCTIVE PULMONARY DISEASE W (ACUTE) EXACERBATION (3) CVA, old, hemiparesis Code(s): I69.359 - HEMIPLGA FOLLOWING CEREBRAL INFARCTION AFFECTING UNSP SIDE (4) Pneumonia Code(s): J18.9 - PNEUMONIA, UNSPECIFIED ORGANISM (5) Elevated troponin Code(s): R74.8 - ABNORMAL LEVELS OF OTHER SERUM ENZYMES (6) Abnormal CT scan, head Code(s): R93.0 - ABNORMAL FINDINGS ON DX IMAGING OF SKULL AND HEAD, NEC (7) Headache Code(s): R51 - HEADACHE
--- NOTE | 2018-05-03 12:25 | PN ---
Progress Note, [employer] - Note Progress Note: Po trials noted on 04/30 with cuff deflated/pmv in place with reported chocolate pudding noted at trach site, consistent with aspiration. Selected Entries 04/30/18 04/30/18 04/30/18 04:59 10:00 14:45 Temperature 98.7 F 98.2 F 98.2 F 04/30/18 05/01/18 05/01/18 18:17 06:00 10:00 Temperature 97.7 F 99.2 F 98.9 F 05/01/18 05/01/18 05/02/18 14:50 18:10 06:00 Temperature 98.9 F 98.3 F 99.2 F 05/02/18 05/02/18 05/02/18 09:00 11:50 13:52 Temperature 99.4 F 100.0 F H 98.6 F Laboratory Tests 04/28/18 04/29/18 04/30/18 15:20 07:00 07:00 WBC 13.4 H 13.4 H 15.9 H 05/01/18 05/02/18 07:30 05:30 WBC 15.4 H 14.0 H Selected Entries 05/02/18 05/02/18 05/02/18 06:00 09:00 11:50 Supper Temperature 99.2 F 99.4 F 100.0 F H 05/02/18 05/02/18 05/03/18 13:52 18:53 03:10 Supper NPO Temperature 98.6 F 98.1 F 98.3 F 05/03/18 08:30 Supper Temperature 98.2 F I believe PO trials and PMV has not been attempted since. Hold PO trials for now due to aspiration risk. Pt with size 8 Portex-possibly adversely affecting speech and swallow function. Consider assessment to downsize trach, if not medically contraindicated.
--- NOTE | 2018-05-03 12:42 | PN ---
Progress Note, Physician Chief Complaint: Hypoxia Pneumonia History of Present Illness: Previous notes and events reviewed awake and alert NAD mechanically ventilated continue to complain of headache - Current Medication List Current Medications: Active Medications Acetaminophen (Tylenol Oral Solution -) 650 mg GT Q6H PRN PRN Reason: PAIN LEVEL 1-5 Last Admin: 05/01/18 22:13 Dose: 650 mg Acetylcysteine (Mucomyst 20 Oral / Inh Use Only*) 220 mg NEB RQID [facility] Last Admin: 05/03/18 08:53 Dose: 220 mg Albuterol Sulfate (Ventolin 0.083% Nebulizer Soln -) 1 amp NEB RQID [facility] Last Admin: 05/03/18 08:53 Dose: 1 amp Aspirin (Asa -) 81 mg GT DAILY [facility] Last Admin: 05/03/18 10:44 Dose: 81 mg Atorvastatin Calcium (Lipitor -) 40 mg GT HS [facility] Last Admin: 05/02/18 21:40 Dose: 40 mg Carvedilol (Coreg -) 25 mg GT BID [facility] Last Admin: 05/03/18 10:43 Dose: 25 mg Doxazosin Mesylate (Cardura -) 2 mg GT HS [facility] Last Admin: 05/02/18 21:38 Dose: 2 mg Enoxaparin Sodium (Lovenox -) 40 mg SQ DAILY [facility] Last Admin: 05/03/18 10:43 Dose: 40 mg Ceftriaxone Sodium 2 gm/ (Dextrose) 100 mls @ 100 mls/hr IVPB DAILY [facility]; Protocol Last Admin: 05/03/18 11:06 Dose: 100 mls/hr Prednisone (Deltasone -) 60 mg GT DAILY [facility] Last Admin: 05/03/18 10:44 Dose: 60 mg Ramipril (Altace -) 1.25 mg GT DAILY [facility] Last Admin: 05/03/18 11:08 Dose: 1.25 mg Saliva Substitute (Mouthkote Solution -) 1 applic MM DAILY PRN PRN Reason: dry mouth Last Admin: 05/01/18 22:11 Dose: 1 applic Simethicone (Mylicon Liquid -) 40 mg GT TID [facility] Last Admin: 05/03/18 05:11 Dose: 40 mg - Objective Vital Signs: Vital Signs Temperature 98.2 F 05/03/18 08:30 Pulse Rate 70 05/03/18 08:56 Respiratory Rate 23 H 05/03/18 08:55 Blood Pressure 133/77 05/03/18 08:30 O2 Sat by Pulse Oximetry (%) 100 05/03/18 08:56 Constitutional: Yes: No Distress, Calm Eyes: Yes: Conjunctiva Clear HENT: Yes: Atraumatic Neck: Yes: Other (trach) Cardiovascular: Yes: Regular Rate and Rhythm Respiratory: Yes: Mechanically Ventilated, Rhonchi Gastrointestinal: Yes: Normal Bowel Sounds, Soft, Other (non tender) Genitourinary: Yes: Incontinence Musculoskeletal: Yes: Muscle Weakness Extremities: Yes: WNL Edema: No Neurological: Yes: Alert, Pre-Existing Deficit Psychiatric: Yes: Alert Labs: CBC, BMP 05/03/18 06:05 05/03/18 06:05 Microbiology 04/25/18 18:34 Sputum - Endotrachea Suction/Ventilator Gram Stain - Final 04/25/18 18:34 Sputum - Endotrachea Suction/Ventilator Sputum Culture - Final Citrobacter Koseri Klebsiella Pneumoniae Streptococcus Pyogenes Grp A 04/24/18 17:50 Blood - Peripheral Venous Blood Culture - Final NO GROWTH AFTER 5 DAYS INCUBATION 04/24/18 16:43 Blood - Peripheral Venous Blood Culture - Final NO GROWTH AFTER 5 DAYS INCUBATION 04/26/18 18:00 Urine For Antigen Detection Legionella Antigen - Final 04/26/18 18:00 Urine For Antigen Detection Streptococcus pneumoniae Antigen (M - Final Problem List - Problems (1) Acute and chronic respiratory failure ([id number]-ixwvrap) Assessment/Plan: -pulm on board -mechanically ventilated -albuterol tx via neb PRN for SOB -keep SpO2 >90% Code(s): J96.20 - ACUTE AND CHR RESP FAILURE, UNSP W HYPOXIA OR HYPERCAPNIA (2) COPD exacerbation Assessment/Plan: -pulm on board -albuterol tx via neb PRN for SOB -keep SpO2 >90% -BNP 3927.6 Code(s): J44.1 - CHRONIC OBSTRUCTIVE PULMONARY DISEASE W (ACUTE) EXACERBATION (3) CVA, old, hemiparesis Assessment/Plan: -fall precaution -PT Code(s): I69.359 - HEMIPLGA FOLLOWING CEREBRAL INFARCTION AFFECTING UNSP SIDE (4) Pneumonia Assessment/Plan: -pulm and ID on board -continue IV ceftriaxone -wbc 14.3 -Chest CT show bibasilar atelectasis/consolidation, left greater than right with trace pleural fluid Code(s): J18.9 - PNEUMONIA, UNSPECIFIED ORGANISM (5) Elevated troponin Assessment/Plan: -trop trendin down, current 0.12 -cardiology on board Code(s): R74.8 - ABNORMAL LEVELS OF OTHER SERUM ENZYMES (6) Abnormal CT scan, head Assessment/Plan: -CT scan show findings suspicious of an acute/subacute infarct, no prior available for comparison -neurology on board -continue with aspirin and atorvastatin -fall precaution -neuro checks q4h Code(s): R93.0 - ABNORMAL FINDINGS ON DX IMAGING OF SKULL AND HEAD, NEC (7) Headache Assessment/Plan: -Head CTA show findings may represent subacute stroke possibly resolving basal ganglia hematoma, no evidence of aneurysm, no evidence of AVM, dominant left vertebral artery, no significant occlusion or stenosis identified -Carotid US show moderate atherosclerotic disease with no evidence of hemodynamically signficant stenoses -neurology on board -optho on board -CRP and ESR elev but trending down Code(s): R51 - HEADACHE Assessment/Plan see problem list dvt ppx
--- NOTE | 2018-05-03 15:51 | PN ---
Progress Note (short form) - Note Progress Note: awake and alert still with headache trach to vent steroids d/norma today (got a dose earlier this am) Vital Signs Period Temp Pulse Resp BP Sys/Richards Pulse Ox Last 24 Hr 98.1 F-99.8 F 70-71 17-25 122-141/65-78 99-100 cor-rrr lungs decreased bs at bases abd soft,nt ext no edema CBC, BMP 05/03/18 06:05 05/03/18 06:05 Microbiology 04/25/18 18:34 Sputum - Endotrachea Suction/Ventilator Gram Stain - Final 04/25/18 18:34 Sputum - Endotrachea Suction/Ventilator Sputum Culture - Final Citrobacter Koseri Klebsiella Pneumoniae Streptococcus Pyogenes Grp A 04/24/18 17:50 Blood - Peripheral Venous Blood Culture - Final NO GROWTH AFTER 5 DAYS INCUBATION 04/24/18 16:43 Blood - Peripheral Venous Blood Culture - Final NO GROWTH AFTER 5 DAYS INCUBATION 04/26/18 18:00 Urine For Antigen Detection Legionella Antigen - Final 04/26/18 18:00 Urine For Antigen Detection Streptococcus pneumoniae Antigen (M - Final Current Medications Acetaminophen (Tylenol Oral Solution -) 650 mg GT Q6H PRN PRN Reason: PAIN LEVEL 1-5 Last Admin: 05/01/18 22:13 Dose: 650 mg Acetylcysteine (Mucomyst 20 Oral / Inh Use Only*) 220 mg NEB RQID [facility] Last Admin: 05/03/18 12:08 Dose: 220 mg Albuterol Sulfate (Ventolin 0.083% Nebulizer Soln -) 1 amp NEB RQID [facility] Last Admin: 05/03/18 12:09 Dose: 1 amp Aspirin (Asa -) 81 mg GT DAILY [facility] Last Admin: 05/03/18 10:44 Dose: 81 mg Atorvastatin Calcium (Lipitor -) 40 mg GT HS [facility] Last Admin: 05/02/18 21:40 Dose: 40 mg Carvedilol (Coreg -) 25 mg GT BID [facility] Last Admin: 05/03/18 10:43 Dose: 25 mg Doxazosin Mesylate (Cardura -) 2 mg GT HS [facility] Last Admin: 05/02/18 21:38 Dose: 2 mg Enoxaparin Sodium (Lovenox -) 40 mg SQ DAILY [facility] Last Admin: 05/03/18 10:43 Dose: 40 mg Ceftriaxone Sodium 2 gm/ (Dextrose) 100 mls @ 100 mls/hr IVPB DAILY [facility]; Protocol Last Admin: 05/03/18 11:06 Dose: 100 mls/hr Ramipril (Altace -) 1.25 mg GT DAILY [facility] Last Admin: 05/03/18 11:08 Dose: 1.25 mg Saliva Substitute (Mouthkote Solution -) 1 applic MM DAILY PRN PRN Reason: dry mouth Last Admin: 05/01/18 22:11 Dose: 1 applic Simethicone (Mylicon Liquid -) 40 mg GT TID [facility] Last Admin: 05/03/18 15:27 Dose: 40 mg imp/reccd acute hypoxia /chronic respiratory failure pneumonia- fever/leukocytosis -day #9 antibiotics, on ceftriaxone, repeat cxray trach malfunction positive troponins s/p CVA leukocytosis mybe due to steroids headaches- not improving with pain meds neurology f/u Problem List - Problems (1) Acute and chronic respiratory failure ([id number]-[id number]-[id number]) Code(s): J96.20 - ACUTE AND CHR RESP FAILURE, UNSP W HYPOXIA OR HYPERCAPNIA (2) Pneumonia Code(s): J18.9 - PNEUMONIA, UNSPECIFIED ORGANISM (3) Tracheostomy malfunction Code(s): J95.03 - MALFUNCTION OF TRACHEOSTOMY STOMA (4) Elevated troponin Code(s): R74.8 - ABNORMAL LEVELS OF OTHER SERUM ENZYMES (5) CVA, old, hemiparesis Code(s): I69.359 - HEMIPLGA FOLLOWING CEREBRAL INFARCTION AFFECTING UNSP SIDE
--- NOTE | 2018-05-03 18:34 | CONSULT ---
Consult - text type - Consultation Consultation Note: Ophthalmology f/u Son states that headaches have improved. 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 Left frontal headache improving, ESR and CRP trending down on steroid taper. Continue mgmt as per Dr. Rahman. Irma Delarosa MD
[2018-05-03] MEDS: DOXAZOSIN MESYLATE 2 MG TABLET (FP) GT SCH (21:39)
[2018-05-03] MEDS: ATORVASTATIN CA 40 MG TABLET (FP) GT SCH (21:40)
[2018-05-03] MEDS: ACETAMINOPHEN 650 MG/20.3 ML ORAL SOLUTION (CUPS) GT PRN (21:41)
[2018-05-04] MEDS: ACETAMINOPHEN 650 MG/20.3 ML ORAL SOLUTION (CUPS) GT PRN ×2 (05:42→11:30)
[2018-05-04] MEDS: SIMETHICONE 40 MG/0.6 ML BOTTLE GT SCH ×3 (05:42→22:09)
[2018-05-04 07:04] LABS: BASO % 0.2 % (0-2.0); EOS % 0.2 % (0-4.5); HEMATOCRIT 34.2 % (35.4-49); HEMOGLOBIN 11.8 GM/dL (11.7-16.9); LYMPH % 11.6 % (8-40); MCH 30.4 pg (25.7-33.7); MCHC 34.5 g/dl (32.0-35.9); MEAN CELL VOLUME 88.2 fl (80-96); MEAN PLT VOLUME 8.6 fl (7.5-11.1); MONO % 6.6 % (3.8-10.2); NEUT % 81.4 % (42.8-82.8); PLATELET COUNT 405 K/MM3 (134-434); RBC 3.87 M/mm3 (4.00-5.60); RDW 15.4 % (11.9-15.9); WHITE BLOOD COUNT 16.3 K/mm3 (4.0-10.0)
[2018-05-04 07:35] LABS: ALBUMIN 2.5 g/dl (3.4-5.0); ALK PHOS 137 U/L (45-117); ANION GAP 6 MMOL/L (8-16); BILIRUBIN,TOTAL 0.6 mg/dL (0.2-1); BLOOD UREA NITROGEN 28 mg/dL (7-18); CALCIUM 8.2 mg/dL (8.5-10.1); CHLORIDE 102 mmol/L (98-107); CO2 29 mmol/L (21-32); CREATININE 0.6 mg/dL (0.55-1.3); GLUCOSE,RANDOM 131 mg/dL (74-106); POTASSIUM 4.5 mmol/L (3.5-5.1); SGOT/AST 22 U/L (15-37); SGPT/ALT 51 U/L (13-61); SODIUM 137 mmol/L (136-145); TOT PROT 6.2 g/dl (6.4-8.2)
[2018-05-04] MEDS: ALBUTEROL SO4 0.083% IH SOL 2.5 MG/3 ML VIAL.NEB. NEB SCH ×4 (07:40→20:20)
[2018-05-04] MEDS: ACETYLCYSTEINE 20% 200MG/ML 4 ML VIAL *FOR ORAL / INH USE ONLY NEB SCH ×4 (07:40→20:20)
[2018-05-04] MEDS ORDERED: DEXTROSE 5%-WATER 100 ML IVPB ONE (09:25)
[2018-05-04] MEDS ORDERED: PT OWN MED DRAWER 7, Y5N ONE ×3 (09:26→21:32)
[2018-05-04] MEDS: RAMIPRIL 1.25 MG CAPSULE GT SCH (09:40)
[2018-05-04] MEDS: CARVEDILOL 25 MG TABLET (FP) GT SCH ×2 (09:40→21:35)
[2018-05-04] MEDS: ENOXAPARIN NA (PORCINE) 40 MG/0.4 ML DISP.SYRIN SQ SCH (09:41)
[2018-05-04] MEDS: ASPIRIN 81 MG CHEWABLE TABLETS GT SCH (09:41)
[2018-05-04] MEDS: CEFTRIAXONE 2 GM in DEXTROSE 5%-WATER 100 ML IVPB SCH (09:42)
[2018-05-04] MEDS: MULTIVIT-MINERALS ORAL LIQUID GT SCH (09:43)
--- NOTE | 2018-05-04 12:27 | PN ---
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 Pt with size 8 Portex-possibly adversely affecting speech and swallow function. ENT assessment pending to consider trach downsize if appropriate and not medically contraindicated, for improved PMV use and possibly PO trials.. CXR improvement noted.
--- NOTE | 2018-05-04 13:47 | PN ---
Progress Note, Physician History of Present Illness: PULMONARY NO DISTRESS ON VENT SUPPORT AC MODE,-RESP DISTRESS - Current Medication List Current Medications: Active Medications Acetaminophen (Tylenol Oral Solution -) 650 mg GT Q6H PRN PRN Reason: PAIN LEVEL 1-5 Last Admin: 05/04/18 11:30 Dose: 650 mg Acetylcysteine (Mucomyst 20 Oral / Inh Use Only*) 220 mg NEB RQID [facility] Last Admin: 05/04/18 12:37 Dose: 220 mg Albuterol Sulfate (Ventolin 0.083% Nebulizer Soln -) 1 amp NEB RQID [facility] Last Admin: 05/04/18 12:37 Dose: 1 amp Aspirin (Asa -) 81 mg GT DAILY [facility] Last Admin: 05/04/18 09:41 Dose: 81 mg Atorvastatin Calcium (Lipitor -) 40 mg GT HS [facility] Last Admin: 05/03/18 21:40 Dose: 40 mg Carvedilol (Coreg -) 25 mg GT BID [facility] Last Admin: 05/04/18 09:40 Dose: 25 mg Doxazosin Mesylate (Cardura -) 2 mg GT HS [facility] Last Admin: 05/03/18 21:39 Dose: 2 mg Enoxaparin Sodium (Lovenox -) 40 mg SQ DAILY [facility] Last Admin: 05/04/18 09:41 Dose: 40 mg Ceftriaxone Sodium 2 gm/ (Dextrose) 100 mls @ 100 mls/hr IVPB DAILY [facility]; Protocol Last Admin: 05/04/18 09:42 Dose: 100 mls/hr Ramipril (Altace -) 1.25 mg GT DAILY [facility] Last Admin: 05/04/18 09:40 Dose: 1.25 mg Saliva Substitute (Mouthkote Solution -) 1 applic MM DAILY PRN PRN Reason: dry mouth Last Admin: 05/01/18 22:11 Dose: 1 applic Simethicone (Mylicon Liquid -) 40 mg GT TID [facility] Last Admin: 05/04/18 05:42 Dose: 40 mg - Objective Vital Signs: Vital Signs Temperature 98.6 F 05/04/18 12:51 Pulse Rate 70 05/04/18 12:51 Respiratory Rate 14 05/04/18 12:51 Blood Pressure 116/63 05/04/18 12:51 O2 Sat by Pulse Oximetry (%) 99 05/04/18 11:07 Constitutional: Yes: Well Nourished, Calm Eyes: Yes: WNL HENT: Yes: WNL Neck: Yes: Supple (TRACH) Cardiovascular: Yes: Regular Rate and Rhythm, S1, S2 Respiratory: Yes: Rhonchi (FEW SCATTERED RHONCHI) Gastrointestinal: Yes: Normal Bowel Sounds, Soft Musculoskeletal: Yes: Muscle Weakness Extremities: Yes: WNL Edema: No Labs: CBC, BMP 05/04/18 06:10 05/04/18 06:10 Problem List - Problems (1) Acute and chronic respiratory failure (dnmbp-es-aqekiaz) Code(s): J96.20 - ACUTE AND CHR RESP FAILURE, UNSP W HYPOXIA OR HYPERCAPNIA (2) Elevated troponin Code(s): R74.8 - ABNORMAL LEVELS OF OTHER SERUM ENZYMES (3) Tracheostomy malfunction Code(s): J95.03 - MALFUNCTION OF TRACHEOSTOMY STOMA Assessment/Plan Problem List - Problems (1) Acute respiratory failure with hypoxia Code(s): J96.01 - ACUTE RESPIRATORY FAILURE WITH HYPOXIA (2) Pneumonia Code(s): J18.9 - PNEUMONIA, UNSPECIFIED ORGANISM (3) COPD exacerbation Code(s): J44.1 - CHRONIC OBSTRUCTIVE PULMONARY DISEASE W (ACUTE) EXACERBATION A/P Acute on Chronic Hypoxic Respiratory Failure Dislodged Tracheostomy replaced Pneumonia Severe Sepsis +Troponins likely Demand Ischemia COPD CAD h/o CVA s/p PPM - ABX - Current vent settings - inhaled bronchodilators - Monitor off Prednisone as there is no longer a suspicion of Temporal arteritis - ENT to assess for Trach downsizing - Enteral feeds - DVT/GI prophylaxis DR MOORE
--- NOTE | 2018-05-04 14:35 | PN ---
Progress Note (short form) - Note Progress Note: awake and alert headache is a bit improved trach to vent Vital Signs Period Temp Pulse Resp BP Sys/Richards Pulse Ox Last 24 Hr 98.6 F-100.3 F 70-71 10-25 105-138/63-73 99-100 cor-rrr lungs decreased bs at baes abd soft,nt ext no edema +right sided paresis CBC, BMP 05/04/18 06:10 05/04/18 06:10 Microbiology 05/02/18 17:35 Urine - Urine Clean Catch Urine Culture - Final NO GROWTH OBTAINED 04/25/18 18:34 Sputum - Endotrachea Suction/Ventilator Gram Stain - Final 04/25/18 18:34 Sputum - Endotrachea Suction/Ventilator Sputum Culture - Final Citrobacter Koseri Klebsiella Pneumoniae Streptococcus Pyogenes Grp A 04/24/18 17:50 Blood - Peripheral Venous Blood Culture - Final NO GROWTH AFTER 5 DAYS INCUBATION 04/24/18 16:43 Blood - Peripheral Venous Blood Culture - Final NO GROWTH AFTER 5 DAYS INCUBATION 04/26/18 18:00 Urine For Antigen Detection Legionella Antigen - Final 04/26/18 18:00 Urine For Antigen Detection Streptococcus pneumoniae Antigen (M - Final cxray improved imp/reccd acute hypoxia /chronic respiratory failure pneumonia- fever/leukocytosis -day #10 antibiotics, on ceftriaxone, repeat cxray improved will d/c antibiotics and observe trach malfunction positive troponins s/p CVA leukocytosis maybe due to steroids headaches- not improving with pain meds neurology f/u d/w hospitalist Problem List - Problems (1) Acute and chronic respiratory failure (irkqk-on-ivtwsiu) Code(s): J96.20 - ACUTE AND CHR RESP FAILURE, UNSP W HYPOXIA OR HYPERCAPNIA (2) Pneumonia Code(s): J18.9 - PNEUMONIA, UNSPECIFIED ORGANISM (3) Tracheostomy malfunction Code(s): J95.03 - MALFUNCTION OF TRACHEOSTOMY STOMA (4) Elevated troponin Code(s): R74.8 - ABNORMAL LEVELS OF OTHER SERUM ENZYMES (5) CVA, old, hemiparesis Code(s): I69.359 - HEMIPLGA FOLLOWING CEREBRAL INFARCTION AFFECTING UNSP SIDE
--- NOTE | 2018-05-04 17:04 | PN ---
Progress Note, Physician Chief Complaint: Hypoxia Pneumonia History of Present Illness: Previous notes and events reviewed awake and alert NAD mechanically ventilated continue to complain of headache - Current Medication List Current Medications: Active Medications Acetaminophen (Tylenol Oral Solution -) 650 mg GT Q6H PRN PRN Reason: PAIN LEVEL 1-5 Last Admin: 05/04/18 11:30 Dose: 650 mg Acetylcysteine (Mucomyst 20 Oral / Inh Use Only*) 220 mg NEB RQID [facility] Last Admin: 05/04/18 15:58 Dose: 220 mg Albuterol Sulfate (Ventolin 0.083% Nebulizer Soln -) 1 amp NEB RQID [facility] Last Admin: 05/04/18 15:59 Dose: 1 amp Aspirin (Asa -) 81 mg GT DAILY [facility] Last Admin: 05/04/18 09:41 Dose: 81 mg Atorvastatin Calcium (Lipitor -) 40 mg GT HS [facility] Last Admin: 05/03/18 21:40 Dose: 40 mg Carvedilol (Coreg -) 25 mg GT BID [facility] Last Admin: 05/04/18 09:40 Dose: 25 mg Doxazosin Mesylate (Cardura -) 2 mg GT HS [facility] Last Admin: 05/03/18 21:39 Dose: 2 mg Enoxaparin Sodium (Lovenox -) 40 mg SQ DAILY [facility] Last Admin: 05/04/18 09:41 Dose: 40 mg Ramipril (Altace -) 1.25 mg GT DAILY [facility] Last Admin: 05/04/18 09:40 Dose: 1.25 mg Saliva Substitute (Mouthkote Solution -) 1 applic MM DAILY PRN PRN Reason: dry mouth Last Admin: 05/01/18 22:11 Dose: 1 applic Simethicone (Mylicon Liquid -) 40 mg GT TID [facility] Last Admin: 05/04/18 05:42 Dose: 40 mg - Objective Vital Signs: Vital Signs Temperature 99.6 F 05/04/18 14:30 Pulse Rate 70 05/04/18 14:30 Respiratory Rate 20 05/04/18 16:58 Blood Pressure 121/71 05/04/18 14:30 O2 Sat by Pulse Oximetry (%) 99 05/04/18 11:07 Constitutional: Yes: No Distress, Calm Eyes: Yes: Conjunctiva Clear HENT: Yes: Atraumatic Neck: Yes: Other (trach) Cardiovascular: Yes: Regular Rate and Rhythm Respiratory: Yes: Mechanically Ventilated, Rhonchi Gastrointestinal: Yes: Normal Bowel Sounds, Soft, Other (non tender, PEG tube) Genitourinary: Yes: Incontinence Musculoskeletal: Yes: Muscle Weakness Extremities: Yes: WNL Neurological: Yes: Alert, Pre-Existing Deficit, Weakness (R side) Psychiatric: Yes: Alert Labs: CBC, BMP 05/04/18 06:10 05/04/18 06:10 Problem List - Problems (1) Acute and chronic respiratory failure (yzdiq-gm-lirohtg) Assessment/Plan: -pulm on board -mechanically ventilated -albuterol tx via neb PRN for SOB -keep SpO2 >90% Code(s): J96.20 - ACUTE AND CHR RESP FAILURE, UNSP W HYPOXIA OR HYPERCAPNIA (2) COPD exacerbation Assessment/Plan: -pulm on board -albuterol tx via neb PRN for SOB -keep SpO2 >90% -BNP 3927.6 Code(s): J44.1 - CHRONIC OBSTRUCTIVE PULMONARY DISEASE W (ACUTE) EXACERBATION (3) CVA, old, hemiparesis Assessment/Plan: -fall precaution -PT Code(s): I69.359 - HEMIPLGA FOLLOWING CEREBRAL INFARCTION AFFECTING UNSP SIDE (4) Pneumonia Assessment/Plan: -pulm and ID on board -CXR improved, will observe off antibiotic therapy -wbc 16.3 -Chest CT show bibasilar atelectasis/consolidation, left greater than right with trace pleural fluid Code(s): J18.9 - PNEUMONIA, UNSPECIFIED ORGANISM (5) Elevated troponin Assessment/Plan: -trop trendin down, current 0.12 -cardiology on board Code(s): R74.8 - ABNORMAL LEVELS OF OTHER SERUM ENZYMES (6) Abnormal CT scan, head Assessment/Plan: -CT scan show findings suspicious of an acute/subacute infarct, no prior available for comparison -neurology on board -continue with aspirin and atorvastatin -fall precaution -neuro checks q4h Code(s): R93.0 - ABNORMAL FINDINGS ON DX IMAGING OF SKULL AND HEAD, NEC (7) Headache Assessment/Plan: -Head CTA show findings may represent subacute stroke possibly resolving basal ganglia hematoma, no evidence of aneurysm, no evidence of AVM, dominant left vertebral artery, no significant occlusion or stenosis identified -Carotid US show moderate atherosclerotic disease with no evidence of hemodynamically signficant stenoses -neurology on board -optho on board -CRP and ESR elev but trending down Code(s): R51 - HEADACHE Assessment/Plan see problem list dvt ppx
[2018-05-04] MEDS: DOXAZOSIN MESYLATE 2 MG TABLET (FP) GT SCH (21:35)
[2018-05-04] MEDS: ATORVASTATIN CA 40 MG TABLET (FP) GT SCH (21:35)
[2018-05-05] MEDS: ACETAMINOPHEN 650 MG/20.3 ML ORAL SOLUTION (CUPS) GT PRN ×2 (03:31→09:55)
[2018-05-05] MEDS: SIMETHICONE 40 MG/0.6 ML BOTTLE GT SCH ×3 (06:21→21:48)
[2018-05-05] MEDS ORDERED: PT OWN MED DRAWER 7, Y5N ONE ×3 (06:24→20:55)
[2018-05-05 09:29] LABS: BASO % 0.1 % (0-2.0); EOS % 1.3 % (0-4.5); HEMATOCRIT 34.9 % (35.4-49); HEMOGLOBIN 11.8 GM/dL (11.7-16.9); LYMPH % 9.9 % (8-40); MCH 29.9 pg (25.7-33.7); MEAN PLT VOLUME 8.8 fl (7.5-11.1); MONO % 5.6 % (3.8-10.2); NEUT % 83.1 % (42.8-82.8); PLATELET COUNT 392 K/MM3 (134-434); RBC 3.96 M/mm3 (4.00-5.60); RDW 15.7 % (11.9-15.9); WHITE BLOOD COUNT 16.8 K/mm3 (4.0-10.0)
[2018-05-05] MEDS: ACETYLCYSTEINE 20% 200MG/ML 4 ML VIAL *FOR ORAL / INH USE ONLY NEB SCH ×4 (09:33→20:18)
[2018-05-05] MEDS: ALBUTEROL SO4 0.083% IH SOL 2.5 MG/3 ML VIAL.NEB. NEB SCH ×2 (09:35→12:00)
[2018-05-05] MEDS: ENOXAPARIN NA (PORCINE) 40 MG/0.4 ML DISP.SYRIN SQ SCH (09:45)
[2018-05-05] MEDS: CARVEDILOL 25 MG TABLET (FP) GT SCH ×2 (09:45→21:48)
[2018-05-05] MEDS: ASPIRIN 81 MG CHEWABLE TABLETS GT SCH (09:45)
[2018-05-05] MEDS: MULTIVIT-MINERALS ORAL LIQUID GT SCH (09:46)
[2018-05-05] MEDS: RAMIPRIL 1.25 MG CAPSULE GT SCH (09:46)
--- NOTE | 2018-05-05 09:58 | PN ---
Progress Note (short form) - Note Progress Note: Vented on volume assist control. Afebrile this AM. VIDAL slowly improving. No acute events overnight. Intake & Output 05/02/18 05/03/18 05/04/18 05/05/18 23:59 23:59 23:59 23:59 Intake Total 2870 5 2270 1100 Balance 2870 2054 2270 1100 Last Vital Signs Temp Pulse Resp BP Pulse Ox 98.9 F 70 29 H 123/72 100 05/05/18 06:42 05/05/18 06:42 05/05/18 09:25 05/05/18 06:42 05/04/18 21:00 Active Medications Acetaminophen (Tylenol Oral Solution -) 650 mg GT Q6H PRN PRN Reason: PAIN LEVEL 1-5 Last Admin: 05/05/18 09:55 Dose: 650 mg Acetylcysteine (Mucomyst 20 Oral / Inh Use Only*) 220 mg NEB RQID [facility] Last Admin: 05/05/18 09:33 Dose: 220 mg Albuterol Sulfate (Ventolin 0.083% Nebulizer Soln -) 1 amp NEB RQID [facility] Last Admin: 05/05/18 09:35 Dose: 1 amp Aspirin (Asa -) 81 mg GT DAILY [facility] Last Admin: 05/05/18 09:45 Dose: 81 mg Atorvastatin Calcium (Lipitor -) 40 mg GT HS [facility] Last Admin: 05/04/18 21:35 Dose: 40 mg Carvedilol (Coreg -) 25 mg GT BID [facility] Last Admin: 05/05/18 09:45 Dose: 25 mg Doxazosin Mesylate (Cardura -) 2 mg GT HS [facility] Last Admin: 05/04/18 21:35 Dose: 2 mg Enoxaparin Sodium (Lovenox -) 40 mg SQ DAILY [facility] Last Admin: 05/05/18 09:45 Dose: 40 mg Ramipril (Altace -) 1.25 mg GT DAILY [facility] Last Admin: 05/05/18 09:46 Dose: 1.25 mg Saliva Substitute (Mouthkote Solution -) 1 applic MM DAILY PRN PRN Reason: dry mouth Last Admin: 05/01/18 22:11 Dose: 1 applic Simethicone (Mylicon Liquid -) 40 mg GT TID [facility] Last Admin: 05/05/18 06:21 Dose: 40 mg Gen: vented, awake Heart: RRR Lung: scattered rhonchi Abd: soft, nontender Ext: no edema Laboratory Results - last 24 hr 05/05/18 08:25 WBC 16.8 H RBC 3.96 L Hgb 11.8 Hct 34.9 L MCV 88.0 MCH 29.9 MCHC 34.0 RDW 15.7 Plt Count 392 MPV 8.8 Absolute Neuts (auto) 13.9 H Neutrophils % 83.1 H Lymphocytes % 9.9 Monocytes % 5.6 Eosinophils % 1.3 D Basophils % 0.1 Nucleated RBC % 0 Problem List - Problems (1) Acute respiratory failure with hypoxia Code(s): J96.01 - ACUTE RESPIRATORY FAILURE WITH HYPOXIA (2) Pneumonia Code(s): J18.9 - PNEUMONIA, UNSPECIFIED ORGANISM (3) COPD exacerbation Code(s): J44.1 - CHRONIC OBSTRUCTIVE PULMONARY DISEASE W (ACUTE) EXACERBATION A/P Acute on Chronic Hypoxic Respiratory Failure Dislodged Tracheostomy replaced Pneumonia Severe Sepsis +Troponins likely Demand Ischemia COPD CAD h/o CVA s/p PPM - Off ABX per ID - Current vent settings - inhaled bronchodilators - Enteral feeds - DVT/GI prophylaxis - ENT evaluation pending to assess for Trach downsizing - There is no Pulmonary contraindication for D/C planning Dr Vasquez
[2018-05-05 11:08] LABS: ALBUMIN 2.5 g/dl (3.4-5.0); ALK PHOS 138 U/L (45-117); ANION GAP 7 MMOL/L (8-16); BILIRUBIN,TOTAL 0.6 mg/dL (0.2-1); BLOOD UREA NITROGEN 31 mg/dL (7-18); CALCIUM 8.3 mg/dL (8.5-10.1); CHLORIDE 101 mmol/L (98-107); CO2 28 mmol/L (21-32); CREATININE 0.5 mg/dL (0.55-1.3); GLUCOSE,RANDOM 151 mg/dL (74-106); POTASSIUM 4.3 mmol/L (3.5-5.1); SGOT/AST 27 U/L (15-37); SGPT/ALT 58 U/L (13-61); SODIUM 136 mmol/L (136-145); TOT PROT 6.3 g/dl (6.4-8.2)
--- NOTE | 2018-05-05 11:21 | PN ---
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 Message from nursing stated that changing trach would need to be deferred. PNP aware. Defer PO trials due to WBC. Aspiration on secretions? Documented aspiration on PO trials during MBS and brief PO trial 04/30
--- NOTE | 2018-05-05 11:31 | PN ---
Progress Note (short form) - Note Progress Note: NEUROLOGY PROGRESS: Events reviewed and discussed with ALEXANDRA Stafford and MICHELLE Moser Pt. still c/o frontal headache, lessened in severity with increase of coreg, usually in AM upon awakening. Denies neck pain. Receiving tylenol 650mg q6H prn. Continues with intermittent fever, off abx at this time per ID. Also reporting has not had recent BM. LORETA: WBC 16.8, Rectal temp 101.4. Neck supple. Neg Kernig's. On vent and PEG. Incontinent in diaper. Repeat UA, C & S negative. Old CT (03/16/18) reviewed in archives. 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 This fresh hemorrhage (in ) perfectly reflects the chronic white matter changes seen in CT of this admission. NEURO: +Glabella, snout, palmomentals. Neck supple. -Kernigs Awake, alert, expressive with lips. Able to nod and follow simple commands. R exotropia and ptosis. R facial. R hemiparesis. Strength normal on L. Brisk reflexes R > L. R Babinski. No L FTN dystaxia. Reduced pinch on R (mislocalizes pinch in hand to shoulder). Impression: 1. s/p Left CVA with right hemiplegia. 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 2. 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 New onset (?) headache- improved 4. Toxic-metabolic encephalopathy (Klebsiella Pneumonia, ? R/O other viral/infectious source) Suggest: Continue carvedilol 25 mg BID for migraine prophylaxis Consider low threshold for abx therapy for this patient, rectal temps, continued leukocytosis Continue Tylenol prn for breakthrough headache Cont tube feeds, hydration ID follow up appreciated to r/o other sources of fever, headache such as lyme, influenza, HSV, HIV,etc Can consider LP if fevers persist but negative meningeal signs and normal LOC mitigate strongly against a RADIATION PROTECTION TECHNICIAN/meningeal source of infection. Thank you very much, Kyle Rahman MD
--- NOTE | 2018-05-05 11:51 | PN ---
Progress Note, Physician Chief Complaint: Hypoxia Pneumonia History of Present Illness: Previous notes and events reviewed awake and alert NAD mechanically ventilated states his frontal headache is improving but still experiences in morning upon awakening leukocytosis noted with upward trend of WBC to 16.8 - Current Medication List Current Medications: Active Medications Acetaminophen (Tylenol Oral Solution -) 650 mg GT Q6H PRN PRN Reason: PAIN LEVEL 1-5 Last Admin: 05/05/18 09:55 Dose: 650 mg Acetylcysteine (Mucomyst 20 Oral / Inh Use Only*) 220 mg NEB RQID TRUDY Last Admin: 05/05/18 09:33 Dose: 220 mg Albuterol Sulfate (Ventolin 0.083% Nebulizer Soln -) 1 amp NEB RQID TRUDY Last Admin: 05/05/18 09:35 Dose: 1 amp Aspirin (Asa -) 81 mg GT DAILY [facility] Last Admin: 05/05/18 09:45 Dose: 81 mg Atorvastatin Calcium (Lipitor -) 40 mg GT HS [facility] Last Admin: 05/04/18 21:35 Dose: 40 mg Carvedilol (Coreg -) 25 mg GT BID [facility] Last Admin: 05/05/18 09:45 Dose: 25 mg Doxazosin Mesylate (Cardura -) 2 mg GT HS [facility] Last Admin: 05/04/18 21:35 Dose: 2 mg Enoxaparin Sodium (Lovenox -) 40 mg SQ DAILY [facility] Last Admin: 05/05/18 09:45 Dose: 40 mg Ramipril (Altace -) 1.25 mg GT DAILY [facility] Last Admin: 05/05/18 09:46 Dose: 1.25 mg Saliva Substitute (Mouthkote Solution -) 1 applic MM DAILY PRN PRN Reason: dry mouth Last Admin: 05/01/18 22:11 Dose: 1 applic Simethicone (Mylicon Liquid -) 40 mg GT TID [facility] Last Admin: 05/05/18 06:21 Dose: 40 mg - Objective Vital Signs: Vital Signs Temperature 98.9 F 05/05/18 06:42 Pulse Rate 70 05/05/18 06:42 Respiratory Rate 29 H 05/05/18 09:25 Blood Pressure 123/72 05/05/18 06:42 O2 Sat by Pulse Oximetry (%) 100 05/04/18 21:00 Constitutional: Yes: No Distress, Calm Eyes: Yes: Conjunctiva Clear HENT: Yes: Atraumatic Neck: Yes: Other (trach) Cardiovascular: Yes: Regular Rate and Rhythm Respiratory: Yes: Mechanically Ventilated, Rhonchi Gastrointestinal: Yes: Normal Bowel Sounds, Soft, Other (PEG) Genitourinary: Yes: Incontinence Musculoskeletal: Yes: Muscle Weakness Extremities: Yes: WNL Edema: No Neurological: Yes: Alert, Pre-Existing Deficit Psychiatric: Yes: Alert Labs: CBC, BMP 05/05/18 08:25 05/05/18 08:25 Microbiology 05/02/18 17:35 Urine - Urine Clean Catch Urine Culture - Final NO GROWTH OBTAINED 04/25/18 18:34 Sputum - Endotrachea Suction/Ventilator Gram Stain - Final 04/25/18 18:34 Sputum - Endotrachea Suction/Ventilator Sputum Culture - Final Citrobacter Koseri Klebsiella Pneumoniae Streptococcus Pyogenes Grp A 04/24/18 17:50 Blood - Peripheral Venous Blood Culture - Final NO GROWTH AFTER 5 DAYS INCUBATION 04/24/18 16:43 Blood - Peripheral Venous Blood Culture - Final NO GROWTH AFTER 5 DAYS INCUBATION 04/26/18 18:00 Urine For Antigen Detection Legionella Antigen - Final 04/26/18 18:00 Urine For Antigen Detection Streptococcus pneumoniae Antigen (M - Final Problem List - Problems (1) Acute and chronic respiratory failure ([id number]) Assessment/Plan: -pulm on board -mechanically ventilated -albuterol tx via neb PRN for SOB -keep SpO2 >90% Code(s): J96.20 - ACUTE AND CHR RESP FAILURE, UNSP W HYPOXIA OR HYPERCAPNIA (2) COPD exacerbation Assessment/Plan: -pulm on board -albuterol tx via neb PRN for SOB -keep SpO2 >90% -BNP 3927.6 Code(s): J44.1 - CHRONIC OBSTRUCTIVE PULMONARY DISEASE W (ACUTE) EXACERBATION (3) CVA, old, hemiparesis Assessment/Plan: -fall precaution -PT Code(s): I69.359 - HEMIPLGA FOLLOWING CEREBRAL INFARCTION AFFECTING UNSP SIDE (4) Pneumonia Assessment/Plan: -pulm and ID on board -CXR improved, will observe off antibiotic therapy -wbc 16.8--upward trend of WBC possible need for further ABT or investigate other source of infection -Chest CT show bibasilar atelectasis/consolidation, left greater than right with trace pleural fluid Code(s): J18.9 - PNEUMONIA, UNSPECIFIED ORGANISM (5) Elevated troponin Assessment/Plan: -trop trendin down, current 0.12 -cardiology on board Code(s): R74.8 - ABNORMAL LEVELS OF OTHER SERUM ENZYMES (6) Abnormal CT scan, head Assessment/Plan: -CT scan show findings suspicious of an acute/subacute infarct, no prior available for comparison -neurology on board -continue with aspirin and atorvastatin -fall precaution -neuro checks q4h Code(s): R93.0 - ABNORMAL FINDINGS ON DX IMAGING OF SKULL AND HEAD, NEC (7) Headache Assessment/Plan: -Head CTA show findings may represent subacute stroke possibly resolving basal ganglia hematoma, no evidence of aneurysm, no evidence of AVM, dominant left vertebral artery, no significant occlusion or stenosis identified -Carotid US show moderate atherosclerotic disease with no evidence of hemodynamically signficant stenoses -neurology on board -optho on board -CRP and ESR elev but trending down -carvedilol BID for migraine prophylaxis Code(s): R51 - HEADACHE (8) Leukocytosis Assessment/Plan: -WBC 16.8 -ID on board -re-ordered BC -leukocytosis and VIDAL consider other source of infection? possible LP if symptoms persist? Code(s): D72.829 - ELEVATED WHITE BLOOD CELL COUNT, UNSPECIFIED
[2018-05-05] MEDS: POLYETHYLENE GLYCOL 3350 119 GM BTL PEG SCH (14:23)
--- NOTE | 2018-05-05 16:27 | PN ---
Progress Note (short form) - Note Progress Note: awake and alert headache is a bit improved trach to vent rectal temp 101.4 this am no othr complaints no diarrhea no dysuria Vital Signs Period Temp Pulse Resp BP Sys/Richards Pulse Ox Last 24 Hr 98.2 F-101.4 F 70-71 15-29 110-138/63-73 100 cor rrr Lungs decreeased bs at bases abd soft,nt ext no edema CBC, BMP 05/05/18 08:25 05/05/18 08:25 Microbiology 05/02/18 17:35 Urine - Urine Clean Catch Urine Culture - Final NO GROWTH OBTAINED 04/25/18 18:34 Sputum - Endotrachea Suction/Ventilator Gram Stain - Final 04/25/18 18:34 Sputum - Endotrachea Suction/Ventilator Sputum Culture - Final Citrobacter Koseri Klebsiella Pneumoniae Streptococcus Pyogenes Grp A 04/24/18 17:50 Blood - Peripheral Venous Blood Culture - Final NO GROWTH AFTER 5 DAYS INCUBATION 04/24/18 16:43 Blood - Peripheral Venous Blood Culture - Final NO GROWTH AFTER 5 DAYS INCUBATION 04/26/18 18:00 Urine For Antigen Detection Legionella Antigen - Final 04/26/18 18:00 Urine For Antigen Detection Streptococcus pneumoniae Antigen (M - Final cxray improved imp/reccd FUO-observe off antibiotics- no sinusitis noted on ct scan, consider ct abd/ pelvis if fevers persist repeat blood cultures sent today acute hypoxia /chronic respiratory failure s/p 10 days of atibiotics trach malfunction positive troponins s/p CVA chronic headaches mildly improved d/w hospitalist Problem List - Problems (1) Acute and chronic respiratory failure ([id number]) Code(s): J96.20 - ACUTE AND CHR RESP FAILURE, UNSP W HYPOXIA OR HYPERCAPNIA (2) Pneumonia Code(s): J18.9 - PNEUMONIA, UNSPECIFIED ORGANISM (3) Tracheostomy malfunction Code(s): J95.03 - MALFUNCTION OF TRACHEOSTOMY STOMA (4) Elevated troponin Code(s): R74.8 - ABNORMAL LEVELS OF OTHER SERUM ENZYMES (5) CVA, old, hemiparesis Code(s): I69.359 - HEMIPLGA FOLLOWING CEREBRAL INFARCTION AFFECTING UNSP SIDE
[2018-05-05] MEDS: LYTES/YERBA SANTA 240 ML BOTTLE MM PRN (21:47)
[2018-05-05] MEDS: DOXAZOSIN MESYLATE 2 MG TABLET (FP) GT SCH (21:48)
[2018-05-05] MEDS: ATORVASTATIN CA 40 MG TABLET (FP) GT SCH (21:48)
[2018-05-06] MEDS: SIMETHICONE 40 MG/0.6 ML BOTTLE GT SCH ×3 (06:29→22:58)
[2018-05-06 07:29] LABS: BASO % 0.3 % (0-2.0); EOS % 1.9 % (0-4.5); HEMATOCRIT 33.9 % (35.4-49); HEMOGLOBIN 11.8 GM/dL (11.7-16.9); LYMPH % 11.4 % (8-40); MCH 30.8 pg (25.7-33.7); MCHC 34.8 g/dl (32.0-35.9); MEAN CELL VOLUME 88.4 fl (80-96); MEAN PLT VOLUME 8.8 fl (7.5-11.1); MONO % 6.2 % (3.8-10.2); NEUT % 80.2 % (42.8-82.8); PLATELET COUNT 381 K/MM3 (134-434); RBC 3.84 M/mm3 (4.00-5.60); RDW 16.1 % (11.9-15.9)
[2018-05-06] MEDS ORDERED: ALBUTEROL SO4 2.5/IPRATROPIUM 0.5 INH SOL 3 ML VIAL.NEB. NEB ONE (07:37)
[2018-05-06 08:09] LABS: ALBUMIN 2.4 g/dl (3.4-5.0); ALK PHOS 135 U/L (45-117); ANION GAP 7 MMOL/L (8-16); BILIRUBIN,TOTAL 0.7 mg/dL (0.2-1); BLOOD UREA NITROGEN 31 mg/dL (7-18); CALCIUM 8.3 mg/dL (8.5-10.1); CHLORIDE 100 mmol/L (98-107); CO2 28 mmol/L (21-32); CREATININE 0.5 mg/dL (0.55-1.3); GLUCOSE,RANDOM 165 mg/dL (74-106); POTASSIUM 4.3 mmol/L (3.5-5.1); SGOT/AST 23 U/L (15-37); SGPT/ALT 53 U/L (13-61); SODIUM 135 mmol/L (136-145)
[2018-05-06] MEDS: ACETYLCYSTEINE 20% 200MG/ML 4 ML VIAL *FOR ORAL / INH USE ONLY NEB SCH ×4 (08:28→21:11)
--- NOTE | 2018-05-06 10:44 | PN ---
Progress Note (short form) - Note Progress Note: awake NAD tmax 100.5 rectal no tylenol given overnight Vital Signs Period Temp Pulse Resp BP Sys/Richards Pulse Ox Last 24 Hr 98.2 F-101.4 F 70-71 14-30 110-126/63-71 99-100 cor-rrr lungs clear abd soft,nt GT site is clean ext no edema CBC, BMP 05/06/18 06:35 05/06/18 06:35 Microbiology 05/02/18 17:35 Urine - Urine Clean Catch Urine Culture - Final NO GROWTH OBTAINED 04/25/18 18:34 Sputum - Endotrachea Suction/Ventilator Gram Stain - Final 04/25/18 18:34 Sputum - Endotrachea Suction/Ventilator Sputum Culture - Final Citrobacter Koseri Klebsiella Pneumoniae Streptococcus Pyogenes Grp A 04/24/18 17:50 Blood - Peripheral Venous Blood Culture - Final NO GROWTH AFTER 5 DAYS INCUBATION 04/24/18 16:43 Blood - Peripheral Venous Blood Culture - Final NO GROWTH AFTER 5 DAYS INCUBATION 04/26/18 18:00 Urine For Antigen Detection Legionella Antigen - Final 04/26/18 18:00 Urine For Antigen Detection Streptococcus pneumoniae Antigen (M - Final cxray improved imp/reccd FUO- leukocytosis improving (recent steroids) repeat blood cultures off atibiotics if he has fever over 100.[address] scan abd/pelvis to r/o intaabdominal source of fever ultrasound gallbladder as alk phos remains elevated duplex legs r/o dvt as possible source of fever no antibiotics for now d/w hospitalist at length Problem List - Problems (1) Acute and chronic respiratory failure ([id number]-[id number]-[id number]) Code(s): J96.20 - ACUTE AND CHR RESP FAILURE, UNSP W HYPOXIA OR HYPERCAPNIA (2) Pneumonia Code(s): J18.9 - PNEUMONIA, UNSPECIFIED ORGANISM (3) Tracheostomy malfunction Code(s): J95.03 - MALFUNCTION OF TRACHEOSTOMY STOMA (4) Elevated troponin Code(s): R74.8 - ABNORMAL LEVELS OF OTHER SERUM ENZYMES (5) CVA, old, hemiparesis Code(s): I69.359 - HEMIPLGA FOLLOWING CEREBRAL INFARCTION AFFECTING UNSP SIDE
--- NOTE | 2018-05-06 10:59 | PN ---
Progress Note, Physician Chief Complaint: Hypoxia Pneumonia History of Present Illness: Previous notes and events reviewed awake and alert NAD mechanically ventilated states his frontal headache is improving, when asked only experienced 2 headaches yesterday - Current Medication List Current Medications: Active Medications Acetaminophen (Tylenol Oral Solution -) 650 mg GT Q6H PRN PRN Reason: PAIN LEVEL 1-5 Last Admin: 05/05/18 09:55 Dose: 650 mg Acetylcysteine (Mucomyst 20 Oral / Inh Use Only*) 220 mg NEB RQID [facility] Last Admin: 05/06/18 08:28 Dose: 220 mg Aspirin (Asa -) 81 mg GT DAILY [facility] Last Admin: 05/05/18 09:45 Dose: 81 mg Atorvastatin Calcium (Lipitor -) 40 mg GT HS [facility] Last Admin: 05/05/18 21:48 Dose: 40 mg Carvedilol (Coreg -) 25 mg GT BID [facility] Last Admin: 05/05/18 21:48 Dose: 25 mg Doxazosin Mesylate (Cardura -) 2 mg GT HS [facility] Last Admin: 05/05/18 21:48 Dose: 2 mg Enoxaparin Sodium (Lovenox -) 40 mg SQ DAILY [facility] Last Admin: 05/05/18 09:45 Dose: 40 mg Polyethylene Glycol (Miralax (For Daily Use) -) 17 gm PEG DAILY [facility] Last Admin: 05/05/18 14:23 Dose: 17 gm Ramipril (Altace -) 1.25 mg GT DAILY [facility] Last Admin: 05/05/18 09:46 Dose: 1.25 mg Saliva Substitute (Mouthkote Solution -) 1 applic MM DAILY PRN PRN Reason: dry mouth Last Admin: 05/05/18 21:47 Dose: 1 applic Simethicone (Mylicon Liquid -) 40 mg GT TID [facility] Last Admin: 05/06/18 06:29 Dose: 40 mg - Objective Vital Signs: Vital Signs Temperature 100.5 F H 05/06/18 02:00 Pulse Rate 70 05/06/18 09:45 Respiratory Rate 30 H 05/06/18 09:44 Blood Pressure 126/71 05/06/18 06:00 O2 Sat by Pulse Oximetry (%) 99 05/06/18 09:45 Constitutional: Yes: No Distress, Calm Eyes: Yes: Conjunctiva Clear HENT: Yes: Atraumatic Neck: Yes: Other (trach) Cardiovascular: Yes: Regular Rate and Rhythm Respiratory: Yes: Diminished, Mechanically Ventilated Gastrointestinal: Yes: Normal Bowel Sounds, Soft, Other (PEG) Genitourinary: Yes: Incontinence Musculoskeletal: Yes: Muscle Weakness (R sided) Edema: No Neurological: Yes: Alert, Pre-Existing Deficit Psychiatric: Yes: Alert Labs: CBC, BMP 05/06/18 06:35 05/06/18 06:35 Microbiology 05/02/18 17:35 Urine - Urine Clean Catch Urine Culture - Final NO GROWTH OBTAINED 04/25/18 18:34 Sputum - Endotrachea Suction/Ventilator Gram Stain - Final 04/25/18 18:34 Sputum - Endotrachea Suction/Ventilator Sputum Culture - Final Citrobacter Koseri Klebsiella Pneumoniae Streptococcus Pyogenes Grp A 04/24/18 17:50 Blood - Peripheral Venous Blood Culture - Final NO GROWTH AFTER 5 DAYS INCUBATION 04/24/18 16:43 Blood - Peripheral Venous Blood Culture - Final NO GROWTH AFTER 5 DAYS INCUBATION 04/26/18 18:00 Urine For Antigen Detection Legionella Antigen - Final 04/26/18 18:00 Urine For Antigen Detection Streptococcus pneumoniae Antigen (M - Final Problem List - Problems (1) Acute and chronic respiratory failure ([id number]) Assessment/Plan: -pulm on board -mechanically ventilated -albuterol tx via neb PRN for SOB -keep SpO2 >90% Code(s): J96.20 - ACUTE AND CHR RESP FAILURE, UNSP W HYPOXIA OR HYPERCAPNIA (2) COPD exacerbation Assessment/Plan: -pulm on board -albuterol tx via neb PRN for SOB -keep SpO2 >90% -BNP 3927.6 Code(s): J44.1 - CHRONIC OBSTRUCTIVE PULMONARY DISEASE W (ACUTE) EXACERBATION (3) CVA, old, hemiparesis Assessment/Plan: -fall precaution -PT Code(s): I69.359 - HEMIPLGA FOLLOWING CEREBRAL INFARCTION AFFECTING UNSP SIDE (4) Pneumonia Assessment/Plan: -pulm and ID on board -CXR improved, will observe off antibiotic therapy -wbc 15.0--upward trend of WBC possible need for further ABT or investigate other source of infection -Chest CT show bibasilar atelectasis/consolidation, left greater than right with trace pleural fluid Code(s): J18.9 - PNEUMONIA, UNSPECIFIED ORGANISM (5) Elevated troponin Assessment/Plan: -trop trendin down, current 0.12 -cardiology on board Code(s): R74.8 - ABNORMAL LEVELS OF OTHER SERUM ENZYMES (6) Abnormal CT scan, head Assessment/Plan: -CT scan show findings suspicious of an acute/subacute infarct, no prior available for comparison -neurology on board -continue with aspirin and atorvastatin -fall precaution -neuro checks q4h Code(s): R93.0 - ABNORMAL FINDINGS ON DX IMAGING OF SKULL AND HEAD, NEC (7) Headache Assessment/Plan: -Head CTA show findings may represent subacute stroke possibly resolving basal ganglia hematoma, no evidence of aneurysm, no evidence of AVM, dominant left vertebral artery, no significant occlusion or stenosis identified -Carotid US show moderate atherosclerotic disease with no evidence of hemodynamically signficant stenoses -neurology on board -optho on board -ESR 96 -carvedilol BID for migraine prophylaxis Code(s): R51 - HEADACHE (8) Leukocytosis Assessment/Plan: -WBC 15.0 -ID on board -re-ordered BC -leukocytosis with elevated ESR--abdomen/pelvic CT scan with PO contrast, gallbladder US ordered Code(s): D72.829 - ELEVATED WHITE BLOOD CELL COUNT, UNSPECIFIED Assessment/Plan see problem list dvt ppx
[2018-05-06] MEDS: RAMIPRIL 1.25 MG CAPSULE GT SCH (11:00)
[2018-05-06] MEDS: MULTIVIT-MINERALS ORAL LIQUID GT SCH (11:00)
[2018-05-06] MEDS: ENOXAPARIN NA (PORCINE) 40 MG/0.4 ML DISP.SYRIN SQ SCH (11:00)
[2018-05-06] MEDS: ASPIRIN 81 MG CHEWABLE TABLETS GT SCH (11:00)
[2018-05-06] MEDS: CARVEDILOL 25 MG TABLET (FP) GT SCH ×2 (11:00→22:58)
--- NOTE | 2018-05-06 11:09 | EKG ---
Test Reason : Blood Pressure : / mmHG Vent. Rate : 119 BPM Atrial Rate : 071 BPM P-R Int : 000 ms QRS Dur : 014 ms QT Int : 214 ms P-R-T Axes : 000 000 -72 degrees QTc Int : 301 ms ACCELERATED JUNCTIONAL RHYTHM WITH RETROGRADE CONDUCTION WITH FREQUENT ventricular-paced complexes underlying atrial fibrillation Confirmed by CAS WHALEN MD ([id number]) on 05/06/2018 11:08:57 AM Referred By: Confirmed By:CAS WHALEN MD
[2018-05-06] MEDS: POLYETHYLENE GLYCOL 3350 119 GM BTL PEG SCH (12:32)
--- NOTE | 2018-05-06 15:38 | CON.ENT ---
Consult Consult Specialty:: ENT Reason for Consultation:: trach - History of Present Illness History of Present Illness: 67yo male with h/o HTN, CAD, COPD, h/o CVA, chronic respiratory failure s/o tracheostomy [facility]. Pt unable to provide further history at this time. Per chart, pt was unable to be suctioned, oxygenation improved with ambu-bagging. Tracheostomy noted to be dislodged, replaced in the ER with improvement in symptoms and oxygenation. CT chest done showing bibasilar infiltrates. Febrile to 100.9 this admission. Since that time he has continued to have leukocytosis and need for ventilatory support. He has a Gtube feed. CLIENT SUCCESS DIRECTOR asked if downsizing and using a PMV was indicated. - History Source History Provided By: Medical Record - Past Medical History PUBLIC POLICY MEDIATOR: Yes: CVA Cardio/Vascular: Yes: CAD, HTN, Other (Pacemaker) Pulmonary: Yes: COPD - Alcohol/Substance Use Hx Alcohol Use: No - Smoking History Smoking history: Unknown if ever smoked Have you smoked in the past 12 months: No - Social History Usual Living Arrangement: Senior Living ADL: Support Services History of Recent Travel: No Home Medications - Allergies Allergies/Adverse Reactions: Allergies Allergy/AdvReac Type Severity Reaction Status Date / Time No Known Allergies Allergy Verified 04/24/18 16:46 - Home Medications Home Medications: Ambulatory Orders Acetylcysteine 220 mg NEB QID 04/24/18 Albuterol 0.083% Nebulizer Asmita [Ventolin 0.083%] 1 neb NEB QID 04/24/18 Aspirin 81 mg GT DAILY 04/24/18 Atorvastatin Ca [Lipitor] 40 mg GT HS 04/24/18 Carvedilol 12.5 mg GT BID 04/24/18 Doxazosin Mesylate [Cardura -] 2 mg GT HS 04/24/18 Enoxaparin [Lovenox -] 1.2 ml GT Q8H 04/24/18 Multivitamins [Tab-A-Vit -] 1 tab GT DAILY 04/24/18 Ramipril 1.25 mg GT DAILY 04/24/18 Simethicone 40 mg GT TID 04/24/18 Physical Exam-ENT Vital Signs: Vital Signs Temperature 100.5 F H 05/06/18 02:00 Pulse Rate 70 05/06/18 09:45 Respiratory Rate 19 05/06/18 14:29 Blood Pressure 126/71 05/06/18 06:00 O2 Sat by Pulse Oximetry (%) 99 05/06/18 09:45 Constitutional: Yes: Other (Awake and on ventilator, can respond with nodding and waving) Face: Yes: No Sinus Tenderness Nose: Yes: WNL Nasal Passage: Yes: WNL Oral/Pharynx: Yes: WNL Outer Ear: Yes: WNL Neck: Yes: Other (trach tube in place) Problem List - Problems (1) Tracheostomy malfunction Assessment/Plan: He reportedly had trach tube in the incorrect position, which was remedied. There is adequate ventilation with the ventilator and this trach tube. Downsizing is done prior to decannulation when someone is off the ventilator completely for some time. A Passe beckie valve really needs someone off the vent completely. In the light of continued possible infection, I would not downsize, not decannulate and not use a PMZV, nor give po intake without a Modfied ba swallow, which I would prefer to do after all sign of infection was eliminated. Code(s): J95.03 - MALFUNCTION OF TRACHEOSTOMY STOMA Procedure - Procedure and Findings -: Fiberoptic laryngoscopy with topical lidocaine/afrin spray nasally. No lesions or masses obstructing, but there is some pooling of mucus in the piriform sinuses and some arytenoid edema. No paralysis.
[2018-05-06] MEDS: ATORVASTATIN CA 40 MG TABLET (FP) GT SCH (22:58)
[2018-05-06] MEDS: DOXAZOSIN MESYLATE 2 MG TABLET (FP) GT SCH (22:58)
[2018-05-07] MEDS: SIMETHICONE 40 MG/0.6 ML BOTTLE GT SCH ×3 (06:45→22:01)
[2018-05-07] MEDS: ACETYLCYSTEINE 20% 200MG/ML 4 ML VIAL *FOR ORAL / INH USE ONLY NEB SCH ×4 (08:00→21:55)
[2018-05-07] MEDS ORDERED: ALBUTEROL SO4 2.5/IPRATROPIUM 0.5 INH SOL 3 ML VIAL.NEB. NEB ONE (08:03)
[2018-05-07 08:19] LABS: ALBUMIN 2.4 g/dl (3.4-5.0); ALK PHOS 139 U/L (45-117); ANION GAP 10 MMOL/L (8-16); BILIRUBIN,TOTAL 0.8 mg/dL (0.2-1); BLOOD UREA NITROGEN 26 mg/dL (7-18); CALCIUM 8.3 mg/dL (8.5-10.1); CHLORIDE 110 mmol/L (98-107); CO2 27 mmol/L (21-32); CREATININE 0.6 mg/dL (0.55-1.3); GLUCOSE,RANDOM 150 mg/dL (74-106); POTASSIUM 5.7 mmol/L (3.5-5.1); SGOT/AST 41 U/L (15-37); SGPT/ALT 45 U/L (13-61); SODIUM 148 mmol/L (136-145); TOT PROT 6.3 g/dl (6.4-8.2)
[2018-05-07 08:22] LABS: HEMATOCRIT 32.9 % (35.4-49); HEMOGLOBIN 11.4 GM/dL (11.7-16.9); MCH 30.7 pg (25.7-33.7); MCHC 34.7 g/dl (32.0-35.9); MEAN CELL VOLUME 88.4 fl (80-96); MEAN PLT VOLUME 9.8 fl (7.5-11.1); PLATELET COUNT 416 K/MM3 (134-434); RBC 3.72 M/mm3 (4.00-5.60); RDW 16.4 % (11.9-15.9); WHITE BLOOD COUNT 15.6 K/mm3 (4.0-10.0)
[2018-05-07] MEDS: ASPIRIN 81 MG CHEWABLE TABLETS GT SCH (09:09)
[2018-05-07] MEDS: MULTIVIT-MINERALS ORAL LIQUID GT SCH (09:09)
[2018-05-07] MEDS: RAMIPRIL 1.25 MG CAPSULE GT SCH (09:09)
[2018-05-07] MEDS: CARVEDILOL 25 MG TABLET (FP) GT SCH ×2 (09:10→22:01)
[2018-05-07] MEDS: ENOXAPARIN NA (PORCINE) 40 MG/0.4 ML DISP.SYRIN SQ SCH (09:10)
[2018-05-07] MEDS: POLYETHYLENE GLYCOL 3350 119 GM BTL PEG SCH (09:11)
[2018-05-07] MEDS ORDERED: SODIUM POLYSTYRENE SULFONATE 15 GM/60 ML BOTTLE PO ONE (12:37)
[2018-05-07 12:39] LABS: ERYTHROCYTE SEDIMENTATION RATE 45 mm/hr (0-20)
--- NOTE | 2018-05-07 13:17 | PN ---
Progress Note, Physician Chief Complaint: Hypoxia Pneumonia History of Present Illness: Previous notes and events reviewed awake and alert NAD mechanically ventilated states his frontal headache is improving - Current Medication List Current Medications: Active Medications Acetaminophen (Tylenol Oral Solution -) 650 mg GT Q6H PRN PRN Reason: PAIN LEVEL 1-5 Last Admin: 05/05/18 09:55 Dose: 650 mg Acetylcysteine (Mucomyst 20 Oral / Inh Use Only*) 220 mg NEB RQID [facility] Last Admin: 05/07/18 12:05 Dose: 220 mg Aspirin (Asa -) 81 mg GT DAILY [facility] Last Admin: 05/07/18 09:09 Dose: 81 mg Atorvastatin Calcium (Lipitor -) 40 mg GT HS [facility] Last Admin: 05/06/18 22:58 Dose: 40 mg Carvedilol (Coreg -) 25 mg GT BID [facility] Last Admin: 05/07/18 09:10 Dose: 25 mg Doxazosin Mesylate (Cardura -) 2 mg GT HS [facility] Last Admin: 05/06/18 22:58 Dose: 2 mg Enoxaparin Sodium (Lovenox -) 40 mg SQ DAILY [facility] Last Admin: 05/07/18 09:10 Dose: 40 mg Polyethylene Glycol (Miralax (For Daily Use) -) 17 gm PEG DAILY [facility] Last Admin: 05/07/18 09:11 Dose: 17 gm Ramipril (Altace -) 1.25 mg GT DAILY [facility] Last Admin: 05/07/18 09:09 Dose: 1.25 mg Saliva Substitute (Mouthkote Solution -) 1 applic MM DAILY PRN PRN Reason: dry mouth Last Admin: 05/05/18 21:47 Dose: 1 applic Simethicone (Mylicon Liquid -) 40 mg GT TID [facility] Last Admin: 05/07/18 06:45 Dose: 40 mg - Objective Vital Signs: Vital Signs Temperature 98.7 F 05/07/18 06:32 Pulse Rate 70 05/07/18 06:32 Respiratory Rate 15 05/07/18 09:53 Blood Pressure 120/69 05/07/18 06:32 O2 Sat by Pulse Oximetry (%) 100 05/06/18 21:00 Constitutional: Yes: No Distress, Calm Eyes: Yes: Conjunctiva Clear HENT: Yes: Atraumatic Neck: Yes: Other (trach) Cardiovascular: Yes: Regular Rate and Rhythm Respiratory: Yes: Mechanically Ventilated, Rhonchi Gastrointestinal: Yes: Normal Bowel Sounds, Soft Genitourinary: Yes: Incontinence Musculoskeletal: Yes: Muscle Weakness Extremities: Yes: WNL Edema: No Neurological: Yes: Alert, Pre-Existing Deficit Psychiatric: Yes: Alert Labs: CBC, BMP 05/07/18 06:30 05/07/18 06:30 Microbiology 05/05/18 12:48 Blood - Peripheral Venous Blood Culture - Preliminary NO GROWTH OBTAINED AFTER 48 HOURS, INCUBATION TO CONTINUE FOR 3 DAYS. 05/05/18 12:56 Blood - Peripheral Venous Blood Culture - Preliminary NO GROWTH OBTAINED AFTER 48 HOURS, INCUBATION TO CONTINUE FOR 3 DAYS. 05/02/18 17:35 Urine - Urine Clean Catch Urine Culture - Final NO GROWTH OBTAINED 04/25/18 18:34 Sputum - Endotrachea Suction/Ventilator Gram Stain - Final 04/25/18 18:34 Sputum - Endotrachea Suction/Ventilator Sputum Culture - Final Citrobacter Koseri Klebsiella Pneumoniae Streptococcus Pyogenes Grp A 04/24/18 17:50 Blood - Peripheral Venous Blood Culture - Final NO GROWTH AFTER 5 DAYS INCUBATION 04/24/18 16:43 Blood - Peripheral Venous Blood Culture - Final NO GROWTH AFTER 5 DAYS INCUBATION 04/26/18 18:00 Urine For Antigen Detection Legionella Antigen - Final 04/26/18 18:00 Urine For Antigen Detection Streptococcus pneumoniae Antigen (M - Final Problem List - Problems (1) Acute and chronic respiratory failure ([id number]) Assessment/Plan: -pulm on board -mechanically ventilated -albuterol tx via neb PRN for SOB -keep SpO2 >90% Code(s): J96.20 - ACUTE AND CHR RESP FAILURE, UNSP W HYPOXIA OR HYPERCAPNIA (2) COPD exacerbation Assessment/Plan: -pulm on board -albuterol tx via neb PRN for SOB -keep SpO2 >90% -BNP 3927.6 Code(s): J44.1 - CHRONIC OBSTRUCTIVE PULMONARY DISEASE W (ACUTE) EXACERBATION (3) CVA, old, hemiparesis Assessment/Plan: -fall precaution -PT Code(s): I69.359 - HEMIPLGA FOLLOWING CEREBRAL INFARCTION AFFECTING UNSP SIDE (4) Pneumonia Assessment/Plan: -pulm and ID on board -CXR improved, will observe off antibiotic therapy -wbc 15.6--upward trend of WBC possible need for further ABT or investigate other source of infection -Chest CT show bibasilar atelectasis/consolidation, left greater than right with trace pleural fluid Code(s): J18.9 - PNEUMONIA, UNSPECIFIED ORGANISM (5) Elevated troponin Assessment/Plan: -trop trendin down, current 0.12 -cardiology on board Code(s): R74.8 - ABNORMAL LEVELS OF OTHER SERUM ENZYMES (6) Abnormal CT scan, head Assessment/Plan: -CT scan show findings suspicious of an acute/subacute infarct, no prior available for comparison -neurology on board -continue with aspirin and atorvastatin -fall precaution -neuro checks q4h Code(s): R93.0 - ABNORMAL FINDINGS ON DX IMAGING OF SKULL AND HEAD, NEC (7) Headache Assessment/Plan: -Head CTA show findings may represent subacute stroke possibly resolving basal ganglia hematoma, no evidence of aneurysm, no evidence of AVM, dominant left vertebral artery, no significant occlusion or stenosis identified -Carotid US show moderate atherosclerotic disease with no evidence of hemodynamically signficant stenoses -neurology on board -optho on board -ESR 45 -carvedilol BID for migraine prophylaxis Code(s): R51 - HEADACHE (8) Leukocytosis Assessment/Plan: -WBC 15.6 -ID on board -re-ordered BC -leukocytosis with elevated ESR -Abdominal CT show bibasilar consolidation/atelectasis and small pleural effusion, right greater than left, cholelithiasis, prostatic enlargement, fecal retention, extenive heterotropic calcification about the right hip joint suggesting myositis ossificans -Gallbladder US shows cholelithiasis, inspissated bile/sludge also seen within gallbladder lumen Code(s): D72.829 - ELEVATED WHITE BLOOD CELL COUNT, UNSPECIFIED Assessment/Plan see problem list dvt ppx
--- NOTE | 2018-05-07 14:22 | PN ---
Progress Note (short form) - Note Progress Note: PULMONARY Vented on volume assist control. 10/500/40/ SPO2 97% VSS/AFEBRILE Gen: vented, awake Heart: RRR Lung: scattered rhonchi Abd: soft, nontender Ext: no edema LABS/MEDS/NOTES/IMAGES REVIEWED (1) Acute respiratory failure with hypoxia Code(s): J96.01 - ACUTE RESPIRATORY FAILURE WITH HYPOXIA (2) Pneumonia Code(s): J18.9 - PNEUMONIA, UNSPECIFIED ORGANISM (3) COPD exacerbation Code(s): J44.1 - CHRONIC OBSTRUCTIVE PULMONARY DISEASE W (ACUTE) EXACERBATION A/P Acute on Chronic Hypoxic Respiratory Failure Dislodged Tracheostomy replaced Pneumonia COPD CAD h/o CVA s/p PPM - Off ABX per ID - Current vent settings - inhaled bronchodilators - Enteral feeds - DVT/GI prophylaxis - ENT evaluation pending to assess for Trach downsizing - There is no Pulmonary contraindication for D/C planning Nicholas TRACY MD
[2018-05-07 14:40] LABS: ALBUMIN 2.4 g/dl (3.4-5.0); ALK PHOS 143 U/L (45-117); ANION GAP 7 MMOL/L (8-16); BILIRUBIN,TOTAL 0.8 mg/dL (0.2-1); BLOOD UREA NITROGEN 27 mg/dL (7-18); CALCIUM 8.2 mg/dL (8.5-10.1); CHLORIDE 100 mmol/L (98-107); CO2 28 mmol/L (21-32); CREATININE 0.4 mg/dL (0.55-1.3); GLUCOSE,RANDOM 162 mg/dL (74-106); SGOT/AST 18 U/L (15-37); SGPT/ALT 43 U/L (13-61); SODIUM 135 mmol/L (136-145)
--- NOTE | 2018-05-07 16:48 | CON.GI ---
Consult Consult Specialty:: Gastroenterology Referred by:: Jerri Longoria NP Reason for Consultation:: Gallstones - History of Present Illness Chief Complaint: Disorientation due to hypoxemia History of Present Illness: 67M BIBA when he became disoriented and hypoxemic. This corrected with repositioning the trach but he is felt to have developed aspiration pneumonia. Imaging reveals a gallstone and sludge but no imaging evidence of cholecystitis. He denies any biliary colic and his LFTs are normal. His bile ducts are normal in size. His tells me that he had a colonoscopy about a year ago which was normal. 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 Place of : Other ([facility]) History of Recent Travel: No Home Medications - Allergies Allergies/Adverse Reactions: Allergies Allergy/AdvReac Type Severity Reaction Status Date / Time No Known Allergies Allergy Verified 04/24/18 16:46 - Home Medications Home Medications: Ambulatory Orders Acetylcysteine 220 mg NEB QID 04/24/18 Albuterol 0.083% Nebulizer Asmita [Ventolin 0.083%] 1 neb NEB QID 04/24/18 Aspirin 81 mg GT DAILY 04/24/18 Atorvastatin Ca [Lipitor] 40 mg GT HS 04/24/18 Carvedilol 12.5 mg GT BID 04/24/18 Doxazosin Mesylate [Cardura -] 2 mg GT HS 04/24/18 Enoxaparin [Lovenox -] 1.2 ml GT Q8H 04/24/18 Multivitamins [Tab-A-Vit -] 1 tab GT DAILY 04/24/18 Ramipril 1.25 mg GT DAILY 04/24/18 Simethicone 40 mg GT TID 04/24/18 Family Disease History - Family Disease History Family History: Unable to Obtain Physical Exam-GI Vital Signs: Vital Signs Temperature 99.0 F 05/07/18 14:15 Pulse Rate 70 05/07/18 15:04 Respiratory Rate 17 05/07/18 15:04 Blood Pressure 110/64 05/07/18 14:15 O2 Sat by Pulse Oximetry (%) 100 05/07/18 15:04 CBC,CMP WBC 15.6 K/mm3 (4.0-10.0) H 05/07/18 06:30 Corrected WBC (auto) Cancelled 05/03/18 06:05 RBC 3.72 M/mm3 (4.00-5.60) L 05/07/18 06:30 Hgb 11.4 GM/dL (11.7-16.9) L 05/07/18 06:30 Hct 32.9 % (35.4-49) L 05/07/18 06:30 MCV 88.4 fl (80-96) 05/07/18 06:30 MCH 30.7 pg (25.7-33.7) 05/07/18 06:30 MCHC 34.7 g/dl (32.0-35.9) 05/07/18 06:30 RDW 16.4 % (11.9-15.9) H 05/07/18 06:30 Plt Count 416 K/MM3 (134-434) 05/07/18 06:30 MPV 9.8 fl (7.5-11.1) D 05/07/18 06:30 Absolute Neuts (auto) 12.0 K/mm3 (1.5-8.0) H 05/06/18 06:35 Neutrophils % 80.2 % (42.8-82.8) 05/06/18 06:35 Neutrophils % (Manual) 65.0 % (42.8-82.8) 04/24/18 16:43 Band Neutrophils % 8.0 % 04/24/18 16:43 Lymphocytes % 11.4 % (8-40) 05/06/18 06:35 Lymphocytes % (Manual) 19.0 % (8-40) 04/24/18 16:43 Monocytes % 6.2 % (3.8-10.2) 05/06/18 06:35 Monocytes % (Manual) 4 % (3.8-10.2) 04/24/18 16:43 Eosinophils % 1.9 % (0-4.5) 05/06/18 06:35 Eosinophils % (Manual) 4.0 % (0-4.5) 04/24/18 16:43 Basophils % 0.3 % (0-2.0) 05/06/18 06:35 Basophils % (Manual) 0.0 % (0-2.0) 04/24/18 16:43 Nucleated RBC % 0 % (0-0) 05/06/18 06:35 Manual Slide Review Cancelled 05/03/18 06:05 Platelet Estimate Increased 04/24/18 16:43 Platelet Comment No clumping noted 04/24/18 16:43 ESR 45 mm/hr (0-20) H 05/07/18 06:30 Sodium 135 mmol/L (136-145) L 05/07/18 14:05 Potassium 4.0 mmol/L (3.5-5.1) 05/07/18 14:05 Chloride 100 mmol/L (98-107) 05/07/18 14:05 Carbon Dioxide 28 mmol/L (21-32) 05/07/18 14:05 Anion Gap 7 MMOL/L (8-16) L 05/07/18 14:05 BUN 27 mg/dL (7-18) H 05/07/18 14:05 Creatinine 0.4 mg/dL (0.55-1.3) L 05/07/18 14:05 Creat Clearance w eGFR 215.22 (>60) 05/07/18 14:05 POC Glucometer 186 UNITS (80-120) 04/29/18 15:05 Random Glucose 162 mg/dL (74-106) H 05/07/18 14:05 Calcium 8.2 mg/dL (8.5-10.1) L 05/07/18 14:05 Magnesium 2.6 mg/dL (1.8-2.4) H 04/28/18 15:20 Total Bilirubin 0.8 mg/dL (0.2-1) 05/07/18 14:05 GGT 72 U/L (5-85) 04/24/18 21:30 AST 18 U/L (15-37) 05/07/18 14:05 ALT 43 U/L (13-61) 05/07/18 14:05 Alkaline Phosphatase 143 U/L (45-117) H 05/07/18 14:05 Creatine Kinase 66 U/L (26-308) 04/25/18 09:40 Troponin I 0.12 ng/ml (0.00-0.05) H 04/25/18 09:40 C-Reactive Protein 0.4 MG/DL (0.00-0.3) H 05/06/18 06:35 B-Natriuretic Peptide 3927.6 pg/ml (5-125) H 04/25/18 14:30 Total Protein 6.0 g/dl (6.4-8.2) L 05/07/18 14:05 Albumin 2.4 g/dl (3.4-5.0) L 05/07/18 14:05 Triglycerides 159 mg/dL (0-150) H 04/29/18 15:15 Cholesterol 130 mg/dL (50-200) 04/29/18 15:15 Total LDL Cholesterol 68 mg/dL (5-100) 04/29/18 15:15 HDL Cholesterol 32 mg/dL (40-60) L 04/29/18 15:15 Current Medications Generic Name Dose Route Start Last Admin Trade Name Freq PRN Reason Stop Dose Admin Acetaminophen 650 mg 04/26/18 16:28 05/05/18 09:55 Tylenol Oral Solution - GT 650 mg Q6H PRN Administration PAIN LEVEL 1-5 Acetylcysteine 220 mg 04/25/18 08:00 05/07/18 16:00 Mucomyst 20 Oral / Inh Use Only* NEB Not Given RQID [facility] Aspirin 81 mg 04/25/18 10:00 05/07/18 09:09 Asa - GT 81 mg DAILY [facility] Administration Atorvastatin Calcium 40 mg 04/25/18 22:00 05/06/18 22:58 Lipitor - GT 40 mg HS [facility] Administration Carvedilol 25 mg 05/02/18 11:14 05/07/18 09:10 Coreg - GT 25 mg BID [facility] Administration Doxazosin Mesylate 2 mg 04/25/18 22:00 05/06/18 22:58 Cardura - GT 2 mg HS [facility] Administration Polyethylene Glycol 17 gm 05/05/18 12:00 05/07/18 09:11 Miralax (For Daily Use) - PEG 17 gm DAILY [facility] Administration Ramipril 1.25 mg 04/25/18 10:00 05/07/18 09:09 Altace - GT 1.25 mg DAILY [facility] Administration Saliva Substitute 1 applic 05/01/18 16:58 05/05/18 21:47 Mouthkote Solution - MM 1 applic DAILY PRN Administration dry mouth Simethicone 40 mg 04/24/18 23:30 05/07/18 06:45 Mylicon Liquid - GT 40 mg TID [facility] Administration Constitutional: Yes: Calm, Other (tracheostomy linked to ventilator) Eyes: Yes: Conjunctiva Clear HENT: Yes: Atraumatic Neck: Yes: Supple Cardiovascular: Yes: Regular Rate and Rhythm, Other (left PPM) Gastrointestinal Inspection: Yes: Other (LUQ PEG tube) ...Auscultate: Yes: Normoactive Bowel Sounds ...Palpate: Yes: Soft, Other (nontender) ...Rectal Exam: Yes: Deferred Neurological: Yes: Other (right hemiparesis) Psychiatric: Yes: Alert Labs: CBC, BMP 05/07/18 06:30 05/07/18 14:05 Imaging - Results Cat Scan: Report Reviewed (Enrique Barbosa Name: [facility] SCAN[facility] DEPARTMENT OF RADIOLOGY Phys: Jerri Longoria : 1950 Age: 67 Sex: M [facility] Acct: [id number] Loc: [address] Exam Date: 05/06/18 Status: [place] [address] Unit Number: [id number] EXAM#: TYPE/EXAM: RESULT: [id number] CT/ABDOMEN PELVIS CT W/O CONTR HISTORY PROVIDED: Fever, elevated sedimentation rate TECHNIQUE: Sequential axial images were obtained from the domes of the diaphragm through the symphysis pubis following the administration of oral contrast material. Evaluation lung bases demonstrates dense consolidation within the right lower lobe with an associated pleural effusion. There is a small left pleural effusion with atelectatic changes involving the left lower lobe, as well. The heart is enlarged. The liver, spleen, pancreas, adrenal glands and kidneys demonstrate no significant abnormalities. The gallbladder is distended and does contain calculi. There is no definite evidence of acute cholecystitis. There is no evidence of biliary ductal dilatation. There is no evidence of intra - abdominal or retroperitoneal lymphadenopathy or fluid collections. There is no evidence of pneumoperitoneum, bowel obstruction or intra-abdominal abscess. There is no CT evidence of acute appendicitis or diverticulitis. Examination of the pelvis demonstrates no evidence of pelvic masses, fluid collections or lymphadenopathy. There is a moderate amount of retained fecal material throughout the colon and rectum. The prostate gland is enlarged measuring 5.6 x 3.7 x 4.5 cm. There is no evidence of acute bony abnormalities. There is extensive heterotopic calcification about the right hip joint. This may represent myositis ossificans. IMPRESSION: 1. Bibasilar consolidation/atelectasis and small pleural effusions, right greater than left. 2. Cholelithiasis. 3. Prostatic enlargement. 4. Fecal retention. 5. Extensive heterotopic calcification about the right hip joint suggesting myositis ossificans. Please see above discussion. Reported By: Matthieu Ronquillo MD 05/06/18 1447 Technologist: Waylon Ruiz Transcribed Date/Time: 05/06/18 1447 Skein Winder: Matthieu Ronquillo Printed Date/Time: By: Signed by: Matthieu Ronquillo Signed on: 06-May-2018 14:48) Ultrasound: Report Reviewed (Enrique Familia Name: [facility] SCAN[facility] DEPARTMENT OF RADIOLOGY Phys: Jerri Longoria : 1950 Age: 67 Sex: M [facility] Acct: [id number] Loc: [address] [facility] Exam Date: 05/06/18 Status: [place] [address] Unit Number: [id number] EXAM#: TYPE/EXAM : RESULT: [id number] US/ABDOMEN US -LIMITED Gallbladder ultrasound Clinical information: fever, elevated liver function studies Visualization is somewhat limited due to portable technique as well as the patient's inability at this time to cooperate in regards to standard breath-hold imaging (patient on ventilator). Multiple gallbladder calculi are noted. A moderate amount of inspissated bile/sludge is also seen within the gallbladder lumen. There is no definite gallbladder overdistention. Gallbladder wall thickness appears borderline. The common bile duct diameter appears unremarkable measuring 0.3 cm. The liver and right kidney demonstrate no obvious sonographic abnormality. The pancreas could not be visualized due to obscuring bowel gas. No free intraperitoneal fluid is noted. Impression: Cholelithiasis is noted without obvious CT evidence of acute cholecystitis. Inspissated bile/ sludge is also seen within the gallbladder lumen. Correlation with two-week follow-up sonography is suggested to document resolution of inspissated bile/sludge and exclude underlying pathology. There is no definite biliary tract dilatation. No obvious hepatic pathology is noted. Reported By: Sabino Zimmer MD 05/06/18 173 Technologist: Cynthia Velazquez Transcribed Date/Time: 05/06/181737 Skein Winder: Sabino Zimmer Printed Date/Time: By: Signed by: Sabino Zimmer Signed on: 06-May-2018 17:39) Problem List - Problems (1) Cholelithiasis without cholecystitis Assessment/Plan: Eyad gallstones appear to be asymptomatic and require no further investigation or therapy Code(s): K80.20 - CALCULUS OF GALLBLADDER W/O CHOLECYSTITIS W/O OBSTRUCTION (2) Constipation Assessment/Plan: Will start miralax. I assume there is no obstructing neoplasm as he had a recent colonoscopy Code(s): K59.00 - CONSTIPATION, UNSPECIFIED (3) Acute and chronic respiratory failure ([id number]) Code(s): J96.20 - ACUTE AND CHR RESP FAILURE, UNSP W HYPOXIA OR HYPERCAPNIA (4) COPD exacerbation Code(s): J44.1 - CHRONIC OBSTRUCTIVE PULMONARY DISEASE W (ACUTE) EXACERBATION (5) CVA, old, hemiparesis Code(s): I69.359 - HEMIPLGA FOLLOWING CEREBRAL INFARCTION AFFECTING UNSP SIDE Assessment/Plan Impression: Asymptomatic gallstones Constipation Plan: Miralax
--- NOTE | 2018-05-07 17:04 | EKG ---
Test Reason : Blood Pressure : / mmHG Vent. Rate : 070 BPM Atrial Rate : 070 BPM P-R Int : 000 ms QRS Dur : 196 ms QT Int : 474 ms P-R-T Axes : 000 -57 113 degrees QTc Int : 511 ms Ventricular-paced rhythm ABNORMAL ECG WHEN COMPARED WITH ECG OF 29-APR-2018 17:12, PREMATURE VENTRICULAR COMPLEXES ARE NO LONGER PRESENT VENT. RATE HAS DECREASED BY 26 BPM Confirmed by CODEY MANCIA, MERCY ([id number]) on 05/07/2018 5:04:29 PM Referred By: Jeovany GRAFF Confirmed By:MERCY ALEGRE MD
[2018-05-07] MEDS: ALBUTEROL SO4 0.083% IH SOL 2.5 MG/3 ML VIAL.NEB. NEB SCH (21:55)
[2018-05-07] MEDS: ATORVASTATIN CA 40 MG TABLET (FP) GT SCH (22:01)
[2018-05-07] MEDS: DOXAZOSIN MESYLATE 2 MG TABLET (FP) GT SCH (22:01)
[2018-05-08] MEDS: SIMETHICONE 40 MG/0.6 ML BOTTLE GT SCH ×3 (05:28→22:34)
[2018-05-08] MEDS: ALBUTEROL SO4 0.083% IH SOL 2.5 MG/3 ML VIAL.NEB. NEB SCH ×4 (08:08→20:03)
[2018-05-08] MEDS: ACETYLCYSTEINE 20% 200MG/ML 4 ML VIAL *FOR ORAL / INH USE ONLY NEB SCH ×4 (08:08→20:03)
[2018-05-08 08:28] LABS: HEMATOCRIT 31.6 % (35.4-49); HEMOGLOBIN 10.9 GM/dL (11.7-16.9); MCH 30.1 pg (25.7-33.7); MCHC 34.4 g/dl (32.0-35.9); MEAN CELL VOLUME 87.6 fl (80-96); PLATELET COUNT 336 K/MM3 (134-434); RBC 3.61 M/mm3 (4.00-5.60); RDW 16.3 % (11.9-15.9); WHITE BLOOD COUNT 13.2 K/mm3 (4.0-10.0)
[2018-05-08 08:37] LABS: ALBUMIN 2.3 g/dl (3.4-5.0); ALK PHOS 145 U/L (45-117); ANION GAP 6 MMOL/L (8-16); BILIRUBIN,TOTAL 0.7 mg/dL (0.2-1); BLOOD UREA NITROGEN 24 mg/dL (7-18); CALCIUM 8.2 mg/dL (8.5-10.1); CHLORIDE 99 mmol/L (98-107); CO2 28 mmol/L (21-32); CREATININE 0.4 mg/dL (0.55-1.3); GLUCOSE,RANDOM 150 mg/dL (74-106); POTASSIUM 4.1 mmol/L (3.5-5.1); SGOT/AST 18 U/L (15-37); SGPT/ALT 38 U/L (13-61); SODIUM 133 mmol/L (136-145); TOT PROT 5.9 g/dl (6.4-8.2)
--- NOTE | 2018-05-08 11:18 | PN ---
Progress Note (short form) - Note Progress Note: PULMONARY Vented on volume assist control. 10/500/40/ SPO2 97% VSS/AFEBRILE Gen: vented, awake Heart: RRR Lung: scattered rhonchi Abd: soft, nontender Ext: no edema LABS/MEDS/NOTES/IMAGES REVIEWED (1) Acute respiratory failure with hypoxia Code(s): J96.01 - ACUTE RESPIRATORY FAILURE WITH HYPOXIA (2) Pneumonia Code(s): J18.9 - PNEUMONIA, UNSPECIFIED ORGANISM (3) COPD exacerbation Code(s): J44.1 - CHRONIC OBSTRUCTIVE PULMONARY DISEASE W (ACUTE) EXACERBATION A/P Acute on Chronic Hypoxic Respiratory Failure Dislodged Tracheostomy replaced Pneumonia COPD CAD h/o CVA s/p PPM - Off ABX per ID - Current vent settings - inhaled bronchodilators - Enteral feeds - DVT/GI prophylaxis - ENT F/U As needed - There is no Pulmonary contraindication for D/C planning Nicholas TRACY MD
[2018-05-08] MEDS: ASPIRIN 81 MG CHEWABLE TABLETS GT SCH (11:41)
[2018-05-08] MEDS: CARVEDILOL 25 MG TABLET (FP) GT SCH ×2 (11:41→22:34)
[2018-05-08] MEDS: MULTIVIT-MINERALS ORAL LIQUID GT SCH (11:52)
[2018-05-08] MEDS: RAMIPRIL 1.25 MG CAPSULE GT SCH (11:53)
[2018-05-08] MEDS: POLYETHYLENE GLYCOL 3350 119 GM BTL PEG SCH (11:53)
--- NOTE | 2018-05-08 14:19 | PN ---
Progress Note, Physician Chief Complaint: Hypoxia Pneumonia History of Present Illness: Previous notes and events reviewed awake and alert NAD mechanically ventilated states his frontal headache is improving pt states he is getting more depressed - Current Medication List Current Medications: Active Medications Acetaminophen (Tylenol Oral Solution -) 650 mg GT Q6H PRN PRN Reason: PAIN LEVEL 1-5 Last Admin: 05/05/18 09:55 Dose: 650 mg Acetylcysteine (Mucomyst 20 Oral / Inh Use Only*) 220 mg NEB RQID [facility] Last Admin: 05/08/18 11:35 Dose: 220 mg Albuterol Sulfate (Ventolin 0.083% Nebulizer Soln -) 1 amp NEB RQID TRUDY Last Admin: 05/08/18 11:35 Dose: 1 amp Aspirin (Asa -) 81 mg GT DAILY [facility] Last Admin: 05/08/18 11:41 Dose: 81 mg Atorvastatin Calcium (Lipitor -) 40 mg GT HS [facility] Last Admin: 05/07/18 22:01 Dose: 40 mg Carvedilol (Coreg -) 25 mg GT BID [facility] Last Admin: 05/08/18 11:41 Dose: 25 mg Doxazosin Mesylate (Cardura -) 2 mg GT HS [facility] Last Admin: 05/07/18 22:01 Dose: 2 mg Polyethylene Glycol (Miralax (For Daily Use) -) 17 gm PEG DAILY [facility] Last Admin: 05/08/18 11:53 Dose: 17 gm Ramipril (Altace -) 1.25 mg GT DAILY [facility] Last Admin: 05/08/18 11:53 Dose: 1.25 mg Saliva Substitute (Mouthkote Solution -) 1 applic MM DAILY PRN PRN Reason: dry mouth Last Admin: 05/05/18 21:47 Dose: 1 applic Simethicone (Mylicon Liquid -) 40 mg GT TID [facility] Last Admin: 05/08/18 05:28 Dose: 40 mg - Objective Vital Signs: Vital Signs Temperature 100.2 F H 05/08/18 05:39 Pulse Rate 70 05/08/18 10:05 Respiratory Rate 24 H 05/08/18 10:04 Blood Pressure 110/67 05/08/18 05:39 O2 Sat by Pulse Oximetry (%) 100 05/08/18 10:05 Constitutional: Yes: No Distress, Calm Eyes: Yes: Conjunctiva Clear HENT: Yes: Atraumatic Neck: Yes: Other Cardiovascular: Yes: Regular Rate and Rhythm Respiratory: Yes: Diminished, Mechanically Ventilated Gastrointestinal: Yes: Normal Bowel Sounds, Soft Genitourinary: Yes: Incontinence Musculoskeletal: Yes: Muscle Weakness Extremities: Yes: WNL Edema: No Neurological: Yes: Alert, Pre-Existing Deficit Psychiatric: Yes: Alert Labs: CBC, BMP 05/08/18 07:00 05/08/18 07:00 Problem List - Problems (1) Acute and chronic respiratory failure ([id number]) Assessment/Plan: -pulm on board -mechanically ventilated -albuterol tx via neb PRN for SOB -keep SpO2 >90% Code(s): J96.20 - ACUTE AND CHR RESP FAILURE, UNSP W HYPOXIA OR HYPERCAPNIA (2) COPD exacerbation Assessment/Plan: -pulm on board -albuterol tx via neb PRN for SOB -keep SpO2 >90% -BNP 3927.6 Code(s): J44.1 - CHRONIC OBSTRUCTIVE PULMONARY DISEASE W (ACUTE) EXACERBATION (3) CVA, old, hemiparesis Assessment/Plan: -fall precaution -PT Code(s): I69.359 - HEMIPLGA FOLLOWING CEREBRAL INFARCTION AFFECTING UNSP SIDE (4) Pneumonia Assessment/Plan: -pulm and ID on board -CXR improved, will observe off antibiotic therapy -wbc 13.2--upward trend of WBC possible need for further ABT or investigate other source of infection -Chest CT show bibasilar atelectasis/consolidation, left greater than right with trace pleural fluid Code(s): J18.9 - PNEUMONIA, UNSPECIFIED ORGANISM (5) Elevated troponin Assessment/Plan: -trop trendin down, current 0.12 -cardiology on board Code(s): R74.8 - ABNORMAL LEVELS OF OTHER SERUM ENZYMES (6) Abnormal CT scan, head Assessment/Plan: -CT scan show findings suspicious of an acute/subacute infarct, no prior available for comparison -neurology on board -continue with aspirin and atorvastatin -fall precaution -neuro checks q4h Code(s): R93.0 - ABNORMAL FINDINGS ON DX IMAGING OF SKULL AND HEAD, NEC (7) Headache Assessment/Plan: -Head CTA show findings may represent subacute stroke possibly resolving basal ganglia hematoma, no evidence of aneurysm, no evidence of AVM, dominant left vertebral artery, no significant occlusion or stenosis identified -Carotid US show moderate atherosclerotic disease with no evidence of hemodynamically signficant stenoses -neurology on board -optho on board -ESR 45 -carvedilol BID for migraine prophylaxis Code(s): R51 - HEADACHE (8) Leukocytosis Assessment/Plan: -WBC 13.2 -ID on board -re-ordered BC -leukocytosis with elevated ESR -Abdominal CT show bibasilar consolidation/atelectasis and small pleural effusion, right greater than left, cholelithiasis, prostatic enlargement, fecal retention, extenive heterotropic calcification about the right hip joint suggesting myositis ossificans -Gallbladder US shows cholelithiasis, inspissated bile/sludge also seen within gallbladder lumen Code(s): D72.829 - ELEVATED WHITE BLOOD CELL COUNT, UNSPECIFIED
[2018-05-08] MEDS: ATORVASTATIN CA 40 MG TABLET (FP) GT SCH (22:34)
[2018-05-08] MEDS: DOXAZOSIN MESYLATE 2 MG TABLET (FP) GT SCH (22:34)
[2018-05-09] MEDS: SIMETHICONE 40 MG/0.6 ML BOTTLE GT SCH ×3 (05:31→23:17)
[2018-05-09 07:42] LABS: HEMATOCRIT 30.3 % (35.4-49); HEMOGLOBIN 10.7 GM/dL (11.7-16.9); MCH 31.1 pg (25.7-33.7); MCHC 35.4 g/dl (32.0-35.9); MEAN CELL VOLUME 87.9 fl (80-96); PLATELET COUNT 311 K/MM3 (134-434); RBC 3.44 M/mm3 (4.00-5.60); RDW 16.1 % (11.9-15.9); WHITE BLOOD COUNT 11.9 K/mm3 (4.0-10.0)
[2018-05-09] MEDS: ALBUTEROL SO4 0.083% IH SOL 2.5 MG/3 ML VIAL.NEB. NEB SCH ×4 (07:53→21:25)
[2018-05-09] MEDS: ACETYLCYSTEINE 20% 200MG/ML 4 ML VIAL *FOR ORAL / INH USE ONLY NEB SCH ×4 (07:53→21:24)
[2018-05-09 08:05] LABS: ALBUMIN 2.2 g/dl (3.4-5.0); ALK PHOS 130 U/L (45-117); ANION GAP 8 MMOL/L (8-16); BILIRUBIN,TOTAL 0.6 mg/dL (0.2-1); BLOOD UREA NITROGEN 22 mg/dL (7-18); CALCIUM 8.3 mg/dL (8.5-10.1); CHLORIDE 100 mmol/L (98-107); CO2 27 mmol/L (21-32); CREATININE 0.4 mg/dL (0.55-1.3); GLUCOSE,RANDOM 148 mg/dL (74-106); SGOT/AST 15 U/L (15-37); SGPT/ALT 33 U/L (13-61); SODIUM 135 mmol/L (136-145); TOT PROT 5.7 g/dl (6.4-8.2)
[2018-05-09] MEDS ORDERED: PT OWN MED DRAWER 7, Y5N ONE ×2 (10:25→20:06)
[2018-05-09] MEDS: CARVEDILOL 25 MG TABLET (FP) GT SCH ×2 (10:40→23:16)
[2018-05-09] MEDS: ASPIRIN 81 MG CHEWABLE TABLETS GT SCH (10:40)
[2018-05-09] MEDS: MULTIVIT-MINERALS ORAL LIQUID GT SCH (10:41)
[2018-05-09] MEDS: RAMIPRIL 1.25 MG CAPSULE GT SCH (10:44)
[2018-05-09] MEDS: POLYETHYLENE GLYCOL 3350 119 GM BTL PEG SCH (10:44)
--- NOTE | 2018-05-09 11:37 | PN ---
Progress Note (short form) - Note Progress Note: stable off antibiotics alert trach to vent Vital Signs Period Temp Pulse Resp BP Sys/Richards Pulse Ox Last 24 Hr 97.8 F-99.5 F 68-72 10-24 100-121/53-70 98-100 cor-rrr lungs decreased bs at bases abd soft,nt ext no edema CBC, BMP 05/09/18 07:00 05/09/18 07:00 ct scan/US reports reviewed Current Medications Acetaminophen (Tylenol Oral Solution -) 650 mg GT Q6H PRN PRN Reason: PAIN LEVEL 1-5 Last Admin: 05/05/18 09:55 Dose: 650 mg Acetylcysteine (Mucomyst 20 Oral / Inh Use Only*) 220 mg NEB RQID TRUDY Last Admin: 05/09/18 07:53 Dose: 220 mg Albuterol Sulfate (Ventolin 0.083% Nebulizer Soln -) 1 amp NEB RQID TRUDY Last Admin: 05/09/18 07:53 Dose: 1 amp Aspirin (Asa -) 81 mg GT DAILY [facility] Last Admin: 05/09/18 10:40 Dose: 81 mg Atorvastatin Calcium (Lipitor -) 40 mg GT HS [facility] Last Admin: 05/08/18 22:34 Dose: 40 mg Carvedilol (Coreg -) 25 mg GT BID [facility] Last Admin: 05/09/18 10:40 Dose: 25 mg Doxazosin Mesylate (Cardura -) 2 mg GT HS [facility] Last Admin: 05/08/18 22:34 Dose: 2 mg Polyethylene Glycol (Miralax (For Daily Use) -) 17 gm PEG DAILY [facility] Last Admin: 05/09/18 10:44 Dose: 17 gm Ramipril (Altace -) 1.25 mg GT DAILY [facility] Last Admin: 05/09/18 10:44 Dose: 1.25 mg Saliva Substitute (Mouthkote Solution -) 1 applic MM DAILY PRN PRN Reason: dry mouth Last Admin: 05/05/18 21:47 Dose: 1 applic Simethicone (Mylicon Liquid -) 40 mg GT TID [facility] Last Admin: 05/09/18 05:31 Dose: 40 mg imp/reccd fevers resolved off antibiotics please call back if needed Problem List - Problems (1) Acute and chronic respiratory failure ([id number]) Code(s): J96.20 - ACUTE AND CHR RESP FAILURE, UNSP W HYPOXIA OR HYPERCAPNIA (2) Pneumonia Code(s): J18.9 - PNEUMONIA, UNSPECIFIED ORGANISM (3) Tracheostomy malfunction Code(s): J95.03 - MALFUNCTION OF TRACHEOSTOMY STOMA (4) Elevated troponin Code(s): R74.8 - ABNORMAL LEVELS OF OTHER SERUM ENZYMES (5) CVA, old, hemiparesis Code(s): I69.359 - HEMIPLGA FOLLOWING CEREBRAL INFARCTION AFFECTING UNSP SIDE
--- NOTE | 2018-05-09 11:45 | DS ---
Physical Examination Vital Signs: Vital Signs Temperature 98.1 F 05/09/18 05:58 Pulse Rate 72 05/09/18 10:52 Respiratory Rate 19 05/09/18 10:52 Blood Pressure 112/66 05/09/18 10:52 O2 Sat by Pulse Oximetry (%) 100 05/09/18 06:00 Findings/Remarks: 67M w/ pmhx of CVA (02/25/17) w/ R residual deficits s/p trach placement (04/05), TIA x2 (both in 01/2007), HTN, CAD, ? arrhythmia s/p PPM (07/26) was found to be hypoxic in ~70-80s at [facility] and in acute respiratory distress. Per ED documentation, pt was unable to be suctioned, bagged via trach which improved his O2 sat to 100% and given Duonebs. He was assessed by ICU DIESEL POWER SHOVEL OPERATOR after which trach tube was noticed to be protruding from stoma and as a result, trach tube was replaced. At baseline, pt is bed bound has R sided neurological deficits, but is alert and oriented and speaks with slurred speech according to family. He is able to move his L u/l extremities and respond to commands. Constitutional: Yes: Well Nourished, No Distress, Calm Cardiovascular: Yes: Regular Rate and Rhythm Respiratory: Yes: Mechanically Ventilated Gastrointestinal: Yes: Normal Bowel Sounds, Soft Musculoskeletal: Yes: Muscle Weakness Extremities: Yes: WNL Edema: No Peripheral Pulses WNL: Yes Neurological: Yes: Alert, Pre-Existing Deficit Psychiatric: Yes: Alert Labs: CBC, BMP 05/09/18 07:00 05/09/18 07:00 Discharge Summary Reason For Visit: ACUTE RESPIRATORY FAILURE WITH HYPOXIA ACUTE Current Active Problems Abnormal CT scan, head (Acute) Acute and chronic respiratory failure ([id number]) (Acute) Acute respiratory failure with hypoxia (Acute) COPD exacerbation (Acute) CVA (cerebral vascular accident) (Acute) CVA, old, hemiparesis (Acute) Cholelithiasis without cholecystitis (Acute) Constipation (Acute) Elevated troponin (Acute) Functional quadriplegia (Acute) Headache (Acute) Leukocytosis (Acute) Pneumonia (Acute) Tracheostomy malfunction (Acute) Hospital Course: Laboratory Last Values WBC 11.9 K/mm3 (4.0-10.0) H 05/09/18 07:00 Corrected WBC (auto) Cancelled 05/03/18 06:05 RBC 3.44 M/mm3 (4.00-5.60) L 05/09/18 07:00 Hgb 10.7 GM/dL (11.7-16.9) L 05/09/18 07:00 Hct 30.3 % (35.4-49) L 05/09/18 07:00 MCV 87.9 fl (80-96) 05/09/18 07:00 MCH 31.1 pg (25.7-33.7) 05/09/18 07:00 MCHC 35.4 g/dl (32.0-35.9) 05/09/18 07:00 RDW 16.1 % (11.9-15.9) H 05/09/18 07:00 Plt Count 311 K/MM3 (134-434) 05/09/18 07:00 MPV 9.0 fl (7.5-11.1) 05/09/18 07:00 Absolute Neuts (auto) 12.0 K/mm3 (1.5-8.0) H 05/06/18 06:35 Neutrophils % 80.2 % (42.8-82.8) 05/06/18 06:35 Neutrophils % (Manual) 65.0 % (42.8-82.8) 04/24/18 16:43 Band Neutrophils % 8.0 % 04/24/18 16:43 Lymphocytes % 11.4 % (8-40) 05/06/18 06:35 Lymphocytes % (Manual) 19.0 % (8-40) 04/24/18 16:43 Monocytes % 6.2 % (3.8-10.2) 05/06/18 06:35 Monocytes % (Manual) 4 % (3.8-10.2) 04/24/18 16:43 Eosinophils % 1.9 % (0-4.5) 05/06/18 06:35 Eosinophils % (Manual) 4.0 % (0-4.5) 04/24/18 16:43 Basophils % 0.3 % (0-2.0) 05/06/18 06:35 Basophils % (Manual) 0.0 % (0-2.0) 04/24/18 16:43 Nucleated RBC % 0 % (0-0) 05/06/18 06:35 Manual Slide Review Cancelled 05/03/18 06:05 Platelet Estimate Increased 04/24/18 16:43 Platelet Comment No clumping noted 04/24/18 16:43 ESR 45 mm/hr (0-20) H 05/07/18 06:30 Puncture Site Right radial 04/29/18 15:10 ABG pH 7.52 (7.35-7.45) H 04/29/18 15:10 ABG pCO2 at Pt Temp 37.6 mmHg (35-45) 04/29/18 15:10 ABG pO2 at Pt Temp 153 mmHg (80-105) H 04/29/18 15:10 ABG HCO3 30.3 mmol/L (22-27) H 04/29/18 15:10 ABG O2 Sat (Measured) 99.7 % (95-98) H 04/29/18 15:10 ABG O2 Content 15.9 % vol (15-22) 04/29/18 15:10 ABG Base Excess 7.2 meq/l (-2-2) H 04/29/18 15:10 Michael Test Positive 04/29/18 15:10 VBG pH 7.32 (7.32-7.42) 04/24/18 16:43 POC VBG pCO2 50.3 mmHg (38-52) 04/24/18 16:43 POC VBG pO2 74.2 mmHg (28-48) H 04/24/18 16:43 VBG HCO3 24.9 % (90-98.9) L* 04/24/18 16:43 VBG O2 Sat ([place]) 92.7 meq/L (19-25) H* 04/24/18 16:43 VBG Base Excess -1.3 meq/l (-2-2) 04/24/18 16:43 Carboxyhemoglobin 0.8 gm% (0.5-2.0) 04/24/18 17:42 Methemoglobin 0.2 % (0.4-1.5) L 04/24/18 17:42 Oxygen Flow Rate Yes 04/29/18 15:10 Vent Rate 10 04/29/18 15:10 PEEP 5.0 cmH2O 04/29/18 15:10 Sodium 135 mmol/L (136-145) L 05/09/18 07:00 Potassium 4.0 mmol/L (3.5-5.1) 05/09/18 07:00 Chloride 100 mmol/L (98-107) 05/09/18 07:00 Carbon Dioxide 27 mmol/L (21-32) 05/09/18 07:00 Anion Gap 8 MMOL/L (8-16) 05/09/18 07:00 BUN 22 mg/dL (7-18) H 05/09/18 07:00 Creatinine 0.4 mg/dL (0.55-1.3) L 05/09/18 07:00 Creat Clearance w eGFR 215.22 (>60) 05/09/18 07:00 POC Glucometer 186 UNITS (80-120) 04/29/18 15:05 Random Glucose 148 mg/dL (74-106) H 05/09/18 07:00 Calcium 8.3 mg/dL (8.5-10.1) L 05/09/18 07:00 Magnesium 2.6 mg/dL (1.8-2.4) H 04/28/18 15:20 Total Bilirubin 0.6 mg/dL (0.2-1) 05/09/18 07:00 GGT 72 U/L (5-85) 04/24/18 21:30 AST 15 U/L (15-37) 05/09/18 07:00 ALT 33 U/L (13-61) 05/09/18 07:00 Alkaline Phosphatase 130 U/L (45-117) H 05/09/18 07:00 Creatine Kinase 66 U/L (26-308) 04/25/18 09:40 Troponin I 0.12 ng/ml (0.00-0.05) H 04/25/18 09:40 C-Reactive Protein 0.4 MG/DL (0.00-0.3) H 05/06/18 06:35 B-Natriuretic Peptide 3927.6 pg/ml (5-125) H 04/25/18 14:30 Total Protein 5.7 g/dl (6.4-8.2) L 05/09/18 07:00 Albumin 2.2 g/dl (3.4-5.0) L 05/09/18 07:00 Triglycerides 159 mg/dL (0-150) H 04/29/18 15:15 Cholesterol 130 mg/dL (50-200) 04/29/18 15:15 Total LDL Cholesterol 68 mg/dL (5-100) 04/29/18 15:15 HDL Cholesterol 32 mg/dL (40-60) L 04/29/18 15:15 Urine Color Yellow 05/02/18 17:35 Urine Appearance Clear 05/02/18 17:35 Urine pH 8.0 (5.0-8.0) 05/02/18 17:35 Ur Specific [place] 1.014 (1.010-1.035) 05/02/18 17:35 Urine Protein Negative (NEGATIVE) 05/02/18 17:35 Urine Glucose (UA) Negative (NEGATIVE) 05/02/18 17:35 Urine Ketones Negative (NEGATIVE) 05/02/18 17:35 Urine Blood Negative (NEGATIVE) 05/02/18 17:35 Urine Nitrite Negative (NEGATIVE) 05/02/18 17:35 Urine Bilirubin Negative (<2.0 mg/dL) 05/02/18 17:35 Urine Urobilinogen 4.0 e.u/dl mg/dL (0.2-1.0) 05/02/18 17:35 Ur Leukocyte Esterase Negative (NEGATIVE) 05/02/18 17:35 Vancomycin Pre-Dose 4.8 ug/ml (18-26) L 04/27/18 13:45 Microbiology 05/05/18 12:56 Blood - Peripheral Venous Blood Culture - Preliminary NO GROWTH OBTAINED AFTER 72 HOURS, INCUBATION TO CONTINUE FOR 2 DAYS. 05/05/18 12:48 Blood - Peripheral Venous Blood Culture - Preliminary NO GROWTH OBTAINED AFTER 72 HOURS, INCUBATION TO CONTINUE FOR 2 DAYS. 05/02/18 17:35 Urine - Urine Clean Catch Urine Culture - Final NO GROWTH OBTAINED 04/25/18 18:34 Sputum - Endotrachea Suction/Ventilator Gram Stain - Final 04/25/18 18:34 Sputum - Endotrachea Suction/Ventilator Sputum Culture - Final Citrobacter Koseri Klebsiella Pneumoniae Streptococcus Pyogenes Grp A 04/24/18 17:50 Blood - Peripheral Venous Blood Culture - Final NO GROWTH AFTER 5 DAYS INCUBATION 04/24/18 16:43 Blood - Peripheral Venous Blood Culture - Final NO GROWTH AFTER 5 DAYS INCUBATION 04/26/18 18:00 Urine For Antigen Detection Legionella Antigen - Final 04/26/18 18:00 Urine For Antigen Detection Streptococcus pneumoniae Antigen (M - Final Vital Signs Temp 98.1 F 05/09/18 05:58 Pulse 72 05/09/18 10:52 Resp 19 05/09/18 10:52 BP 112/66 05/09/18 10:52 Pulse Ox 100 05/09/18 06:00 Intake & Output 05/08/18 05/08/18 05/09/18 11:59 23:59 11:59 Intake Total 1350 0 1350 Balance 1350 0 1350 Intake: Oral 0 Tube Feeding 800 800 Tube Irrigant 550 550 Other: Voiding Method Toilet Incontinent Toilet # Unmeasured Voids Void 2 3 1 Bowel Movement Yes No # Bowel Movements 1 2 Condition: Stable - Instructions Disposition: ALF FACILITY - Home Medications Comprehensive Discharge Medication List: Ambulatory Orders Acetylcysteine 220 mg NEB QID 04/24/18 Albuterol 0.083% Nebulizer Asmita [Ventolin 0.083% Nebulizer Soln -] 1 neb NEB QID 04/24/18 Aspirin 81 mg GT DAILY 04/24/18 Atorvastatin Ca [Lipitor] 40 mg GT HS 04/24/18 Carvedilol 12.5 mg GT BID 04/24/18 Doxazosin Mesylate [Cardura -] 2 mg GT HS 04/24/18 Enoxaparin [Lovenox -] 1.2 ml GT Q8H 04/24/18 Multivitamins [Multivit ([facility])] 1 tab GT DAILY 04/24/18 Ramipril 1.25 mg GT DAILY 04/24/18 Simethicone 40 mg GT TID 04/24/18 Albuterol 0.083% Nebulizer Asmita [Ventolin 0.083% Nebulizer Soln -] 1 amp NEB RQID amp 05/09/18 Enoxaparin [Lovenox -] 40 mg SQ DAILY #30 disp.syrin 05/09/18 Lytes/Yerba Brenda [Mouthkote Solution -] 1 applic MM DAILY PRN applic 05/09/18 Polyethylene Glycol 3350 [Miralax 119 gm Btl -] 17 gm PEG DAILY bottle
--- NOTE | 2018-05-09 11:49 | PN ---
Progress Note (short form) - Note Progress Note: PULMONARY Vented on volume assist control. No fevers recorded. Vital Signs Period Temp Pulse Resp BP Sys/Richards Pulse Ox Last 24 Hr 97.8 F-99.5 F 68-72 10-24 100-121/53-70 98-100 Gen: vented, awake Heart: RRR Lung: scattered rhonchi Abd: soft, nontender Ext: no edema CBC, BMP 05/09/18 07:00 05/09/18 07:00 Active Medications Acetaminophen (Tylenol Oral Solution -) 650 mg GT Q6H PRN PRN Reason: PAIN LEVEL 1-5 Last Admin: 05/05/18 09:55 Dose: 650 mg Acetylcysteine (Mucomyst 20 Oral / Inh Use Only*) 220 mg NEB RQID [facility] Last Admin: 05/09/18 11:41 Dose: 220 mg Albuterol Sulfate (Ventolin 0.083% Nebulizer Soln -) 1 amp NEB RQID [facility] Last Admin: 05/09/18 11:42 Dose: 1 amp Aspirin (Asa -) 81 mg GT DAILY [facility] Last Admin: 05/09/18 10:40 Dose: 81 mg Atorvastatin Calcium (Lipitor -) 40 mg GT HS [facility] Last Admin: 05/08/18 22:34 Dose: 40 mg Carvedilol (Coreg -) 25 mg GT BID [facility] Last Admin: 05/09/18 10:40 Dose: 25 mg Doxazosin Mesylate (Cardura -) 2 mg GT HS [facility] Last Admin: 05/08/18 22:34 Dose: 2 mg Polyethylene Glycol (Miralax (For Daily Use) -) 17 gm PEG DAILY [facility] Last Admin: 05/09/18 10:44 Dose: 17 gm Ramipril (Altace -) 1.25 mg GT DAILY [facility] Last Admin: 05/09/18 10:44 Dose: 1.25 mg Saliva Substitute (Mouthkote Solution -) 1 applic MM DAILY PRN PRN Reason: dry mouth Last Admin: 05/05/18 21:47 Dose: 1 applic Simethicone (Mylicon Liquid -) 40 mg GT TID [facility] Last Admin: 05/09/18 05:31 Dose: 40 mg A/P Acute on Chronic Hypoxic Respiratory Failure Dislodged Tracheostomy replaced Pneumonia Severe Sepsis +Troponins likely Demand Ischemia COPD CAD h/o CVA s/p PPM - completed antibiotics - O2 to keep SpO2 >90% - inhaled bronchodilators - spontaneous breathing trials/PMV as tolerated - enteral feeds - DVT/GI prophylaxis - agree with d/c planning Problem List - Problems (1) Acute respiratory failure with hypoxia Code(s): J96.01 - ACUTE RESPIRATORY FAILURE WITH HYPOXIA (2) Pneumonia Code(s): J18.9 - PNEUMONIA, UNSPECIFIED ORGANISM (3) COPD exacerbation Code(s): J44.1 - CHRONIC OBSTRUCTIVE PULMONARY DISEASE W (ACUTE) EXACERBATION
--- NOTE | 2018-05-09 18:59 | CON.PSY ---
Psychiatry Consult Chief Complaint: 67 year old male s/p cva with rifht hemiplegia. Patient seen for psych eval for depression. Symptoms: reports: Depressed Mood - Previous Psychiatric Treatment Outpatient: None Inpatient: None - Previous Substance Abuse Treatment Outpatient: None Inpatient: None - Reason for Previous Treatment Reason for Previous Treatment: Major Depression - Current Medications Current Medications: Active Medications Acetaminophen (Tylenol Oral Solution -) 650 mg GT Q6H PRN PRN Reason: PAIN LEVEL 1-5 Last Admin: 05/05/18 09:55 Dose: 650 mg Acetylcysteine (Mucomyst 20 Oral / Inh Use Only*) 220 mg NEB RQID [facility] Last Admin: 05/09/18 16:18 Dose: 220 mg Albuterol Sulfate (Ventolin 0.083% Nebulizer Soln -) 1 amp NEB RQID [facility] Last Admin: 05/09/18 16:18 Dose: 1 amp Aspirin (Asa -) 81 mg GT DAILY [facility] Last Admin: 05/09/18 10:40 Dose: 81 mg Atorvastatin Calcium (Lipitor -) 40 mg GT HS [facility] Last Admin: 05/08/18 22:34 Dose: 40 mg Carvedilol (Coreg -) 25 mg GT BID [facility] Last Admin: 05/09/18 10:40 Dose: 25 mg Doxazosin Mesylate (Cardura -) 2 mg GT HS [facility] Last Admin: 05/08/18 22:34 Dose: 2 mg Polyethylene Glycol (Miralax (For Daily Use) -) 17 gm PEG DAILY [facility] Last Admin: 05/09/18 10:44 Dose: 17 gm Ramipril (Altace -) 1.25 mg GT DAILY [facility] Last Admin: 05/09/18 10:44 Dose: 1.25 mg Saliva Substitute (Mouthkote Solution -) 1 applic MM DAILY PRN PRN Reason: dry mouth Last Admin: 05/05/18 21:47 Dose: 1 applic Simethicone (Mylicon Liquid -) 40 mg GT TID [facility] Last Admin: 05/09/18 14:18 Dose: 40 mg - Allergies Allergies: Allergies Allergy/AdvReac Type Severity Reaction Status Date / Time No Known Allergies Allergy Verified 04/24/18 16:46 - Current Living Status Usual Living Arrangement: Alone - Current Mental Status Evaluation Appearance: Disheveled Attitude: Guarded - Affect Affect: Constrictive Appropriateness: Appropriate to Content - Mood Mood: Depressed - Speech/Language Expressive: Coherent - Psychomotor Activity Psychomotor Activity: Slowed - Thought Process Thought Process: Intact - Thought Content Hallucinations: Absent Delusions: Absent - Self Perception Self Perception: No Impairment - Cognition Attention: Alert Orientation: Time Memory, Short Term: 2/3 Memory, Remote with Promptin/3 - Concentration Serial Sevens Intact: No Simple Calculations Intact: No - Abstraction Proverb Interpretation: Impaired Judgement: Intact - Insight Insight: Intact - Impulse Control Impulse Control: Minimally Impaired - Suicidal Ideation Suicidal Ideation: No - Homicidal Ideation Homicidal Ideation: No Assessment/Plan 1) Start CYmbalta 20mg po od for deptression.
[2018-05-09] MEDS: ATORVASTATIN CA 40 MG TABLET (FP) GT SCH (23:16)
[2018-05-09] MEDS: DOXAZOSIN MESYLATE 2 MG TABLET (FP) GT SCH (23:17)
[2018-05-10] MEDS: ACETAMINOPHEN 650 MG/20.3 ML ORAL SOLUTION (CUPS) GT PRN ×2 (04:24→11:14)
[2018-05-10] MEDS: SIMETHICONE 40 MG/0.6 ML BOTTLE GT SCH ×3 (06:08→22:32)
[2018-05-10] MEDS: ALBUTEROL SO4 0.083% IH SOL 2.5 MG/3 ML VIAL.NEB. NEB SCH ×4 (07:40→22:00)
[2018-05-10] MEDS: ACETYLCYSTEINE 20% 200MG/ML 4 ML VIAL *FOR ORAL / INH USE ONLY NEB SCH ×4 (07:40→22:00)
[2018-05-10] MEDS ORDERED: PT OWN MED DRAWER 7, Y5N ONE ×3 (11:10→22:27)
[2018-05-10] MEDS: MULTIVIT-MINERALS ORAL LIQUID GT SCH (11:13)
[2018-05-10] MEDS: DULoxetine HCL 20 MG CAPSULE.DR (FP) PO SCH (11:13)
[2018-05-10] MEDS: CARVEDILOL 25 MG TABLET (FP) GT SCH ×2 (11:13→22:32)
[2018-05-10] MEDS: ASPIRIN 81 MG CHEWABLE TABLETS GT SCH (11:13)
[2018-05-10] MEDS: RAMIPRIL 1.25 MG CAPSULE GT SCH (11:14)
[2018-05-10] MEDS: POLYETHYLENE GLYCOL 3350 119 GM BTL PEG SCH (11:14)
[2018-05-10] MEDS: LYTES/YERBA SANTA 240 ML BOTTLE MM PRN (11:36)
--- NOTE | 2018-05-10 12:44 | PN ---
Progress Note (short form) - Note Progress Note: PULMONARY Awake, vented. Placed on CPAP/PS 6/5, appears to be tolerating well. Vital Signs Period Temp Pulse Resp BP Sys/Richards Pulse Ox Last 24 Hr 98.6 F-98.9 F 70-75 18-24 100-118/60-71 97 Gen: vented, awake Heart: RRR Lung: decreased breath sounds at the bases Abd: soft, nontender Ext: no edema CBC, BMP 05/09/18 07:00 05/09/18 07:00 Active Medications Acetaminophen (Tylenol Oral Solution -) 650 mg GT Q6H PRN PRN Reason: PAIN LEVEL 1-5 Last Admin: 05/10/18 11:14 Dose: 650 mg Acetylcysteine (Mucomyst 20 Oral / Inh Use Only*) 220 mg NEB RQID [facility] Last Admin: 05/10/18 11:25 Dose: 220 mg Albuterol Sulfate (Ventolin 0.083% Nebulizer Soln -) 1 amp NEB RQID [facility] Last Admin: 05/10/18 11:25 Dose: 1 amp Aspirin (Asa -) 81 mg GT DAILY [facility] Last Admin: 05/10/18 11:13 Dose: 81 mg Atorvastatin Calcium (Lipitor -) 40 mg GT HS [facility] Last Admin: 05/09/18 23:16 Dose: 40 mg Carvedilol (Coreg -) 25 mg GT BID [facility] Last Admin: 05/10/18 11:13 Dose: 25 mg Doxazosin Mesylate (Cardura -) 2 mg GT HS [facility] Last Admin: 05/09/18 23:17 Dose: 2 mg Duloxetine HCl (Cymbalta -) 20 mg PO DAILY [facility] Last Admin: 05/10/18 11:13 Dose: 20 mg Polyethylene Glycol (Miralax (For Daily Use) -) 17 gm PEG DAILY [facility] Last Admin: 05/10/18 11:14 Dose: 17 gm Ramipril (Altace -) 1.25 mg GT DAILY [facility] Last Admin: 05/10/18 11:14 Dose: 1.25 mg Saliva Substitute (Mouthkote Solution -) 1 applic MM DAILY PRN PRN Reason: dry mouth Last Admin: 05/10/18 11:36 Dose: 1 applic Simethicone (Mylicon Liquid -) 40 mg GT TID [facility] Last Admin: 05/10/18 06:08 Dose: 40 mg A/P Acute on Chronic Hypoxic Respiratory Failure Dislodged Tracheostomy replaced Pneumonia Severe Sepsis +Troponins likely Demand Ischemia COPD CAD h/o CVA s/p PPM - completed antibiotics - O2 to keep SpO2 >90% - inhaled bronchodilators - can place on trach collar - PMV as tolerated - enteral feeds - DVT/GI prophylaxis - d/c planning Problem List - Problems (1) Acute respiratory failure with hypoxia Code(s): J96.01 - ACUTE RESPIRATORY FAILURE WITH HYPOXIA (2) Pneumonia Code(s): J18.9 - PNEUMONIA, UNSPECIFIED ORGANISM (3) COPD exacerbation Code(s): J44.1 - CHRONIC OBSTRUCTIVE PULMONARY DISEASE W (ACUTE) EXACERBATION
[2018-05-10] MEDS ORDERED: INSULIN (NOVOLOG) ASPART 100 UNITS/ML 10ML VIAL ONE (16:42)
--- NOTE | 2018-05-10 17:07 | PN ---
Progress Note, Physician Chief Complaint: Hypoxia Pneumonia History of Present Illness: Previous notes and events reviewed awake and alert NAD states his frontal headache is improving being weaned off mechaincal ventilator, currently on O2 via trach collar pending d/c to SNF-need to speak with Kiwi [phone] [facility] ref# [id number] in regards to acceptance - Current Medication List Current Medications: Active Medications Acetaminophen (Tylenol Oral Solution -) 650 mg GT Q6H PRN PRN Reason: PAIN LEVEL 1-5 Last Admin: 05/10/18 11:14 Dose: 650 mg Acetylcysteine (Mucomyst 20 Oral / Inh Use Only*) 220 mg NEB RQID [facility] Last Admin: 05/10/18 15:58 Dose: 220 mg Albuterol Sulfate (Ventolin 0.083% Nebulizer Soln -) 1 amp NEB RQID [facility] Last Admin: 05/10/18 15:58 Dose: 1 amp Aspirin (Asa -) 81 mg GT DAILY [facility] Last Admin: 05/10/18 11:13 Dose: 81 mg Atorvastatin Calcium (Lipitor -) 40 mg GT HS [facility] Last Admin: 05/09/18 23:16 Dose: 40 mg Carvedilol (Coreg -) 25 mg GT BID [facility] Last Admin: 05/10/18 11:13 Dose: 25 mg Doxazosin Mesylate (Cardura -) 2 mg GT HS [facility] Last Admin: 05/09/18 23:17 Dose: 2 mg Duloxetine HCl (Cymbalta -) 20 mg PO DAILY [facility] Last Admin: 05/10/18 11:13 Dose: 20 mg Polyethylene Glycol (Miralax (For Daily Use) -) 17 gm PEG DAILY [facility] Last Admin: 05/10/18 11:14 Dose: 17 gm Ramipril (Altace -) 1.25 mg GT DAILY [facility] Last Admin: 05/10/18 11:14 Dose: 1.25 mg Saliva Substitute (Mouthkote Solution -) 1 applic MM DAILY PRN PRN Reason: dry mouth Last Admin: 05/10/18 11:36 Dose: 1 applic Simethicone (Mylicon Liquid -) 40 mg GT TID [facility] Last Admin: 05/10/18 14:48 Dose: 40 mg - Objective Vital Signs: Vital Signs Temperature 98.2 F 05/10/18 14:34 Pulse Rate 70 05/10/18 14:34 Respiratory Rate 23 H 03/26/19 14:34 Blood Pressure 121/93 05/10/18 14:34 O2 Sat by Pulse Oximetry (%) 96 05/10/18 14:05 Constitutional: Yes: No Distress, Calm Eyes: Yes: Conjunctiva Clear HENT: Yes: Atraumatic Neck: Yes: Other (trach) Cardiovascular: Yes: Regular Rate and Rhythm Respiratory: Yes: Regular, CTA Bilaterally Gastrointestinal: Yes: Normal Bowel Sounds, Soft, Tenderness (llq) Genitourinary: Yes: Incontinence Musculoskeletal: Yes: Muscle Weakness Extremities: Yes: WNL Edema: No Neurological: Yes: Alert, Pre-Existing Deficit Psychiatric: Yes: Alert Labs: CBC, BMP 05/09/18 07:00 05/09/18 07:00 Microbiology 05/05/18 12:56 Blood - Peripheral Venous Blood Culture - Final NO GROWTH AFTER 5 DAYS INCUBATION 05/05/18 12:48 Blood - Peripheral Venous Blood Culture - Final NO GROWTH AFTER 5 DAYS INCUBATION 05/02/18 17:35 Urine - Urine Clean Catch Urine Culture - Final NO GROWTH OBTAINED 04/25/18 18:34 Sputum - Endotrachea Suction/Ventilator Gram Stain - Final 04/25/18 18:34 Sputum - Endotrachea Suction/Ventilator Sputum Culture - Final Citrobacter Koseri Klebsiella Pneumoniae Streptococcus Pyogenes Grp A 04/24/18 17:50 Blood - Peripheral Venous Blood Culture - Final NO GROWTH AFTER 5 DAYS INCUBATION 04/24/18 16:43 Blood - Peripheral Venous Blood Culture - Final NO GROWTH AFTER 5 DAYS INCUBATION 04/26/18 18:00 Urine For Antigen Detection Legionella Antigen - Final 04/26/18 18:00 Urine For Antigen Detection Streptococcus pneumoniae Antigen (M - Final Problem List - Problems (1) Acute and chronic respiratory failure ([id number]-[id number]) Assessment/Plan: -pulm on board -tolerating O2 via trach collar -albuterol tx via neb PRN for SOB -keep SpO2 >90% Code(s): J96.20 - ACUTE AND CHR RESP FAILURE, UNSP W HYPOXIA OR HYPERCAPNIA (2) COPD exacerbation Assessment/Plan: -pulm on board -albuterol tx via neb PRN for SOB -keep SpO2 >90% -BNP 3927.6 Code(s): J44.1 - CHRONIC OBSTRUCTIVE PULMONARY DISEASE W (ACUTE) EXACERBATION (3) CVA, old, hemiparesis Assessment/Plan: -fall precaution -PT Code(s): I69.359 - HEMIPLGA FOLLOWING CEREBRAL INFARCTION AFFECTING UNSP SIDE (4) Pneumonia Assessment/Plan: -pulm and ID on board -CXR improved, will observe off antibiotic therapy -wbc 11.9 -Chest CT show bibasilar atelectasis/consolidation, left greater than right with trace pleural fluid Code(s): J18.9 - PNEUMONIA, UNSPECIFIED ORGANISM (5) Elevated troponin Assessment/Plan: -trop trendin down, current 0.12 -cardiology on board Code(s): R74.8 - ABNORMAL LEVELS OF OTHER SERUM ENZYMES (6) Abnormal CT scan, head Assessment/Plan: -CT scan show findings suspicious of an acute/subacute infarct, no prior available for comparison -neurology on board -continue with aspirin and atorvastatin -fall precaution -neuro checks q4h Code(s): R93.0 - ABNORMAL FINDINGS ON DX IMAGING OF SKULL AND HEAD, NEC (7) Headache Assessment/Plan: -Head CTA show findings may represent subacute stroke possibly resolving basal ganglia hematoma, no evidence of aneurysm, no evidence of AVM, dominant left vertebral artery, no significant occlusion or stenosis identified -Carotid US show moderate atherosclerotic disease with no evidence of hemodynamically signficant stenoses -neurology on board -optho on board -carvedilol BID for migraine prophylaxis Code(s): R51 - HEADACHE (8) Leukocytosis Assessment/Plan: -WBC 11.9 -ID on board -Abdominal CT show bibasilar consolidation/atelectasis and small pleural effusion, right greater than left, cholelithiasis, prostatic enlargement, fecal retention, extenive heterotropic calcification about the right hip joint suggesting myositis ossificans -Gallbladder US shows cholelithiasis, inspissated bile/sludge also seen within gallbladder lumen Code(s): D72.829 - ELEVATED WHITE BLOOD CELL COUNT, UNSPECIFIED Assessment/Plan see problem list dvt ppx
[2018-05-10] MEDS: DOXAZOSIN MESYLATE 2 MG TABLET (FP) GT SCH (22:32)
[2018-05-10] MEDS: ATORVASTATIN CA 40 MG TABLET (FP) GT SCH (22:32)
[2018-05-11] MEDS: SIMETHICONE 40 MG/0.6 ML BOTTLE GT SCH ×2 (06:12→14:21)
[2018-05-11] MEDS: ALBUTEROL SO4 0.083% IH SOL 2.5 MG/3 ML VIAL.NEB. NEB SCH ×3 (08:07→16:19)
[2018-05-11] MEDS: ACETYLCYSTEINE 20% 200MG/ML 4 ML VIAL *FOR ORAL / INH USE ONLY NEB SCH ×3 (08:07→16:19)
[2018-05-11] MEDS ORDERED: ONDANSETRON 4 MG/2 ML VIAL IVPUSH PRN (10:09)
--- NOTE | 2018-05-11 10:34 | PN ---
Progress Note, TELETYPE TELEGRAPHER - Note Progress Note: ENT consult noted. Consider downsizing trach in future for improved PMV use, verbal communication, psychosocial benefit and swallowing.
[2018-05-11] MEDS: ASPIRIN 81 MG CHEWABLE TABLETS GT SCH ×2 (10:59→14:23)
[2018-05-11] MEDS: CARVEDILOL 25 MG TABLET (FP) GT SCH ×2 (10:59→14:22)
[2018-05-11] MEDS: ACETAMINOPHEN 650 MG/20.3 ML ORAL SOLUTION (CUPS) GT PRN (10:59)
[2018-05-11] MEDS: MULTIVIT-MINERALS ORAL LIQUID GT SCH ×2 (11:00→14:22)
[2018-05-11] MEDS: RAMIPRIL 1.25 MG CAPSULE GT SCH ×2 (11:00→14:22)
[2018-05-11] MEDS: DULoxetine HCL 20 MG CAPSULE.DR (FP) PO SCH ×2 (11:01→14:23)
[2018-05-11] MEDS: POLYETHYLENE GLYCOL 3350 119 GM BTL PEG SCH ×2 (11:01→14:24)
[2018-05-11 11:29] LABS: ALBUMIN 2.5 g/dl (3.4-5.0); ALK PHOS 147 U/L (45-117); ANION GAP 8 MMOL/L (8-16); BILIRUBIN,TOTAL 0.6 mg/dL (0.2-1); BLOOD UREA NITROGEN 18 mg/dL (7-18); CALCIUM 8.6 mg/dL (8.5-10.1); CHLORIDE 98 mmol/L (98-107); CO2 26 mmol/L (21-32); CREATININE 0.5 mg/dL (0.55-1.3); GLUCOSE,RANDOM 113 mg/dL (74-106); MAGNESIUM 2.2 mg/dL (1.8-2.4); POTASSIUM 4.4 mmol/L (3.5-5.1); SGOT/AST 20 U/L (15-37); SGPT/ALT 36 U/L (13-61); SODIUM 132 mmol/L (136-145); TOT PROT 6.4 g/dl (6.4-8.2)
[2018-05-11 11:46] LABS: BASO % 0.6 % (0-2.0); EOS % 1.9 % (0-4.5); HEMOGLOBIN 11.1 GM/dL (11.7-16.9); LYMPH % 10.8 % (8-40); MCH 28.9 pg (25.7-33.7); MCHC 32.5 g/dl (32.0-35.9); MEAN CELL VOLUME 88.8 fl (80-96); MEAN PLT VOLUME 9.5 fl (7.5-11.1); MONO % 4.9 % (3.8-10.2); NEUT % 81.8 % (42.8-82.8); PLATELET COUNT 316 K/MM3 (134-434); RBC 3.83 M/mm3 (4.00-5.60); RDW 16.3 % (11.9-15.9)
[2018-05-11 11:47] LABS: WHITE BLOOD COUNT 13.6 K/mm3 (4.0-10.0)
--- NOTE | 2018-05-11 12:50 | PN ---
Progress Note (short form) - Note Progress Note: NEUROLOGY PROGRESS: Events reviewed and discussed with nurse Vang. Consults read and appreciated. Reporting 2 episodes of vomiting this am during trach manipulation and suctioning. Tube feedings on hold intermittently at this time, awaiting abdominal and chest xray. Reports sleeping well and no further headache. Seen by psych for depression and started on cymbalta 20 mg daily. WBC 16.8-> 13.6, NA 148 (05/07) -> 132 (05/11) LORETA: Oral temp 99.3. On vent and PEG. Trach noted with some scant blood. NEURO Awake, alert, expressive with lips. Able to nod and follow simple commands. R exotropia and ptosis. R facial. R hemiparesis. Strength normal on L. Brisk reflexes R > L. R Babinski. No L FTN dystaxia. Reduced pinch on R Impression: 1. s/p Left CVA with right hemiplegia. 2. 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 New onset (?) headache- improved on carvedilol 4. Depression Suggest: Continue carvedilol 25 mg BID for migraine prophylaxis (note that increased BB may worsen depression) Continue Tylenol prn for breakthrough headache Continue hydration and slow correction of hyponatremia Rx depression as per Psyche. Talking trache (PMV). Please ask to provide or obtain new Valve so Pt. can better communicate. Thank you very much, Kyle Rahman MD
--- NOTE | 2018-05-11 13:17 | PN ---
Progress Note, Physician Chief Complaint: awake alert vomitted today and coughing KUB abd cxr ordered wilner lozada - Current Medication List Current Medications: Active Medications Acetaminophen (Tylenol Oral Solution -) 650 mg GT Q6H PRN PRN Reason: PAIN LEVEL 1-5 Last Admin: 05/11/18 10:59 Dose: 650 mg Acetylcysteine (Mucomyst 20 Oral / Inh Use Only*) 220 mg NEB RQID [facility] Last Admin: 05/11/18 12:15 Dose: 220 mg Albuterol Sulfate (Ventolin 0.083% Nebulizer Soln -) 1 amp NEB RQID [facility] Last Admin: 05/11/18 12:15 Dose: 1 amp Aspirin (Asa -) 81 mg GT DAILY [facility] Last Admin: 05/11/18 10:59 Dose: 81 mg Atorvastatin Calcium (Lipitor -) 40 mg GT HS [facility] Last Admin: 05/10/18 22:32 Dose: 40 mg Carvedilol (Coreg -) 25 mg GT BID [facility] Last Admin: 05/11/18 10:59 Dose: 25 mg Doxazosin Mesylate (Cardura -) 2 mg GT HS [facility] Last Admin: 05/10/18 22:32 Dose: 2 mg Duloxetine HCl (Cymbalta -) 20 mg PO DAILY [facility] Last Admin: 05/11/18 11:01 Dose: 20 mg Ondansetron HCl (Zofran Injection) 4 mg IVPUSH Q6H PRN PRN Reason: NAUSEA Polyethylene Glycol (Miralax (For Daily Use) -) 17 gm PEG DAILY [facility] Last Admin: 05/11/18 11:01 Dose: 17 gm Ramipril (Altace -) 1.25 mg GT DAILY [facility] Last Admin: 05/11/18 11:00 Dose: 1.25 mg Saliva Substitute (Mouthkote Solution -) 1 applic MM DAILY PRN PRN Reason: dry mouth Last Admin: 05/10/18 11:36 Dose: 1 applic Simethicone (Mylicon Liquid -) 40 mg GT TID [facility] Last Admin: 05/11/18 06:12 Dose: 40 mg - Objective Vital Signs: Vital Signs Temperature 99.3 F 05/11/18 10:00 Pulse Rate 76 05/11/18 11:30 Respiratory Rate 26 H 05/11/18 11:29 Blood Pressure 112/63 05/11/18 10:00 O2 Sat by Pulse Oximetry (%) 98 05/11/18 11:30 Constitutional: Yes: Calm Neck: Yes: Other (trach) Cardiovascular: Yes: Regular Rate and Rhythm, S1, S2 Respiratory: Yes: Diminished Gastrointestinal: Yes: Soft, Hypoactive Bowel Sounds, Other ( g tube) Edema: No Labs: CBC, BMP 05/11/18 10:45 05/11/18 10:45 Problem List - Problems (1) Acute respiratory failure with hypoxia Assessment/Plan: resolved Code(s): J96.01 - ACUTE RESPIRATORY FAILURE WITH HYPOXIA (2) Pneumonia Assessment/Plan: off abx repeat cxr ordered Code(s): J18.9 - PNEUMONIA, UNSPECIFIED ORGANISM (3) Vomiting Assessment/Plan: kierra MIX ordered hold tube feeds Code(s): R11.10 - VOMITING, UNSPECIFIED (4) Depression Assessment/Plan: seen by psych started on cymbalta Code(s): F32.9 - MAJOR DEPRESSIVE DISORDER, SINGLE EPISODE, UNSPECIFIED Assessment/Plan awaiting xray results before tube feeds restated hold DC today
[2018-05-11] MEDS ORDERED: SODIUM CHLORIDE 1,000 ML IV SCH (14:30)
--- NOTE | 2018-05-11 15:47 | PN ---
Progress Note, Physician History of Present Illness: pulmonary alert,on vent support ac mode ,comfortable,-resp distress - Current Medication List Current Medications: Active Medications Acetaminophen (Tylenol Oral Solution -) 650 mg GT Q6H PRN PRN Reason: PAIN LEVEL 1-5 Last Admin: 05/10/18 11:14 Dose: 650 mg Acetylcysteine (Mucomyst 20 Oral / Inh Use Only*) 220 mg NEB RQID [facility] Last Admin: 05/11/18 12:15 Dose: 220 mg Albuterol Sulfate (Ventolin 0.083% Nebulizer Soln -) 1 amp NEB RQID [facility] Last Admin: 05/11/18 12:15 Dose: 1 amp Aspirin (Asa -) 81 mg GT DAILY [facility] Last Admin: 05/11/18 14:23 Dose: Not Given Atorvastatin Calcium (Lipitor -) 40 mg GT HS [facility] Last Admin: 05/10/18 22:32 Dose: 40 mg Carvedilol (Coreg -) 25 mg GT BID [facility] Last Admin: 05/11/18 14:22 Dose: Not Given Doxazosin Mesylate (Cardura -) 2 mg GT HS [facility] Last Admin: 05/10/18 22:32 Dose: 2 mg Duloxetine HCl (Cymbalta -) 20 mg PO DAILY [facility] Last Admin: 05/11/18 14:23 Dose: Not Given Sodium Chloride (Normal Saline -) 1,000 mls @ 50 mls/hr IV ASDIR [facility] Stop: 05/12/18 14:18 Ondansetron HCl (Zofran Injection) 4 mg IVPUSH Q6H PRN PRN Reason: NAUSEA Pantoprazole Sodium (Protonix Iv) 40 mg IVPUSH BID [facility] Polyethylene Glycol (Miralax (For Daily Use) -) 17 gm PEG DAILY [facility] Last Admin: 05/11/18 14:24 Dose: Not Given Ramipril (Altace -) 1.25 mg GT DAILY [facility] Last Admin: 05/11/18 14:22 Dose: Not Given Saliva Substitute (Mouthkote Solution -) 1 applic MM DAILY PRN PRN Reason: dry mouth Last Admin: 05/10/18 11:36 Dose: 1 applic Simethicone (Mylicon Liquid -) 40 mg GT TID [facility] Last Admin: 05/11/18 14:21 Dose: Not Given - Objective Vital Signs: Vital Signs Temperature 97.9 F 05/11/18 14:18 Pulse Rate 70 05/11/18 14:18 Respiratory Rate 20 05/11/18 14:18 Blood Pressure 121/64 05/11/18 14:18 O2 Sat by Pulse Oximetry (%) 98 05/11/18 11:30 Constitutional: Yes: Well Nourished, Calm Eyes: Yes: WNL HENT: Yes: WNL Neck: Yes: Supple (trach) Cardiovascular: Yes: Regular Rate and Rhythm, S1, S2 Respiratory: Yes: Diminished Gastrointestinal: Yes: Normal Bowel Sounds, Soft Extremities: Yes: WNL Edema: No Labs: CBC, BMP 05/11/18 10:45 05/11/18 10:45 Problem List - Problems (1) Acute and chronic respiratory failure ([id number]) Code(s): J96.20 - ACUTE AND CHR RESP FAILURE, UNSP W HYPOXIA OR HYPERCAPNIA (2) Elevated troponin Code(s): R74.8 - ABNORMAL LEVELS OF OTHER SERUM ENZYMES (3) Tracheostomy malfunction Code(s): J95.03 - MALFUNCTION OF TRACHEOSTOMY STOMA Assessment/Plan Problem List - Problems (1) Acute respiratory failure with hypoxia Code(s): J96.01 - ACUTE RESPIRATORY FAILURE WITH HYPOXIA (2) Pneumonia Code(s): J18.9 - PNEUMONIA, UNSPECIFIED ORGANISM (3) COPD exacerbation Code(s): J44.1 - CHRONIC OBSTRUCTIVE PULMONARY DISEASE W (ACUTE) EXACERBATION A/P Acute on Chronic Hypoxic Respiratory Failure Dislodged Tracheostomy replaced Pneumonia Severe Sepsis +Troponins likely Demand Ischemia COPD CAD h/o CVA s/p PPM - Current vent settings - inhaled bronchodilators - Enteral feeds - DVT/GI prophylaxis DR MOORE
[2018-05-11] MEDS ORDERED: INSULIN (NOVOLOG) ASPART 100 UNITS/ML 10ML VIAL ONE (18:42)
[2018-05-11] MEDS ORDERED: PT OWN MED DRAWER 7, Y5N ONE (18:43)
[2018-05-11] MEDS: PANTOPRAZOLE SODIUM 40 MG VIAL IVPUSH SCH (21:58)
[2018-05-12 08:20] LABS: BASO % 0.4 % (0-2.0); EOS % 2.9 % (0-4.5); HEMATOCRIT 29.5 % (35.4-49); HEMOGLOBIN 10.1 GM/dL (11.7-16.9); LYMPH % 17.5 % (8-40); MCH 29.9 pg (25.7-33.7); MCHC 34.2 g/dl (32.0-35.9); MEAN CELL VOLUME 87.6 fl (80-96); MEAN PLT VOLUME 8.7 fl (7.5-11.1); MONO % 5.8 % (3.8-10.2); NEUT % 73.4 % (42.8-82.8); PLATELET COUNT 277 K/MM3 (134-434); RBC 3.36 M/mm3 (4.00-5.60); RDW 16.5 % (11.9-15.9); WHITE BLOOD COUNT 10.5 K/mm3 (4.0-10.0)
[2018-05-12] MEDS: ACETYLCYSTEINE 20% 200MG/ML 4 ML VIAL *FOR ORAL / INH USE ONLY NEB SCH ×4 (08:25→20:20)
[2018-05-12] MEDS: ALBUTEROL SO4 0.083% IH SOL 2.5 MG/3 ML VIAL.NEB. NEB SCH ×4 (08:27→20:20)
[2018-05-12 08:48] LABS: ALBUMIN 2.4 g/dl (3.4-5.0); ALK PHOS 128 U/L (45-117); ANION GAP 8 MMOL/L (8-16); BLOOD UREA NITROGEN 20 mg/dL (7-18); CALCIUM 7.9 mg/dL (8.5-10.1); CHLORIDE 101 mmol/L (98-107); CO2 27 mmol/L (21-32); CREATININE 0.5 mg/dL (0.55-1.3); GLUCOSE,RANDOM 72 mg/dL (74-106); POTASSIUM 4.1 mmol/L (3.5-5.1); SGOT/AST 17 U/L (15-37); SGPT/ALT 28 U/L (13-61); SODIUM 137 mmol/L (136-145); TOT PROT 6.1 g/dl (6.4-8.2)
[2018-05-12] MEDS: PANTOPRAZOLE SODIUM 40 MG VIAL IVPUSH SCH ×2 (10:23→23:16)
--- NOTE | 2018-05-12 10:51 | PN ---
Progress Note (short form) - Note Progress Note: PULMONARY Awake, vented. Did not tolerate CPAP/PS trials yesterday 2/2 vomiting and bloody secretions. Vital Signs Period Temp Pulse Resp BP Sys/Richards Pulse Ox Last 24 Hr 97.9 F-98.4 F 70-76 12 112-129/64-80 98-99 Gen: vented, awake Heart: RRR Lung: decreased breath sounds at the bases Abd: soft, nontender Ext: no edema CBC, BMP 05/12/18 07:30 05/12/18 07:30 Active Medications Acetaminophen (Tylenol Oral Solution -) 650 mg GT Q6H PRN PRN Reason: PAIN LEVEL 1-5 Last Admin: 05/10/18 11:14 Dose: 650 mg Acetylcysteine (Mucomyst 20 Oral / Inh Use Only*) 220 mg NEB RQID [facility] Last Admin: 05/12/18 08:25 Dose: 220 mg Albuterol Sulfate (Ventolin 0.083% Nebulizer Soln -) 1 amp NEB RQID [facility] Last Admin: 05/12/18 08:27 Dose: 1 amp Aspirin (Asa -) 81 mg GT DAILY [facility] Last Admin: 05/11/18 14:23 Dose: Not Given Atorvastatin Calcium (Lipitor -) 40 mg GT HS [facility] Last Admin: 05/10/18 22:32 Dose: 40 mg Carvedilol (Coreg -) 25 mg GT BID [facility] Last Admin: 05/11/18 14:22 Dose: Not Given Doxazosin Mesylate (Cardura -) 2 mg GT HS [facility] Last Admin: 05/10/18 22:32 Dose: 2 mg Duloxetine HCl (Cymbalta -) 20 mg PO DAILY [facility] Last Admin: 05/11/18 14:23 Dose: Not Given Sodium Chloride (Normal Saline -) 1,000 mls @ 50 mls/hr IV ASDIR [facility] Stop: 05/12/18 14:18 Last Admin: 05/11/18 16:59 Dose: 50 mls/hr Ondansetron HCl (Zofran Injection) 4 mg IVPUSH Q6H PRN PRN Reason: NAUSEA Pantoprazole Sodium (Protonix Iv) 40 mg IVPUSH BID [facility] Last Admin: 05/12/18 10:23 Dose: 40 mg Polyethylene Glycol (Miralax (For Daily Use) -) 17 gm PEG DAILY [facility] Last Admin: 05/11/18 14:24 Dose: Not Given Ramipril (Altace -) 1.25 mg GT DAILY [facility] Last Admin: 05/11/18 14:22 Dose: Not Given Saliva Substitute (Mouthkote Solution -) 1 applic MM DAILY PRN PRN Reason: dry mouth Last Admin: 05/10/18 11:36 Dose: 1 applic Simethicone (Mylicon Liquid -) 40 mg GT TID [facility] Last Admin: 05/11/18 14:21 Dose: Not Given A/P Acute on Chronic Hypoxic Respiratory Failure Dislodged Tracheostomy replaced Pneumonia Severe Sepsis +Troponins likely Demand Ischemia COPD CAD h/o CVA s/p PPM - completed antibiotics - O2 to keep SpO2 >90% - inhaled bronchodilators - spontaneous breathing trials as tolerated with goal of trach collar - PMV as tolerated - enteral feeds - DVT/GI prophylaxis - d/c planning Problem List - Problems (1) Acute respiratory failure with hypoxia Code(s): J96.01 - ACUTE RESPIRATORY FAILURE WITH HYPOXIA (2) Pneumonia Code(s): J18.9 - PNEUMONIA, UNSPECIFIED ORGANISM (3) COPD exacerbation Code(s): J44.1 - CHRONIC OBSTRUCTIVE PULMONARY DISEASE W (ACUTE) EXACERBATION
--- NOTE | 2018-05-12 11:03 | PN ---
Progress Note, Physician Chief Complaint: Hypoxia Pneumonia History of Present Illness: Previous notes and events reviewed awake and alert NAD pending d/c to SNF no further episodes of vomiting reported, repeat Abdominal xray ordered-if neg will restart feeds - Current Medication List Current Medications: Active Medications Acetaminophen (Tylenol Oral Solution -) 650 mg GT Q6H PRN PRN Reason: PAIN LEVEL 1-5 Last Admin: 05/10/18 11:14 Dose: 650 mg Acetylcysteine (Mucomyst 20 Oral / Inh Use Only*) 220 mg NEB RQID [facility] Last Admin: 05/12/18 08:25 Dose: 220 mg Albuterol Sulfate (Ventolin 0.083% Nebulizer Soln -) 1 amp NEB RQID [facility] Last Admin: 05/12/18 08:27 Dose: 1 amp Aspirin (Asa -) 81 mg GT DAILY [facility] Last Admin: 05/11/18 14:23 Dose: Not Given Atorvastatin Calcium (Lipitor -) 40 mg GT HS [facility] Last Admin: 05/10/18 22:32 Dose: 40 mg Carvedilol (Coreg -) 25 mg GT BID [facility] Last Admin: 05/11/18 14:22 Dose: Not Given Doxazosin Mesylate (Cardura -) 2 mg GT HS [facility] Last Admin: 05/10/18 22:32 Dose: 2 mg Duloxetine HCl (Cymbalta -) 20 mg PO DAILY [facility] Last Admin: 05/11/18 14:23 Dose: Not Given Sodium Chloride (Normal Saline -) 1,000 mls @ 50 mls/hr IV ASDIR [facility] Stop: 05/12/18 14:18 Last Admin: 05/11/18 16:59 Dose: 50 mls/hr Ondansetron HCl (Zofran Injection) 4 mg IVPUSH Q6H PRN PRN Reason: NAUSEA Pantoprazole Sodium (Protonix Iv) 40 mg IVPUSH BID [facility] Last Admin: 05/12/18 10:23 Dose: 40 mg Polyethylene Glycol (Miralax (For Daily Use) -) 17 gm PEG DAILY [facility] Last Admin: 05/11/18 14:24 Dose: Not Given Ramipril (Altace -) 1.25 mg GT DAILY [facility] Last Admin: 05/11/18 14:22 Dose: Not Given Saliva Substitute (Mouthkote Solution -) 1 applic MM DAILY PRN PRN Reason: dry mouth Last Admin: 05/10/18 11:36 Dose: 1 applic Simethicone (Mylicon Liquid -) 40 mg GT TID [facility] Last Admin: 05/11/18 14:21 Dose: Not Given - Objective Vital Signs: Vital Signs Temperature 98.4 F 05/12/18 06:19 Pulse Rate 70 05/12/18 08:28 Respiratory Rate 20 05/12/18 08:28 Blood Pressure 129/80 05/12/18 06:19 O2 Sat by Pulse Oximetry (%) 99 05/12/18 08:28 Constitutional: Yes: No Distress, Calm Eyes: Yes: Conjunctiva Clear HENT: Yes: Atraumatic Neck: Yes: Other (trach) Cardiovascular: Yes: Regular Rate and Rhythm Respiratory: Yes: Diminished, Mechanically Ventilated Gastrointestinal: Yes: Normal Bowel Sounds, Soft, Tenderness (diffuse) Genitourinary: Yes: Incontinence Musculoskeletal: Yes: Muscle Weakness (R sided) Edema: No Neurological: Yes: Alert, Pre-Existing Deficit Psychiatric: Yes: Alert Labs: CBC, BMP 05/12/18 07:30 05/12/18 07:30 Problem List - Problems (1) Acute and chronic respiratory failure ([id number]-[id number]) Assessment/Plan: -pulm on board -mechanical ventilator, trial periods of weaning off vent with O2 via trach collar -albuterol tx via neb PRN for SOB -keep SpO2 >90% Code(s): J96.20 - ACUTE AND CHR RESP FAILURE, UNSP W HYPOXIA OR HYPERCAPNIA (2) COPD exacerbation Assessment/Plan: -pulm on board -albuterol tx via neb PRN for SOB -keep SpO2 >90% -BNP 3927.6 Code(s): J44.1 - CHRONIC OBSTRUCTIVE PULMONARY DISEASE W (ACUTE) EXACERBATION (3) CVA, old, hemiparesis Assessment/Plan: -fall precaution -PT Code(s): I69.359 - HEMIPLGA FOLLOWING CEREBRAL INFARCTION AFFECTING UNSP SIDE (4) Pneumonia Assessment/Plan: -pulm and ID on board -CXR improved, will observe off antibiotic therapy -wbc 10.5 -Chest CT show bibasilar atelectasis/consolidation, left greater than right with trace pleural fluid Code(s): J18.9 - PNEUMONIA, UNSPECIFIED ORGANISM (5) Elevated troponin Assessment/Plan: -trop trendin down, current 0.12 -cardiology on board Code(s): R74.8 - ABNORMAL LEVELS OF OTHER SERUM ENZYMES (6) Abnormal CT scan, head Assessment/Plan: -CT scan show findings suspicious of an acute/subacute infarct, no prior available for comparison -neurology on board -continue with aspirin and atorvastatin -fall precaution Code(s): R93.0 - ABNORMAL FINDINGS ON DX IMAGING OF SKULL AND HEAD, NEC (7) Headache Assessment/Plan: -Head CTA show findings may represent subacute stroke possibly resolving basal ganglia hematoma, no evidence of aneurysm, no evidence of AVM, dominant left vertebral artery, no significant occlusion or stenosis identified -Carotid US show moderate atherosclerotic disease with no evidence of hemodynamically signficant stenoses -neurology on board -optho on board -carvedilol BID for migraine prophylaxis Code(s): R51 - HEADACHE (8) Leukocytosis Assessment/Plan: -WBC 10.5 -ID on board -Abdominal CT show bibasilar consolidation/atelectasis and small pleural effusion, right greater than left, cholelithiasis, prostatic enlargement, fecal retention, extenive heterotropic calcification about the right hip joint suggesting myositis ossificans -Gallbladder US shows cholelithiasis, inspissated bile/sludge also seen within gallbladder lumen Code(s): D72.829 - ELEVATED WHITE BLOOD CELL COUNT, UNSPECIFIED (9) Vomiting Assessment/Plan: -repeat Abdominal xray ordered--if neg will resume feeds Code(s): R11.10 - VOMITING, UNSPECIFIED
[2018-05-12] MEDS ORDERED: D5-1/2NS+10 MEQ KCL - 10 MEQ/1,000 ML INFUS.BAG IV SCH (18:00)
[2018-05-12] MEDS: ATORVASTATIN CA 40 MG TABLET (FP) GT SCH (23:16)
[2018-05-12] MEDS: SIMETHICONE 40 MG/0.6 ML BOTTLE GT SCH (23:16)
[2018-05-12] MEDS: CARVEDILOL 25 MG TABLET (FP) GT SCH (23:17)
[2018-05-12] MEDS: DOXAZOSIN MESYLATE 2 MG TABLET (FP) GT SCH (23:17)
[2018-05-13] MEDS: ACETAMINOPHEN 650 MG/20.3 ML ORAL SOLUTION (CUPS) GT PRN (04:29)
[2018-05-13] MEDS: SIMETHICONE 40 MG/0.6 ML BOTTLE GT SCH ×3 (05:46→23:45)
[2018-05-13 07:49] LABS: HEMATOCRIT 31.9 % (35.4-49); HEMOGLOBIN 10.6 GM/dL (11.7-16.9); MCH 29.1 pg (25.7-33.7); MCHC 33.3 g/dl (32.0-35.9); MEAN CELL VOLUME 87.5 fl (80-96); MEAN PLT VOLUME 8.9 fl (7.5-11.1); PLATELET COUNT 288 K/MM3 (134-434); RBC 3.64 M/mm3 (4.00-5.60); RDW 16.7 % (11.9-15.9); WHITE BLOOD COUNT 8.6 K/mm3 (4.0-10.0)
[2018-05-13 07:56] LABS: ALBUMIN 2.3 g/dl (3.4-5.0); ALK PHOS 128 U/L (45-117); ANION GAP 6 MMOL/L (8-16); BILIRUBIN,TOTAL 0.9 mg/dL (0.2-1); BLOOD UREA NITROGEN 22 mg/dL (7-18); CALCIUM 8.4 mg/dL (8.5-10.1); CHLORIDE 102 mmol/L (98-107); CO2 26 mmol/L (21-32); CREATININE 0.5 mg/dL (0.55-1.3); GLUCOSE,RANDOM 106 mg/dL (74-106); POTASSIUM 3.9 mmol/L (3.5-5.1); SGOT/AST 17 U/L (15-37); SGPT/ALT 26 U/L (13-61); SODIUM 134 mmol/L (136-145); TOT PROT 6.2 g/dl (6.4-8.2)
[2018-05-13] MEDS: ACETYLCYSTEINE 20% 200MG/ML 4 ML VIAL *FOR ORAL / INH USE ONLY NEB SCH ×4 (08:08→20:50)
[2018-05-13] MEDS: ALBUTEROL SO4 0.083% IH SOL 2.5 MG/3 ML VIAL.NEB. NEB SCH ×4 (08:10→20:50)
[2018-05-13] MEDS ORDERED: PT OWN MED DRAWER 7, Y5N ONE ×3 (10:05→23:01)
[2018-05-13] MEDS: POLYETHYLENE GLYCOL 3350 119 GM BTL PEG SCH (10:28)
[2018-05-13] MEDS: ASPIRIN 81 MG CHEWABLE TABLETS GT SCH (10:28)
[2018-05-13] MEDS: MULTIVIT-MINERALS ORAL LIQUID GT SCH (10:29)
[2018-05-13] MEDS: PANTOPRAZOLE SODIUM 40 MG VIAL IVPUSH SCH ×2 (10:29→23:45)
[2018-05-13] MEDS: RAMIPRIL 1.25 MG CAPSULE GT SCH (10:29)
[2018-05-13] MEDS: CARVEDILOL 25 MG TABLET (FP) GT SCH ×2 (10:29→23:45)
[2018-05-13] MEDS: DULoxetine HCL 20 MG CAPSULE.DR (FP) PO SCH (10:29)
--- NOTE | 2018-05-13 13:44 | PN ---
Progress Note, Physician History of Present Illness: PULMONARY AWAKE ON TRACH COLLAR,TOLERATING WELL,-RESP DISTRESS - Current Medication List Current Medications: Active Medications Acetaminophen (Tylenol Oral Solution -) 650 mg GT Q6H PRN PRN Reason: PAIN LEVEL 1-5 Last Admin: 05/13/18 04:29 Dose: 650 mg Acetylcysteine (Mucomyst 20 Oral / Inh Use Only*) 220 mg NEB RQID [facility] Last Admin: 05/13/18 11:50 Dose: 220 mg Albuterol Sulfate (Ventolin 0.083% Nebulizer Soln -) 1 amp NEB RQID [facility] Last Admin: 05/13/18 11:51 Dose: 1 amp Aspirin (Asa -) 81 mg GT DAILY [facility] Last Admin: 05/13/18 10:28 Dose: 81 mg Atorvastatin Calcium (Lipitor -) 40 mg GT HS [facility] Last Admin: 05/12/18 23:16 Dose: 40 mg Carvedilol (Coreg -) 25 mg GT BID [facility] Last Admin: 05/13/18 10:29 Dose: 25 mg Doxazosin Mesylate (Cardura -) 2 mg GT HS [facility] Last Admin: 05/12/18 23:17 Dose: 2 mg Duloxetine HCl (Cymbalta -) 20 mg PO DAILY [facility] Last Admin: 05/13/18 10:29 Dose: 20 mg Ondansetron HCl (Zofran Injection) 4 mg IVPUSH Q6H PRN PRN Reason: NAUSEA Pantoprazole Sodium (Protonix Iv) 40 mg IVPUSH BID [facility] Last Admin: 05/13/18 10:29 Dose: 40 mg Polyethylene Glycol (Miralax (For Daily Use) -) 17 gm PEG DAILY [facility] Last Admin: 05/13/18 10:28 Dose: 17 gm Ramipril (Altace -) 1.25 mg GT DAILY [facility] Last Admin: 05/13/18 10:29 Dose: 1.25 mg Saliva Substitute (Mouthkote Solution -) 1 applic MM DAILY PRN PRN Reason: dry mouth Last Admin: 05/10/18 11:36 Dose: 1 applic Simethicone (Mylicon Liquid -) 40 mg GT TID [facility] Last Admin: 05/13/18 05:46 Dose: 40 mg - Objective Vital Signs: Vital Signs Temperature 98.1 F 05/13/18 10:06 Pulse Rate 72 05/13/18 10:06 Respiratory Rate 18 05/13/18 10:40 Blood Pressure 125/64 05/13/18 10:06 O2 Sat by Pulse Oximetry (%) 99 05/13/18 10:00 Constitutional: Yes: Well Nourished, Calm Eyes: Yes: WNL HENT: Yes: WNL Neck: Yes: Supple (TRACH) Cardiovascular: Yes: Regular Rate and Rhythm, S1, S2 Respiratory: Yes: Rhonchi (FEW RHONCHI) Gastrointestinal: Yes: Normal Bowel Sounds, Soft Extremities: Yes: WNL Edema: No Labs: CBC, BMP 05/13/18 06:40 05/13/18 06:40 Problem List - Problems (1) Acute and chronic respiratory failure ([id number]) Code(s): J96.20 - ACUTE AND CHR RESP FAILURE, UNSP W HYPOXIA OR HYPERCAPNIA (2) Elevated troponin Code(s): R74.8 - ABNORMAL LEVELS OF OTHER SERUM ENZYMES (3) Tracheostomy malfunction Code(s): J95.03 - MALFUNCTION OF TRACHEOSTOMY STOMA Assessment/Plan Problem List - Problems (1) Acute respiratory failure with hypoxia Code(s): J96.01 - ACUTE RESPIRATORY FAILURE WITH HYPOXIA (2) Pneumonia Code(s): J18.9 - PNEUMONIA, UNSPECIFIED ORGANISM (3) COPD exacerbation Code(s): J44.1 - CHRONIC OBSTRUCTIVE PULMONARY DISEASE W (ACUTE) EXACERBATION A/P Acute on Chronic Hypoxic Respiratory Failure Dislodged Tracheostomy replaced Pneumonia Severe Sepsis +Troponins likely Demand Ischemia COPD CAD h/o CVA s/p PPM - vent support ,trach collar as tolerated - inhaled bronchodilators - Enteral feeds - DVT/GI prophylaxis DR MOORE
--- NOTE | 2018-05-13 14:33 | PN ---
Progress Note, Physician Chief Complaint: patient on trach collar earlier in day now back on vent no fever lans improved awaiting to go to long term care pharmacist [facility] - Current Medication List Current Medications: Active Medications Acetaminophen (Tylenol Oral Solution -) 650 mg GT Q6H PRN PRN Reason: PAIN LEVEL 1-5 Last Admin: 05/13/18 04:29 Dose: 650 mg Acetylcysteine (Mucomyst 20 Oral / Inh Use Only*) 220 mg NEB RQID [facility] Last Admin: 05/13/18 11:50 Dose: 220 mg Albuterol Sulfate (Ventolin 0.083% Nebulizer Soln -) 1 amp NEB RQID [facility] Last Admin: 05/13/18 11:51 Dose: 1 amp Aspirin (Asa -) 81 mg GT DAILY [facility] Last Admin: 05/13/18 10:28 Dose: 81 mg Atorvastatin Calcium (Lipitor -) 40 mg GT HS [facility] Last Admin: 05/12/18 23:16 Dose: 40 mg Carvedilol (Coreg -) 25 mg GT BID [facility] Last Admin: 05/13/18 10:29 Dose: 25 mg Doxazosin Mesylate (Cardura -) 2 mg GT HS [facility] Last Admin: 05/12/18 23:17 Dose: 2 mg Duloxetine HCl (Cymbalta -) 20 mg PO DAILY [facility] Last Admin: 05/13/18 10:29 Dose: 20 mg Ondansetron HCl (Zofran Injection) 4 mg IVPUSH Q6H PRN PRN Reason: NAUSEA Pantoprazole Sodium (Protonix Iv) 40 mg IVPUSH BID [facility] Last Admin: 05/13/18 10:29 Dose: 40 mg Polyethylene Glycol (Miralax (For Daily Use) -) 17 gm PEG DAILY [facility] Last Admin: 05/13/18 10:28 Dose: 17 gm Ramipril (Altace -) 1.25 mg GT DAILY [facility] Last Admin: 05/13/18 10:29 Dose: 1.25 mg Saliva Substitute (Mouthkote Solution -) 1 applic MM DAILY PRN PRN Reason: dry mouth Last Admin: 05/10/18 11:36 Dose: 1 applic Simethicone (Mylicon Liquid -) 40 mg GT TID [facility] Last Admin: 05/13/18 05:46 Dose: 40 mg - Objective Vital Signs: Vital Signs Temperature 98.3 F 05/13/18 14:03 Pulse Rate 70 03/29/19 14:03 Respiratory Rate 19 05/13/18 14:03 Blood Pressure 98/58 L 05/13/18 14:03 O2 Sat by Pulse Oximetry (%) 99 05/13/18 10:00 Constitutional: Yes: Calm Neck: Yes: Other (trach) Cardiovascular: Yes: Regular Rate and Rhythm, S1, S2 Respiratory: Yes: Mechanically Ventilated Gastrointestinal: Yes: Normal Bowel Sounds, Soft, Other (g tube) Edema: No Labs: CBC, BMP 05/13/18 06:40 05/13/18 06:40 Problem List - Problems (1) Acute respiratory failure with hypoxia Assessment/Plan: resolved completed abx trach colar as tolerated inhaled bronchodilators Code(s): J96.01 - ACUTE RESPIRATORY FAILURE WITH HYPOXIA (2) Pneumonia Assessment/Plan: off abx repeat cxr ordered Code(s): J18.9 - PNEUMONIA, UNSPECIFIED ORGANISM (3) Vomiting Assessment/Plan: zofran as needed Code(s): R11.10 - VOMITING, UNSPECIFIED (4) Depression Assessment/Plan: seen by psych started on cymbalta Code(s): F32.9 - MAJOR DEPRESSIVE DISORDER, SINGLE EPISODE, UNSPECIFIED
[2018-05-13] MEDS: ATORVASTATIN CA 40 MG TABLET (FP) GT SCH (23:45)
[2018-05-13] MEDS: DOXAZOSIN MESYLATE 2 MG TABLET (FP) GT SCH (23:45)
[2018-05-14] MEDS: SIMETHICONE 40 MG/0.6 ML BOTTLE GT SCH ×3 (05:41→22:50)
[2018-05-14] MEDS: ACETYLCYSTEINE 20% 200MG/ML 4 ML VIAL *FOR ORAL / INH USE ONLY NEB SCH ×4 (08:21→21:20)
[2018-05-14] MEDS: ALBUTEROL SO4 0.083% IH SOL 2.5 MG/3 ML VIAL.NEB. NEB SCH ×4 (08:22→21:21)
[2018-05-14] MEDS ORDERED: PT OWN MED DRAWER 7, Y5N ONE ×2 (09:06→17:41)
[2018-05-14] MEDS: ASPIRIN 81 MG CHEWABLE TABLETS GT SCH (09:21)
[2018-05-14] MEDS: CARVEDILOL 25 MG TABLET (FP) GT SCH ×2 (09:21→22:40)
[2018-05-14] MEDS: MULTIVIT-MINERALS ORAL LIQUID GT SCH (09:22)
[2018-05-14] MEDS: PANTOPRAZOLE SODIUM 40 MG VIAL IVPUSH SCH ×2 (09:22→22:50)
[2018-05-14] MEDS: DULoxetine HCL 20 MG CAPSULE.DR (FP) PO SCH (09:23)
[2018-05-14] MEDS: RAMIPRIL 1.25 MG CAPSULE GT SCH (09:23)
[2018-05-14] MEDS: POLYETHYLENE GLYCOL 3350 119 GM BTL PEG SCH (09:27)
--- NOTE | 2018-05-14 11:12 | PN ---
Progress Note, Physician Chief Complaint: ASLEEP NAD - Current Medication List Current Medications: Active Medications Acetaminophen (Tylenol Oral Solution -) 650 mg GT Q6H PRN PRN Reason: PAIN LEVEL 1-5 Last Admin: 05/13/18 04:29 Dose: 650 mg Acetylcysteine (Mucomyst 20 Oral / Inh Use Only*) 220 mg NEB RQID [facility] Last Admin: 05/14/18 08:21 Dose: 220 mg Albuterol Sulfate (Ventolin 0.083% Nebulizer Soln -) 1 amp NEB RQID [facility] Last Admin: 05/14/18 08:22 Dose: 1 amp Aspirin (Asa -) 81 mg GT DAILY [facility] Last Admin: 05/14/18 09:21 Dose: 81 mg Atorvastatin Calcium (Lipitor -) 40 mg GT HS [facility] Last Admin: 05/13/18 23:45 Dose: 40 mg Carvedilol (Coreg -) 25 mg GT BID [facility] Last Admin: 05/14/18 09:21 Dose: 25 mg Doxazosin Mesylate (Cardura -) 2 mg GT [facility] Last Admin: 05/13/18 23:45 Dose: 2 mg Duloxetine HCl (Cymbalta -) 20 mg PO DAILY [facility] Last Admin: 05/14/18 09:23 Dose: 20 mg Ondansetron HCl (Zofran Injection) 4 mg IVPUSH Q6H PRN PRN Reason: NAUSEA Pantoprazole Sodium (Protonix Iv) 40 mg IVPUSH BID [facility] Last Admin: 05/14/18 09:22 Dose: 40 mg Polyethylene Glycol (Miralax (For Daily Use) -) 17 gm PEG DAILY [facility] Last Admin: 05/14/18 09:27 Dose: 17 gm Ramipril (Altace -) 1.25 mg GT DAILY [facility] Last Admin: 05/14/18 09:23 Dose: 1.25 mg Saliva Substitute (Mouthkote Solution -) 1 applic MM DAILY PRN PRN Reason: dry mouth Last Admin: 05/10/18 11:36 Dose: 1 applic Simethicone (Mylicon Liquid -) 40 mg GT TID [facility] Last Admin: 05/14/18 05:41 Dose: 40 mg - Objective Vital Signs: Vital Signs Temperature 98.7 F 05/14/18 06:00 Pulse Rate 70 05/14/18 06:00 Respiratory Rate 21 H 05/14/18 06:49 Blood Pressure 117/63 05/14/18 06:00 O2 Sat by Pulse Oximetry (%) 98 05/14/18 09:00 Constitutional: Yes: No Distress HENT: Yes: Other (TRACHEOSTOMY) Cardiovascular: Yes: Regular Rate and Rhythm Respiratory: Yes: Other (TRACH COLLAR) Gastrointestinal: Yes: Soft Genitourinary: Yes: Incontinence Musculoskeletal: Yes: Muscle Weakness Integumentary: Yes: Rash, Venous Stasis Changes Wound/Incision: Yes: Dressing Dry and Intact Neurological: Yes: Pre-Existing Deficit Labs: CBC, BMP 05/13/18 06:40 05/13/18 06:40 Problem List - Problems (1) Acute and chronic respiratory failure ([id number]) Code(s): J96.20 - ACUTE AND CHR RESP FAILURE, UNSP W HYPOXIA OR HYPERCAPNIA (2) Acute respiratory failure with hypoxia Code(s): J96.01 - ACUTE RESPIRATORY FAILURE WITH HYPOXIA (3) COPD exacerbation Code(s): J44.1 - CHRONIC OBSTRUCTIVE PULMONARY DISEASE W (ACUTE) EXACERBATION (4) CVA, old, hemiparesis Code(s): I69.359 - HEMIPLGA FOLLOWING CEREBRAL INFARCTION AFFECTING UNSP SIDE (5) Pneumonia Code(s): J18.9 - PNEUMONIA, UNSPECIFIED ORGANISM (6) Tracheostomy malfunction Code(s): J95.03 - MALFUNCTION OF TRACHEOSTOMY STOMA Assessment/Plan OFF ABX PER ID ID F/U , OFF ABX NOW [facility] TORADOL PRN 02 SUPPORT DVT PROPHYLAXIS [facility] PAGE AWAIT CX PULM CLEARANCE DC PLANNING
--- NOTE | 2018-05-14 13:32 | PN ---
Progress Note (short form) - Note Progress Note: Intermittently tolerating Trach collar. NAD, 40% No acute events overnight. Intake & Output 05/11/18 05/12/18 05/13/18 05/14/18 23:59 23:59 23:59 23:59 Intake Total 1220 1000 1550 960 Balance 1220 1000 1550 960 Last Vital Signs Temp Pulse Resp BP Pulse Ox 98.4 F 69 11 120/58 L 98 05/14/18 10:00 05/14/18 10:00 05/14/18 10:40 05/14/18 10:00 05/14/18 10:00 Active Medications Acetaminophen (Tylenol Oral Solution -) 650 mg GT Q6H PRN PRN Reason: PAIN LEVEL 1-5 Last Admin: 05/13/18 04:29 Dose: 650 mg Acetylcysteine (Mucomyst 20 Oral / Inh Use Only*) 220 mg NEB RQID [facility] Last Admin: 05/14/18 08:21 Dose: 220 mg Albuterol Sulfate (Ventolin 0.083% Nebulizer Soln -) 1 amp NEB RQID [facility] Last Admin: 05/14/18 08:22 Dose: 1 amp Aspirin (Asa -) 81 mg GT DAILY [facility] Last Admin: 05/14/18 09:21 Dose: 81 mg Atorvastatin Calcium (Lipitor -) 40 mg GT HS [facility] Last Admin: 05/13/18 23:45 Dose: 40 mg Carvedilol (Coreg -) 25 mg GT BID [facility] Last Admin: 05/14/18 09:21 Dose: 25 mg Doxazosin Mesylate (Cardura -) 2 mg GT HS [facility] Last Admin: 05/13/18 23:45 Dose: 2 mg Duloxetine HCl (Cymbalta -) 20 mg PO DAILY [facility] Last Admin: 05/14/18 09:23 Dose: 20 mg Ondansetron HCl (Zofran Injection) 4 mg IVPUSH Q6H PRN PRN Reason: NAUSEA Pantoprazole Sodium (Protonix Iv) 40 mg IVPUSH BID [facility] Last Admin: 05/14/18 09:22 Dose: 40 mg Polyethylene Glycol (Miralax (For Daily Use) -) 17 gm PEG DAILY [facility] Last Admin: 05/14/18 09:27 Dose: 17 gm Ramipril (Altace -) 1.25 mg GT DAILY [facility] Last Admin: 05/14/18 09:23 Dose: 1.25 mg Saliva Substitute (Mouthkote Solution -) 1 applic MM DAILY PRN PRN Reason: dry mouth Last Admin: 05/10/18 11:36 Dose: 1 applic Simethicone (Mylicon Liquid -) 40 mg GT TID [facility] Last Admin: 05/14/18 05:41 Dose: 40 mg Gen: awake, NAD Heart: RRR Lung: scattered rhonchi Abd: soft, nontender Ext: no edema Problem List - Problems (1) Acute respiratory failure with hypoxia Code(s): J96.01 - ACUTE RESPIRATORY FAILURE WITH HYPOXIA (2) Pneumonia Code(s): J18.9 - PNEUMONIA, UNSPECIFIED ORGANISM (3) COPD exacerbation Code(s): J44.1 - CHRONIC OBSTRUCTIVE PULMONARY DISEASE W (ACUTE) EXACERBATION A/P Acute on Chronic Hypoxic Respiratory Failure Dislodged Tracheostomy replaced Pneumonia Severe Sepsis +Troponins likely Demand Ischemia COPD CAD h/o CVA s/p PPM - Trach collar as tolerated, mechanical ventilation as needed and QHS - Off ABX per ID - inhaled bronchodilators - Enteral feeds - DVT/GI prophylaxis - D/C planning Dr Vasquez
[2018-05-14] MEDS: ATORVASTATIN CA 40 MG TABLET (FP) GT SCH (22:40)
[2018-05-14] MEDS: DOXAZOSIN MESYLATE 2 MG TABLET (FP) GT SCH (22:50)
[2018-05-15] MEDS: SIMETHICONE 40 MG/0.6 ML BOTTLE GT SCH ×3 (06:04→23:55)
[2018-05-15] MEDS: ACETYLCYSTEINE 20% 200MG/ML 4 ML VIAL *FOR ORAL / INH USE ONLY NEB SCH ×4 (08:11→20:50)
[2018-05-15] MEDS: ALBUTEROL SO4 0.083% IH SOL 2.5 MG/3 ML VIAL.NEB. NEB SCH ×4 (08:12→20:50)
[2018-05-15] MEDS ORDERED: PT OWN MED DRAWER 7, Y5N ONE ×2 (10:29→22:34)
[2018-05-15] MEDS: PANTOPRAZOLE SODIUM 40 MG VIAL IVPUSH SCH ×2 (10:31→23:55)
[2018-05-15] MEDS: POLYETHYLENE GLYCOL 3350 119 GM BTL PEG SCH (10:31)
[2018-05-15] MEDS: MULTIVIT-MINERALS ORAL LIQUID GT SCH (10:32)
[2018-05-15] MEDS: RAMIPRIL 1.25 MG CAPSULE GT SCH (10:32)
[2018-05-15] MEDS: ASPIRIN 81 MG CHEWABLE TABLETS GT SCH (10:32)
[2018-05-15] MEDS: CARVEDILOL 25 MG TABLET (FP) GT SCH ×2 (10:32→23:54)
[2018-05-15] MEDS: DULoxetine HCL 20 MG CAPSULE.DR (FP) PO SCH (10:32)
--- NOTE | 2018-05-15 11:53 | PN ---
Progress Note, Physician Chief Complaint: AWAKE MORE ALERT TODAY C/L HEADACHE - Current Medication List Current Medications: Active Medications Acetaminophen (Tylenol Oral Solution -) 650 mg GT Q6H PRN PRN Reason: PAIN LEVEL 1-5 Last Admin: 05/13/18 04:29 Dose: 650 mg Acetylcysteine (Mucomyst 20 Oral / Inh Use Only*) 220 mg NEB RQID [facility] Last Admin: 05/15/18 11:24 Dose: 220 mg Albuterol Sulfate (Ventolin 0.083% Nebulizer Soln -) 1 amp NEB RQID [facility] Last Admin: 05/15/18 11:25 Dose: 1 amp Aspirin (Asa -) 81 mg GT DAILY [facility] Last Admin: 05/15/18 10:32 Dose: 81 mg Atorvastatin Calcium (Lipitor -) 40 mg GT HS [facility] Last Admin: 05/14/18 22:40 Dose: 40 mg Carvedilol (Coreg -) 25 mg GT BID [facility] Last Admin: 05/15/18 10:32 Dose: 25 mg Doxazosin Mesylate (Cardura -) 2 mg GT HS [facility] Last Admin: 05/14/18 22:50 Dose: 2 mg Duloxetine HCl (Cymbalta -) 20 mg PO DAILY [facility] Last Admin: 05/15/18 10:32 Dose: 20 mg Ondansetron HCl (Zofran Injection) 4 mg IVPUSH Q6H PRN PRN Reason: NAUSEA Pantoprazole Sodium (Protonix Iv) 40 mg IVPUSH BID [facility] Last Admin: 05/15/18 10:31 Dose: 40 mg Polyethylene Glycol (Miralax (For Daily Use) -) 17 gm PEG DAILY [facility] Last Admin: 05/15/18 10:31 Dose: 17 gm Ramipril (Altace -) 1.25 mg GT DAILY [facility] Last Admin: 05/15/18 10:32 Dose: 1.25 mg Saliva Substitute (Mouthkote Solution -) 1 applic MM DAILY PRN PRN Reason: dry mouth Last Admin: 05/10/18 11:36 Dose: 1 applic Simethicone (Mylicon Liquid -) 40 mg GT TID [facility] Last Admin: 05/15/18 06:04 Dose: 40 mg - Objective Vital Signs: Vital Signs Temperature 98.9 F 05/15/18 09:00 Pulse Rate 70 05/15/18 10:45 Respiratory Rate 13 05/15/18 10:43 Blood Pressure 101/55 L 05/15/18 09:00 O2 Sat by Pulse Oximetry (%) 99 05/15/18 10:45 Constitutional: Yes: Mild Distress HENT: Yes: Other Cardiovascular: Yes: Regular Rate and Rhythm Respiratory: Yes: Diminished, Other (TRACHCOLLAR) Gastrointestinal: Yes: Soft Genitourinary: Yes: Other Extremities: Yes: Other Integumentary: Yes: Rash, Venous Stasis Changes Wound/Incision: Yes: Dressing Dry and Intact Neurological: Yes: Pre-Existing Deficit Labs: CBC, BMP 05/13/18 06:40 05/13/18 06:40 Problem List - Problems (1) Acute and chronic respiratory failure ([id number]) Code(s): J96.20 - ACUTE AND CHR RESP FAILURE, UNSP W HYPOXIA OR HYPERCAPNIA (2) Acute respiratory failure with hypoxia Code(s): J96.01 - ACUTE RESPIRATORY FAILURE WITH HYPOXIA (3) COPD exacerbation Code(s): J44.1 - CHRONIC OBSTRUCTIVE PULMONARY DISEASE W (ACUTE) EXACERBATION (4) CVA, old, hemiparesis Code(s): I69.359 - HEMIPLGA FOLLOWING CEREBRAL INFARCTION AFFECTING UNSP SIDE (5) Pneumonia Code(s): J18.9 - PNEUMONIA, UNSPECIFIED ORGANISM (6) Tracheostomy malfunction Code(s): J95.03 - MALFUNCTION OF TRACHEOSTOMY STOMA Assessment/Plan DC PLANNING [employer]IE TUTTLE PER FAMILY [employer] F/U FOR DISCHARGE TOMORROW TYLENOL FOR HEADACHE
--- NOTE | 2018-05-15 11:54 | PN ---
Progress Note (short form) - Note Progress Note: NAD on 40% Trach collar. No acute events overnight. Intake & Output 05/12/18 05/13/18 05/14/18 05/15/18 23:59 23:59 23:59 23:59 Intake Total 1000 1550 1600 960 Balance 1000 1550 1600 960 Last Vital Signs Temp Pulse Resp BP Pulse Ox 98.9 F 70 13 101/55 L 99 05/15/18 09:00 05/15/18 10:45 05/15/18 10:43 05/15/18 09:00 05/15/18 10:45 Active Medications Acetaminophen (Tylenol Oral Solution -) 650 mg GT Q6H PRN PRN Reason: PAIN LEVEL 1-5 Last Admin: 05/13/18 04:29 Dose: 650 mg Acetylcysteine (Mucomyst 20 Oral / Inh Use Only*) 220 mg NEB RQID [facility] Last Admin: 05/15/18 11:24 Dose: 220 mg Albuterol Sulfate (Ventolin 0.083% Nebulizer Soln -) 1 amp NEB RQID [facility] Last Admin: 05/15/18 11:25 Dose: 1 amp Aspirin (Asa -) 81 mg GT DAILY [facility] Last Admin: 05/15/18 10:32 Dose: 81 mg Atorvastatin Calcium (Lipitor -) 40 mg GT HS [facility] Last Admin: 05/14/18 22:40 Dose: 40 mg Carvedilol (Coreg -) 25 mg GT BID [facility] Last Admin: 05/15/18 10:32 Dose: 25 mg Doxazosin Mesylate (Cardura -) 2 mg GT HS [facility] Last Admin: 05/14/18 22:50 Dose: 2 mg Duloxetine HCl (Cymbalta -) 20 mg PO DAILY [facility] Last Admin: 05/15/18 10:32 Dose: 20 mg Ondansetron HCl (Zofran Injection) 4 mg IVPUSH Q6H PRN PRN Reason: NAUSEA Pantoprazole Sodium (Protonix Iv) 40 mg IVPUSH BID [facility] Last Admin: 05/15/18 10:31 Dose: 40 mg Polyethylene Glycol (Miralax (For Daily Use) -) 17 gm PEG DAILY [facility] Last Admin: 05/15/18 10:31 Dose: 17 gm Ramipril (Altace -) 1.25 mg GT DAILY [facility] Last Admin: 05/15/18 10:32 Dose: 1.25 mg Saliva Substitute (Mouthkote Solution -) 1 applic MM DAILY PRN PRN Reason: dry mouth Last Admin: 05/10/18 11:36 Dose: 1 applic Simethicone (Mylicon Liquid -) 40 mg GT TID [facility] Last Admin: 05/15/18 06:04 Dose: 40 mg Gen: awake, NAD Heart: RRR Lung: scattered rhonchi Abd: soft, nontender Ext: no edema Problem List - Problems (1) Acute respiratory failure with hypoxia Code(s): J96.01 - ACUTE RESPIRATORY FAILURE WITH HYPOXIA (2) Pneumonia Code(s): J18.9 - PNEUMONIA, UNSPECIFIED ORGANISM (3) COPD exacerbation Code(s): J44.1 - CHRONIC OBSTRUCTIVE PULMONARY DISEASE W (ACUTE) EXACERBATION A/P Acute on Chronic Hypoxic Respiratory Failure Dislodged Tracheostomy replaced Pneumonia Severe Sepsis +Troponins likely Demand Ischemia COPD CAD h/o CVA s/p PPM - Trach collar as tolerated, mechanical ventilation as needed and QHS - Off ABX per ID - inhaled bronchodilators - Enteral feeds - DVT/GI prophylaxis - D/C planning Dr Vasquez
[2018-05-15] MEDS: DOXAZOSIN MESYLATE 2 MG TABLET (FP) GT SCH (23:54)
[2018-05-15] MEDS: ATORVASTATIN CA 40 MG TABLET (FP) GT SCH (23:55)
[2018-05-16] MEDS: SIMETHICONE 40 MG/0.6 ML BOTTLE GT SCH ×2 (05:46→15:15)
[2018-05-16 06:56] LABS: HEMOGLOBIN 10.4 GM/dL (11.7-16.9); MCH 29.4 pg (25.7-33.7); MCHC 33.7 g/dl (32.0-35.9); MEAN CELL VOLUME 87.3 fl (80-96); MEAN PLT VOLUME 8.7 fl (7.5-11.1); PLATELET COUNT 277 K/MM3 (134-434); RBC 3.55 M/mm3 (4.00-5.60); RDW 16.4 % (11.9-15.9); WHITE BLOOD COUNT 6.6 K/mm3 (4.0-10.0)
[2018-05-16 07:21] LABS: ANION GAP 8 MMOL/L (8-16); BLOOD UREA NITROGEN 14 mg/dL (7-18); CALCIUM 8.3 mg/dL (8.5-10.1); CHLORIDE 102 mmol/L (98-107); CO2 26 mmol/L (21-32); CREATININE 0.5 mg/dL (0.55-1.3); GLUCOSE,RANDOM 113 mg/dL (74-106); POTASSIUM 4.3 mmol/L (3.5-5.1); SODIUM 136 mmol/L (136-145)
[2018-05-16] MEDS: ALBUTEROL SO4 0.083% IH SOL 2.5 MG/3 ML VIAL.NEB. NEB SCH ×3 (07:25→15:55)
[2018-05-16] MEDS: ACETYLCYSTEINE 20% 200MG/ML 4 ML VIAL *FOR ORAL / INH USE ONLY NEB SCH ×3 (07:25→15:54)
--- NOTE | 2018-05-16 09:58 | DS ---
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 Patient was found to be hypoxic (70-80s) in [facility] and in acute respiratory distress. As per documentation patient was unable to be suctioned and was bagged where O2 sat increased to 100%. On assessment noted that trach tube was protruding from stoma and trach tube was replaced. ER significant for leukocytosis with WBC 24, K 5.6, respiratory alkalosis via ABG, Alk phos 270, Chest CT scan showed bibasilar consolidation atelectasis Constitutional: Yes: No Distress, Calm Eyes: Yes: Conjunctiva Clear HENT: Yes: Atraumatic Neck: Yes: Other (trach) Cardiovascular: Yes: Regular Rate and Rhythm Respiratory: Yes: Mechanically Ventilated, Rhonchi Gastrointestinal: Yes: Normal Bowel Sounds, Soft, Other (PEG tube) Renal/: Yes: Incontinence Musculoskeletal: Yes: Muscle Weakness (R side deficit) Extremities: Yes: WNL Edema: No Neurological: Yes: Alert, Pre-Existing Deficit Psychiatric: Yes: Alert Labs: CBC, BMP 05/16/18 06:15 05/16/18 06:15 Discharge Summary Reason For Visit: ACUTE RESPIRATORY FAILURE WITH HYPOXIA ACUTE Current Active Problems Abnormal CT scan, head (Acute) Acute and chronic respiratory failure ([id number]) (Acute) Acute respiratory failure with hypoxia (Acute) COPD exacerbation (Acute) CVA (cerebral vascular accident) (Acute) CVA, old, hemiparesis (Acute) Cholelithiasis without cholecystitis (Acute) Constipation (Acute) Depression (Acute) Elevated troponin (Acute) Functional quadriplegia (Acute) Headache (Acute) Leukocytosis (Acute) Pneumonia (Acute) Tracheostomy malfunction (Acute) Vomiting (Acute) Hospital Course: see progress noted Laboratory Tests 04/24/18 04/24/18 04/24/18 16:43 16:43 16:43 WBC 24.0 H Corrected WBC (auto) RBC 4.41 Hgb 13.2 Hct 39.1 MCV 88.5 MCH 29.9 MCHC 33.7 RDW 14.7 Plt Count 539 H MPV 8.5 Absolute Neuts (auto) 18.5 H Neutrophils % 77.2 Neutrophils % (Manual) 65.0 Band Neutrophils % 8.0 Lymphocytes % 15.2 Lymphocytes % (Manual) 19.0 Monocytes % 5.2 Monocytes % (Manual) 4 Eosinophils % 1.5 Eosinophils % (Manual) 4.0 Basophils % 0.9 Basophils % (Manual) 0.0 Nucleated RBC % 0 Manual Slide Review Platelet Estimate Increased Platelet Comment No clumping noted ESR Puncture Site ABG pH ABG pCO2 at Pt Temp ABG pO2 at Pt Temp ABG HCO3 ABG O2 Sat (Measured) ABG O2 Content ABG Base Excess Michael Test VBG pH 7.32 POC VBG pCO2 50.3 POC VBG pO2 74.2 H VBG HCO3 24.9 L* VBG O2 Sat ([facility]) 92.7 H* VBG Base Excess -1.3 Carboxyhemoglobin Methemoglobin Oxygen Flow Rate Vent Rate PEEP Sodium 134 L Potassium 5.6 H Chloride 99 Carbon Dioxide 24 Anion Gap 10 BUN 26 H Creatinine 0.8 Creat Clearance w eGFR > 60 POC Glucometer Random Glucose 168 H Calcium 9.2 Magnesium Total Bilirubin 0.6 GGT 70 AST 31 ALT 36 Alkaline Phosphatase 270 H Creatine Kinase Troponin I C-Reactive Protein B-Natriuretic Peptide Total Protein 8.3 H Albumin 2.9 L Triglycerides Cholesterol Total LDL Cholesterol HDL Cholesterol Urine Color Urine Appearance Urine pH Ur Specific Perry Urine Protein Urine Glucose (UA) Urine Ketones Urine Blood Urine Nitrite Urine Bilirubin Urine Urobilinogen Ur Leukocyte Esterase Vancomycin Pre-Dose 04/24/18 04/24/18 04/24/18 16:43 17:42 17:46 WBC Corrected WBC (auto) RBC Hgb Hct MCV MCH MCHC RDW Plt Count MPV Absolute Neuts (auto) Neutrophils % Neutrophils % (Manual) Band Neutrophils % Lymphocytes % Lymphocytes % (Manual) Monocytes % Monocytes % (Manual) Eosinophils % Eosinophils % (Manual) Basophils % Basophils % (Manual) Nucleated RBC % Manual Slide Review Platelet Estimate Platelet Comment ESR Puncture Site Right radial ABG pH 7.48 H ABG pCO2 at Pt Temp 32.7 L ABG pO2 at Pt Temp 221.0 H* ABG HCO3 23.9 ABG O2 Sat (Measured) 99.7 H* ABG O2 Content 18.2 ABG Base Excess 1.3 Michael Test Positive VBG pH POC VBG pCO2 POC VBG pO2 VBG HCO3 VBG O2 Sat ([facility]) VBG Base Excess Carboxyhemoglobin 0.8 Methemoglobin 0.2 L Oxygen Flow Rate Yes Vent Rate PEEP 5.0 Sodium Potassium Chloride Carbon Dioxide Anion Gap BUN Creatinine Creat Clearance w eGFR POC Glucometer Random Glucose Calcium Magnesium Total Bilirubin GGT AST ALT Alkaline Phosphatase Creatine Kinase Troponin I C-Reactive Protein B-Natriuretic Peptide 2665.1 H Total Protein Albumin Triglycerides Cholesterol Total LDL Cholesterol HDL Cholesterol Urine Color Urine Appearance Urine pH Ur Specific Perry Urine Protein Urine Glucose (UA) Urine Ketones Urine Blood Urine Nitrite Urine Bilirubin Urine Urobilinogen Ur Leukocyte Esterase Vancomycin Pre-Dose 04/24/18 04/24/18 04/25/18 21:30 21:30 06:12 WBC 16.2 H Corrected WBC (auto) RBC 4.04 Hgb 12.2 Hct 35.7 MCV 88.5 MCH 30.2 MCHC 34.2 RDW 14.9 Plt Count 500 H MPV 8.9 Absolute Neuts (auto) 14.3 H Neutrophils % 88.2 H Neutrophils % (Manual) Band Neutrophils % Lymphocytes % 10.2 D Lymphocytes % (Manual) Monocytes % 1.4 L Monocytes % (Manual) Eosinophils % 0.0 D Eosinophils % (Manual) Basophils % 0.2 Basophils % (Manual) Nucleated RBC % 0 Manual Slide Review Platelet Estimate Platelet Comment ESR Puncture Site ABG pH ABG pCO2 at Pt Temp ABG pO2 at Pt Temp ABG HCO3 ABG O2 Sat (Measured) ABG O2 Content ABG Base Excess Michael Test VBG pH POC VBG pCO2 POC VBG pO2 VBG HCO3 VBG O2 Sat ([facility]) VBG Base Excess Carboxyhemoglobin Methemoglobin Oxygen Flow Rate Vent Rate PEEP Sodium 135 L Potassium 4.9 Chloride 100 Carbon Dioxide 24 Anion Gap 11 BUN 28 H Creatinine 0.8 Creat Clearance w eGFR > 60 POC Glucometer Random Glucose 147 H Calcium 9.0 Magnesium Total Bilirubin GGT 72 AST ALT Alkaline Phosphatase Creatine Kinase 81 Troponin I 0.24 H C-Reactive Protein B-Natriuretic Peptide Total Protein Albumin Triglycerides Cholesterol Total LDL Cholesterol HDL Cholesterol Urine Color Urine Appearance Urine pH Ur Specific Perry Urine Protein Urine Glucose (UA) Urine Ketones Urine Blood Urine Nitrite Urine Bilirubin Urine Urobilinogen Ur Leukocyte Esterase Vancomycin Pre-Dose 04/25/18 04/25/18 04/25/18 06:12 09:40 14:30 WBC Corrected WBC (auto) RBC Hgb Hct MCV MCH MCHC RDW Plt Count MPV Absolute Neuts (auto) Neutrophils % Neutrophils % (Manual) Band Neutrophils % Lymphocytes % Lymphocytes % (Manual) Monocytes % Monocytes % (Manual) Eosinophils % Eosinophils % (Manual) Basophils % Basophils % (Manual) Nucleated RBC % Manual Slide Review Platelet Estimate Platelet Comment ESR Puncture Site ABG pH ABG pCO2 at Pt Temp ABG pO2 at Pt Temp ABG HCO3 ABG O2 Sat (Measured) ABG O2 Content ABG Base Excess Michael Test VBG pH POC VBG pCO2 POC VBG pO2 VBG HCO3 VBG O2 Sat ([facility]) VBG Base Excess Carboxyhemoglobin Methemoglobin Oxygen Flow Rate Vent Rate PEEP Sodium 135 L 136 Potassium 4.8 4.6 Chloride 100 100 Carbon Dioxide 25 25 Anion Gap 11 10 BUN 32 H 34 H Creatinine 0.8 0.7 Creat Clearance w eGFR > 60 > 60 POC Glucometer Random Glucose 136 H 138 H Calcium 9.0 8.9 Magnesium Total Bilirubin 1.0 GGT AST 18 ALT 31 Alkaline Phosphatase 214 H Creatine Kinase 66 Troponin I 0.12 H C-Reactive Protein B-Natriuretic Peptide 4942.2 H 3927.6 H Total Protein 7.9 Albumin 2.8 L Triglycerides Cholesterol Total LDL Cholesterol HDL Cholesterol Urine Color Urine Appearance Urine pH Ur Specific Perry Urine Protein Urine Glucose (UA) Urine Ketones Urine Blood Urine Nitrite Urine Bilirubin Urine Urobilinogen Ur Leukocyte Esterase Vancomycin Pre-Dose 04/26/18 04/26/18 04/27/18 06:40 06:40 06:00 WBC 17.5 H 15.7 H Corrected WBC (auto) RBC 3.91 L 3.72 L Hgb 12.0 11.2 L Hct 34.2 L 32.5 L MCV 87.6 87.4 MCH 30.7 30.1 MCHC 35.1 34.4 RDW 15.2 15.0 Plt Count 515 H 482 H MPV 8.9 8.4 Absolute Neuts (auto) 15.3 H Neutrophils % 87.4 H Neutrophils % (Manual) Band Neutrophils % Lymphocytes % 9.8 Lymphocytes % (Manual) Monocytes % 2.7 L D Monocytes % (Manual) Eosinophils % 0.0 Eosinophils % (Manual) Basophils % 0.1 Basophils % (Manual) Nucleated RBC % 0 Manual Slide Review Platelet Estimate Platelet Comment ESR Puncture Site ABG pH ABG pCO2 at Pt Temp ABG pO2 at Pt Temp ABG HCO3 ABG O2 Sat (Measured) ABG O2 Content ABG Base Excess Michael Test VBG pH POC VBG pCO2 POC VBG pO2 VBG HCO3 VBG O2 Sat ([facility]) VBG Base Excess Carboxyhemoglobin Methemoglobin Oxygen Flow Rate Vent Rate PEEP Sodium 136 Potassium 4.4 Chloride 100 Carbon Dioxide 26 Anion Gap 11 BUN 39 H Creatinine 0.9 Creat Clearance w eGFR > 60 POC Glucometer Random Glucose 209 H Calcium 9.1 Magnesium Total Bilirubin 0.6 GGT AST 15 ALT 31 Alkaline Phosphatase 192 H Creatine Kinase Troponin I C-Reactive Protein B-Natriuretic Peptide Total Protein 7.6 Albumin 2.7 L Triglycerides Cholesterol Total LDL Cholesterol HDL Cholesterol Urine Color Urine Appearance Urine pH Ur Specific Perry Urine Protein Urine Glucose (UA) Urine Ketones Urine Blood Urine Nitrite Urine Bilirubin Urine Urobilinogen Ur Leukocyte Esterase Vancomycin Pre-Dose 04/27/18 04/27/18 04/28/18 06:00 13:45 15:20 WBC 13.4 H Corrected WBC (auto) RBC 3.98 L Hgb 12.0 Hct 35.4 MCV 88.9 MCH 30.1 MCHC 33.8 RDW 15.1 Plt Count 497 H MPV 8.7 Absolute Neuts (auto) Neutrophils % Neutrophils % (Manual) Band Neutrophils % Lymphocytes % Lymphocytes % (Manual) Monocytes % Monocytes % (Manual) Eosinophils % Eosinophils % (Manual) Basophils % Basophils % (Manual) Nucleated RBC % Manual Slide Review Platelet Estimate Platelet Comment ESR Puncture Site ABG pH ABG pCO2 at Pt Temp ABG pO2 at Pt Temp ABG HCO3 ABG O2 Sat (Measured) ABG O2 Content ABG Base Excess Michael Test VBG pH POC VBG pCO2 POC VBG pO2 VBG HCO3 VBG O2 Sat ([facility]) VBG Base Excess Carboxyhemoglobin Methemoglobin Oxygen Flow Rate Vent Rate PEEP Sodium 134 L Potassium 4.2 Chloride 100 Carbon Dioxide 27 Anion Gap 8 BUN 35 H Creatinine 0.8 Creat Clearance w eGFR > 60 POC Glucometer Random Glucose 251 H Calcium 8.4 L Magnesium Total Bilirubin 0.5 GGT AST 20 ALT 41 Alkaline Phosphatase 173 H Creatine Kinase Troponin I C-Reactive Protein B-Natriuretic Peptide Total Protein 7.2 Albumin 2.5 L Triglycerides Cholesterol Total LDL Cholesterol HDL Cholesterol Urine Color Urine Appearance Urine pH Ur Specific Perry Urine Protein Urine Glucose (UA) Urine Ketones Urine Blood Urine Nitrite Urine Bilirubin Urine Urobilinogen Ur Leukocyte Esterase Vancomycin Pre-Dose 4.8 L 04/28/18 04/29/18 04/29/18 15:20 07:00 15:05 WBC 13.4 H Corrected WBC (auto) RBC 3.97 L Hgb 11.8 Hct 34.9 L MCV 87.9 MCH 29.8 MCHC 33.9 RDW 14.8 Plt Count 467 H MPV 8.5 Absolute Neuts (auto) 11.0 H Neutrophils % 82.4 Neutrophils % (Manual) Band Neutrophils % Lymphocytes % 9.6 Lymphocytes % (Manual) Monocytes % 7.9 D Monocytes % (Manual) Eosinophils % 0.0 Eosinophils % (Manual) Basophils % 0.1 Basophils % (Manual) Nucleated RBC % 0 Manual Slide Review Platelet Estimate Platelet Comment ESR Puncture Site ABG pH ABG pCO2 at Pt Temp ABG pO2 at Pt Temp ABG HCO3 ABG O2 Sat (Measured) ABG O2 Content ABG Base Excess Michael Test VBG pH POC VBG pCO2 POC VBG pO2 VBG HCO3 VBG O2 Sat ([facility]) VBG Base Excess Carboxyhemoglobin Methemoglobin Oxygen Flow Rate Vent Rate PEEP Sodium 135 L Potassium 4.1 Chloride 98 Carbon Dioxide 29 Anion Gap 8 BUN 35 H Creatinine 0.8 Creat Clearance w eGFR 96.72 POC Glucometer 186 Random Glucose 235 H Calcium 8.6 Magnesium 2.6 H Total Bilirubin GGT AST ALT Alkaline Phosphatase Creatine Kinase Troponin I C-Reactive Protein B-Natriuretic Peptide Total Protein Albumin Triglycerides Cholesterol Total LDL Cholesterol HDL Cholesterol Urine Color Urine Appearance Urine pH Ur Specific Perry Urine Protein Urine Glucose (UA) Urine Ketones Urine Blood Urine Nitrite Urine Bilirubin Urine Urobilinogen Ur Leukocyte Esterase Vancomycin Pre-Dose 04/29/18 04/29/18 04/30/18 15:10 15:15 07:00 WBC 15.9 H Corrected WBC (auto) RBC 4.04 Hgb 12.1 Hct 35.4 MCV 87.6 MCH 30.0 MCHC 34.2 RDW 15.1 Plt Count 492 H MPV 8.4 Absolute Neuts (auto) Neutrophils % Neutrophils % (Manual) Band Neutrophils % Lymphocytes % Lymphocytes % (Manual) Monocytes % Monocytes % (Manual) Eosinophils % Eosinophils % (Manual) Basophils % Basophils % (Manual) Nucleated RBC % Manual Slide Review Platelet Estimate Platelet Comment ESR Puncture Site Right radial ABG pH 7.52 H ABG pCO2 at Pt Temp 37.6 ABG pO2 at Pt Temp 153 H ABG HCO3 30.3 H ABG O2 Sat (Measured) 99.7 H ABG O2 Content 15.9 ABG Base Excess 7.2 H Michael Test Positive VBG pH POC VBG pCO2 POC VBG pO2 VBG HCO3 VBG O2 Sat ([facility]) VBG Base Excess Carboxyhemoglobin Methemoglobin Oxygen Flow Rate Yes Vent Rate 10 PEEP 5.0 Sodium Potassium Chloride Carbon Dioxide Anion Gap BUN Creatinine Creat Clearance w eGFR POC Glucometer Random Glucose Calcium Magnesium Total Bilirubin GGT AST ALT Alkaline Phosphatase Creatine Kinase Troponin I C-Reactive Protein B-Natriuretic Peptide Total Protein Albumin Triglycerides 159 H Cholesterol 130 Total LDL Cholesterol 68 HDL Cholesterol 32 L Urine Color Urine Appearance Urine pH Ur Specific Perry Urine Protein Urine Glucose (UA) Urine Ketones Urine Blood Urine Nitrite Urine Bilirubin Urine Urobilinogen Ur Leukocyte Esterase Vancomycin Pre-Dose 04/30/18 04/30/18 05/01/18 07:00 08:22 07:30 WBC 15.4 H Corrected WBC (auto) RBC 3.98 L Hgb 12.2 Hct 34.8 L MCV 87.3 MCH 30.6 MCHC 35.1 RDW 15.4 Plt Count 466 H MPV 8.3 Absolute Neuts (auto) 13.0 H Neutrophils % 84.1 H Neutrophils % (Manual) Band Neutrophils % Lymphocytes % 10.1 Lymphocytes % (Manual) Monocytes % 5.4 Monocytes % (Manual) Eosinophils % 0.3 D Eosinophils % (Manual) Basophils % 0.1 Basophils % (Manual) Nucleated RBC % 0 Manual Slide Review Platelet Estimate Platelet Comment ESR 44 H Puncture Site ABG pH ABG pCO2 at Pt Temp ABG pO2 at Pt Temp ABG HCO3 ABG O2 Sat (Measured) ABG O2 Content ABG Base Excess Michael Test VBG pH POC VBG pCO2 POC VBG pO2 VBG HCO3 VBG O2 Sat ([facility]) VBG Base Excess Carboxyhemoglobin Methemoglobin Oxygen Flow Rate Vent Rate PEEP Sodium 135 L Potassium 4.4 Chloride 98 Carbon Dioxide 30 Anion Gap 7 L BUN 32 H Creatinine 0.6 Creat Clearance w eGFR 134.80 POC Glucometer Random Glucose 164 H Calcium 8.3 L Magnesium Total Bilirubin 0.4 GGT AST 29 ALT 69 H Alkaline Phosphatase 150 H Creatine Kinase Troponin I C-Reactive Protein 0.9 H B-Natriuretic Peptide Total Protein 6.4 Albumin 2.4 L Triglycerides Cholesterol Total LDL Cholesterol HDL Cholesterol Urine Color Urine Appearance Urine pH Ur Specific Perry Urine Protein Urine Glucose (UA) Urine Ketones Urine Blood Urine Nitrite Urine Bilirubin Urine Urobilinogen Ur Leukocyte Esterase Vancomycin Pre-Dose 05/01/18 05/02/18 05/02/18 10:10 05:30 05:30 WBC 14.0 H Corrected WBC (auto) RBC 3.97 L Hgb 12.0 Hct 34.9 L MCV 87.8 MCH 30.3 MCHC 34.5 RDW 15.2 Plt Count 436 H MPV 8.6 Absolute Neuts (auto) 11.3 H Neutrophils % 80.4 Neutrophils % (Manual) Band Neutrophils % Lymphocytes % 12.3 D Lymphocytes % (Manual) Monocytes % 6.4 Monocytes % (Manual) Eosinophils % 0.7 D Eosinophils % (Manual) Basophils % 0.2 Basophils % (Manual) Nucleated RBC % 0 Manual Slide Review Platelet Estimate Platelet Comment ESR 36 H Puncture Site ABG pH ABG pCO2 at Pt Temp ABG pO2 at Pt Temp ABG HCO3 ABG O2 Sat (Measured) ABG O2 Content ABG Base Excess Michael Test VBG pH POC VBG pCO2 POC VBG pO2 VBG HCO3 VBG O2 Sat ([facility]) VBG Base Excess Carboxyhemoglobin Methemoglobin Oxygen Flow Rate Vent Rate PEEP Sodium 136 Potassium 4.7 Chloride 100 Carbon Dioxide 27 Anion Gap 10 BUN 32 H Creatinine 0.5 L Creat Clearance w eGFR 166.36 POC Glucometer Random Glucose 161 H Calcium 8.1 L Magnesium Total Bilirubin 0.6 GGT AST 41 H ALT 51 Alkaline Phosphatase 144 H Creatine Kinase Troponin I C-Reactive Protein 0.7 H 0.5 H B-Natriuretic Peptide Total Protein 6.1 L Albumin 2.3 L Triglycerides Cholesterol Total LDL Cholesterol HDL Cholesterol Urine Color Urine Appearance Urine pH Ur Specific Perry Urine Protein Urine Glucose (UA) Urine Ketones Urine Blood Urine Nitrite Urine Bilirubin Urine Urobilinogen Ur Leukocyte Esterase Vancomycin Pre-Dose 05/02/18 05/03/18 05/03/18 17:35 06:05 06:05 WBC 14.3 H Corrected WBC (auto) RBC 3.92 L Hgb 11.9 Hct 34.4 L MCV 87.9 MCH 30.3 MCHC 34.5 RDW 15.6 Plt Count 420 MPV 8.6 Absolute Neuts (auto) 11.4 H Neutrophils % 80.0 Neutrophils % (Manual) Band Neutrophils % Lymphocytes % 12.4 Lymphocytes % (Manual) Monocytes % 7.1 Monocytes % (Manual) Eosinophils % 0.4 Eosinophils % (Manual) Basophils % 0.1 Basophils % (Manual) Nucleated RBC % 0 Manual Slide Review Platelet Estimate Platelet Comment ESR Puncture Site ABG pH ABG pCO2 at Pt Temp ABG pO2 at Pt Temp ABG HCO3 ABG O2 Sat (Measured) ABG O2 Content ABG Base Excess Michael Test VBG pH POC VBG pCO2 POC VBG pO2 VBG HCO3 VBG O2 Sat ([facility]) VBG Base Excess Carboxyhemoglobin Methemoglobin Oxygen Flow Rate Vent Rate PEEP Sodium 136 Potassium 4.6 Chloride 100 Carbon Dioxide 30 Anion Gap 7 L BUN 33 H Creatinine 0.5 L Creat Clearance w eGFR 166.36 POC Glucometer Random Glucose 157 H Calcium 8.4 L Magnesium Total Bilirubin 0.5 GGT AST 25 ALT 52 Alkaline Phosphatase 140 H Creatine Kinase Troponin I C-Reactive Protein B-Natriuretic Peptide Total Protein 6.1 L Albumin 2.4 L Triglycerides Cholesterol Total LDL Cholesterol HDL Cholesterol Urine Color Yellow Urine Appearance Clear Urine pH 8.0 Ur Specific Perry 1.014 Urine Protein Negative Urine Glucose (UA) Negative Urine Ketones Negative Urine Blood Negative Urine Nitrite Negative Urine Bilirubin Negative Urine Urobilinogen 4.0 e.u/dl Ur Leukocyte Esterase Negative Vancomycin Pre-Dose 05/03/18 05/03/18 05/04/18 06:05 06:05 06:10 WBC Cancelled 16.3 H Corrected WBC (auto) Cancelled RBC Cancelled 3.87 L Hgb Cancelled 11.8 Hct Cancelled 34.2 L MCV Cancelled 88.2 MCH Cancelled 30.4 MCHC Cancelled 34.5 RDW Cancelled 15.4 Plt Count Cancelled 405 MPV Cancelled 8.6 Absolute Neuts (auto) 13.3 H Neutrophils % 81.4 Neutrophils % (Manual) Band Neutrophils % Lymphocytes % 11.6 Lymphocytes % (Manual) Monocytes % 6.6 Monocytes % (Manual) Eosinophils % 0.2 Eosinophils % (Manual) Basophils % 0.2 Basophils % (Manual) Nucleated RBC % 0 Manual Slide Review Cancelled Platelet Estimate Platelet Comment Cancelled ESR 33 H Puncture Site ABG pH ABG pCO2 at Pt Temp ABG pO2 at Pt Temp ABG HCO3 ABG O2 Sat (Measured) ABG O2 Content ABG Base Excess Michael Test VBG pH POC VBG pCO2 POC VBG pO2 VBG HCO3 VBG O2 Sat ([facility]) VBG Base Excess Carboxyhemoglobin Methemoglobin Oxygen Flow Rate Vent Rate PEEP Sodium Potassium Chloride Carbon Dioxide Anion Gap BUN Creatinine Creat Clearance w eGFR POC Glucometer Random Glucose Calcium Magnesium Total Bilirubin GGT AST ALT Alkaline Phosphatase Creatine Kinase Troponin I C-Reactive Protein 0.4 H B-Natriuretic Peptide Total Protein Albumin Triglycerides Cholesterol Total LDL Cholesterol HDL Cholesterol Urine Color Urine Appearance Urine pH Ur Specific Perry Urine Protein Urine Glucose (UA) Urine Ketones Urine Blood Urine Nitrite Urine Bilirubin Urine Urobilinogen Ur Leukocyte Esterase Vancomycin Pre-Dose 05/04/18 05/05/18 05/05/18 06:10 08:25 08:25 WBC 16.8 H Corrected WBC (auto) RBC 3.96 L Hgb 11.8 Hct 34.9 L MCV 88.0 MCH 29.9 MCHC 34.0 RDW 15.7 Plt Count 392 MPV 8.8 Absolute Neuts (auto) 13.9 H Neutrophils % 83.1 H Neutrophils % (Manual) Band Neutrophils % Lymphocytes % 9.9 Lymphocytes % (Manual) Monocytes % 5.6 Monocytes % (Manual) Eosinophils % 1.3 D Eosinophils % (Manual) Basophils % 0.1 Basophils % (Manual) Nucleated RBC % 0 Manual Slide Review Platelet Estimate Platelet Comment ESR Puncture Site ABG pH ABG pCO2 at Pt Temp ABG pO2 at Pt Temp ABG HCO3 ABG O2 Sat (Measured) ABG O2 Content ABG Base Excess Michael Test VBG pH POC VBG pCO2 POC VBG pO2 VBG HCO3 VBG O2 Sat ([facility]) VBG Base Excess Carboxyhemoglobin Methemoglobin Oxygen Flow Rate Vent Rate PEEP Sodium 137 136 Potassium 4.5 4.3 Chloride 102 101 Carbon Dioxide 29 28 Anion Gap 6 L 7 L BUN 28 H 31 H Creatinine 0.6 0.5 L Creat Clearance w eGFR 134.80 166.36 POC Glucometer Random Glucose 131 H 151 H Calcium 8.2 L 8.3 L Magnesium Total Bilirubin 0.6 0.6 GGT AST 22 27 ALT 51 58 Alkaline Phosphatase 137 H 138 H Creatine Kinase Troponin I C-Reactive Protein B-Natriuretic Peptide Total Protein 6.2 L 6.3 L Albumin 2.5 L 2.5 L Triglycerides Cholesterol Total LDL Cholesterol HDL Cholesterol Urine Color Urine Appearance Urine pH Ur Specific Perry Urine Protein Urine Glucose (UA) Urine Ketones Urine Blood Urine Nitrite Urine Bilirubin Urine Urobilinogen Ur Leukocyte Esterase Vancomycin Pre-Dose 05/06/18 05/06/18 05/06/18 06:35 06:35 06:35 WBC 15.0 H Corrected WBC (auto) RBC 3.84 L Hgb 11.8 Hct 33.9 L MCV 88.4 MCH 30.8 MCHC 34.8 RDW 16.1 H Plt Count 381 MPV 8.8 Absolute Neuts (auto) 12.0 H Neutrophils % 80.2 Neutrophils % (Manual) Band Neutrophils % Lymphocytes % 11.4 Lymphocytes % (Manual) Monocytes % 6.2 Monocytes % (Manual) Eosinophils % 1.9 Eosinophils % (Manual) Basophils % 0.3 Basophils % (Manual) Nucleated RBC % 0 Manual Slide Review Platelet Estimate Platelet Comment ESR Puncture Site ABG pH ABG pCO2 at Pt Temp ABG pO2 at Pt Temp ABG HCO3 ABG O2 Sat (Measured) ABG O2 Content ABG Base Excess Michael Test VBG pH POC VBG pCO2 POC VBG pO2 VBG HCO3 VBG O2 Sat ([facility]) VBG Base Excess Carboxyhemoglobin Methemoglobin Oxygen Flow Rate Vent Rate PEEP Sodium 135 L Potassium 4.3 Chloride 100 Carbon Dioxide 28 Anion Gap 7 L BUN 31 H Creatinine 0.5 L Creat Clearance w eGFR 166.36 POC Glucometer Random Glucose 165 H Calcium 8.3 L Magnesium Total Bilirubin 0.7 GGT AST 23 ALT 53 Alkaline Phosphatase 135 H Creatine Kinase Troponin I C-Reactive Protein 0.4 H B-Natriuretic Peptide Total Protein 6.0 L Albumin 2.4 L Triglycerides Cholesterol Total LDL Cholesterol HDL Cholesterol Urine Color Urine Appearance Urine pH Ur Specific Perry Urine Protein Urine Glucose (UA) Urine Ketones Urine Blood Urine Nitrite Urine Bilirubin Urine Urobilinogen Ur Leukocyte Esterase Vancomycin Pre-Dose 05/06/18 05/07/18 05/07/18 06:35 06:30 06:30 WBC 15.6 H Corrected WBC (auto) RBC 3.72 L Hgb 11.4 L Hct 32.9 L MCV 88.4 MCH 30.7 MCHC 34.7 RDW 16.4 H Plt Count 416 MPV 9.8 D Absolute Neuts (auto) Neutrophils % Neutrophils % (Manual) Band Neutrophils % Lymphocytes % Lymphocytes % (Manual) Monocytes % Monocytes % (Manual) Eosinophils % Eosinophils % (Manual) Basophils % Basophils % (Manual) Nucleated RBC % Manual Slide Review Platelet Estimate Platelet Comment ESR 96 H 45 H Puncture Site ABG pH ABG pCO2 at Pt Temp ABG pO2 at Pt Temp ABG HCO3 ABG O2 Sat (Measured) ABG O2 Content ABG Base Excess Michael Test VBG pH POC VBG pCO2 POC VBG pO2 VBG HCO3 VBG O2 Sat ([facility]) VBG Base Excess Carboxyhemoglobin Methemoglobin Oxygen Flow Rate Vent Rate PEEP Sodium 148 H Potassium 5.7 H Chloride 110 H Carbon Dioxide 27 Anion Gap 10 BUN 26 H Creatinine 0.6 Creat Clearance w eGFR 134.80 POC Glucometer Random Glucose 150 H Calcium 8.3 L Magnesium Total Bilirubin 0.8 GGT AST 41 H ALT 45 Alkaline Phosphatase 139 H Creatine Kinase Troponin I C-Reactive Protein B-Natriuretic Peptide Total Protein 6.3 L Albumin 2.4 L Triglycerides Cholesterol Total LDL Cholesterol HDL Cholesterol Urine Color Urine Appearance Urine pH Ur Specific Perry Urine Protein Urine Glucose (UA) Urine Ketones Urine Blood Urine Nitrite Urine Bilirubin Urine Urobilinogen Ur Leukocyte Esterase Vancomycin Pre-Dose 05/07/18 05/08/18 05/08/18 14:05 07:00 07:00 WBC 13.2 H Corrected WBC (auto) RBC 3.61 L Hgb 10.9 L Hct 31.6 L MCV 87.6 MCH 30.1 MCHC 34.4 RDW 16.3 H Plt Count 336 MPV 9.0 Absolute Neuts (auto) Neutrophils % Neutrophils % (Manual) Band Neutrophils % Lymphocytes % Lymphocytes % (Manual) Monocytes % Monocytes % (Manual) Eosinophils % Eosinophils % (Manual) Basophils % Basophils % (Manual) Nucleated RBC % Manual Slide Review Platelet Estimate Platelet Comment ESR Puncture Site ABG pH ABG pCO2 at Pt Temp ABG pO2 at Pt Temp ABG HCO3 ABG O2 Sat (Measured) ABG O2 Content ABG Base Excess Michael Test VBG pH POC VBG pCO2 POC VBG pO2 VBG HCO3 VBG O2 Sat ([facility]) VBG Base Excess Carboxyhemoglobin Methemoglobin Oxygen Flow Rate Vent Rate PEEP Sodium 135 L 133 L Potassium 4.0 4.1 Chloride 100 99 Carbon Dioxide 28 28 Anion Gap 7 L 6 L BUN 27 H 24 H Creatinine 0.4 L 0.4 L Creat Clearance w eGFR 215.22 215.22 POC Glucometer Random Glucose 162 H 150 H Calcium 8.2 L 8.2 L Magnesium Total Bilirubin 0.8 0.7 GGT AST 18 18 ALT 43 38 Alkaline Phosphatase 143 H 145 H Creatine Kinase Troponin I C-Reactive Protein B-Natriuretic Peptide Total Protein 6.0 L 5.9 L Albumin 2.4 L 2.3 L Triglycerides Cholesterol Total LDL Cholesterol HDL Cholesterol Urine Color Urine Appearance Urine pH Ur Specific Perry Urine Protein Urine Glucose (UA) Urine Ketones Urine Blood Urine Nitrite Urine Bilirubin Urine Urobilinogen Ur Leukocyte Esterase Vancomycin Pre-Dose 05/09/18 05/09/18 05/11/18 07:00 07:00 10:45 WBC 11.9 H 13.6 H Corrected WBC (auto) RBC 3.44 L 3.83 L Hgb 10.7 L 11.1 L Hct 30.3 L 34.0 L MCV 87.9 88.8 MCH 31.1 28.9 MCHC 35.4 32.5 RDW 16.1 H 16.3 H Plt Count 311 316 MPV 9.0 9.5 Absolute Neuts (auto) 11.1 H Neutrophils % 81.8 Neutrophils % (Manual) Band Neutrophils % Lymphocytes % 10.8 Lymphocytes % (Manual) Monocytes % 4.9 Monocytes % (Manual) Eosinophils % 1.9 Eosinophils % (Manual) Basophils % 0.6 Basophils % (Manual) Nucleated RBC % 0 Manual Slide Review Platelet Estimate Platelet Comment ESR Puncture Site ABG pH ABG pCO2 at Pt Temp ABG pO2 at Pt Temp ABG HCO3 ABG O2 Sat (Measured) ABG O2 Content ABG Base Excess Michael Test VBG pH POC VBG pCO2 POC VBG pO2 VBG HCO3 VBG O2 Sat (Moses) VBG Base Excess Carboxyhemoglobin Methemoglobin Oxygen Flow Rate Vent Rate PEEP Sodium 135 L Potassium 4.0 Chloride 100 Carbon Dioxide 27 Anion Gap 8 BUN 22 H Creatinine 0.4 L Creat Clearance w eGFR 215.22 POC Glucometer Random Glucose 148 H Calcium 8.3 L Magnesium Total Bilirubin 0.6 GGT AST 15 ALT 33 Alkaline Phosphatase 130 H Creatine Kinase Troponin I C-Reactive Protein B-Natriuretic Peptide Total Protein 5.7 L Albumin 2.2 L Triglycerides Cholesterol Total LDL Cholesterol HDL Cholesterol Urine Color Urine Appearance Urine pH Ur Specific Perry Urine Protein Urine Glucose (UA) Urine Ketones Urine Blood Urine Nitrite Urine Bilirubin Urine Urobilinogen Ur Leukocyte Esterase Vancomycin Pre-Dose 05/11/18 05/12/18 05/12/18 10:45 07:30 07:30 WBC 10.5 H Corrected WBC (auto) RBC 3.36 L Hgb 10.1 L Hct 29.5 L MCV 87.6 MCH 29.9 MCHC 34.2 RDW 16.5 H Plt Count 277 MPV 8.7 Absolute Neuts (auto) 7.7 Neutrophils % 73.4 Neutrophils % (Manual) Band Neutrophils % Lymphocytes % 17.5 D Lymphocytes % (Manual) Monocytes % 5.8 Monocytes % (Manual) Eosinophils % 2.9 Eosinophils % (Manual) Basophils % 0.4 Basophils % (Manual) Nucleated RBC % 0 Manual Slide Review Platelet Estimate Platelet Comment ESR Puncture Site ABG pH ABG pCO2 at Pt Temp ABG pO2 at Pt Temp ABG HCO3 ABG O2 Sat (Measured) ABG O2 Content ABG Base Excess Michael Test VBG pH POC VBG pCO2 POC VBG pO2 VBG HCO3 VBG O2 Sat (Moses) VBG Base Excess Carboxyhemoglobin Methemoglobin Oxygen Flow Rate Vent Rate PEEP Sodium 132 L 137 Potassium 4.4 4.1 Chloride 98 101 Carbon Dioxide 26 27 Anion Gap 8 8 BUN 18 20 H Creatinine 0.5 L 0.5 L Creat Clearance w eGFR 166.36 166.36 POC Glucometer Random Glucose 113 H 72 L Calcium 8.6 7.9 L Magnesium 2.2 Total Bilirubin 0.6 1.0 GGT AST 20 17 ALT 36 28 Alkaline Phosphatase 147 H 128 H Creatine Kinase Troponin I C-Reactive Protein B-Natriuretic Peptide Total Protein 6.4 6.1 L Albumin 2.5 L 2.4 L Triglycerides Cholesterol Total LDL Cholesterol HDL Cholesterol Urine Color Urine Appearance Urine pH Ur Specific Perry Urine Protein Urine Glucose (UA) Urine Ketones Urine Blood Urine Nitrite Urine Bilirubin Urine Urobilinogen Ur Leukocyte Esterase Vancomycin Pre-Dose 05/13/18 05/13/18 05/16/18 06:40 06:40 06:15 WBC 8.6 6.6 Corrected WBC (auto) RBC 3.64 L 3.55 L Hgb 10.6 L 10.4 L Hct 31.9 L 31.0 L MCV 87.5 87.3 MCH 29.1 29.4 MCHC 33.3 33.7 RDW 16.7 H 16.4 H Plt Count 288 277 MPV 8.9 8.7 Absolute Neuts (auto) Neutrophils % Neutrophils % (Manual) Band Neutrophils % Lymphocytes % Lymphocytes % (Manual) Monocytes % Monocytes % (Manual) Eosinophils % Eosinophils % (Manual) Basophils % Basophils % (Manual) Nucleated RBC % Manual Slide Review Platelet Estimate Platelet Comment ESR Puncture Site ABG pH ABG pCO2 at Pt Temp ABG pO2 at Pt Temp ABG HCO3 ABG O2 Sat (Measured) ABG O2 Content ABG Base Excess Michael Test VBG pH POC VBG pCO2 POC VBG pO2 VBG HCO3 VBG O2 Sat (Moses) VBG Base Excess Carboxyhemoglobin Methemoglobin Oxygen Flow Rate Vent Rate PEEP Sodium 134 L Potassium 3.9 Chloride 102 Carbon Dioxide 26 Anion Gap 6 L BUN 22 H Creatinine 0.5 L Creat Clearance w eGFR 166.36 POC Glucometer Random Glucose 106 Calcium 8.4 L Magnesium Total Bilirubin 0.9 GGT AST 17 ALT 26 Alkaline Phosphatase 128 H Creatine Kinase Troponin I C-Reactive Protein B-Natriuretic Peptide Total Protein 6.2 L Albumin 2.3 L Triglycerides Cholesterol Total LDL Cholesterol HDL Cholesterol Urine Color Urine Appearance Urine pH Ur Specific Perry Urine Protein Urine Glucose (UA) Urine Ketones Urine Blood Urine Nitrite Urine Bilirubin Urine Urobilinogen Ur Leukocyte Esterase Vancomycin Pre-Dose 05/16/18 06:15 WBC Corrected WBC (auto) RBC Hgb Hct MCV MCH MCHC RDW Plt Count MPV Absolute Neuts (auto) Neutrophils % Neutrophils % (Manual) Band Neutrophils % Lymphocytes % Lymphocytes % (Manual) Monocytes % Monocytes % (Manual) Eosinophils % Eosinophils % (Manual) Basophils % Basophils % (Manual) Nucleated RBC % Manual Slide Review Platelet Estimate Platelet Comment ESR Puncture Site ABG pH ABG pCO2 at Pt Temp ABG pO2 at Pt Temp ABG HCO3 ABG O2 Sat (Measured) ABG O2 Content ABG Base Excess Michael Test VBG pH POC VBG pCO2 POC VBG pO2 VBG HCO3 VBG O2 Sat (Moses) VBG Base Excess Carboxyhemoglobin Methemoglobin Oxygen Flow Rate Vent Rate PEEP Sodium 136 Potassium 4.3 Chloride 102 Carbon Dioxide 26 Anion Gap 8 BUN 14 Creatinine 0.5 L Creat Clearance w eGFR 166.36 POC Glucometer Random Glucose 113 H Calcium 8.3 L Magnesium Total Bilirubin GGT AST ALT Alkaline Phosphatase Creatine Kinase Troponin I C-Reactive Protein B-Natriuretic Peptide Total Protein Albumin Triglycerides Cholesterol Total LDL Cholesterol HDL Cholesterol Urine Color Urine Appearance Urine pH Ur Specific Perry Urine Protein Urine Glucose (UA) Urine Ketones Urine Blood Urine Nitrite Urine Bilirubin Urine Urobilinogen Ur Leukocyte Esterase Vancomycin Pre-Dose Active Medications Generic Name Dose Route Start Last Admin Trade Name Freq PRN Reason Stop Dose Admin Acetaminophen 650 mg 04/26/18 16:28 05/13/18 04:29 Tylenol Oral Solution - GT 650 mg Q6H PRN Administration PAIN LEVEL 1-5 Acetylcysteine 220 mg 04/25/18 08:00 05/16/18 07:25 Mucomyst 20 Oral / Inh Use Only* NEB 220 mg RQID TRUDY Administration Albuterol Sulfate 1 amp 05/07/18 20:00 05/16/18 07:25 Ventolin 0.083% Nebulizer Soln - NEB 1 amp RQID TRUDY Administration Aspirin 81 mg 04/25/18 10:00 05/15/18 10:32 Asa - GT 81 mg DAILY TRUDY Administration Atorvastatin Calcium 40 mg 04/25/18 22:00 05/15/18 23:55 Lipitor - GT 40 mg HS TRUDY Administration Carvedilol 25 mg 05/02/18 11:14 05/15/18 23:54 Coreg - GT 25 mg BID TRUDY Administration Doxazosin Mesylate 2 mg 04/25/18 22:00 05/15/18 23:54 Cardura - GT 2 mg HS TRUDY Administration Duloxetine HCl 20 mg 05/10/18 10:00 05/15/18 10:32 Cymbalta - PO 20 mg DAILY TRUDY Administration Ondansetron HCl 4 mg 05/11/18 10:09 Zofran Injection IVPUSH Q6H PRN NAUSEA Pantoprazole Sodium 40 mg 05/11/18 22:00 05/15/18 23:55 Protonix Iv IVPUSH 40 mg BID TRUDY Administration Polyethylene Glycol 17 gm 05/05/18 12:00 05/15/18 10:31 Miralax (For Daily Use) - PEG 17 gm DAILY TRUDY Administration Ramipril 1.25 mg 04/25/18 10:00 05/15/18 10:32 Altace - GT 1.25 mg DAILY TRUDY Administration Saliva Substitute 1 applic 05/01/18 16:58 05/10/18 11:36 Mouthkote Solution - MM 1 applic DAILY PRN Administration dry mouth Simethicone 40 mg 04/24/18 23:30 05/16/18 05:46 Mylicon Liquid - GT 40 mg TID TRUDY Administration Microbiology 05/05/18 12:56 Blood - Peripheral Venous Blood Culture - Final NO GROWTH AFTER 5 DAYS INCUBATION 05/05/18 12:48 Blood - Peripheral Venous Blood Culture - Final NO GROWTH AFTER 5 DAYS INCUBATION 05/02/18 17:35 Urine - Urine Clean Catch Urine Culture - Final NO GROWTH OBTAINED 04/25/18 18:34 Sputum - Endotrachea Suction/Ventilator Gram Stain - Final 04/25/18 18:34 Sputum - Endotrachea Suction/Ventilator Sputum Culture - Final Citrobacter Koseri Klebsiella Pneumoniae Streptococcus Pyogenes Grp A 04/24/18 17:50 Blood - Peripheral Venous Blood Culture - Final NO GROWTH AFTER 5 DAYS INCUBATION 04/24/18 16:43 Blood - Peripheral Venous Blood Culture - Final NO GROWTH AFTER 5 DAYS INCUBATION 04/26/18 18:00 Urine For Antigen Detection Legionella Antigen - Final 04/26/18 18:00 Urine For Antigen Detection Streptococcus pneumoniae Antigen (M - Final Condition: Stable - Instructions Diet, Activity, Other Instructions: Follow up with pmd follow up with neurology Dr. Rahman continue current medication regimen return to ER if develop respiratory distress, AMS, chest pain Referrals: Kyle Rahman MD [Staff Physician] - [facility] - Home Medications Comprehensive Discharge Medication List: Ambulatory Orders Acetylcysteine 220 mg NEB QID 04/24/18 Albuterol 0.083% Nebulizer Asmita [Ventolin 0.083% Nebulizer Soln -] 1 neb NEB QID 04/24/18 Aspirin 81 mg GT DAILY 04/24/18 Atorvastatin Ca [Lipitor] 40 mg GT HS 04/24/18 Carvedilol 12.5 mg GT BID 04/24/18 Doxazosin Mesylate [Cardura -] 2 mg GT HS 04/24/18 Enoxaparin [Lovenox -] 1.2 ml GT Q8H 04/24/18 Multivitamins [Multivit ([facility] Formulary)] 1 tab GT DAILY 04/24/18 Ramipril 1.25 mg GT DAILY 04/24/18 Simethicone 40 mg GT TID 04/24/18 Albuterol 0.083% Nebulizer Asmita [Ventolin 0.083% Nebulizer Soln -] 1 amp NEB RQID amp 05/09/18 Enoxaparin [Lovenox -] 40 mg SQ DAILY #30 disp.syrin 05/09/18 Lytes/Yerba Brenda [Mouthkote Solution -] 1 applic MM DAILY PRN applic 05/09/18 Polyethylene Glycol 3350 [Miralax 119 gm Btl -] 17 gm PEG DAILY bottle
[2018-05-16 10:17] VITALS: PULSE 71
--- NOTE | 2018-05-16 11:16 | PN ---
Progress Note (short form) - Note Progress Note: NAD on 40% Trach collar. No acute events overnight. Intake & Output 05/13/18 05/14/18 05/15/18 05/16/18 23:59 23:59 23:59 23:59 Intake Total 1550 1600 1920 Balance 1550 1600 1920 Last Vital Signs Temp Pulse Resp BP Pulse Ox 98.7 F 71 19 116/65 99 05/16/18 06:00 05/16/18 10:16 05/16/18 08:26 05/16/18 06:00 05/16/18 10:16 Active Medications Acetaminophen (Tylenol Oral Solution -) 650 mg GT Q6H PRN PRN Reason: PAIN LEVEL 1-5 Last Admin: 05/13/18 04:29 Dose: 650 mg Acetylcysteine (Mucomyst 20 Oral / Inh Use Only*) 220 mg NEB RQID [facility] Last Admin: 05/16/18 07:25 Dose: 220 mg Albuterol Sulfate (Ventolin 0.083% Nebulizer Soln -) 1 amp NEB RQID [facility] Last Admin: 05/16/18 07:25 Dose: 1 amp Aspirin (Asa -) 81 mg GT DAILY [facility] Last Admin: 05/15/18 10:32 Dose: 81 mg Atorvastatin Calcium (Lipitor -) 40 mg GT [facility] Last Admin: 05/15/18 23:55 Dose: 40 mg Carvedilol (Coreg -) 25 mg GT BID [facility] Last Admin: 05/15/18 23:54 Dose: 25 mg Doxazosin Mesylate (Cardura -) 2 mg GT [facility] Last Admin: 05/15/18 23:54 Dose: 2 mg Duloxetine HCl (Cymbalta -) 20 mg PO DAILY [facility] Last Admin: 05/15/18 10:32 Dose: 20 mg Ondansetron HCl (Zofran Injection) 4 mg IVPUSH Q6H PRN PRN Reason: NAUSEA Pantoprazole Sodium (Protonix Iv) 40 mg IVPUSH BID [facility] Last Admin: 05/15/18 23:55 Dose: 40 mg Polyethylene Glycol (Miralax (For Daily Use) -) 17 gm PEG DAILY [facility] Last Admin: 05/15/18 10:31 Dose: 17 gm Ramipril (Altace -) 1.25 mg GT DAILY [facility] Last Admin: 05/15/18 10:32 Dose: 1.25 mg Saliva Substitute (Mouthkote Solution -) 1 applic MM DAILY PRN PRN Reason: dry mouth Last Admin: 05/10/18 11:36 Dose: 1 applic Simethicone (Mylicon Liquid -) 40 mg GT TID [facility] Last Admin: 05/16/18 05:46 Dose: 40 mg Gen: awake, NAD Heart: RRR Lung: scattered rhonchi Abd: soft, nontender Ext: no edema Laboratory Results - last 24 hr 05/16/18 05/16/18 06:15 06:15 WBC 6.6 RBC 3.55 L Hgb 10.4 L Hct 31.0 L MCV 87.3 MCH 29.4 MCHC 33.7 RDW 16.4 H Plt Count 277 MPV 8.7 Sodium 136 Potassium 4.3 Chloride 102 Carbon Dioxide 26 Anion Gap 8 BUN 14 Creatinine 0.5 L Creat Clearance w eGFR 166.36 Random Glucose 113 H Calcium 8.3 L Problem List - Problems (1) Acute respiratory failure with hypoxia Code(s): J96.01 - ACUTE RESPIRATORY FAILURE WITH HYPOXIA (2) Pneumonia Code(s): J18.9 - PNEUMONIA, UNSPECIFIED ORGANISM (3) COPD exacerbation Code(s): J44.1 - CHRONIC OBSTRUCTIVE PULMONARY DISEASE W (ACUTE) EXACERBATION A/P Acute on Chronic Hypoxic Respiratory Failure Dislodged Tracheostomy replaced Pneumonia Severe Sepsis +Troponins likely Demand Ischemia COPD CAD h/o CVA s/p PPM - Trach collar as tolerated, mechanical ventilation as needed and QHS - Off ABX per ID - inhaled bronchodilators - Enteral feeds - DVT/GI prophylaxis - D/C planning to SNF Dr Vasquez
[2018-05-16] MEDS ORDERED: PT OWN MED DRAWER 7, Y5N ONE (11:43)
[2018-05-16] MEDS: CARVEDILOL 25 MG TABLET (FP) GT SCH (12:08)
[2018-05-16] MEDS: PANTOPRAZOLE SODIUM 40 MG VIAL IVPUSH SCH (12:08)
[2018-05-16] MEDS: ASPIRIN 81 MG CHEWABLE TABLETS GT SCH (12:08)
[2018-05-16] MEDS: DULoxetine HCL 20 MG CAPSULE.DR (FP) PO SCH (12:11)
[2018-05-16] MEDS: RAMIPRIL 1.25 MG CAPSULE GT SCH (12:11)
[2018-05-16] MEDS: MULTIVIT-MINERALS ORAL LIQUID GT SCH (12:11)
[2018-05-16] MEDS: POLYETHYLENE GLYCOL 3350 119 GM BTL PEG SCH (12:12)
--- NOTE | 2018-05-16 12:26 | PN ---
Progress Note, HOME CARE CONSULTANT - Note Progress Note: Pt seen with RT. Doing well, now on trach collar. PMV reassessed with good tolerance. Pt needs speech training to take deep breath before speaking to increase speech volume. Swallowing reassessed. Oral holding with extended chewing with delayed but brisk swallow. With cues to swallow a second time, long delay before onset. Tolerated PMV for 1 hour. Pending d/c Suggest sp/sw eval and tx at [place] to initiated PMV use daily, of increasing time and tolerance, speech training. Once pmv used, PO trials based on MBS,with PMV in place. Monitor tolerance.
[2018-05-16 16:45] VITALS: BP 125/69; TEMP 98.2
== END 2018-05-16 18:19 | DRG 207 ==
LOC: JER 16:20 → JERBED 17:22 → J5S 04-25 02:51
PROVIDERS: ADMIT Internal Medicine; ATTEND Family Medicine
PROC: 5A1955Z Respiratory Ventilation, Greater than 96 Consecutive Hours (ICD-10-PCS; principal; 2018-04-24)
PROC: 0B21XFZ Change Tracheostomy Device in Trachea, External Approach (ICD-10-PCS; 2018-05-06)
PROC: 0CJS8ZZ Inspection of Larynx, Via Natural or Artificial Opening Endoscopic (ICD-10-PCS; 2018-05-06)
DX: J18.9 Pneumonia, unspecified organism (principal); J96.21 Acute and chronic respiratory failure with hypoxia; R53.2 Functional quadriplegia; G93.41 Metabolic encephalopathy; I63.9 Cerebral infarction, unspecified; J98.11 Atelectasis; I69.351 Hemiplegia and hemiparesis following cerebral infarction affecting right dominant side; E87.3 Alkalosis; J44.1 Chronic obstructive pulmonary disease with (acute) exacerbation; J95.03 Malfunction of tracheostomy stoma; I25.10 Atherosclerotic heart disease of native coronary artery without angina pectoris; D72.829 Elevated white blood cell count, unspecified; I10 Essential (primary) hypertension; R53.1 Weakness; K59.00 Constipation, unspecified; F32.9 Major depressive disorder, single episode, unspecified; R51 Headache; R74.8 Abnormal levels of other serum enzymes
CPT/HCPCS: 36415; 36600; 70450-TC; 70496-TC; 71045-TC-FY; 71250-TC; 74018-TC-FY; 74176-TC; 74230-TC-FY; 76705-TC; 80048; 80053; 80061; 81003; 82375; 82550; 82803; 82962; 82977; 83050; 83721; 83735; 83880; 84484; 85025; 85027; 85651; 86140; 87040; 87070; 87086; 87186; 87205; 87899; 92611-GN; 93005; 93010; 93306-TC; 93880-TC; 93970-TC; 94002; 94640; 97161-GP; 99285-25; G0480; J7030; Q9967

== ENCOUNTER 2018-06-28 18:29 | Inpatient (IN) | payer OTHER ==
[2018-06-28 19:08] VITALS: BMI 27.1
--- NOTE | 2018-06-28 20:20 | PDOC ---
History of Present Illness <Rosalie Rebolledo - Last Filed: 06/28/18 21:26> - General History Source: Patient, Family, Halfway Records, Old Records Exam Limitations: Physical Impairment - History of Present Illness Initial Comments: HPI: 67 y/o male presenting to [facility] from [facility] for accidentally displaced PEG tube. He is trach and PEG dependent s/p CVA. PEG was inserted at [facility] [place] in March 2018. Pt denies any additional complaints. PCP: Dr. Re[facility] Hx: - CVA, functional quadriplegia - HTN - COPD Review of Systems: In addition to that documented in the HPI above, the additional ROS was obtained : Constitutional: Denies fevers or chills ENMT: Denies sore throat CV: Denies chest pain Resp: Denies SOB GI: Denies vomiting or diarrhea : Denies dysuria, hematuria, or urinary frequency Physical Examination: Constitutional: Nontoxic adult male in no acute distress or obvious discomfort. Found semi-vaughn's on hospital bed. Eyes open and alert. Difficult to understand as pt is only able to mouth words. Head: Normocephalic. No obvious external signs of trauma. Neck: Trach site well appearing. Covered in clean bandages. Cardiovascular / Chest: Regular rate and regular rhythm. No murmur, rubs, clicks , or gallops. Peripheral pulses: radial pulses full. Respiratory: Trach in place. Mechanically intubated. Equal chest rise and fall. Clear to auscultation bilaterally. No stridor, no wheezing, no rhonchi. Gastrointestinal: PEG site in LUQ. Serosanguinous versus trace purulent discharge from site. Surrounding induration appreciated. Skin: Stow, warm, and dry. Psych: Affect: appropriate. Mood: normal. MDM: *Reviewed vital signs, nursing notes, and prior visit documentation (if available). 67 y/o male presenting for replacement of PEG tube. Physical exam concerning for signs of possible intramural abscess. 18g PEG replaced. Confirmatory xray difficult to interpret; contrast does not outline the stomach. However, residual water was successfully aspirated from PEG with Dr. Marin assistance. Suspect proper placement. Will obtain CT with contrast via PEG to further evaluate for placement and presence of abscess. Ordered vancomycin for broad spectrum gram positive coverage for soft tissue abscess. CBC remarkable for mild leukocytosis and anemia, which appears to be baseline per [facility] records. No significant electrolyte derangement. PEG site culture sent. CT scan/admission delayed as data reduction technician had difficulty positioning the pt in the scanner. Required two trips to CT suite. CT scan revealed PEG tube was not placed in stomach lumen. No contrast was noted in the musculature but inflammatory changes were noted. Suspect inflammatory changes are likely infectious in nature. Contrast was present in the bowel lumen so the PEG was likely in place just before the images were obtained. [facility] report included below. 02:10 Microblog sent to [place] [facility] service for admission. Awaiting call back. 03:10 In person consultation with resident Dr. Singh. Verbally appraised of the pts HPI, ED course, and current plan of management. Will admit the pt for Dr. Renetta Marie M.D., PGY1 Emergency Medicine Resident <Shabbir Marie - Last Filed: 06/29/18 03:13> - General Stated Complaint: PEG TUBE DISLODGED Time Seen by Provider: 06/28/18 20:06 Past History <Rosalie Rebolledo - Last Filed: 06/28/18 21:26> - Past Medical History Cardiac Disorders: Yes CVA: Yes COPD: Yes CHF: Yes Disorders: Yes (bph) HTN: Yes - Surgical History Cardiac Surgery: Yes (AICD) - Immunization History Immunization Up to Date: (Unknown) - Suicide/Smoking/Psychosocial Hx Smoking History: Former smoker Have you smoked in the past 12 months: No Information on smoking cessation initiated: No Hx Alcohol Use: No Drug/Substance Use Hx: No Substance Use Type: None <Shabbir Marie - Last Filed: 06/29/18 03:13> - Past Medical History Allergies/Adverse Reactions: Allergies Allergy/AdvReac Type Severity Reaction Status Date / Time No Known Allergies Allergy Verified 06/28/18 20:53 Home Medications: Ambulatory Orders Albuterol 0.083% Nebulizer Asmita [Ventolin 0.083% Nebulizer Soln -] 1 neb NEB QID 04/24/18 Aspirin 81 mg GT DAILY 04/24/18 Atorvastatin Ca [Lipitor] 40 mg GT HS 04/24/18 Carvedilol 25 mg GT BID 04/24/18 Doxazosin Mesylate [Cardura -] 2 mg GT HS 04/24/18 Simethicone 40 mg GT TID 04/24/18 Polyethylene Glycol 3350 [Miralax 119 gm Btl -] 17 gm PEG DAILY bottle Acetaminophen [Acetaminophen ER] 650 mg GT Q6H PRN 06/28/18 Duloxetine HCl [Cymbalta] 20 mg GT DAILY 06/28/18 Ramipril [Altace] 1.25 mg GT DAILY 06/28/18 Ranitidine Oral Solution [Zantac] 150 mg GT BID 06/28/18 Sennosides [Senna] 8.6 mg PO HS 06/28/18 *Physical Exam - Vital Signs Last Vital Signs Temp Pulse Resp BP Pulse Ox 98.5 F 70 14 120/66 96 06/28/18 19:04 06/28/18 19:04 06/28/18 19:07 06/28/18 19:04 06/28/18 19:04 <Rosalie Rebolledo - Last Filed: 06/28/18 21:26> - Vital Signs Last Vital Signs Temp Pulse Resp BP Pulse Ox 98.5 F 70 14 120/66 96 06/28/18 19:04 06/28/18 19:04 06/28/18 19:07 06/28/18 19:04 06/28/18 19:04 <Shabbir Marie - Last Filed: 06/29/18 03:13> ED Treatment Course - LABORATORY CBC & Chemistry Diagram: 06/28/18 21:37 06/28/18 21:37 - RADIOLOGY Radiograph Interpretation: CT of Abdomen w/ contrast via PEG tube: THIS IS A PRELIMINARY REPORT FROM [facility] DATE OF SERVICE: 2018-06-29 00:51:47 IMAGES: [id number] EXAM: CT abdomen without contrast HISTORY: Evaluate PEG tube insertion site for abscess COMPARISON: None. FINDINGS: Because of patient limitations, the complete abdomen and pelvis was not scanned. Images were obtained from the lung bases through the midpelvis. A gastrostomy tube is noted. The tip of the gastrostomy tube is outside the gastric lumen. Most of the tip is in the left anterior abdominal musculature and bulges into the peritoneal cavity abutting the wall of the stomach. There are inflammatory changes in the associated muscle and subcutaneous tissues but no drainable abscess. No free intraperitoneal air or free fluid. No bowel obstruction. Note made of cholelithiasis. Normal liver. Normal spleen. Normal pancreas. Normal adrenal glands. No right or left hydronephrosis. Patchy nonspecific groundglass opacities at the lung bases. Atelectatic changes at the lung bases. Cardiomegaly. Small ventral hernia containing no bowel.. Impression: Gastrostomy tube is not in the gastric lumen. Inflammatory changes of the abdominal musculature and subcutaneous tissues without abscess. Other changes as described in the body the report. One or more of the following dose reduction techniques were used: automated exposure control, adjustment of the mA and/or kV according to patient size, use of iterative reconstructive technique. THIS DOCUMENT HAS BEEN ELECTRONICALLY SIGNED Kyle Camacho MD 06/29/2018 01:43 EST ADDENDUM Comments: Kyle Camacho MD wrote on June 29, 2018 at 02:04 AM: Referring Physician: BISHOP SHABBIR SCANLON Findings discussed with Dr. Marie at 2:02 AM [place] One or more of the following dose reduction techniques were used: automated exposure control, adjustment of the mA and/or kV according to patient size, use of iterative reconstructive technique. THIS DOCUMENT HAS BEEN ELECTRONICALLY SIGNED Kyle Camacho MD 06/29/2018 02:03 EST <Shabbir Marie - Last Filed: 06/29/18 03:13> Medical Decision Making - Medical Decision Making 06/28/18 21:26 ct scan of abdomen with contrast placed in the g tube to see if the abscess is fistulating,if the infection is extending to the peritoneal cavity or subcutaneous tissues or if there are multiple fistula <Rosalie Rebolledo - Last Filed: 06/28/18 21:26> *DC/Admit/Observation/Transfer <Rosalie Rebolledo - Last Filed: 06/28/18 21:26> - Discharge Dispostion Decision to Admit order: Yes <Shbabir Marie - Last Filed: 06/29/18 03:13> Diagnosis at time of Disposition: Irritation around percutaneous endoscopic gastrostomy (PEG) tube site, PEG tube malfunction - Discharge Dispostion Condition at time of disposition: Good
[2018-06-28] MEDS ORDERED: VANCOMYCIN HCL 1,500 MG in DEXTROSE 5%-WATER - 500 ML IVPB ONE (21:18)
--- NOTE | 2018-06-28 21:21 | PDOC ---
Documentation entered by Christina Navarrete SCRIBE, acting as scribe for Rosalie Rebolledo MD. Rosalie Rebolledo MD: This documentation has been prepared by the Landon lopez Renju, SCRIBE, under my direction and personally reviewed by me in its entirety. I confirm that the documentation accurately reflects all work, treatment, procedures, and medical decision making performed by me. Attending Attestation - Resident Resident Name: Kenneth Marie - ED Attending Attestation I have performed the following: I have examined & evaluated the patient, The case was reviewed & discussed with the resident, I agree w/resident's findings & plan, Exceptions are as noted - HPI HPI: 06/28/18 20:53 Patient is a 67 y/o male with a pmh of HTN, COPD, CAD, CVA (02/2017 with right sided residual deficits), trach placed 03/2018, who presents to the ED for evaluation of dislodged PEG tube. 06/28/18 21:10 - Physicial Exam PE: 06/28/18 21:11 67-year-old male brought in by ambulance from a different custodial because he lost his feeding tube 06/28/18 21:11 Head normocephalic/atraumatic. Eyes fredy . eomi neck intact trach lungs rhonchi cvs [id number] abdomen : there is a ring of erythema around g tube site, +++ serosanguinous drainage,area of induration is noted ext no deformities skin warm and dry neuro alert, rt sided weakness - Medical Decision Making 06/28/18 21:16 Impression: abscess at peg tube site 06/28/18 21:[address] Hernandez was bedside and examined pt's peg tube site and recommended IV antibiotics,ct scan abd,admission
--- NOTE | 2018-06-28 21:24 | CON.GI ---
Consult Consult Specialty:: Gastroenterology Referred by:: Dr Kenneth Marie Reason for Consultation:: PEG site erythema - History of Present Illness Chief Complaint: Patient has been c/o pain at this PEG site History of Present Illness: 67M transferred to the ER to evaluate c/o pain at this PEG site. he suffered a CVA at [facility] in 03/05 where a trach and PEG were inserted. I saw him for altered mental status felt related to sepsis in 05/03. he had gallstones but they were deemed asymptomatic and his sepsis was reated to aspiration pneumonia. 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 Place of : Other ([facility]) History of Recent Travel: No Home Medications - Allergies Allergies/Adverse Reactions: Allergies Allergy/AdvReac Type Severity Reaction Status Date / Time No Known Allergies Allergy Verified 06/28/18 20:53 - Home Medications Home Medications: Ambulatory Orders Albuterol 0.083% Nebulizer Asmita [Ventolin 0.083% Nebulizer Soln -] 1 neb NEB QID 04/24/18 Aspirin 81 mg GT DAILY 04/24/18 Atorvastatin Ca [Lipitor] 40 mg GT HS 04/24/18 Carvedilol 25 mg GT BID 04/24/18 Doxazosin Mesylate [Cardura -] 2 mg GT HS 04/24/18 Simethicone 40 mg GT TID 04/24/18 Polyethylene Glycol 3350 [Miralax 119 gm Btl -] 17 gm PEG DAILY bottle Acetaminophen [Acetaminophen ER] 650 mg GT Q6H PRN 06/28/18 Duloxetine HCl [Cymbalta] 20 mg GT DAILY 06/28/18 Ramipril [Altace] 1.25 mg GT DAILY 06/28/18 Ranitidine Oral Solution [Zantac] 150 mg GT BID 06/28/18 Sennosides [Senna] 8.6 mg PO HS 06/28/18 Family Disease History - Family Disease History Family History: Unable to Obtain Review of Systems Unable to obtain ROS, reason: intubated Physical Exam-GI Vital Signs: Vital Signs Temperature 98.5 F 06/28/18 19:04 Pulse Rate 70 06/28/18 19:04 Respiratory Rate 14 06/28/18 19:07 Blood Pressure 120/66 06/28/18 19:04 O2 Sat by Pulse Oximetry (%) 96 06/28/18 19:04 Current Medications Generic Name Dose Route Start Last Admin Trade Name Freq PRN Reason Stop Dose Admin Vancomycin HCl 1,500 mg/ 500 mls @ 250 mls/hr 06/28/18 21:18 Dextrose IVPB 06/28/18 23:17 ONCE ONE Constitutional: Yes: Anxious Eyes: Yes: Conjunctiva Clear HENT: Yes: Atraumatic Neck: Yes: Trachea Midline Cardiovascular: Yes: Regular Rate and Rhythm (trachesotomy mature) Respiratory: Yes: CTA Bilaterally Gastrointestinal Inspection: Yes: Other (fluctuance and induration encircling the LUQ G tube with serosanguinos pus espressed) ...Auscultate: Yes: Hypoactive Bowel Sounds ...Palpate: Yes: Soft, Tenderness (at PEG site) ...Rectal Exam: Yes: Deferred Problem List - Problems (1) Gastrostomy infection Assessment/Plan: Virgen-PEG fistula abscess that appears to be within the abdominal wall. He will need IV antibiotics and IV fluids while the PEG tube feedings are being held. If the abscess fails to respond then the PEG may need to be removed and replaced at a later date. Code(s): K94.22 - GASTROSTOMY INFECTION (2) CVA (cerebral vascular accident) Code(s): I63.9 - CEREBRAL INFARCTION, UNSPECIFIED (3) Cholelithiasis without cholecystitis Assessment/Plan: clinically slient Code(s): K80.20 - CALCULUS OF GALLBLADDER W/O CHOLECYSTITIS W/O OBSTRUCTION Assessment/Plan Impression: Virgen-PEG fistula abscess that appears to be within the abdominal wall. Plan: Obtain site culture CT with contrast via G tube to assess size and extent of the abscess and an intraperitoneal collection IV antibiotics and IV fluids while the PEG tube feedings are being held If the abscess fails to respond then the PEG may need to be removed and replaced at a later date.
[2018-06-28] MEDS ORDERED: VANCOMYCIN 500 MG VIAL (RESTRICTED TO ID ONLY) ONE (21:45)
[2018-06-28] MEDS ORDERED: VANCOMYCIN 1 GRAM (PRE-DOCKED) 1,000 MG/250 ML BAG IVPB ONE (21:46)
[2018-06-28 21:56] LABS: BASO % 0.3 % (0-2.0); EOS % 3.5 % (0-4.5); HEMATOCRIT 30.4 % (35.4-49); HEMOGLOBIN 9.9 GM/dL (11.7-16.9); LYMPH % 19.5 % (8-40); MCHC 32.4 g/dl (32.0-35.9); MEAN CELL VOLUME 86.3 fl (80-96); MEAN PLT VOLUME 8.7 fl (7.5-11.1); NEUT % 69.7 % (42.8-82.8); PLATELET COUNT 393 K/MM3 (134-434); RBC 3.53 M/mm3 (4.00-5.60); RDW 16.9 % (11.9-15.9); WHITE BLOOD COUNT 11.9 K/mm3 (4.0-10.0)
[2018-06-28 22:25] LABS: ALBUMIN 2.9 g/dl (3.4-5.0); BILIRUBIN,TOTAL 0.6 mg/dL (0.2-1); CALCIUM 9.1 mg/dL (8.5-10.1); CREATININE 0.5 mg/dL (0.55-1.3); POTASSIUM 4.2 mmol/L (3.5-5.1); TOT PROT 7.7 g/dl (6.4-8.2)
--- NOTE | 2018-06-29 03:59 | HP ---
Admitting History and Physical - Primary Care Physician PCP: Reece Phoenix ([facility]) - Admission Chief Complaint: PEG Dislodgement History of Present Illness: This is a 67 y/o man from [facility] with a PMHx of CVA s/p Trach- vent dependent, 03/05, HTN, CHF, COPD, BPH. Who presents to the ED for PEG dislodgment. 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 dysphagia) Cardiovascular: Yes: CAD, CHF, HTN, Hyperlipdemia, Other (Pacemaker) Pulmonary: Yes: COPD Hepatobiliary: Yes: Cholelithiasis, Hepatitis A (as a child) Renal/: Yes: BPH - Past Surgical History Past Surgical History: Yes: Colonoscopy Additional Past Surgical History: Tracheostomy PEG - Advance Directives Advance Directives: Yes: MOLST - Smoking History Smoking history: Former smoker Have you smoked in the past 12 months: No - Alcohol/Substance Use Hx Alcohol Use: No - Social History Usual Living Arrangement: Yes: [facility] ADL: Support Services 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 History of Recent Travel: No Home Medications - Allergies Allergies/Adverse Reactions: Allergies Allergy/AdvReac Type Severity Reaction Status Date / Time No Known Allergies Allergy Verified 06/28/18 20:53 - Home Medications Home Medications: Ambulatory Orders Albuterol 0.083% Nebulizer Asmita [Ventolin 0.083% Nebulizer Soln -] 1 neb NEB QID 04/24/18 Aspirin 81 mg GT DAILY 04/24/18 Atorvastatin Ca [Lipitor] 40 mg GT HS 04/24/18 Carvedilol 25 mg GT BID 04/24/18 Doxazosin Mesylate [Cardura -] 2 mg GT HS 04/24/18 Simethicone 40 mg GT TID 04/24/18 Polyethylene Glycol 3350 [Miralax 119 gm Btl -] 17 gm PEG DAILY bottle Acetaminophen [Acetaminophen ER] 650 mg GT Q6H PRN 06/28/18 Duloxetine HCl [Cymbalta] 20 mg GT DAILY 06/28/18 Ramipril [Altace] 1.25 mg GT DAILY 06/28/18 Ranitidine Oral Solution [Zantac] 150 mg GT BID 06/28/18 Sennosides [Senna] 8.6 mg PO HS 06/28/18 Family Disease History - Family Disease History Family History: Unable to Obtain Review of Systems Unable to obtain ROS, reason: Physical Impairment Physical Examination Vital Signs: Vital Signs Temperature 98.5 F 06/28/18 19:04 Pulse Rate 70 06/29/18 03:39 Respiratory Rate 16 06/29/18 03:39 Blood Pressure 107/69 06/29/18 03:39 O2 Sat by Pulse Oximetry (%) 98 06/29/18 03:39 Constitutional: Yes: Mild Distress, Other (trach- vent dependent) Eyes: Yes: Conjunctiva Clear, PERRL HENT: Yes: WNL, Atraumatic, Normocephalic Neck: Yes: Supple, Other (trach) Cardiovascular: Yes: Pulse Irregular, S1, S2 Respiratory: Yes: Rhonchi, Other (trach- vent) Gastrointestinal: Yes: Tenderness, Other (erythema, induration, fluctuance, serosanguineous drainage around abdominal opening) Edema: No Peripheral Pulses WNL: Yes Neurological: Yes: Alert, Oriented Psychiatric: Yes: Alert, Oriented Labs: CBC, BMP 06/28/18 21:37 06/28/18 21:37 Laboratory Results - last 24 hr 06/28/18 06/28/18 06/29/18 21:37 21:37 05:10 WBC 11.9 H 11.5 H RBC 3.53 L 3.57 L Hgb 9.9 L 10.0 L Hct 30.4 L 30.3 L MCV 86.3 84.9 MCH 28.0 27.9 MCHC 32.4 32.9 RDW 16.9 H 17.2 H Plt Count 393 D 420 MPV 8.7 8.8 Absolute Neuts (auto) 8.3 H 7.7 Neutrophils % 69.7 67.2 Lymphocytes % 19.5 21.1 Monocytes % 7.0 7.1 Eosinophils % 3.5 4.3 Basophils % 0.3 0.3 Nucleated RBC % 0 0 Sodium 136 Potassium 4.2 Chloride 101 Carbon Dioxide 29 Anion Gap 6 L BUN 14 Creatinine 0.5 L Est GFR (CKD-EPI)AfAm 130.88 Est GFR (CKD-EPI)NonAf 112.92 Random Glucose 86 Calcium 9.1 Total Bilirubin 0.6 AST 19 ALT 30 Alkaline Phosphatase 128 H Total Protein 7.7 Albumin 2.9 L 06/29/18 05:10 WBC RBC Hgb Hct MCV MCH MCHC RDW Plt Count MPV Absolute Neuts (auto) Neutrophils % Lymphocytes % Monocytes % Eosinophils % Basophils % Nucleated RBC % Sodium 134 L Potassium 4.0 Chloride 100 Carbon Dioxide 28 Anion Gap 6 L BUN 15 Creatinine 0.5 L Est GFR (CKD-EPI)AfAm 130.88 Est GFR (CKD-EPI)NonAf 112.92 Random Glucose 88 Calcium 9.0 Total Bilirubin AST ALT Alkaline Phosphatase Total Protein Albumin Intake & Output 06/26/18 06/27/18 06/28/18 06/29/18 23:59 23:59 23:59 23:59 Weight 90.718 kg Imaging - Results X-ray: Image Reviewed Cat Scan: Report Reviewed, Image Reviewed EKG: Image Reviewed Problem List - Problems (1) Dislodged gastrostomy tube Assessment/Plan: Will need replacement due to dislodged in ED CTAP report- gastrostomy tube noted, the tip of the gastrostomy tube is outside the gastric lumen. inflammatory changes in the associated muscle and subcutaneous tissues but no drainable abscess. No free intraperitoneal air or free fluid. o bowel obstruction. Cholelithiasis. Normal liver On exam- erythema, induration with fluctuance noted around the GT opening GI following Code(s): Z43.1 - ENCOUNTER FOR ATTENTION TO GASTROSTOMY (2) Gastrostomy infection Assessment/Plan: Wound culture-pending Vancomycin given in ED, will continue Appreciate ID consult WBC 11.9 Monitor CBC Monitor vitals CTAP- reviewed Code(s): K94.22 - GASTROSTOMY INFECTION (3) Acute and chronic respiratory failure ([id number]) Assessment/Plan: s/p Trach- vent dependent Continue Vent Settings: TV 500, FIO2 40%, R 12, PEEP 5 Suction Trach Care Monitor vitals Code(s): J96.20 - ACUTE AND CHR RESP FAILURE, UNSP W HYPOXIA OR HYPERCAPNIA (4) COPD (chronic obstructive pulmonary disease) Assessment/Plan: Continue Albuterol Neb Consider Pulm consult Code(s): J44.9 - CHRONIC OBSTRUCTIVE PULMONARY DISEASE, UNSPECIFIED (5) CVA, old, hemiparesis Assessment/Plan: Will continue to monitor and treat with interventions accordingly Fall Precautions Code(s): I69.359 - HEMIPLGA FOLLOWING CEREBRAL INFARCTION AFFECTING UNSP SIDE (6) HTN (hypertension) Assessment/Plan: stable Continue to monitor BP Resume home meds when GT replaced Code(s): I10 - ESSENTIAL (PRIMARY) HYPERTENSION (7) CHF (congestive heart failure) Code(s): I50.9 - HEART FAILURE, UNSPECIFIED (8) BPH (benign prostatic hyperplasia) Code(s): N40.0 - BENIGN PROSTATIC HYPERPLASIA WITHOUT LOWER URINRY TRACT SYMP (9) Functional quadriplegia Assessment/Plan: Complete immobility due to frailty, CVA Requires total care Turn Q2h [place] lift as needed Heel Protectors Fall Precautions Code(s): R53.2 - FUNCTIONAL QUADRIPLEGIA Assessment/Plan This is a 67 y/o man from the [facility] with a PMHx of: CVA s/p Trach - vent dependent), COPD, HTN, CHF, BPH. Admitted for Dislodged PEG Tube, Leukocytosis for further evaluation of their emergent condition. Plan: See Problem List FEN D51/2NS@42ml/hr Replete lytes prn NPO- (hold tube feeds) DVT ppx TEDs SCDs Heparin SQ Dispo: Requires Inpatient Care Visit type - Emergency Visit Emergency Visit: Yes ED Registration Date: 06/28/18 Care time: The patient presented to the Emergency Department on the above date and was hospitalized for further evaluation of their emergent condition. - New Patient This patient is new to me today: Yes Date on this admission: 06/29/18 - Critical Care Critical Care patient: No
[2018-06-29 05:56] LABS: BASO % 0.3 % (0-2.0); EOS % 4.3 % (0-4.5); HEMATOCRIT 30.3 % (35.4-49); LYMPH % 21.1 % (8-40); MCH 27.9 pg (25.7-33.7); MCHC 32.9 g/dl (32.0-35.9); MEAN CELL VOLUME 84.9 fl (80-96); MEAN PLT VOLUME 8.8 fl (7.5-11.1); MONO % 7.1 % (3.8-10.2); NEUT % 67.2 % (42.8-82.8); PLATELET COUNT 420 K/MM3 (134-434); RBC 3.57 M/mm3 (4.00-5.60); RDW 17.2 % (11.9-15.9); WHITE BLOOD COUNT 11.5 K/mm3 (4.0-10.0)
[2018-06-29 06:11] LABS: CREATININE 0.5 mg/dL (0.55-1.3)
[2018-06-29] MEDS ORDERED: ACETAMINOPHEN 650 MG SUPP.RECT PR ONE (06:18)
[2018-06-29] MEDS ORDERED: ACETAMINOPHEN 650 MG SUPP.RECT ONE (06:48)
[2018-06-29] MEDS ORDERED: SODIUM CHLORIDE 1,000 ML IV SCH ×2 (08:45)
[2018-06-29] MEDS: ALBUTEROL SO4 0.083% IH SOL 2.5 MG/3 ML VIAL.NEB. NEB SCH ×3 (10:05→22:34)
--- NOTE | 2018-06-29 10:45 | EKG ---
Test Reason : Blood Pressure : / mmHG Vent. Rate : 071 BPM Atrial Rate : 031 BPM P-R Int : 000 ms QRS Dur : 200 ms QT Int : 474 ms P-R-T Axes : 000 -62 105 degrees QTc Int : 515 ms Ventricular-paced rhythm WITH OCCASIONAL PREMATURE VENTRICULAR COMPLEXES ABNORMAL ECG WHEN COMPARED WITH ECG OF 07-MAY-2018 14:41, PREMATURE VENTRICULAR COMPLEXES ARE NOW PRESENT Confirmed by RAYA MANCIA, JIGNESH ([id number]) on 06/29/2018 10:45:30 AM Referred By: Confirmed By:JIGNESH DOS SANTOS MD
--- NOTE | 2018-06-29 12:33 | CON.ID ---
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 History of Recent Travel: No Home Medications - Allergies Allergies/Adverse Reactions: Allergies Allergy/AdvReac Type Severity Reaction Status Date / Time No Known Allergies Allergy Verified 06/28/18 20:53 - Home Medications Home Medications: Ambulatory Orders Albuterol 0.083% Nebulizer Asmita [Ventolin 0.083% Nebulizer Soln -] 1 neb NEB QID 04/24/18 Aspirin 81 mg GT DAILY 04/24/18 Atorvastatin Ca [Lipitor] 40 mg GT HS 04/24/18 Carvedilol 25 mg GT BID 04/24/18 Doxazosin Mesylate [Cardura -] 2 mg GT HS 04/24/18 Simethicone 40 mg GT TID 04/24/18 Polyethylene Glycol 3350 [Miralax 119 gm Btl -] 17 gm PEG DAILY bottle Acetaminophen [Acetaminophen ER] 650 mg GT Q6H PRN 06/28/18 Duloxetine HCl [Cymbalta] 20 mg GT DAILY 06/28/18 Ramipril [Altace] 1.25 mg GT DAILY 06/28/18 Ranitidine Oral Solution [Zantac] 150 mg GT BID 06/28/18 Sennosides [Senna] 8.6 mg PO HS 06/28/18 Family Disease History - Family Disease History Family History: Unable to Obtain Review of Systems - Review of Systems Constitutional: denies: Fever Physical Exam Vital Signs: Vital Signs Temperature 98.2 F 06/29/18 12:11 Pulse Rate 71 06/29/18 12:11 Respiratory Rate 18 06/29/18 12:11 Blood Pressure 131/74 06/29/18 12:11 O2 Sat by Pulse Oximetry (%) 99 06/29/18 07:57 Constitutional: Yes: Well Nourished, No Distress, Calm HENT: Yes: Atraumatic, Normocephalic Neck: Yes: Trachea Midline, Other (tracheostomy) Cardiovascular: Yes: Regular Rate and Rhythm Respiratory: Yes: Regular, CTA Bilaterally Gastrointestinal: Yes: Normal Bowel Sounds, Soft, Other (gt site with erythema and drainage) ...Rectal Exam: Yes: Deferred Breast(s): Yes: WNL Musculoskeletal: Yes: WNL Extremities: Yes: WNL Edema: No Psychiatric: Yes: Alert Labs: CBC, BMP 06/29/18 05:10 06/29/18 05:10 peg site culture pending Imaging - Results Cat Scan: Report Reviewed Problem List - Problems (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 Assessment/Plan empiric zosyn f/u cultures no history of MRSA can d/c vancomycin
[2018-06-29] MEDS ORDERED: ALBUTEROL SO4 0.083% IH SOL 2.5 MG/3 ML VIAL.NEB. NEB ONE (12:58)
[2018-06-29] MEDS ORDERED: PIPERACILLIN/TAZOB 4.5 GM 4.5 GM/100 ML BAG IVPB ONE (12:59)
[2018-06-29] MEDS: PIPERACILLIN/TAZOB 4.5 GM 4.5 GM in DEXTROSE 5%-WATER 100 ML IVPB SCH ×2 (13:04→19:03)
--- NOTE | 2018-06-29 13:44 | PN.GI ---
GI Progress Note Subjective: GI NOte: G tube was pulled earlier after CT revealed it's tip to be within the gastric wall. I reinserted an 18FR tube an inflated to internal balloon with 15cc which should have the tip within the stomach proper. This places the external bupmer at 7cm suggesting a long fistuluous tract. A gastrograffin study to confirm G tube location has been ordered before we utilize it. jakob- PEG site induration appears less than last night. - Objective Vital Signs: Vital Signs Temperature 98.2 F 06/29/18 12:11 Pulse Rate 71 06/29/18 12:11 Respiratory Rate 18 06/29/18 12:11 Blood Pressure 131/74 06/29/18 12:11 O2 Sat by Pulse Oximetry (%) 99 06/29/18 07:57 Gastrointestinal Inspection: Yes: Other (PerpG tibe fistula is suurounded by a receding rin of indurtaion. no longer fluctuant. Another culture was taken and ta new G tube was placed) Labs: CBC, BMP 06/29/18 05:10 06/29/18 05:10 Assessment/Plan Impression: G tube malposition Jakob-PEG fistula abscess that appears to be within the abdominal wall. Plan: Site culture obtained G tibe replaced with 18Fr tube KUB with contrast via G tube to assess G tube position IV antibiotics Without PEG tube feedings until further notice If the abscess fails to respond then the PEG may need to be removed and replaced at a later date. 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
[2018-06-29] MEDS ORDERED: ACETAMINOPHEN 1000 MG/100 ML VIAL (NON FORMULARY) IVPB ONE (16:29)
[2018-06-29] MEDS ORDERED: ACETAMINOPHEN INJECTION 100 ML IVPB ONE (17:06)
[2018-06-29] MEDS ORDERED: PIPERACILLIN/TAZOBACTAM 4.5 GM VIAL IVPB ONE (18:58)
[2018-06-29] MEDS ORDERED: DEXTROSE 5%-WATER 100 ML IVPB ONE (18:58)
--- NOTE | 2018-06-29 19:07 | PN ---
Progress Note (short form) - Note Progress Note: Gi NOte: Suboptimal X ray. Do not clearly see entire stomach and it's relation to the stomach so I have instructed the nurse not to use the G tube until it is read by radiologist or when study can be repeated. I have ordered D51/2 NS IV. 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
--- NOTE | 2018-06-29 21:35 | PN ---
Physical Exam: SUBJECTIVE: Patient seen and examined earlier today in the ED awaiting bed assignment. He is trached and speech is limited, but able to make some of his needs known. having some leg cramping. OBJECTIVE: Vital Signs Period Temp Pulse Resp BP Sys/Richards Pulse Ox Last 24 Hr 98 F-98.2 F 70-72 12-22 107-135/67-84 98-100 GENERAL: The patient is awake, alert, in no acute distress. HEAD: Normal with no signs of trauma. EYES: PERRL, extraocular movements intact, sclera anicteric, conjunctiva clear. No ptosis. ENT: Ears normal, nares patent, oropharynx clear without exudates, moist mucous membranes. NECK: trach LUNGS: Breath sounds equal, clear to auscultation bilaterally HEART: Regular rate and rhythm ABDOMEN: new trach tube in place, small amt of sero sang fluid around trach. EXTREMITIES: no edema. NEUROLOGICAL: Normal speech, bed bound. right sided weakness. flacid right arm. PSYCH: Normal mood, normal affect Laboratory Results - last 24 hr 06/28/18 06/28/18 06/29/18 21:37 21:37 05:10 WBC 11.9 H 11.5 H RBC 3.53 L 3.57 L Hgb 9.9 L 10.0 L Hct 30.4 L 30.3 L MCV 86.3 84.9 MCH 28.0 27.9 MCHC 32.4 32.9 RDW 16.9 H 17.2 H Plt Count 393 D 420 MPV 8.7 8.8 Absolute Neuts (auto) 8.3 H 7.7 Neutrophils % 69.7 67.2 Lymphocytes % 19.5 21.1 Monocytes % 7.0 7.1 Eosinophils % 3.5 4.3 Basophils % 0.3 0.3 Nucleated RBC % 0 0 Sodium 136 Potassium 4.2 Chloride 101 Carbon Dioxide 29 Anion Gap 6 L BUN 14 Creatinine 0.5 L Est GFR (CKD-EPI)AfAm 130.88 Est GFR (CKD-EPI)NonAf 112.92 Random Glucose 86 Calcium 9.1 Total Bilirubin 0.6 AST 19 ALT 30 Alkaline Phosphatase 128 H Total Protein 7.7 Albumin 2.9 L 06/29/18 05:10 WBC RBC Hgb Hct MCV MCH MCHC RDW Plt Count MPV Absolute Neuts (auto) Neutrophils % Lymphocytes % Monocytes % Eosinophils % Basophils % Nucleated RBC % Sodium 134 L Potassium 4.0 Chloride 100 Carbon Dioxide 28 Anion Gap 6 L BUN 15 Creatinine 0.5 L Est GFR (CKD-EPI)AfAm 130.88 Est GFR (CKD-EPI)NonAf 112.92 Random Glucose 88 Calcium 9.0 Total Bilirubin AST ALT Alkaline Phosphatase Total Protein Albumin Active Medications Generic Name Dose Route Start Last Admin Trade Name Freq PRN Reason Stop Dose Admin Acetaminophen 1,000 mg 06/29/18 21:33 Ofirmev Injection - IVPB Q6H PRN PAIN LEVEL 4 - 6 Albuterol Sulfate 1 amp 06/29/18 10:00 06/29/18 14:05 Ventolin 0.083% Nebulizer Soln - NEB 1 amp QID TRUDY Administration Piperacillin Sod/Tazobactam 100 mls @ 200 mls/hr 06/29/18 12:45 06/29/18 19: 03 Sod 4.5 gm/ Dextrose IVPB 200 mls/hr Q8H-IV TRUDY Administration Protocol Dextrose/Sodium Chloride 1,000 mls @ 125 mls/hr 06/29/18 19:15 D5-1/2ns - IV ASDIR TRUDY ASSESSMENT/PLAN: Patient is a 67 year old male from the [facility] with a past medical history of: CVA with right sided weakness, s/p Trach-vent dependent), COPD, hypertension, CHF, BPH. Admitted for dislodged PEG tube and leukocytosis. GI: dislodged gastrostomy tube:CTAP report shows tip tip of the gastrostomy tube is outside the gastric lumen. inflammatory changes in the associated muscle and subcutaneous tissues but no drainable abscess. No free intraperitoneal air or free fluid. no bowel obstruction. cholelithiasis. Normal liver. gastrostomy infection: ct scan with inflammation at insertion site. given vanco in the ED, now on zosyn per ID. ID: Leukocytosis. started on zosyn per ID pending cultures. Pulm: Acute on chronic respiratory failure s/p vent. trach care. monitor vitals. COPD. On Albuterol nebs. not in acute exacerbation. Neuro: CVA with right sided weakness. Card: Hypertension. BP stable off meds. NPO for tube replacement. CHF: monitor for evidence of fluid overload. General Functional quadriplegia. Dependent on others for ADLs. turn and postition to protect bony prominences. Maintain skin integrity. fen D51/2 NS monitor electrolytes npo until cleared for tube feeds. wally young Dispo: Requires Inpatient Care Visit type - Emergency Visit Emergency Visit: Yes ED Registration Date: 06/28/18 Care time: The patient presented to the Emergency Department on the above date and was hospitalized for further evaluation of their emergent condition. - New Patient This patient is new to me today: Yes Date on this admission: 06/29/18 - Critical Care Critical Care patient: No - Discharge Referral Referred to [facility] No
[2018-06-29] MEDS: DEXTROSE 5%-0.45% SALINE 1,000 ML IV SCH (22:43)
[2018-06-30] MEDS ORDERED: PIPERACILLIN/TAZOBACTAM 4.5 GM VIAL IVPB ONE ×3 (02:27→17:15)
[2018-06-30] MEDS ORDERED: DEXTROSE 5%-WATER 100 ML IVPB ONE ×3 (02:27→17:15)
[2018-06-30] MEDS: PIPERACILLIN/TAZOB 4.5 GM 4.5 GM in DEXTROSE 5%-WATER 100 ML IVPB SCH ×3 (02:38→17:23)
[2018-06-30 07:34] LABS: BASO % 0.5 % (0-2.0); EOS % 6.7 % (0-4.5); HEMATOCRIT 27.4 % (35.4-49); HEMOGLOBIN 9.2 GM/dL (11.7-16.9); LYMPH % 25.7 % (8-40); MCH 28.4 pg (25.7-33.7); MCHC 33.5 g/dl (32.0-35.9); MEAN CELL VOLUME 84.7 fl (80-96); MEAN PLT VOLUME 8.9 fl (7.5-11.1); MONO % 7.5 % (3.8-10.2); NEUT % 59.6 % (42.8-82.8); PLATELET COUNT 391 K/MM3 (134-434); RBC 3.23 M/mm3 (4.00-5.60); RDW 17.1 % (11.9-15.9)
[2018-06-30] MEDS: ALBUTEROL SO4 0.083% IH SOL 2.5 MG/3 ML VIAL.NEB. NEB SCH ×4 (08:00→21:07)
[2018-06-30 08:07] LABS: ALBUMIN 2.6 g/dl (3.4-5.0); BILIRUBIN,TOTAL 0.7 mg/dL (0.2-1); CALCIUM 8.5 mg/dL (8.5-10.1); CREATININE 0.5 mg/dL (0.55-1.3); POTASSIUM 3.7 mmol/L (3.5-5.1)
[2018-06-30] MEDS: ACETAMINOPHEN 1000 MG/100 ML VIAL (NON FORMULARY) IVPB PRN ×2 (11:10→18:09)
--- NOTE | 2018-06-30 13:59 | PN ---
Physical Exam: SUBJECTIVE: Patient seen and examined at bedside.Speech limited due to trach OBJECTIVE: Vital Signs Period Temp Pulse Resp BP Sys/Richards Pulse Ox Last 24 Hr 98 F-98.4 F 70-72 12-18 130-135/60-79 98-100 GENERAL: The patient is awake, alert, and fully oriented, in no acute distress. HEAD: Normal with no signs of trauma. EYES: PERRL, extraocular movements intact, sclera anicteric, conjunctiva clear. No ptosis. ENT: Ears normal, nares patent, oropharynx clear without exudates, moist mucous membranes. NECK: Trach noted to . Settings AC/12, TV 500, FI02 40%, neck supple. LUNGS: Breath sounds equal, clear to auscultation bilaterally, no wheezes, no crackles, no accessory muscle use. HEART: Regular rate and rhythm, S1, S2 without murmur, rub or gallop. ABDOMEN: Soft, tender to touch diffusely, nondistended, normoactive bowel sounds, no guarding, no rebound, no hepatosplenomegaly, no masses. GT noted with serous drainage around site. EXTREMITIES: 2+ pulses, warm, well-perfused, no edema. NEUROLOGICAL: Normal speech, bed bound PSYCH: Normal mood, flat affect. SKIN: Warm, dry, normal turgor, no rashes or lesions noted Laboratory Results - last 24 hr 06/30/18 06/30/18 05:20 05:20 WBC 8.0 RBC 3.23 L Hgb 9.2 L Hct 27.4 L MCV 84.7 MCH 28.4 MCHC 33.5 RDW 17.1 H Plt Count 391 MPV 8.9 Absolute Neuts (auto) 4.8 Neutrophils % 59.6 Lymphocytes % 25.7 D Monocytes % 7.5 Eosinophils % 6.7 H Basophils % 0.5 Nucleated RBC % 0 Sodium 140 Potassium 3.7 Chloride 104 Carbon Dioxide 26 Anion Gap 9 BUN 16 Creatinine 0.5 L Est GFR (CKD-EPI)AfAm 130.88 Est GFR (CKD-EPI)NonAf 112.92 Random Glucose 66 L Calcium 8.5 Total Bilirubin 0.7 AST 13 L ALT 22 Alkaline Phosphatase 106 Total Protein 7.0 Albumin 2.6 L Active Medications Generic Name Dose Route Start Last Admin Trade Name Freq PRN Reason Stop Dose Admin Acetaminophen 1,000 mg 06/29/18 21:33 06/30/18 11:10 Ofirmev Injection - IVPB 1,000 mg Q6H PRN Administration PAIN LEVEL 4 - 6 Albuterol Sulfate 1 amp 06/29/18 10:00 06/30/18 11:20 Ventolin 0.083% Nebulizer Soln - NEB 1 amp QID TRUDY Administration Piperacillin Sod/Tazobactam 100 mls @ 200 mls/hr 06/29/18 12:45 06/30/18 09: 57 Sod 4.5 gm/ Dextrose IVPB 200 mls/hr Q8H-IV TRUDY Administration Protocol Dextrose/Sodium Chloride 1,000 mls @ 125 mls/hr 06/29/18 19:15 06/29/18 22:43 D5-1/2ns - IV 125 mls/hr ASDIR TRUDY Administration ASSESSMENT/PLAN: Patient is a 67 year old male from the [facility] with a past medical history of: CVA with right sided weakness, s/p Trach-vent dependent, COPD, hypertension, CHF, BPH. Initially admitted for dislodged PEG tube and leukocytosis. General Functional quadriplegia. Dependent on others for ADLs. -positioning as per nursing schedule to protect bony prominences. -Maintain skin integrity. Neuro: CVA with right sided weakness. Passive ROM in bed Card: Hypertension of Htn,now with BP stable off meds. CHF history -monitor for evidence of fluid overload. Pulm: Acute on chronic respiratory failure s/p vent. -trach care as per nursing protocol -COPD stable on Albuterol nebs GI: Dislodged gastrostomy tube:replaced 06/29/18 AXR pending -waiting for GI approval to restart TF -maintian NPO -continue IVF D51/2 while NPO -appreciate ID recs -continue to monitor CMP ID: Leukocytosis persists -continue to monitor CBC -continue on zosyn per ID pending final wound cultures-->Beta hemolytic streo in 1 culture -appreciate ID recs DVT prophy teds, scds Dispo: Requires Inpatient Care Plan to return back to skilled facility Visit type - Emergency Visit Emergency Visit: Yes ED Registration Date: 06/28/18 Care time: The patient presented to the Emergency Department on the above date and was hospitalized for further evaluation of their emergent condition. - New Patient This patient is new to me today: Yes Date on this admission: 06/30/18 - Critical Care Critical Care patient: No - Discharge Referral Referred to [facility] Med P.C.: No
[2018-06-30] MEDS: DEXTROSE 5%-0.45% SALINE 1,000 ML IV SCH ×2 (15:18→23:23)
--- NOTE | 2018-06-30 15:28 | PN ---
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
--- NOTE | 2018-06-30 16:34 | PN ---
Progress Note (short form) - Note Progress Note: GI NOte: I am still trying to get the gastrograffin study read. Await a return call from a radiologist. 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
[2018-06-30] MEDS ORDERED: MORPHINE SULFATE 2 MG/ML VIAL IVPUSH PRN (22:41)
--- NOTE | 2018-06-30 22:41 | PN.GI ---
GI Progress Note Subjective: GI NOte: Orellana is c/o pain at the PEG site. The induration is however much improved and no fluctuance is found. I finally got a reading with Dr Lepe who also felt the gastrograffin study was inconclusive ion the location of the G tube. A CT was advised which I ordered but which is still pending. - Objective Vital Signs: Vital Signs Temperature 98.3 F 06/30/18 22:00 Pulse Rate 76 06/30/18 22:00 Respiratory Rate 18 06/30/18 22:00 Blood Pressure 155/89 06/30/18 22:00 O2 Sat by Pulse Oximetry (%) 100 06/30/18 09:00 Microbiology 06/28/18 21:37 Peg Site Gram Stain - Final 06/28/18 21:37 Peg Site Wound Culture - Preliminary Beta Hemolytic Strep Pending Organism Pending Organism#2 Laboratory Tests 06/28/18 06/30/18 06/30/18 21:37 05:20 05:20 WBC 11.9 H 8.0 Albumin 2.6 L Constitutional: Calm, Anxious Gastrointestinal Inspection: Yes: Other (PEG site induration reduced and fluctuance is absent, had crusted blood which I cleansed away) ...Auscultate: Yes: Normoactive Bowel Sounds Labs: CBC, BMP 06/30/18 05:20 06/30/18 05:20 Assessment/Plan Impression: G tube malposition, the position of the external bumper at 7-8cm suggests a mass between the stomach and abdominal wall ? hematoma, ? 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
[2018-07-01] MEDS ORDERED: PIPERACILLIN/TAZOBACTAM 4.5 GM VIAL IVPB ONE ×2 (01:31→11:16)
[2018-07-01] MEDS ORDERED: DEXTROSE 5%-WATER 100 ML IVPB ONE ×2 (01:31→11:16)
[2018-07-01] MEDS: PIPERACILLIN/TAZOB 4.5 GM 4.5 GM in DEXTROSE 5%-WATER 100 ML IVPB SCH ×2 (01:46→11:18)
[2018-07-01 07:29] LABS: BASO % 0.8 % (0-2.0); EOS % 7.6 % (0-4.5); HEMATOCRIT 29.3 % (35.4-49); HEMOGLOBIN 9.7 GM/dL (11.7-16.9); LYMPH % 28.5 % (8-40); MCH 27.5 pg (25.7-33.7); MCHC 32.9 g/dl (32.0-35.9); MEAN CELL VOLUME 83.6 fl (80-96); MEAN PLT VOLUME 8.5 fl (7.5-11.1); MONO % 7.7 % (3.8-10.2); NEUT % 55.4 % (42.8-82.8); PLATELET COUNT 407 K/MM3 (134-434); RBC 3.51 M/mm3 (4.00-5.60); WHITE BLOOD COUNT 8.5 K/mm3 (4.0-10.0)
[2018-07-01] MEDS: ALBUTEROL SO4 0.083% IH SOL 2.5 MG/3 ML VIAL.NEB. NEB SCH ×4 (07:53→21:20)
[2018-07-01 07:55] LABS: CALCIUM 8.1 mg/dL (8.5-10.1); CREATININE 0.6 mg/dL (0.55-1.3); POTASSIUM 3.1 mmol/L (3.5-5.1)
--- NOTE | 2018-07-01 08:18 | PN ---
Progress Note (short form) - Note Progress Note: GI NOte: Discussed CT with Dr Ronquillo who informs me that the G tube is now well positioned within the body of the stomach. I will start feedings. 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
[2018-07-01] MEDS ORDERED: DEXTROSE 5%-0.45% SALINE 1,000 ML IV SCH ×2 (08:25→16:59)
[2018-07-01] MEDS: ASPIRIN 81 MG CHEWABLE TABLETS GT SCH (11:18)
[2018-07-01] MEDS: CARVEDILOL 25 MG TABLET (FP) GT SCH ×2 (11:18→21:31)
[2018-07-01] MEDS: POLYETHYLENE GLYCOL 3350 119 GM BTL GT SCH (11:19)
--- NOTE | 2018-07-01 11:57 | PN ---
Physical Exam: SUBJECTIVE: Patient seen and examined OBJECTIVE: Vital Signs Period Temp Pulse Resp BP Sys/Richards Pulse Ox Last 24 Hr 98.1 F-98.4 F 71-88 16-25 144-155/69-89 97-97 GENERAL: The patient is awake, alert, and fully oriented, in no acute distress. HEAD: Normal with no signs of trauma. EYES: PERRL, extraocular movements intact, sclera anicteric, conjunctiva clear. No ptosis. ENT: Ears normal, nares patent, oropharynx clear without exudates, moist mucous membranes. NECK: Trach noted to . Settings AC/12, TV 500, FI02 40%, neck supple. LUNGS: Breath sounds equal, clear to auscultation bilaterally, no wheezes, no crackles, no accessory muscle use. HEART: Regular rate and rhythm, S1, S2 without murmur, rub or gallop. ABDOMEN: Soft, tender to touch diffusely, nondistended, normoactive bowel sounds, no guarding, no rebound, no hepatosplenomegaly, no masses. GT noted with serous drainage around site. EXTREMITIES: 2+ pulses, warm, well-perfused, no edema. NEUROLOGICAL: Normal speech, bed bound PSYCH: Normal mood, flat affect. SKIN: Warm, dry, normal turgor, no rashes or lesions noted Laboratory Results - last 24 hr 07/01/18 07/01/18 07:00 07:00 WBC 8.5 RBC 3.51 L Hgb 9.7 L Hct 29.3 L MCV 83.6 MCH 27.5 MCHC 32.9 RDW 17.0 H Plt Count 407 MPV 8.5 Absolute Neuts (auto) 4.7 Neutrophils % 55.4 Lymphocytes % 28.5 Monocytes % 7.7 Eosinophils % 7.6 H Basophils % 0.8 Nucleated RBC % 0 Sodium 138 Potassium 3.1 L Chloride 105 Carbon Dioxide 23 Anion Gap 10 BUN 9 Creatinine 0.6 Est GFR (CKD-EPI)AfAm 121.43 Est GFR (CKD-EPI)NonAf 104.77 Random Glucose 113 H Calcium 8.1 L C-Reactive Protein 1.1 H Active Medications Generic Name Dose Route Start Last Admin Trade Name Freq PRN Reason Stop Dose Admin Acetaminophen 1,000 mg 06/29/18 21:33 06/30/18 18:09 Ofirmev Injection - IVPB 1,000 mg Q6H PRN Administration PAIN LEVEL 4 - 6 Albuterol Sulfate 1 amp 06/30/18 21:09 07/01/18 11:31 Ventolin 0.083% Nebulizer Soln - NEB 1 amp RQID TRUDY Administration Aspirin 81 mg 07/01/18 10:00 07/01/18 11:18 Asa - GT 81 mg DAILY TRUDY Administration Carvedilol 25 mg 07/01/18 10:00 07/01/18 11:18 Coreg - GT 25 mg BID TRUDY Administration Piperacillin Sod/Tazobactam 100 mls @ 200 mls/hr 06/29/18 12:45 07/01/18 11: 18 Sod 4.5 gm/ Dextrose IVPB 200 mls/hr Q8H-IV TRUDY Administration Protocol Dextrose/Sodium Chloride 1,000 mls @ 100 mls/hr 07/01/18 08:25 07/01/18 11:18 D5-1/2ns - IV 100 mls/hr ASDIR TRUDY Administration Morphine Sulfate 2 mg 06/30/18 22:41 06/30/18 23:22 Morphine Sulfate IVPUSH 2 mg Q6H PRN Administration PAIN LEVEL 4 - 6 Polyethylene Glycol 17 gm 07/01/18 10:00 07/01/18 11:19 Miralax (For Daily Use) - GT 17 gm DAILY TRUDY Administration ASSESSMENT/PLAN: Patient is a 67 year old male from the [facility] with a past medical history of: CVA with right sided weakness, s/p Trach-vent dependent, COPD, hypertension, CHF, BPH. Initially admitted for dislodged PEG tube and leukocytosis. General Functional quadriplegia. Dependent on others for ADLs. -positioning as per nursing schedule to protect bony prominences. -Maintain skin integrity. Neuro: CVA with right sided weakness. Passive ROM in bed Card: History of Htn,now with BP stable off meds. CHF history -monitor for evidence of fluid overload. Pulm: Acute on chronic respiratory failure s/p vent. -trach care as per nursing protocol -COPD stable on Albuterol nebs GI: Dislodged gastrostomy tube:replaced 06/29/18 -gastrograffin study reveled GT was in good position as per GI. TF restarted with JevityO -continue IVF D51/2 until TF rate at goal and tolerating -appreciate ID recs -continue to monitor CMP ID: Leukocytosis persists -continue to monitor CBC -continue on zosyn per ID -pending final wound cultures-->Beta hemolytic streo in 1 culture, staph coag - , entrococcus -appreciate ID recs DVT prophjanes almanzar, scds Dispo: Requires Inpatient Care Plan to return back to skilled facility SW to follow patient Visit type - Emergency Visit Emergency Visit: Yes ED Registration Date: 06/28/18 Care time: The patient presented to the Emergency Department on the above date and was hospitalized for further evaluation of their emergent condition. - New Patient This patient is new to me today: No - Critical Care Critical Care patient: No - Discharge Referral Referred to [facility] Med P.C.: No
--- NOTE | 2018-07-01 14:17 | PN ---
Progress Note (short form) - Note Progress Note: alert trach to vent GT replaced- now on tube feeds Vital Signs Period Temp Pulse Resp BP Sys/Richards Pulse Ox Last 24 Hr 98.1 F-98.4 F 71-88 16-25 144-155/69-89 97-97 cor-rrr lungs decreased bs at bases abd soft,nt minimal erythema at gtube site ext no edema CBC, BMP 07/01/18 07:00 07/01/18 07:00 Microbiology 06/28/18 21:37 Peg Site Gram Stain - Final 06/28/18 21:37 Peg Site Wound Culture - Preliminary Strep Agalactiae Group B Group D Strep Or Entero Coccus Staphylococcus Coagulase Neg a/p peg site infection -improving-antibiotic day #3 switch to unasyn with plans to switch to augmentin in am if tolerating feeds d/w GI (dr jones) s/p cva Problem List - Problems (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
[2018-07-01] MEDS ORDERED: AMPICILLIN NA/SULBACTAM NA 1.5 GM in SODIUM CHLORIDE 100 ML IVPB SCH (15:00)
[2018-07-01] MEDS ORDERED: AMPICILLIN NA/SULBACTAM NA 1.5 GM VIAL ONE ×2 (16:09→21:27)
[2018-07-01] MEDS ORDERED: SODIUM CHLORIDE 100 ML IVPB ONE ×2 (16:09→21:27)
[2018-07-01] MEDS: AMPICILLIN NA/SULBACTAM NA 1.5 GM in SODIUM CHLORIDE 100 ML IVPB SCH ×2 (16:32→21:31)
--- NOTE | 2018-07-01 16:55 | PN.GI ---
GI Progress Note Subjective: GI NOte: Feedings resumes this AM. No vomiting. Reviewed CT again, now with Dr Zimmer. The G tube balloon is in a good position. No abscess seen. The induration and erythema have resolved, Discussed the case with Dr Haynes and agree with switching to enteral antibiotics. No pain today - Objective Vital Signs: Vital Signs Temperature 98.6 F 07/01/18 14:28 Pulse Rate 70 07/01/18 14:28 Respiratory Rate 20 07/01/18 14:34 Blood Pressure 130/66 07/01/18 14:28 O2 Sat by Pulse Oximetry (%) 97 07/01/18 01:11 Constitutional: Calm ...Auscultate: Yes: Normoactive Bowel Sounds, Other (PEG site is clean, no induration) ...Palpate: Yes: Soft, Other (nontender) Assessment/Plan Impression: PEG fistula abscess resolved Plan: Will increase G tube feedings. 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
[2018-07-01] MEDS ORDERED: ACETAMINOPHEN 325 MG TABLET (FP) PO PRN (16:58)
[2018-07-01 17:01] LABS: BASO % 0.7 % (0-2.0); EOS % 6.9 % (0-4.5); HEMATOCRIT 34.6 % (35.4-49); HEMOGLOBIN 11.1 GM/dL (11.7-16.9); MCH 27.7 pg (25.7-33.7); MCHC 32.1 g/dl (32.0-35.9); MEAN CELL VOLUME 86.2 fl (80-96); MEAN PLT VOLUME 8.5 fl (7.5-11.1); NEUT % 55.4 % (42.8-82.8); PLATELET COUNT 421 K/MM3 (134-434); RBC 4.01 M/mm3 (4.00-5.60); RDW 16.8 % (11.9-15.9); WHITE BLOOD COUNT 11.4 K/mm3 (4.0-10.0)
[2018-07-01 17:36] LABS: ALBUMIN 2.9 g/dl (3.4-5.0); BILIRUBIN,TOTAL 0.7 mg/dL (0.2-1); CALCIUM 8.8 mg/dL (8.5-10.1); CREATININE 0.7 mg/dL (0.55-1.3); MAGNESIUM 2.1 mg/dL (1.8-2.4); PHOSPHOROUS 4.4 mg/dL (2.5-4.9); POTASSIUM 3.5 mmol/L (3.5-5.1); TOT PROT 7.5 g/dl (6.4-8.2)
[2018-07-01] MEDS: SELENIUM SULFIDE 2.5% LOTION 4 OZ. TP SCH (22:05)
[2018-07-02] MEDS ORDERED: AMPICILLIN NA/SULBACTAM NA 1.5 GM VIAL ONE ×3 (01:12→14:36)
[2018-07-02] MEDS ORDERED: SODIUM CHLORIDE 100 ML IVPB ONE ×3 (01:12→14:37)
[2018-07-02] MEDS: AMPICILLIN NA/SULBACTAM NA 1.5 GM in SODIUM CHLORIDE 100 ML IVPB SCH ×3 (02:08→14:48)
[2018-07-02] MEDS: ALBUTEROL SO4 0.083% IH SOL 2.5 MG/3 ML VIAL.NEB. NEB SCH ×3 (07:30→16:13)
[2018-07-02] MEDS ORDERED: FLU VACCINE QUAD 60 MCG/0.5 ML (MDV 18-19) IM ONE (07:46)
[2018-07-02] MEDS ORDERED: ACETAMINOPHEN 1000 MG/100 ML VIAL (NON FORMULARY) IVPB ONE (08:32)
[2018-07-02] MEDS ORDERED: PANTOPRAZOLE SOD 40 MG SUSPENSION PACKET NGT SCH (10:00)
[2018-07-02] MEDS: CARVEDILOL 25 MG TABLET (FP) GT SCH (10:47)
[2018-07-02] MEDS: ASPIRIN 81 MG CHEWABLE TABLETS GT SCH (10:47)
[2018-07-02] MEDS: POLYETHYLENE GLYCOL 3350 119 GM BTL GT SCH (10:48)
[2018-07-02] MEDS: SELENIUM SULFIDE 2.5% LOTION 4 OZ. TP SCH (10:50)
[2018-07-02 11:08] VITALS: TEMP 98.5
--- NOTE | 2018-07-02 13:50 | PN ---
Physical Exam: SUBJECTIVE: Patient seen and examined OBJECTIVE: Vital Signs Period Temp Pulse Resp BP Sys/Richards Pulse Ox Last 24 Hr 98.1 F-98.6 F 70-78 16-29 111-132/61-78 98-100 GENERAL: The patient is awake, alert, and fully oriented, in no acute distress. HEAD: Normal with no signs of trauma. EYES: PERRL, extraocular movements intact, sclera anicteric, conjunctiva clear. No ptosis. ENT: Ears normal, nares patent, oropharynx clear without exudates, moist mucous membranes. NECK: Trachea midline, full range of motion, supple. LUNGS: Breath sounds equal, clear to auscultation bilaterally, no wheezes, no crackles, no accessory muscle use. HEART: Regular rate and rhythm, S1, S2 without murmur, rub or gallop. ABDOMEN: Soft, nontender, nondistended, normoactive bowel sounds, no guarding, no rebound, no hepatosplenomegaly, no masses. EXTREMITIES: 2+ pulses, warm, well-perfused, no edema. NEUROLOGICAL: Cranial nerves II through XII grossly intact. Normal speech, gait not observed. PSYCH: Normal mood, normal affect. SKIN: Warm, dry, normal turgor, no rashes or lesions noted Laboratory Results - last 24 hr 07/01/18 07/01/18 16:30 16:30 WBC 11.4 H RBC 4.01 Hgb 11.1 L Hct 34.6 L D MCV 86.2 MCH 27.7 MCHC 32.1 RDW 16.8 H Plt Count 421 MPV 8.5 Absolute Neuts (auto) 6.3 Neutrophils % 55.4 Lymphocytes % 30.0 Monocytes % 7.0 Eosinophils % 6.9 H Basophils % 0.7 Nucleated RBC % 0 Sodium 136 Potassium 3.5 Chloride 105 Carbon Dioxide 20 L Anion Gap 11 BUN 7 Creatinine 0.7 Est GFR (CKD-EPI)AfAm 113.98 Est GFR (CKD-EPI)NonAf 98.34 Random Glucose 119 H Calcium 8.8 Phosphorus 4.4 Magnesium 2.1 Total Bilirubin 0.7 AST 15 ALT 21 Alkaline Phosphatase 118 H Total Protein 7.5 Albumin 2.9 L Active Medications Generic Name Dose Route Start Last Admin Trade Name Freq PRN Reason Stop Dose Admin Acetaminophen 650 mg 07/01/18 16:58 Tylenol - PO Q4H PRN FEVER Albuterol Sulfate 1 amp 06/30/18 21:09 07/02/18 11:49 Ventolin 0.083% Nebulizer Soln - NEB 1 amp RQID TRUDY Administration Aspirin 81 mg 07/01/18 10:00 07/02/18 10:47 Asa - GT 81 mg DAILY TRUDY Administration Carvedilol 25 mg 07/01/18 10:00 07/02/18 10:47 Coreg - GT 25 mg BID TRUDY Administration Ampicillin Sodium/Sulbactam 100 mls @ 200 mls/hr 07/01/18 15:00 07/02/18 10: 46 Sodium 1.5 gm/ Sodium Chloride IVPB 200 mls/hr Q6H-IV TRUDY Administration Dextrose/Sodium Chloride 1,000 mls @ 50 mls/hr 07/01/18 16:59 07/01/18 18:00 D5-1/2ns - IV 50 mls/hr ASDIR TRUDY Administration Pantoprazole Sodium 40 mg 07/02/18 10:00 07/02/18 10:47 Protonix Packets For Oral Suspension - NGT 40 mg DAILY TRUDY Administration Polyethylene Glycol 17 gm 07/01/18 10:00 07/02/18 10:48 Miralax (For Daily Use) - GT 17 gm DAILY TRUDY Administration Selenium Sulfide 1 applic 07/01/18 20:45 07/02/18 10:50 Selsun 2.5% Lotion - TP 07/08/18 20:31 1 applic DAILY TRUDY Administration ASSESSMENT/PLAN:
[2018-07-02 14:58] VITALS: BP 112/65; PULSE 70
--- NOTE | 2018-07-02 15:11 | DS ---
Physical Exam: SUBJECTIVE: Patient seen and examined at the bedside. feels well, appears comfortable laying in bed. OBJECTIVE: tube site clean dry and intact. tolerating feeds. Vital Signs Period Temp Pulse Resp BP Sys/Richards Pulse Ox Last 24 Hr 98.1 F-98.5 F 70-78 16-29 111-132/61-78 98-100 PHYSICAL EXAM GENERAL: The patient is awake, in no acute distress. HEAD: Normal with no signs of trauma. EYES: PERRL, extraocular movements intact, sclera anicteric, conjunctiva clear. No ptosis. ENT: Ears normal, nares patent, oropharynx clear without exudates, moist mucous membranes. NECK: Trach noted to . Settings AC/12, TV 500, FI02 40%, neck supple. LUNGS: Breath sounds equal, clear to auscultation bilaterally HEART: Regular rate and rhythm, ABDOMEN: Soft, tender to touch diffusely, nondistended, normoactive bowel sounds, no guarding, no rebound, no hepatosplenomegaly, no masses. GT noted, clean,dry,intact. EXTREMITIES: 2+ pulses, warm, well-perfused, no edema. NEUROLOGICAL: Normal speech, bed bound PSYCH: Normal mood, flat affect. SKIN: Warm, dry, normal turgor, no rashes or lesions noted LABS Laboratory Results - last 24 hr 07/01/18 07/01/18 16:30 16:30 WBC 11.4 H RBC 4.01 Hgb 11.1 L Hct 34.6 L D MCV 86.2 MCH 27.7 MCHC 32.1 RDW 16.8 H Plt Count 421 MPV 8.5 Absolute Neuts (auto) 6.3 Neutrophils % 55.4 Lymphocytes % 30.0 Monocytes % 7.0 Eosinophils % 6.9 H Basophils % 0.7 Nucleated RBC % 0 Sodium 136 Potassium 3.5 Chloride 105 Carbon Dioxide 20 L Anion Gap 11 BUN 7 Creatinine 0.7 Est GFR (CKD-EPI)AfAm 113.98 Est GFR (CKD-EPI)NonAf 98.34 Random Glucose 119 H Calcium 8.8 Phosphorus 4.4 Magnesium 2.1 Total Bilirubin 0.7 AST 15 ALT 21 Alkaline Phosphatase 118 H Total Protein 7.5 Albumin 2.9 L HOSPITAL COURSE: Date of Admission:06/28/18 Date of Discharge: 07/02/18 Patient is a 67 year old male from the [facility] with a past medical history of: CVA with right sided weakness, s/p Trach-vent dependent, COPD, hypertension, CHF, BPH. Initially admitted for dislodged PEG tube and leukocytosis. Hospital course by problem list: General Functional quadriplegia. Dependent on others for ADLs. Continue to position q 2 hours to protect bony prominences and maintain skin integrity. Neuro: CVA with right sided weakness. chronic. Card: History of HTN. continue home medications. BP stable. Pulm: Acute on chronic respiratory failure. on vent. continue vent care. COPD. not in exacerbation. GI: Dislodged gastrostomy tube: replaced 06/29/18. gastrograffin study reveled GT was in good position as per GI. TF restarted with Jevity and he is tolerating feeds. Feeds at goal rate. ID: Leukocytosis. Initially on Zosyn and transitioned to Unasyn. Patient to be discharged on Augmentin 500mg x 7 days to complete course. final wound cultures-->Beta hemolytic streo in 1 culture, staph coag -, entrococcus DISCHARGE PLAN: Discharge back to [facility] today. Follow up with GI as an outpatient as needed. Minutes to complete discharge: 60 Discharge Summary Reason For Visit: IRRITATION AROUND PERCUTANEOUS ENDOSCOPIC Current Active Problems BPH (benign prostatic hyperplasia) (Acute) CHF (congestive heart failure) (Acute) COPD (chronic obstructive pulmonary disease) (Acute) Dislodged gastrostomy tube (Acute) Gastrostomy infection (Acute) HTN (hypertension) (Acute) Condition: Good - Instructions Diet, Activity, Other Instructions: Mr. Rojas/Facility staff: Mr. Rojas was admitted to [facility] on 06/28/2018 for a dislodged PEG tube and leukocytosis (elevated WBC). Here are our discharge recommendations: Dislodged gastrostomy tube: Gastrostomy tube replaced on 06/29/[address] Rosales. Patient was started back on his Jevity feeds and he is at his goal rate and tolerating feeds. On admission, we cultured drainage from his tube site and was started on IV Antibiotics (Unasyn). A wound culture done around the tube site shows multiple bacteria growth and He will be sent home with Augmentin 500mg TWICE per day for seven (7) more days. Start Augmentin 500mg tonight 07/02/2018 and complete on 07/08/2018. Thank you for allowing us to care for you. Referrals: Devin Hernandez MD [Staff Physician] - (GI specialist) Disposition: RESIDENTIAL FACILITY - Home Medications Comprehensive Discharge Medication List: Ambulatory Orders Albuterol 0.083% Nebulizer Asmita [Ventolin 0.083% Nebulizer Soln -] 1 neb NEB QID 04/24/18 Aspirin 81 mg GT DAILY 04/24/18 Atorvastatin Ca [Lipitor] 40 mg GT HS 04/24/18 Carvedilol 25 mg GT BID 04/24/18 Doxazosin Mesylate [Cardura -] 2 mg GT HS 04/24/18 Simethicone 40 mg GT TID 04/24/18 Polyethylene Glycol 3350 [Miralax 119 gm Btl -] 17 gm PEG DAILY bottle Acetaminophen [Acetaminophen ER] 650 mg GT Q6H PRN 06/28/18 Duloxetine HCl [Cymbalta] 20 mg GT DAILY 06/28/18 Ramipril [Altace] 1.25 mg GT DAILY 06/28/18 Ranitidine Oral Solution [Zantac Oral Solution -] 150 mg GT BID 06/28/18 Sennosides [Senna] 8.6 mg PO HS 06/28/18 Amox-Tr/K Cl [Augmentin 500-125mg Tablet -] 1 tab PO BID@0800,1730 tablet 07/02 This patient is new to me today: No Emergency Visit: Yes ED Registration Date: 06/28/18 Care time: The patient presented to the Emergency Department on the above date and was hospitalized for further evaluation of their emergent condition. Critical Care patient: No - Discharge Referral Referred to [facility] Med P.C.: No
[2018-07-02 15:46] LABS: BASO % 0.5 % (0-2.0); EOS % 6.3 % (0-4.5); HEMATOCRIT 32.5 % (35.4-49); HEMOGLOBIN 10.5 GM/dL (11.7-16.9); LYMPH % 26.4 % (8-40); MCH 27.9 pg (25.7-33.7); MCHC 32.3 g/dl (32.0-35.9); MEAN CELL VOLUME 86.2 fl (80-96); MEAN PLT VOLUME 8.8 fl (7.5-11.1); MONO % 6.5 % (3.8-10.2); NEUT % 60.3 % (42.8-82.8); PLATELET COUNT 381 K/MM3 (134-434); RBC 3.77 M/mm3 (4.00-5.60); RDW 17.3 % (11.9-15.9); WHITE BLOOD COUNT 9.1 K/mm3 (4.0-10.0)
[2018-07-02 16:00] LABS: ALBUMIN 2.6 g/dl (3.4-5.0); BILIRUBIN,TOTAL 0.4 mg/dL (0.2-1); CALCIUM 8.3 mg/dL (8.5-10.1); CREATININE 0.5 mg/dL (0.55-1.3); MAGNESIUM 1.9 mg/dL (1.8-2.4); PHOSPHOROUS 3.5 mg/dL (2.5-4.9); POTASSIUM 3.5 mmol/L (3.5-5.1); TOT PROT 6.8 g/dl (6.4-8.2)
[2018-07-02] MEDS ORDERED: AMOX TR/POT CLAV 500MG/125MG TABLETS (FP) PO SCH (17:30)
== END 2018-07-02 16:45 | DRG 919 ==
LOC: JER 18:29 → JERBED 21:20 → J5S 06-29 18:33
PROVIDERS: ADMIT Internal Medicine; ATTEND Nurse Practitioner Family
PROC: 5A1945Z Respiratory Ventilation, 24-96 Consecutive Hours (ICD-10-PCS; principal; 2018-06-28)
PROC: 0D20XUZ Change Feeding Device in Upper Intestinal Tract, External Approach (ICD-10-PCS; 2018-06-29)
DX: T85.598A Other mechanical complication of other gastrointestinal prosthetic devices, implants and grafts, initial encounter (principal); R53.2 Functional quadriplegia; J96.20 Acute and chronic respiratory failure, unspecified whether with hypoxia or hypercapnia; K94.22 Gastrostomy infection; I69.351 Hemiplegia and hemiparesis following cerebral infarction affecting right dominant side; Z93.0 Tracheostomy status; N40.0 Benign prostatic hyperplasia without lower urinary tract symptoms; J44.9 Chronic obstructive pulmonary disease, unspecified; D72.829 Elevated white blood cell count, unspecified; I11.0 Hypertensive heart disease with heart failure; I50.9 Heart failure, unspecified; Y83.9 Surgical procedure, unspecified as the cause of abnormal reaction of the patient, or of later complication, without mention of misadventure at the time of the procedure
CPT/HCPCS: 36415; 74018-TC-FY; 74150-TC; 80048; 80053; 83735; 84100; 85025; 86140; 87070; 87186; 87205; 93005; 93010; 94002; 94640; 99284-25; J0131; J7030

== ENCOUNTER 2018-07-23 22:11 | Inpatient (IN) | payer OTHER ==
[2018-07-23] MEDS ORDERED: SODIUM CHLORIDE 0.9% 500 ML INFUS.BAG IV ONE (22:31)
[2018-07-23] MEDS ORDERED: ACETAMINOPHEN 1000 MG/100 ML VIAL (NON FORMULARY) IVPB ONE (22:32)
[2018-07-23] MEDS ORDERED: ACETAMINOPHEN INJECTION 100 ML IVPB ONE (22:36)
--- NOTE | 2018-07-23 23:15 | PDOC ---
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 Family reports that he has been working on weaning off the vent recently, and he is usually able to communicate verbally with normal speech. On arrival to the ED, he was noted to have a temperature of 104F, had gurgling respiratory sounds, and was overbreathing the vent with RR in the 30's. Past History - Past Medical History Allergies/Adverse Reactions: Allergies Allergy/AdvReac Type Severity Reaction Status Date / Time No Known Allergies Allergy Verified 07/23/18 22:23 Home Medications: Ambulatory Orders Aspirin 81 mg GT DAILY 04/24/18 Atorvastatin Ca [Lipitor] 40 mg GT HS 04/24/18 Carvedilol 25 mg GT BID 04/24/18 Doxazosin Mesylate [Cardura -] 2 mg GT HS 04/24/18 Simethicone 40 mg GT TID 04/24/18 Polyethylene Glycol 3350 [Miralax 119 gm Btl -] 17 gm PEG DAILY bottle Acetaminophen [Acetaminophen ER] 650 mg GT Q6H PRN 06/28/18 Duloxetine HCl [Cymbalta] 20 mg GT DAILY 06/28/18 Ramipril [Altace] 1.25 mg GT DAILY 06/28/18 Ranitidine Oral Solution [Zantac Oral Solution -] 150 mg GT BID 06/28/18 Sennosides [Senna] 8.6 mg PO HS 06/28/18 Cardiac Disorders: Yes CVA: Yes COPD: Yes CHF: Yes Disorders: Yes (bph) HTN: Yes Other medical history: acute respiratory failure - Surgical History Cardiac Surgery: Yes (AICD) - Immunization History Immunization Up to Date: (Unknown) - Suicide/Smoking/Psychosocial Hx Smoking History: Unknown if ever smoked Have you smoked in the past 12 months: No Hx Alcohol Use: No Drug/Substance Use Hx: No Substance Use Type: None Review of Systems - Review of Systems Comments:: Pt currently unable to communicate due to trach and respiratory distress *Physical Exam - Vital Signs Last Vital Signs Temp Pulse Resp BP Pulse Ox 104.1 F H 70 38 H 181/88 H 96 07/23/18 22:23 07/23/18 22:23 07/23/18 22:23 07/23/18 22:23 07/23/18 22:23 - Physical Exam Comments: General: Uncomfortably, grossly diaphoretic, moderate distress HEENT: PERRL, EOMI, dry mouth, trach in place, yellow secretions in vent tubing. Cards: RRR Pulm: Tachypnic in 30's, loud gurgling respiratory sounds and copious secretions , no wheezing/crackles appreciated secondary to vent Abd: Soft, nontender, nondistended. PEG in place, no surrounding erythema, edema , or drainage Ext: Atraumatic. No LE edema. Vasc: Extremities WWP. Skin: Pale, grossly diaphoretic. Erythematous patchy rash over face Neuro: Awake, CN grossly intact, Rt sided weakness ED Treatment Course - LABORATORY CBC & Chemistry Diagram: 07/23/18 23:00 07/23/18 23:00 Medical Decision Making - Medical Decision Making 07/23/18 23:08 Esteban Rojas is a 67yo man with a PMH of HTN, COPD, CAD, CVA (02/2017 with right sided residual deficits), trach (03/2018) and PEG who presents from [facility] with fever to 104, copious respiratory secretions, tachypnea, and respiratory distress. - Sepsis, most likely due to respiratory source - CBC, CMP, trop, EKG, CXR, cultures, UA, lactate ordered - IV acetaminophen for fever - Vanc/zosyn - IVF - IV's placed in BUE by Anthony Be and Sudha, Nurse July. Now w/ 24g in L hand, 18g in b/l AC 07/23/18 23:53 - Leukocytosis to 14 - EKG unchanged from previous 07/24/18 00:41 - Lactate 1.8, labs otherwise without concerning abnormalities. BNP 4500, was 4000 in April - UA sent, pending - Spoke to JOSÉ MIGUEL Juarez regarding admission; Will be admitted to Dr Mcknight's service. OK to go to vent floor if vitals are stable. - Will recheck temp, BP. 07/24/18 01:08 - Repeat temp 100.7 rectally - No longer overbreathing vent - BP 100/60. Was around 115/65 during last admission; no significant hypotension compared to baseline. - Should be stable for floor Seen with Dr Fidel Ozuna PGY1 *DC/Admit/Observation/Transfer Diagnosis at time of Disposition: Leukocytosis Qualifiers: Leukocytosis type: unspecified Qualified Code(s): D72.829 - Elevated white blood cell count, unspecified Pneumonia Qualifiers: Pneumonia type: due to unspecified organism Laterality: right Lung location: unspecified part of lung Qualified Code(s): J18.9 - Pneumonia, unspecified organism Acute and chronic respiratory failure ([id number]) Qualifiers: Respiratory failure complication: unspecified whether with hypoxia or hypercapnia Qualified Code(s): J96.20 - Acute and chronic respiratory failure, unspecified whether with hypoxia or hypercapnia - Discharge Dispostion Decision to Admit order: Yes - Referrals - Patient Instructions - Post Discharge Activity
[2018-07-23 23:34] LABS: BASO % 0.2 % (0-2.0); EOS % 0.5 % (0-4.5); HEMATOCRIT 35.2 % (35.4-49); HEMOGLOBIN 11.6 GM/dL (11.7-16.9); LYMPH % 16.5 % (8-40); MCH 28.1 pg (25.7-33.7); MEAN CELL VOLUME 85.3 fl (80-96); MEAN PLT VOLUME 9.4 fl (7.5-11.1); MONO % 4.6 % (3.8-10.2); NEUT % 78.2 % (42.8-82.8); RBC 4.13 M/mm3 (4.00-5.60); RDW 17.4 % (11.9-15.9)
[2018-07-23 23:43] LABS: INR 1.41 (0.83-1.09); PROTHROMBIN TIME (PATIENT) 16.7 SEC (9.7-13.0)
[2018-07-23 23:46] LABS: ACTIVATED PTT 30.6 SECONDS (25.2-36.5)
[2018-07-23 23:56] LABS: MAGNESIUM 1.8 mg/dL (1.8-2.4); N-TERMINAL BNP 4539.8 pg/ml (5-125); PHOSPHOROUS 3.9 mg/dL (2.5-4.9)
--- NOTE | 2018-07-24 00:09 | PDOC ---
Documentation entered by Mayelin Dior SCRIBE, acting as scribe for Chela Parra MD. Chela Parra MD: This documentation has been prepared by the Barby lopez Xhesika, SCRIBE, under my direction and personally reviewed by me in its entirety. I confirm that the documentation accurately reflects all work, treatment, procedures, and medical decision making performed by me. Attending Attestation - Resident Resident Name: SulmaBrigette - ED Attending Attestation I have performed the following: I have examined & evaluated the patient, The case was reviewed & discussed with the resident, I agree w/resident's findings & plan - HPI HPI: 07/24/18 00:00 The patient is a 67 year old male, with a significant PMH of HTN, COPD, CAD, CVA (02/2017 with right sided residual deficits), trach placed 03/2018 who presents to the emergency department from [facility] via EMS with respiratory distress, hypoxia, and fever. The patient is a poor historian due to his medical conditions, however, the family at bedside report that the patient has been having trouble breathing the last 2 days. The family states, the patient has been working on taking off his vent and at his baseline he is normally commutative and verbal. Allergies: NKDA Past surgical history: AICD - Physicial Exam PE: 07/24/18 00:00 GENERAL: Awake. Afebrile. HEAD: No signs of trauma. (+) fungal rash on face and forehead. ENT: (+) trach collar in throat. NECK: Normal ROM, supple, no lymphadenopathy, JVD, or masses LUNGS:(+) coarse breath sounds. Breath sounds equal, clear to auscultation bilaterally. No wheezes, and no crackles HEART: Regular rate and rhythm, normal S1 and S2, no murmurs, rubs or gallops ABDOMEN: (+) PEG tube. Soft, nontender, normoactive bowel sounds. No guarding , no rebound. No masses EXTREMITIES: Normal range of motion, no edema. No clubbing or cyanosis. No cords, erythema, or tenderness NEUROLOGICAL: Cranial nerves II through XII grossly intact. SKIN: Warm, Dry, normal turgor, no rashes or lesions noted. - Medical Decision Making 07/23/18 23:58 lactic acid is normal. 07/24/18 04:38 Pt was admitted to med surg; 2nd lactic acid is elevated; pt will be upgraded to the ICU, as he is on a vent, and ventilators cannot go to tele.
[2018-07-24 00:19] LABS: ALBUMIN 3.2 g/dl (3.4-5.0); ALK PHOS 151 U/L (45-117); ANION GAP 9 MMOL/L (8-16); BILIRUBIN,TOTAL 0.8 mg/dL (0.2-1); BLOOD UREA NITROGEN 18.8 mg/dL (7-18); CALCIUM 8.9 mg/dL (8.5-10.1); CHLORIDE 97 mmol/L (98-107); CO2 27 mmol/L (21-32); CREATININE 0.7 mg/dL (0.55-1.3); GLUCOSE,RANDOM 128 mg/dL (74-106); POTASSIUM 5.3 mmol/L (3.5-5.1); SGOT/AST 33 U/L (15-37); SGPT/ALT 27 U/L (13-61); SODIUM 133 mmol/L (136-145); TOT PROT 8.5 g/dl (6.4-8.2)
[2018-07-24] MEDS ORDERED: PIPERACILLIN/TAZOB 4.5 GM 4.5 GM in DEXTROSE 5%-WATER 100 ML IVPB ONE (00:26)
[2018-07-24] MEDS ORDERED: VANCOMYCIN 1 GM in D5W (PRE-DOCKED) 1,000 MG/250 ML IVPB ONE (00:26)
[2018-07-24 00:39] LABS: URINE APPEARANCE TURBID; URINE BILIRUBIN 1+ (NEGATIVE); URINE COLOR DK YELLOW; URINE GLUCOSE (UA) NEGATIVE (NEGATIVE); URINE KETONE TRACE (NEGATIVE); URINE LEUK ESTERASE TRACE (NEGATIVE); URINE NITRITE NEGATIVE (NEGATIVE); URINE PROTEIN 2+ (NEGATIVE)
[2018-07-24] MEDS ORDERED: FUROSEMIDE 40 MG/4 ML INJECTABLE VIAL IVPUSH ONE (00:43)
[2018-07-24] MEDS ORDERED: VANCOMYCIN 1 GRAM (PRE-DOCKED) 1,000 MG/250 ML BAG IVPB ONE (00:58)
[2018-07-24] MEDS ORDERED: FUROSEMIDE 40 MG/4 ML INJECTABLE VIAL ONE (00:58)
[2018-07-24] MEDS ORDERED: PIPERACILLIN/TAZOB 4.5 GM 4.5 GM/100 ML BAG IVPB ONE ×2 (00:58→07:54)
[2018-07-24 01:00] LABS: HYALINE CASTS 2 /lpf (0-8); URINE BACTERIA 85 /hpf (NEGATIVE); URINE RBC 10 /hpf (0-4); URINE WBC 85 /hpf (0-5)
[2018-07-24 01:01] LABS: YEAST 0 (NEGATIVE)
--- NOTE | 2018-07-24 01:08 | HP ---
Admitting History and Physical - Primary Care Physician PCP: Reece Mac (from [facility]) - Admission Chief Complaint: Respiratory Distress History of Present Illness: This is a 67 y/o man from [facility] with a past medical history of CVA (R - residual deficits), Respiratory Failure with Hypoxia, s/p Trach, Pneumonia, HTN, CAD s/p PPM, COPD, MDD, TEX, s/p PEG, Constipation. Who was sent in for worsening respiratory distress. On arrival to the ED, patient was tachypneic, diaphoretic. Septic workup initiated. ED course was noted for: (1) Sepsis- T Max 104, R 40, WBC 14 (2) K 5.3 (3) BNP 4500 (4) UA +2 Protein, +Trace leukocytes, +Trace ketones, +Trace blood, 85 WBC History Source: Family Member, Transfer Record Limitations to Obtaining History: Clinical Condition, Physical Impairment - Past Medical History BPM ANALYST: Yes: CVA (Left CVA with ruigh hemiparesis and oropharyngeal dysphagia) Cardiovascular: Yes: CAD, CHF, HTN, Hyperlipdemia, Other (Pacemaker) Pulmonary: Yes: COPD Hepatobiliary: Yes: Cholelithiasis, Hepatitis A (as a child) Renal/: Yes: BPH - Past Surgical History Past Surgical History: Yes: Colonoscopy Additional Past Surgical History: Tracheotomy PEG - Advance Directives Advance Directives: Yes: MOLST - Smoking History Smoking history: Unknown if ever smoked Have you smoked in the past 12 months: No - Alcohol/Substance Use Hx Alcohol Use: No - Social History Usual Living Arrangement: Yes: [facility] ADL: Support Services 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 History of Recent Travel: No Home Medications - Allergies Allergies/Adverse Reactions: Allergies Allergy/AdvReac Type Severity Reaction Status Date / Time No Known Allergies Allergy Verified 07/23/18 22:23 - Home Medications Home Medications: Ambulatory Orders Aspirin 81 mg GT DAILY 04/24/18 Atorvastatin Ca [Lipitor] 40 mg GT HS 04/24/18 Carvedilol 25 mg GT BID 04/24/18 Doxazosin Mesylate [Cardura -] 2 mg GT HS 04/24/18 Simethicone 40 mg GT TID 04/24/18 Polyethylene Glycol 3350 [Miralax 119 gm Btl -] 17 gm PEG DAILY bottle Acetaminophen [Acetaminophen ER] 650 mg GT Q6H PRN 06/28/18 Duloxetine HCl [Cymbalta] 20 mg GT DAILY 06/28/18 Ramipril [Altace] 1.25 mg GT DAILY 06/28/18 Ranitidine Oral Solution [Zantac Oral Solution -] 150 mg GT BID 06/28/18 Sennosides [Senna] 8.6 mg PO HS 06/28/18 Family Disease History - Family Disease History Family History: Unable to Obtain Review of Systems Unable to obtain ROS, reason: Clinical Condition Physical Examination Vital Signs: Vital Signs Temperature 100.7 F H 07/24/18 00:55 Pulse Rate 70 07/24/18 00:55 Respiratory Rate 17 07/24/18 00:55 Blood Pressure 100/60 07/24/18 00:55 O2 Sat by Pulse Oximetry (%) 100 07/24/18 00:55 Constitutional: Yes: Other (trach on ventilator) Eyes: Yes: Conjunctiva Clear HENT: Yes: Atraumatic, Normocephalic Neck: Yes: Other (trach- ventilator) Cardiovascular: Yes: Regular Rate and Rhythm, S1, S2 Respiratory: Yes: Diminished (RUL, RLL), Rhonchi (trach- vent), Other Gastrointestinal: Yes: Normal Bowel Sounds, Soft, Other (peg- mid abdomen intact ) Renal/: Yes: [place] Present (yellow urine draining in tubing/collecton bag) Breast(s): Yes: WNL Edema: No Peripheral Pulses WNL: Yes Neurological: Yes: Lethargy Labs: CBC, BMP 07/23/18 23:00 07/23/18 23:00 Laboratory Results - last 24 hr 07/23/18 07/23/18 07/23/18 23:00 23:00 23:00 WBC 14.0 H RBC 4.13 Hgb 11.6 L Hct 35.2 L MCV 85.3 MCH 28.1 MCHC 33.0 RDW 17.4 H Plt Count 415 MPV 9.4 Absolute Neuts (auto) 10.9 H Neutrophils % 78.2 D Neutrophils % (Manual) 63.0 Band Neutrophils % 11.0 Lymphocytes % 16.5 D Lymphocytes % (Manual) 17.0 Monocytes % 4.6 Monocytes % (Manual) 8 D Eosinophils % 0.5 D Eosinophils % (Manual) 0.0 D Basophils % 0.2 Basophils % (Manual) 0.0 Myelocytes % (Man) 0 Promyelocytes % (Man) 0 Blast Cells % (Manual) 0 Nucleated RBC % 0 Metamyelocytes 0 Hypochromia 0 Toxic Granulation 0 Dohle Bodies 0 Platelet Estimate Normal Polychromasia 0 Poikilocytosis 0 Basophilic Stippling 0 Anisocytosis 0 Microcytosis 0 Macrocytosis 0 Spherocytes 0 Sickle Cells 0 Target Cells 0 Tear Drop Cells 0 Ovalocytes 0 Stomatocytes 0 Helmet Cells 0 [place] Bodies 0 [place] Rings 0 Myton Cells 0 Acanthocytes (Spur) 0 Rouleaux 0 Fragmented RBCs 0 Schistocytes 0 PT with INR 16.70 H INR 1.41 H PTT (Actin FS) 30.6 Sodium 133 L Potassium 5.3 H Chloride 97 L Carbon Dioxide 27 Anion Gap 9 BUN 18.8 H Creatinine 0.7 Est GFR (CKD-EPI)AfAm 113.98 Est GFR (CKD-EPI)NonAf 98.34 Random Glucose 128 H Lactic Acid Calcium 8.9 Phosphorus Magnesium Total Bilirubin 0.8 AST 33 ALT 27 Alkaline Phosphatase 151 H Creatine Kinase 79 CK-MB (CK-2) < 1.0 Troponin I B-Natriuretic Peptide Total Protein 8.5 H Albumin 3.2 L Urine Color Urine Appearance Urine pH Ur Specific [place] Urine Protein Urine Glucose (UA) Urine Ketones Urine Blood Urine Nitrite Urine Bilirubin Urine Urobilinogen Ur Leukocyte Esterase Urine WBC (Auto) Urine RBC (Auto) Urine Casts (Auto) U Pathogenic Cast Auto U Sm Round Cell (Auto) Urine Bacteria (Auto) Urine Yeast (Auto) 07/23/18 07/23/18 07/24/18 23:00 23:00 00:03 WBC RBC Hgb Hct MCV MCH MCHC RDW Plt Count MPV Absolute Neuts (auto) Neutrophils % Neutrophils % (Manual) Band Neutrophils % Lymphocytes % Lymphocytes % (Manual) Monocytes % Monocytes % (Manual) Eosinophils % Eosinophils % (Manual) Basophils % Basophils % (Manual) Myelocytes % (Man) Promyelocytes % (Man) Blast Cells % (Manual) Nucleated RBC % Metamyelocytes Hypochromia Toxic Granulation Dohle Bodies Platelet Estimate Polychromasia Poikilocytosis Basophilic Stippling Anisocytosis Microcytosis Macrocytosis Spherocytes Sickle Cells Target Cells Tear Drop Cells Ovalocytes Stomatocytes Helmet Cells [place] Bodies [place] Rings Myton Cells Acanthocytes (Spur) Rouleaux Fragmented RBCs Schistocytes PT with INR INR PTT (Actin FS) Sodium Potassium Chloride Carbon Dioxide Anion Gap BUN Creatinine Est GFR (CKD-EPI)AfAm Est GFR (CKD-EPI)NonAf Random Glucose Lactic Acid 1.8 Calcium Phosphorus 3.9 Magnesium 1.8 Total Bilirubin AST ALT Alkaline Phosphatase Creatine Kinase CK-MB (CK-2) Troponin I 0.02 B-Natriuretic Peptide 4539.8 H Total Protein Albumin Urine Color Dk yellow Urine Appearance Turbid Urine pH 5.0 D Ur Specific [place] 1.032 Urine Protein 2+ H Urine Glucose (UA) Negative Urine Ketones Trace H Urine Blood Trace Urine Nitrite Negative Urine Bilirubin 1+ H Urine Urobilinogen 1.0 Ur Leukocyte Esterase Trace Urine WBC (Auto) 85 Urine RBC (Auto) 10 Urine Casts (Auto) 2 U Pathogenic Cast Auto 0 U Sm Round Cell (Auto) Urine Bacteria (Auto) 85 Urine Yeast (Auto) 0 Intake & Output 07/21/18 07/22/18 07/23/18 07/24/18 23:59 23:59 23:59 23:59 Weight 77.111 kg Problem List - Problems (1) Sepsis Assessment/Plan: Likely secondary to Pneumonia qSOFA 2 Sepsis Criteria Met: T 104, R 40, WBC 14 LA 1.8~0.9~2.7 Trend Lactate Chest Xray image- ? patchy infiltrates RLL Blood Cultures-pending Urine Culture- pending Sputum Culture Urine Legionella Vancomycin, Zosyn given in ED, will continue Appreciate ID consult Appreciate Pulm consult Monitor CBC, BMP Monitor vitals Code(s): A41.9 - SEPSIS, UNSPECIFIED ORGANISM (2) Pneumonia Assessment/Plan: Likely secondary to Healthcare Associated vs Aspirate CURB65 2 Chest Xray image-reviewed Continue Vancomcyin, Zosyn Appreciate ID consult Monitor CBC, BMP Urine Legionella Sputum culture Tylenol prn Aspiration precautions Code(s): J18.9 - PNEUMONIA, UNSPECIFIED ORGANISM Qualifiers: Pneumonia type: due to unspecified organism Laterality: right Lung location: unspecified part of lung Qualified Code(s): J18.9 - Pneumonia, unspecified organism (3) Leukocytosis Assessment/Plan: See above Code(s): D72.829 - ELEVATED WHITE BLOOD CELL COUNT, UNSPECIFIED Qualifiers: Leukocytosis type: unspecified Qualified Code(s): D72.829 - Elevated white blood cell count, unspecified (4) Acute respiratory failure with hypoxia Assessment/Plan: Vent- Trach dependent Continue Vent Settings per [place] records ABG-pending Appreciate Pulm consult Code(s): J96.01 - ACUTE RESPIRATORY FAILURE WITH HYPOXIA (5) COPD (chronic obstructive pulmonary disease) Assessment/Plan: Continue home meds Appreciate Pulm consult Duonebs Monitor vitals Code(s): J44.9 - CHRONIC OBSTRUCTIVE PULMONARY DISEASE, UNSPECIFIED (6) CVA, old, hemiparesis Assessment/Plan: Will continue to monitor and treat with interventions accordingly Code(s): I69.359 - HEMIPLGA FOLLOWING CEREBRAL INFARCTION AFFECTING UNSP SIDE (7) HTN (hypertension) Assessment/Plan: Stable Hold home meds secondary to Sepsis Monitor BP Code(s): I10 - ESSENTIAL (PRIMARY) HYPERTENSION (8) Depression Assessment/Plan: Continue home med Code(s): F32.9 - MAJOR DEPRESSIVE DISORDER, SINGLE EPISODE, UNSPECIFIED (9) Functional quadriplegia Assessment/Plan: Complete immobility due to fraility, CVA Requires total care Turn Q2h [place] Lift as needed Heel Protectors Fall Precautions Code(s): R53.2 - FUNCTIONAL QUADRIPLEGIA Assessment/Plan This is a 67 y/o man with a PMHx of CVA (R0 residual deficits), Resp Failure with Hypoxia s/p Trach/PEG, COPD, Pneumonia, HTN, CAD, s/p PPM, TEX, MDD. Admitted to ICU for Sepsis, Pneumonia, Acute Respiratory Failure with Hypoxia for further evaluation of their emergent condition. Plan: See Problem List FEN NS@42ml/hr Replete lytes prn NPO DVT ppx SCDs Heparin SQ Code Status: MOLST, Full Code Dispo: Requires Inpatient Care Visit type - Emergency Visit Emergency Visit: Yes ED Registration Date: 07/23/18 Care time: The patient presented to the Emergency Department on the above date and was hospitalized for further evaluation of their emergent condition. - New Patient This patient is new to me today: Yes Date on this admission: 07/24/18 - Critical Care Critical Care patient: Yes Total Critical Care Time (in minutes): 45 Critical Care Statement: The care of this patient involved high complexity decision making to prevent further life threatening deterioration of the patient 's condition and/or to evaluate & treat vital organ system(s) failure or risk of failure.
[2018-07-24 01:33] LABS: ANISOCYTOSIS 0; HELMET CELLS 0; HOWELL-JOLLY BODIES 0; MACROCYTOSIS 0; OVALOCYTE 0; PLATELET ESTIMATE NORMAL; ROULEAU 0; SICKELED CELLS 0; TARGET CELLS 0; TEAR DROP CELLS 0; TOXIC GRANULATION 0
[2018-07-24 01:35] LABS: PLATELET COUNT 415 K/MM3 (134-434)
[2018-07-24 03:46] LABS: ARTERIAL BLD GAS O2 SATURATION 99.8 % (95-98); ARTERIAL BLOOD GAS BASE EXCESS 0.4 meq/l (-2-2); ARTERIAL BLOOD GAS PCO2 37.8 mmHg (35-45); ARTERIAL BLOOD GAS PO2 191 mmHg (80-105); ARTERIAL BLOOD GAS pH 7.42 (7.35-7.45)
[2018-07-24 03:47] LABS: ALLENS TEST POSITIVE
[2018-07-24] MEDS ORDERED: SODIUM CHLORIDE 500 ML IV STA ×2 (04:09→09:11)
[2018-07-24] MEDS ORDERED: ALBUTEROL SO4 2.5/IPRATROPIUM 0.5 INH SOL 3 ML VIAL.NEB. NEB ONE ×2 (05:30→05:39)
[2018-07-24] MEDS: ALBUTEROL SO4 2.5/IPRATROPIUM 0.5 INH SOL 3 ML VIAL.NEB. NEB PRN ×2 (05:39→17:48)
[2018-07-24 05:41] LABS: BASO % 0.2 % (0-2.0); EOS % 0.1 % (0-4.5); HEMATOCRIT 32.7 % (35.4-49); LYMPH % 9.9 % (8-40); MCH 28.5 pg (25.7-33.7); MCHC 33.6 g/dl (32.0-35.9); MEAN PLT VOLUME 8.9 fl (7.5-11.1); MONO % 3.2 % (3.8-10.2); NEUT % 86.6 % (42.8-82.8); RBC 3.85 M/mm3 (4.00-5.60); RDW 17.1 % (11.9-15.9); WHITE BLOOD COUNT 13.4 K/mm3 (4.0-10.0)
[2018-07-24 06:01] LABS: BLOOD UREA NITROGEN 17.4 mg/dL (7-18); CALCIUM 8.6 mg/dL (8.5-10.1); CREATININE 0.8 mg/dL (0.55-1.3); MAGNESIUM 1.6 mg/dL (1.8-2.4); PHOSPHOROUS 4.2 mg/dL (2.5-4.9)
[2018-07-24] MEDS ORDERED: MAGNESIUM SULF 50% (8.12 MEQ/2 ML-1 GM VIAL) IVPB ONE (06:11)
[2018-07-24] MEDS ORDERED: MAG HYDROX/AL HYDROX/SIMETH 30 ML UNIT-DOSE CUP PEG ONE (06:26)
[2018-07-24] MEDS ORDERED: MAGNESIUM SULF 50% (8.12 MEQ/2 ML-1 GM VIAL) ONE (06:28)
[2018-07-24] MEDS ORDERED: MAG HYDROX/AL HYDROX/SIMETH 30 ML UNIT-DOSE CUP ONE (06:29)
[2018-07-24 06:45] LABS: PLATELET COUNT 316 K/MM3 (134-434)
[2018-07-24] MEDS ORDERED: ACETAMINOPHEN INJECTION 100 ML IVPB ONE (07:48)
[2018-07-24] MEDS: SODIUM CHLORIDE 1,000 ML IV SCH ×3 (07:53→23:11)
[2018-07-24] MEDS: ACETAMINOPHEN 1000 MG/100 ML VIAL (NON FORMULARY) IVPB PRN ×2 (07:53→20:56)
--- NOTE | 2018-07-24 07:57 | CONSULT ---
Consultation: REQUESTING PROVIDER: CONSULT REQUEST: We have been asked to medically evaluate this patient for ICU admission HISTORY OF PRESENT ILLNESS: History limited due to patient's clinical condition. Patient is a 67 year old male with history of CVA with residual right sided deficits, s/p tracheostomy placement (March 2018), hypertension, COPD, coronary artery disease, s/p permanant pacemaker, and PEG tube placement presents from SNF with complaint of shortness of breath and cough ongoing for the past two days. He has been reportedly overbreating his ventilatory, with increased work of breathing. Patient was febrile to 104.1F, tachypnic to 38BPM, hypertensive to 181/88mmHg. His chest radiograph showed bilateral congestive changes with questionable right lower love infiltrates. ABG with pH 7.42, CO2 37.8 O2 191, HCO3 24.2. At baseline, patient is reportedly communicative, however upon my encounter patient is minimally responsive. REVIEW OF SYSTEMS: As per HPI. Unable to obtain further review of systems due to patient clinical condition. PHYSICAL EXAMINATION Vital Signs - 24 hr 07/23/18 07/23/18 07/23/18 22:15 22:23 23:58 Temperature 104.1 F H Pulse Rate 70 Pulse Rate [ Left Radial] Respiratory 42 H 38 H 38 H Rate Blood Pressure 181/88 H Blood Pressure [Right Arm] O2 Sat by Pulse 96 Oximetry (%) 07/24/18 07/24/18 07/24/18 00:55 03:41 03:43 Temperature 100.7 F H Pulse Rate Pulse Rate [ 70 70 Left Radial] Respiratory 17 18 20 Rate Blood Pressure Blood Pressure 100/60 114/60 [Right Arm] O2 Sat by Pulse 100 Oximetry (%) 07/24/18 07/24/18 07/24/18 04:08 05:21 06:02 Temperature 100.5 F H Pulse Rate Pulse Rate [ 70 Left Radial] Respiratory 21 H Rate Blood Pressure Blood Pressure 124/60 [Right Arm] O2 Sat by Pulse 100 Oximetry (%) 07/24/18 07/24/18 06:22 07:46 Temperature 103 F H Pulse Rate Pulse Rate [ 70 Left Radial] Respiratory Rate Blood Pressure Blood Pressure 126/77 [Right Arm] O2 Sat by Pulse 100 Oximetry (%) GENERAL: Awake, minimally responsive, in no acute distress. HEAD: Normocephalic, atraumatic. EYES: Pupils equal, round and reactive to light, extraocular movements intact, sclera anicteric, conjunctiva clear. EARS, NOSE, THROAT: Oropharynx clear without exudates. Moist mucous membranes. NECK: Supple without lymphadenopathy. Tracheostomy tube in place. LUNGS: Mechanical breath sounds auscultated with poor air entry bilaterally. Faint rhonchi auscultated bilateral lower lobes. No accessory muscle use. HEART: Regular rate and rhythm, normal S1 and S2 without murmur, rub or gallop. ABDOMEN: PEG tube in place. Soft, nontender to light and deep palpation x4 quadrants, not distended. Normoactive bowel sounds. No guarding, no rebound tenderness. UPPER EXTREMITIES: 2+ radial pulses bilaterally, warm, well-perfused. LOWER EXTREMITIES: 2+ dorsalis pedis pulses, warm, well-perfused. No peripheral edema bilaterally. NEUROLOGICAL: Right sided facial droop, and hemiparesis of right sided upper and lower extremity. Patient freely moves left upper and lower extremity. PSYCHIATRIC: Cooperative. Appropriate mood and affect. SKIN: Warm, dry. Laboratory Results - last 24 hr 07/23/18 07/23/18 07/23/18 23:00 23:00 23:00 WBC 14.0 H RBC 4.13 Hgb 11.6 L Hct 35.2 L MCV 85.3 MCH 28.1 MCHC 33.0 RDW 17.4 H Plt Count 415 MPV 9.4 Absolute Neuts (auto) 10.9 H Neutrophils % 78.2 D Neutrophils % (Manual) 63.0 Band Neutrophils % 11.0 Lymphocytes % 16.5 D Lymphocytes % (Manual) 17.0 Monocytes % 4.6 Monocytes % (Manual) 8 D Eosinophils % 0.5 D Eosinophils % (Manual) 0.0 D Basophils % 0.2 Basophils % (Manual) 0.0 Myelocytes % (Man) 0 Promyelocytes % (Man) 0 Blast Cells % (Manual) 0 Nucleated RBC % 0 Metamyelocytes 0 Hypochromia 0 Toxic Granulation 0 Dohle Bodies 0 Platelet Estimate Normal Polychromasia 0 Poikilocytosis 0 Basophilic Stippling 0 Anisocytosis 0 Microcytosis 0 Macrocytosis 0 Spherocytes 0 Sickle Cells 0 Target Cells 0 Tear Drop Cells 0 Ovalocytes 0 Stomatocytes 0 Helmet Cells 0 [employer] Bodies 0 [place] Rings 0 [place] Cells 0 Acanthocytes (Spur) 0 Rouleaux 0 Fragmented RBCs 0 Schistocytes 0 PT with INR 16.70 H INR 1.41 H PTT (Actin FS) 30.6 Anticoagulation Therapy Puncture Site ABG pH ABG pCO2 at Pt Temp ABG pO2 at Pt Temp ABG HCO3 ABG O2 Sat (Measured) ABG O2 Content ABG Base Excess Michael Test O2 Delivery Device Oxygen Flow Rate Vent Mode Vent Rate Mechanical Rate PEEP Pressure Support Vent Sodium 133 L Potassium 5.3 H Chloride 97 L Carbon Dioxide 27 Anion Gap 9 BUN 18.8 H Creatinine 0.7 Est GFR (CKD-EPI)AfAm 113.98 Est GFR (CKD-EPI)NonAf 98.34 Random Glucose 128 H Lactic Acid Calcium 8.9 Phosphorus Magnesium Total Bilirubin 0.8 AST 33 ALT 27 Alkaline Phosphatase 151 H Creatine Kinase 79 CK-MB (CK-2) < 1.0 Troponin I B-Natriuretic Peptide Total Protein 8.5 H Albumin 3.2 L Urine Color Urine Appearance Urine pH Ur Specific [place] Urine Protein Urine Glucose (UA) Urine Ketones Urine Blood Urine Nitrite Urine Bilirubin Urine Urobilinogen Ur Leukocyte Esterase Urine WBC (Auto) Urine RBC (Auto) Urine Casts (Auto) U Pathogenic Cast Auto U Sm Round Cell (Auto) Urine Bacteria (Auto) Urine Yeast (Auto) Blood Type Antibody Screen 07/23/18 07/23/18 07/24/18 23:00 23:00 00:03 WBC RBC Hgb Hct MCV MCH MCHC RDW Plt Count MPV Absolute Neuts (auto) Neutrophils % Neutrophils % (Manual) Band Neutrophils % Lymphocytes % Lymphocytes % (Manual) Monocytes % Monocytes % (Manual) Eosinophils % Eosinophils % (Manual) Basophils % Basophils % (Manual) Myelocytes % (Man) Promyelocytes % (Man) Blast Cells % (Manual) Nucleated RBC % Metamyelocytes Hypochromia Toxic Granulation Dohle Bodies Platelet Estimate Polychromasia Poikilocytosis Basophilic Stippling Anisocytosis Microcytosis Macrocytosis Spherocytes Sickle Cells Target Cells Tear Drop Cells Ovalocytes Stomatocytes Helmet Cells [employer] Bodies [place] Rings [place] Cells Acanthocytes (Spur) Rouleaux Fragmented RBCs Schistocytes PT with INR INR PTT (Actin FS) Anticoagulation Therapy Puncture Site ABG pH ABG pCO2 at Pt Temp ABG pO2 at Pt Temp ABG HCO3 ABG O2 Sat (Measured) ABG O2 Content ABG Base Excess Michael Test O2 Delivery Device Oxygen Flow Rate Vent Mode Vent Rate Mechanical Rate PEEP Pressure Support Vent Sodium Potassium Chloride Carbon Dioxide Anion Gap BUN Creatinine Est GFR (CKD-EPI)AfAm Est GFR (CKD-EPI)NonAf Random Glucose Lactic Acid 1.8 Calcium Phosphorus 3.9 Magnesium 1.8 Total Bilirubin AST ALT Alkaline Phosphatase Creatine Kinase CK-MB (CK-2) Troponin I 0.02 B-Natriuretic Peptide 4539.8 H Total Protein Albumin Urine Color Dk yellow Urine Appearance Turbid Urine pH 5.0 D Ur Specific [place] 1.032 Urine Protein 2+ H Urine Glucose (UA) Negative Urine Ketones Trace H Urine Blood Trace Urine Nitrite Negative Urine Bilirubin 1+ H Urine Urobilinogen 1.0 Ur Leukocyte Esterase Trace Urine WBC (Auto) 85 Urine RBC (Auto) 10 Urine Casts (Auto) 2 U Pathogenic Cast Auto 0 U Sm Round Cell (Auto) Urine Bacteria (Auto) 85 Urine Yeast (Auto) 0 Blood Type Antibody Screen 07/24/18 07/24/18 07/24/18 02:30 02:30 03:27 WBC RBC Hgb Hct MCV MCH MCHC RDW Plt Count MPV Absolute Neuts (auto) Neutrophils % Neutrophils % (Manual) Band Neutrophils % Lymphocytes % Lymphocytes % (Manual) Monocytes % Monocytes % (Manual) Eosinophils % Eosinophils % (Manual) Basophils % Basophils % (Manual) Myelocytes % (Man) Promyelocytes % (Man) Blast Cells % (Manual) Nucleated RBC % Metamyelocytes Hypochromia Toxic Granulation Dohle Bodies Platelet Estimate Polychromasia Poikilocytosis Basophilic Stippling Anisocytosis Microcytosis Macrocytosis Spherocytes Sickle Cells Target Cells Tear Drop Cells Ovalocytes Stomatocytes Helmet Cells [employer] Bodies [place] Rings Debra Cells Acanthocytes (Spur) Rouleaux Fragmented RBCs Schistocytes PT with INR INR PTT (Actin FS) Anticoagulation Therapy No Result Required. Puncture Site Right radial ABG pH 7.42 ABG pCO2 at Pt Temp 37.8 ABG pO2 at Pt Temp 191 H ABG HCO3 24.2 ABG O2 Sat (Measured) 99.8 H ABG O2 Content 15.1 ABG Base Excess 0.4 Michael Test Positive O2 Delivery Device No Result Required. Oxygen Flow Rate 100% Vent Mode Ac Vent Rate 14 Mechanical Rate No Result Required. PEEP 5.0 Pressure Support Vent No Result Required. Sodium Potassium Chloride Carbon Dioxide Anion Gap BUN Creatinine Est GFR (CKD-EPI)AfAm Est GFR (CKD-EPI)NonAf Random Glucose Lactic Acid 2.7 H* Calcium Phosphorus Magnesium Total Bilirubin AST ALT Alkaline Phosphatase Creatine Kinase CK-MB (CK-2) Troponin I B-Natriuretic Peptide Total Protein Albumin Urine Color Urine Appearance Urine pH Ur Specific [place] Urine Protein Urine Glucose (UA) Urine Ketones Urine Blood Urine Nitrite Urine Bilirubin Urine Urobilinogen Ur Leukocyte Esterase Urine WBC (Auto) Urine RBC (Auto) Urine Casts (Auto) U Pathogenic Cast Auto U Sm Round Cell (Auto) Urine Bacteria (Auto) Urine Yeast (Auto) Blood Type O POSITIVE Antibody Screen Negative 07/24/18 07/24/18 07/24/18 05:23 05:23 05:23 WBC 13.4 H RBC 3.85 L Hgb 11.0 L Hct 32.7 L MCV 85.0 MCH 28.5 MCHC 33.6 RDW 17.1 H Plt Count 316 D MPV 8.9 Absolute Neuts (auto) 11.6 H Neutrophils % 86.6 H Neutrophils % (Manual) Band Neutrophils % Lymphocytes % 9.9 D Lymphocytes % (Manual) Monocytes % 3.2 L Monocytes % (Manual) Eosinophils % 0.1 Eosinophils % (Manual) Basophils % 0.2 Basophils % (Manual) Myelocytes % (Man) Promyelocytes % (Man) Blast Cells % (Manual) Nucleated RBC % 0 Metamyelocytes Hypochromia Toxic Granulation Dohle Bodies Platelet Estimate Polychromasia Poikilocytosis Basophilic Stippling Anisocytosis Microcytosis Macrocytosis Spherocytes Sickle Cells Target Cells Tear Drop Cells Ovalocytes Stomatocytes Helmet Cells [employer] Bodies [place] Rings Debra Cells Acanthocytes (Spur) Rouleaux Fragmented RBCs Schistocytes PT with INR INR PTT (Actin FS) Anticoagulation Therapy Puncture Site ABG pH ABG pCO2 at Pt Temp ABG pO2 at Pt Temp ABG HCO3 ABG O2 Sat (Measured) ABG O2 Content ABG Base Excess Michael Test O2 Delivery Device Oxygen Flow Rate Vent Mode Vent Rate Mechanical Rate PEEP Pressure Support Vent Sodium 135 L Potassium 4.0 Chloride 97 L Carbon Dioxide 28 Anion Gap 10 BUN 17.4 Creatinine 0.8 Est GFR (CKD-EPI)AfAm 107.89 Est GFR (CKD-EPI)NonAf 93.09 Random Glucose 91 Lactic Acid Calcium 8.6 Phosphorus 4.2 Magnesium 1.6 L Total Bilirubin AST ALT Alkaline Phosphatase Creatine Kinase CK-MB (CK-2) Troponin I B-Natriuretic Peptide Total Protein Albumin Urine Color Urine Appearance Urine pH Ur Specific [place] Urine Protein Urine Glucose (UA) Urine Ketones Urine Blood Urine Nitrite Urine Bilirubin Urine Urobilinogen Ur Leukocyte Esterase Urine WBC (Auto) Urine RBC (Auto) Urine Casts (Auto) U Pathogenic Cast Auto U Sm Round Cell (Auto) Urine Bacteria (Auto) Urine Yeast (Auto) Blood Type O POSITIVE Antibody Screen 07/24/18 05:23 WBC RBC Hgb Hct MCV MCH MCHC RDW Plt Count MPV Absolute Neuts (auto) Neutrophils % Neutrophils % (Manual) Band Neutrophils % Lymphocytes % Lymphocytes % (Manual) Monocytes % Monocytes % (Manual) Eosinophils % Eosinophils % (Manual) Basophils % Basophils % (Manual) Myelocytes % (Man) Promyelocytes % (Man) Blast Cells % (Manual) Nucleated RBC % Metamyelocytes Hypochromia Toxic Granulation Dohle Bodies Platelet Estimate Polychromasia Poikilocytosis Basophilic Stippling Anisocytosis Microcytosis Macrocytosis Spherocytes Sickle Cells Target Cells Tear Drop Cells Ovalocytes Stomatocytes Helmet Cells [employer] Bodies [place] Rings [place] Cells Acanthocytes (Spur) Rouleaux Fragmented RBCs Schistocytes PT with INR INR PTT (Actin FS) Anticoagulation Therapy Puncture Site ABG pH ABG pCO2 at Pt Temp ABG pO2 at Pt Temp ABG HCO3 ABG O2 Sat (Measured) ABG O2 Content ABG Base Excess Michael Test O2 Delivery Device Oxygen Flow Rate Vent Mode Vent Rate Mechanical Rate PEEP Pressure Support Vent Sodium Potassium Chloride Carbon Dioxide Anion Gap BUN Creatinine Est GFR (CKD-EPI)AfAm Est GFR (CKD-EPI)NonAf Random Glucose Lactic Acid 3.1 H* Calcium Phosphorus Magnesium Total Bilirubin AST ALT Alkaline Phosphatase Creatine Kinase CK-MB (CK-2) Troponin I B-Natriuretic Peptide Total Protein Albumin Urine Color Urine Appearance Urine pH Ur Specific [place] Urine Protein Urine Glucose (UA) Urine Ketones Urine Blood Urine Nitrite Urine Bilirubin Urine Urobilinogen Ur Leukocyte Esterase Urine WBC (Auto) Urine RBC (Auto) Urine Casts (Auto) U Pathogenic Cast Auto U Sm Round Cell (Auto) Urine Bacteria (Auto) Urine Yeast (Auto) Blood Type Antibody Screen Active Medications Generic Name Dose Route Start Last Admin Trade Name Freq PRN Reason Stop Dose Admin Acetaminophen 1,000 mg 07/24/18 07:08 Ofirmev Injection - IVPB Q6H PRN PAIN OR FEVER Albuterol/Ipratropium 1 amp 07/24/18 05:26 07/24/18 05:39 Duoneb - NEB 1 amp Q4H PRN Administration SHORTNESS OF BREATH Chlorhexidine Gluconate 1 applic 07/24/18 22:00 Hibiclens For Decolonization - TP HS TRUD[facility] Heparin Sodium (Porcine) 5,000 unit 07/24/18 10:00 Heparin - SQ BID TRUDY Sodium Chloride 1,000 mls @ 42 mls/hr 07/24/18 07:15 Normal Saline - IV ASDIR TRUDY Vancomycin HCl 1,000 mg/ 250 mls @ 166.667 mls/hr 07/24/18 13:00 Dextrose IVPB Q12H [facility] Protocol Piperacillin Sod/Tazobactam 100 mls @ 200 mls/hr 07/24/18 09:00 Sod 4.5 gm/ Dextrose IVPB Q6H-IV [facility] Protocol Piperacillin Sod/Tazobactam 100 mls @ 200 mls/hr 07/24/18 09:00 Sod 4.5 gm/ Dextrose IVPB 07/25/18 08:59 Q6H-IV [facility] Mupirocin 1 applic 07/24/18 10:00 Bactroban Ointment (For Decolonization) - NS 07/29/18 09:59 BID [facility] Vancomycin HCl 1,000 mg 07/24/18 13:00 Vancomycin (Pre-Docked) IVPB 07/25/18 12:59 BID@0100,1300 [facility] ASSESSMENT/PLAN: Patient is a 67 year old male with history of CVA with residual right sided deficits, s/p tracheostomy placement (March 2018), hypertension, COPD, coronary artery disease, s/p permanant pacemaker, and PEG tube placement presents from SNF with complaint of shortness of breath and cough ongoing for the past two days. Neurologic History of CVA with residual right sided hemiparesis -Patient is awake, alert. Minimally responsive -Monitor for signs of mental status change Pulmonary Acute on Chronic respiratory failure s/p Tracheostomy placement History of COPD Questionable pneumonia (aspiration vs. ventilator associated) -Current ventilator settings: RR 14, tidal volume 450, FiO2 60%, PEEP 5 -Vancomycin 1000mg IV BID -Zosyn 4.5grams IV Q6 hours -Duonebs 1AMP IH Q4 hours -Follow chest radiograph -Maintain oxygen saturation greater than 90% Cardiac History of permanent pacemaker History of Coronary artery disease -EKG shows ventricular paced rhythm with premature ventricular complexes. Repeat EKG no longer showing shows PVCs. -ECHO from 04/2018 shows LV systolic function low normal. -Cardiac monitoring Gastrointestinal S/P PEG tube -Continue Jevity 1.5 tube feeds Infectious Disease Sepsis secondary to pneumonia vs. UTI -UA suggestive of urinary tract infection. -Chest radiograph questionable for right lower lobe infiltrate -Patient is receiving Vancomycin and Zosyn (day #1 of antibiotics) -Infectious disease consult (Dr. Mazariegos) appreciated -Follow blood, urine, sputum cultures -Follow urine for legionella -Lactic acid 1.8 -> 2.7 -> 3.1. Will trend FEN -Fluids: IV normal saline at 42mL/ hour -Electrolytes: Hyperkalemia, resolved. Follow CMP replete as necessary. -Nutrition: Jevity tube feeds Prophylaxis -Heprin 5000u subq TID Disposition -Patient was admitted to ICU. Patient to be transferred to [address] [place] [address] for ventilator management. Visit type - Emergency Visit Emergency Visit: Yes ED Registration Date: 07/24/18 Care time: The patient presented to the Emergency Department on the above date and was hospitalized for further evaluation of their emergent condition. - New Patient This patient is new to me today: Yes Date on this admission: 07/24/18 - Critical Care Critical Care patient: Yes Total Critical Care Time (in minutes): 35 Critical Care Statement: The care of this patient involved high complexity decision making to prevent further life threatening deterioration of the patient 's condition and/or to evaluate & treat vital organ system(s) failure or risk of failure.
[2018-07-24] MEDS ORDERED: HEPARIN NA (PORCINE) 5,000 UNITS/ML 1ML VIAL ONE (08:00)
--- NOTE | 2018-07-24 08:28 | EKG ---
Test Reason : Blood Pressure : / mmHG Vent. Rate : 070 BPM Atrial Rate : 072 BPM P-R Int : 000 ms QRS Dur : 194 ms QT Int : 472 ms P-R-T Axes : 000 -61 122 degrees QTc Int : 509 ms POOR DATA QUALITY, INTERPRETATION MAY BE ADVERSELY AFFECTED Ventricular-paced rhythm ABNORMAL ECG WHEN COMPARED WITH ECG OF 23-JUL-2018 22:19, PREMATURE VENTRICULAR COMPLEXES ARE NO LONGER PRESENT VENT. RATE HAS DECREASED BY 19 BPM Confirmed by RAYA MANCIA, JIGNESH ([id number]) on 07/24/2018 8:28:15 AM Referred By: Confirmed By:JIGNESH DOS SANTOS MD
--- NOTE | 2018-07-24 08:30 | EKG ---
Test Reason : Blood Pressure : / mmHG Vent. Rate : 089 BPM Atrial Rate : 069 BPM P-R Int : 000 ms QRS Dur : 192 ms QT Int : 452 ms P-R-T Axes : 000 -58 119 degrees QTc Int : 549 ms POOR DATA QUALITY, INTERPRETATION MAY BE ADVERSELY AFFECTED Ventricular-paced rhythm WITH FREQUENT PREMATURE VENTRICULAR COMPLEXES ABNORMAL ECG WHEN COMPARED WITH ECG OF 28-JUN-2018 23:03, VENT. RATE HAS INCREASED BY 18 BPM Confirmed by JIGNESH DOS SANTOS MD ([id number]) on 07/24/2018 8:30:05 AM Referred By: Confirmed By:JIGNESH DOS SANTOS MD
[2018-07-24] MEDS ORDERED: PIPERACILLIN/TAZOB 4.5 GM 4.5 GM in DEXTROSE 5%-WATER 100 ML IVPB SCH (09:00)
[2018-07-24] MEDS: HEPARIN NA (PORCINE) 5,000 UNITS/ML 1ML VIAL SQ SCH ×3 (09:07→22:33)
--- NOTE | 2018-07-24 11:00 | PN ---
Teaching Attending Note Name of Resident: Hieu Beltran ATTENDING PHYSICIAN STATEMENT I saw and evaluated the patient. I reviewed the resident's note and discussed the case with the resident. I agree with the resident's findings and plan as documented. SUBJECTIVE: Pt seen and examined in the ICU. Vented, awake. Fevers trending down. Does report increased shortness of breath, cough and chest congestion. OBJECTIVE: Vital Signs Period Temp Pulse Resp BP Sys/[place] Pulse Ox Last 24 Hr 98.2 F-104.1 F 69-70 17-42 89-181/50-88 96-100 Intake & Output 07/21/18 07/22/18 07/23/18 07/24/18 23:59 23:59 23:59 23:59 Intake Total 200 Output Total 1000 Balance -800 Weight 77.111 kg Gen: vented, awake Heart: RRR Lung: scattered rhonchi Abd: soft, nontender Ext: no edema CBC, BMP 07/24/18 05:23 07/24/18 05:23 Active Medications Acetaminophen (Ofirmev Injection -) 1,000 mg IVPB Q6H PRN PRN Reason: PAIN OR FEVER Last Admin: 07/24/18 07:53 Dose: 1,000 mg Albuterol/Ipratropium (Duoneb -) 1 amp NEB Q4H PRN PRN Reason: SHORTNESS OF BREATH Last Admin: 07/24/18 05:39 Dose: 1 amp Chlorhexidine Gluconate (Hibiclens For Decolonization -) 1 applic TP HS TRUDY Heparin Sodium (Porcine) (Heparin -) 5,000 unit SQ BID TRUDY Last Admin: 07/24/18 09:07 Dose: 5,000 unit Sodium Chloride (Normal Saline -) 1,000 mls @ 42 mls/hr IV ASDIR TRUDY Last Admin: 07/24/18 07:53 Dose: 42 mls/hr Vancomycin HCl 1,000 mg/ (Dextrose) 250 mls @ 166.667 mls/hr IVPB Q12H [facility]; Protocol Piperacillin Sod/Tazobactam (Sod 4.5 gm/ Dextrose) 100 mls @ 200 mls/hr IVPB Q6H-IV [facility]; Protocol Piperacillin Sod/Tazobactam (Sod 4.5 gm/ Dextrose) 100 mls @ 200 mls/hr IVPB Q6H-IV [facility] Stop: 07/25/18 08:59 Last Admin: 07/24/18 08:03 Dose: 200 mls/hr Mupirocin (Bactroban Ointment (For Decolonization) -) 1 applic NS BID [facility] Stop: 07/29/18 09:59 Vancomycin HCl (Vancomycin (Pre-Docked)) 1,000 mg IVPB BID@0100,1300 [facility] Stop: 07/25/18 12:59 ASSESSMENT AND PLAN: r/o Pneumonia UTI Sepsis Lactic Acidosis Chronic Respiratory Failure s/p Tracheostomy h/o CVA COPD CAD h/o PPM HTN - IV antibiotics - f/u cultures - IVF - trend lactate - chest PT/pulmonary toilet - inhaled bronchodilators - taper FiO2 to keep SpO2 >90% - spontaneous breathing trials as tolerated - enteral feeds - DVT/GI prophylaxis - can monitor on vent floor, no indication for telemetry
[2018-07-24 11:06] VITALS: BMI 27.2
--- NOTE | 2018-07-24 11:54 | PN ---
Progress Note (short form) - Note Progress Note: ID CONSULT DICTATED ACUTE ON CHRONIC RESP FAILURE RLL PNEUMONIA ASP V. HCAP UTI LACTIC ACIDOSIS PROLONGED QT AWAIT SEPSIS W/U VENTILATORY SUPPORT EMPIRIC ZOSYN/ VANCOMYCIN CRITICAL CARE TIME 35MIN
[2018-07-24] MEDS ORDERED: VANCOMYCIN 1 GRAM (PRE-DOCKED) 1,000 MG/250 ML BAG IVPB SCH (12:00)
--- NOTE | 2018-07-24 12:58 | CONS ---
DATE OF CONSULTATION: DATE OF DICTATION: 07/24/2018 HISTORY OF PRESENT ILLNESS: The patient is a 67-year-old male evaluated for sepsis. History was obtained from the chart, as he cannot give a history. He was recently hospitalized at [facility] from June 28 through July 02 for an infection at the feeding gastrostomy tube site. He is a resident of a longterm facility; while there, according to the notes, he has had worsening shortness of breath and fever for the past 2 days. The patient apparently had been in the process of being weaned off the ventilator. He is normally verbal. He was transferred to the emergency room, where he was noted to have a fever or 104. Patient was congested with gurgling at the tracheostomy site, tachycardic, tachypneic, and diaphoretic. A chest x-ray was done and shows a right lower lobe infiltrate. Cultures were obtained, and he was empirically treated with vancomycin and Zosyn. He is not verbally responsive at the present time on the ventilator. PAST MEDICAL HISTORY: Positive for chronic respiratory failure, hypertension, COPD, coronary artery disease, congestive heart failure, stroke, BPH. PAST SURGICAL HISTORY: Status post tracheostomy, feeding gastrostomy, implanted defibrillator. ALLERGIES: No known allergies. MEDICATION: Aspirin, Lipitor, carvedilol, Cardura, Cymbalta, Altace, Zantac. SOCIAL HISTORY: He is a resident of a longterm facility; according to the notes he is normally verbal. SYSTEMS REVIEW: Neurologic: Positive for stroke. Cardiac: Negative for chest pain or palpitations. Respiratory: As per HPI. Gastrointestinal: Positive for feeding gastrostomy. Genitourinary: Positive for for urinary tract infection. LABORATORY DATA: White count 13.4, hematocrit 32.7, platelet count 316, BUN 17, creatinine 0.8. Urinalysis 85 white cells. Lactic acid 3.1. Cultures pending. PHYSICAL EXAMINATION: General: On exam, he is not responsive on the ventilator. Vital signs: Temperature 98.3, T-max 104.1, blood pressure 103/64, pulse 74 regular, respirations 28 per minute. HEENT: Sclerae anicteric. Cardiovascular: Heart sounds S1, S2. Lungs: Air entry bilaterally. Abdomen: Soft, nontender. feeding gastrostomy tube is in place. Extremities: 1+ edema. IMPRESSION: 1. Sepsis, possibly secondary to lung source. 2. Right lower lobe pneumonia, rule out aspiration versus healthcare acquired pneumonia. 3. Acute on chronic respiratory failure. 4. Urinary tract infection. 5. Lactic acidosis. 6. Elevated white blood cell count. 7. Prolonged QT interval. Await sepsis workup. Continue ventilatory support. Empiric antibiotic coverage with Zosyn and vancomycin. Critical care time spent reviewing chart, examining patient and reviewing labs and imaging, 35 minutes. CAS REYNOSO M.D. [id number]
[2018-07-24] MEDS ORDERED: VANCOMYCIN 1 GM in D5W (PRE-DOCKED) 1,000 MG/250 ML IVPB SCH (13:00)
[2018-07-24] MEDS ORDERED: VANCOMYCIN 1,000 MG in DEXTROSE 5%-WATER - 250 ML IVPB SCH (13:00)
--- NOTE | 2018-07-24 13:57 | PN ---
Progress Note, Physician Chief Complaint: Sepsis Respiratory Distress Lactic acidosis Hyperkalemia - Current Medication List Current Medications: Active Medications Acetaminophen (Ofirmev Injection -) 1,000 mg IVPB Q6H PRN PRN Reason: PAIN OR FEVER Last Admin: 07/24/18 07:53 Dose: 1,000 mg Albuterol/Ipratropium (Duoneb -) 1 amp NEB Q4H PRN PRN Reason: SHORTNESS OF BREATH Last Admin: 07/24/18 05:39 Dose: 1 amp Chlorhexidine Gluconate (Hibiclens For Decolonization -) 1 applic TP HS TRUDY Heparin Sodium (Porcine) (Heparin -) 5,000 unit SQ BID TRUDY Last Admin: 07/24/18 09:07 Dose: 5,000 unit Sodium Chloride (Normal Saline -) 1,000 mls @ 42 mls/hr IV ASDIR TRUDY Last Admin: 07/24/18 12:04 Dose: 42 mls/hr Piperacillin Sod/Tazobactam (Sod 3.375 gm/ Dextrose) 50 mls @ 100 mls/hr IVPB Q8H-IV TRUDY; Protocol Vancomycin HCl (Vancomycin (Pre-Docked)) 1,000 mg in 250 mls @ 166.667 mls/hr IVPB Q12H TRUDY; Protocol Last Admin: 07/24/18 12:22 Dose: 166.667 mls/hr Mupirocin (Bactroban Ointment (For Decolonization) -) 1 applic NS BID [facility] Stop: 07/29/18 09:59 - Objective Vital Signs: Vital Signs Temperature 98.6 F 07/24/18 12:00 Pulse Rate 70 07/24/18 12:00 Respiratory Rate 14 07/24/18 12:05 Blood Pressure 104/52 L 07/24/18 12:00 O2 Sat by Pulse Oximetry (%) 100 07/24/18 09:12 Constitutional: Yes: Well Nourished, No Distress, Calm Cardiovascular: Yes: Regular Rate and Rhythm Respiratory: Yes: Mechanically Ventilated, Rhonchi (diffuse) Gastrointestinal: Yes: Normal Bowel Sounds, Soft, Other (G tube) Genitourinary: Yes: Villa Present Musculoskeletal: Yes: Other (right hemiperesis) Edema: No Peripheral Pulses WNL: Yes Neurological: Yes: Alert, Oriented Psychiatric: Yes: Alert, Oriented Labs: CBC, BMP 07/24/18 05:23 07/24/18 05:23 INR, PTT INR 1.41 (0.83-1.09) H 07/23/18 23:00
[2018-07-24] MEDS: MUPIROCIN 2% TOPICAL OINTMENT FOR DECOLONIZATION NS SCH ×2 (14:47→21:03)
[2018-07-24] MEDS ORDERED: PIPERACILLIN/TAZOBACTAM 3.375 GM VIAL IVPB ONE (17:43)
[2018-07-24] MEDS ORDERED: DEXTROSE 5%-WATER - 50 ML IVPB ONE (17:44)
[2018-07-24] MEDS ORDERED: PIPERACILLIN/TAZOB 3.375 GM 3.375 GM in DEXTROSE 5%-WATER - 50 ML IVPB SCH (18:00)
[2018-07-24] MEDS ORDERED: CHLORHEXIDINE GLUCONATE 4% CLEANSER FOR DECOLONIZATION TP SCH ×2 (22:00)
[2018-07-24] MEDS ORDERED: MUPIROCIN 2% TOPICAL OINTMENT FOR DECOLONIZATION NS SCH (22:00)
[2018-07-24] MEDS: VANCOMYCIN 1 GRAM (PRE-DOCKED) 1,000 MG/250 ML BAG IVPB SCH (23:11)
[2018-07-25] MEDS ORDERED: DEXTROSE 5%-WATER - 50 ML IVPB ONE ×3 (00:45→17:18)
[2018-07-25] MEDS ORDERED: PIPERACILLIN/TAZOBACTAM 3.375 GM VIAL IVPB ONE ×3 (00:45→17:18)
[2018-07-25] MEDS: PIPERACILLIN/TAZOB 3.375 GM 3.375 GM in DEXTROSE 5%-WATER - 50 ML IVPB SCH ×3 (01:44→18:06)
[2018-07-25 06:30] LABS: HEMOGLOBIN 9.2 GM/dL (11.7-16.9); MCH 28.6 pg (25.7-33.7); MEAN CELL VOLUME 84.1 fl (80-96); MEAN PLT VOLUME 8.9 fl (7.5-11.1); PLATELET COUNT 281 K/MM3 (134-434); RBC 3.21 M/mm3 (4.00-5.60); RDW 17.5 % (11.9-15.9); WHITE BLOOD COUNT 11.5 K/mm3 (4.0-10.0)
[2018-07-25 06:52] LABS: ALBUMIN 2.5 g/dl (3.4-5.0); BLOOD UREA NITROGEN 18.5 mg/dL (7-18); CALCIUM 8.2 mg/dL (8.5-10.1); CREATININE 0.5 mg/dL (0.55-1.3); MAGNESIUM 2.3 mg/dL (1.8-2.4); PHOSPHOROUS 3.1 mg/dL (2.5-4.9); POTASSIUM 3.5 mmol/L (3.5-5.1); TOT PROT 6.7 g/dl (6.4-8.2)
[2018-07-25] MEDS: HEPARIN NA (PORCINE) 5,000 UNITS/ML 1ML VIAL SQ SCH (10:36)
--- NOTE | 2018-07-25 12:14 | PN ---
Progress Note (short form) - Note Progress Note: Awake on AC Mode of vent, 60% FiO2. Fever curve improving. Intake & Output 07/22/18 07/23/18 07/24/18 07/25/18 23:59 23:59 23:59 23:59 Intake Total 1659 950 Output Total 1300 400 Balance 359 550 Weight 170 lb 190 lb 0.615 oz Last Vital Signs Temp Pulse Resp BP Pulse Ox 98.9 F 70 20 132/60 97 07/25/18 09:00 07/25/18 11:05 07/25/18 10:15 07/25/18 09:00 07/25/18 11:05 Active Medications Acetaminophen (Ofirmev Injection -) 1,000 mg IVPB Q6H PRN PRN Reason: PAIN OR FEVER Albuterol/Ipratropium (Duoneb -) 1 amp NEB Q4H PRN PRN Reason: SHORTNESS OF BREATH Heparin Sodium (Porcine) (Heparin -) 5,000 unit SQ BID TRUDY Last Admin: 07/25/18 10:36 Dose: 5,000 unit Sodium Chloride (Normal Saline -) 1,000 mls @ 42 mls/hr IV ASDIR TRUDY Last Admin: 07/24/18 23:11 Dose: 42 mls/hr Vancomycin HCl (Vancomycin (Pre-Docked)) 1,000 mg in 250 mls @ 166.667 mls/hr IVPB Q12H TRUDY; Protocol Last Admin: 07/24/18 23:11 Dose: 166.667 mls/hr Piperacillin Sod/Tazobactam (Sod 3.375 gm/ Dextrose) 50 mls @ 100 mls/hr IVPB Q8H-IV TRUDY; Protocol Last Admin: 07/25/18 10:36 Dose: 100 mls/hr Gen: vented, awake Heart: RRR Lung: scattered rhonchi Abd: soft, nontender Ext: no edema Laboratory Results - last 24 hr 07/24/18 07/25/18 07/25/18 14:50 06:00 06:00 WBC 11.5 H RBC 3.21 L Hgb 9.2 L Hct 27.0 L D MCV 84.1 MCH 28.6 MCHC 34.0 RDW 17.5 H Plt Count 281 MPV 8.9 Sodium 137 Potassium 3.5 Chloride 100 Carbon Dioxide 29 Anion Gap 8 BUN 18.5 H Creatinine 0.5 L Est GFR (CKD-EPI)AfAm 130.88 Est GFR (CKD-EPI)NonAf 112.92 Random Glucose 86 Lactic Acid 2.7 H* Calcium 8.2 L Phosphorus 3.1 Magnesium 2.3 Total Bilirubin 1.0 AST 33 ALT 33 Alkaline Phosphatase 109 Total Protein 6.7 Albumin 2.5 L ASSESSMENT AND PLAN: r/o Pneumonia UTI Sepsis Lactic Acidosis Chronic Respiratory Failure s/p Tracheostomy h/o CVA COPD CAD h/o PPM HTN - IV antibiotics per ID - f/u cultures - IVF - chest PT/pulmonary toilet - inhaled bronchodilators - AC Mode of vent, taper FiO2 to keep SpO2 >90%. Can attempt wean trials when FiO2 < 50% - enteral feeds - DVT/GI prophylaxis Dr Vasquez
[2018-07-25] MEDS: VANCOMYCIN 1 GRAM (PRE-DOCKED) 1,000 MG/250 ML BAG IVPB SCH ×2 (12:25→23:50)
[2018-07-25] MEDS: ACETAMINOPHEN 1000 MG/100 ML VIAL (NON FORMULARY) IVPB PRN (12:26)
--- NOTE | 2018-07-25 13:06 | PN ---
Progress Note, Physician - Current Medication List Current Medications: Active Medications Acetaminophen (Ofirmev Injection -) 1,000 mg IVPB Q6H PRN PRN Reason: PAIN OR FEVER Last Admin: 07/25/18 12:26 Dose: 1,000 mg Acetaminophen (Tylenol Oral Solution -) 650 mg PO Q6H PRN PRN Reason: PAIN LEVEL 6-10 Albuterol/Ipratropium (Duoneb -) 1 amp NEB Q4H PRN PRN Reason: SHORTNESS OF BREATH Atorvastatin Calcium (Lipitor -) 40 mg GT HS TRUDY Duloxetine HCl (Cymbalta -) 20 mg PO DAILY TRDUY Heparin Sodium (Porcine) (Heparin -) 5,000 unit SQ BID TRUDY Last Admin: 07/25/18 10:36 Dose: 5,000 unit Sodium Chloride (Normal Saline -) 1,000 mls @ 42 mls/hr IV ASDIR TRUDY Last Admin: 07/24/18 23:11 Dose: 42 mls/hr Vancomycin HCl (Vancomycin (Pre-Docked)) 1,000 mg in 250 mls @ 166.667 mls/hr IVPB Q12H TRUDY; Protocol Last Admin: 07/25/18 12:25 Dose: 166.667 mls/hr Piperacillin Sod/Tazobactam (Sod 3.375 gm/ Dextrose) 50 mls @ 100 mls/hr IVPB Q8H-IV TRUDY; Protocol Last Admin: 07/25/18 10:36 Dose: 100 mls/hr - Objective Vital Signs: Vital Signs Temperature 98.9 F 07/25/18 09:00 Pulse Rate 70 07/25/18 11:05 Respiratory Rate 20 07/25/18 10:15 Blood Pressure 132/60 07/25/18 09:00 O2 Sat by Pulse Oximetry (%) 97 07/25/18 11:05 Constitutional: Yes: Calm Neck: Yes: Other (trach) Cardiovascular: Yes: Regular Rate and Rhythm, S1, S2 Respiratory: Yes: Mechanically Ventilated Gastrointestinal: Yes: Normal Bowel Sounds, Soft Edema: No Neurological: Yes: Alert Labs: CBC, BMP 07/25/18 06:00 07/25/18 06:00 INR, PTT INR 1.41 (0.83-1.09) H 07/23/18 23:00 Problem List - Problems (1) Acute and chronic respiratory failure ([id number]) Assessment/Plan: secondary to pna vent suppor t iv abx ID on board fever and wbc trending down Code(s): J96.20 - ACUTE AND CHR RESP FAILURE, UNSP W HYPOXIA OR HYPERCAPNIA Qualifiers: Respiratory failure complication: unspecified whether with hypoxia or hypercapnia Qualified Code(s): J96.20 - Acute and chronic respiratory failure , unspecified whether with hypoxia or hypercapnia (2) Leukocytosis Assessment/Plan: iv abx wbc trending lactic trending down Code(s): D72.829 - ELEVATED WHITE BLOOD CELL COUNT, UNSPECIFIED Qualifiers: Leukocytosis type: unspecified Qualified Code(s): D72.829 - Elevated white blood cell count, unspecified (3) Pneumonia Assessment/Plan: iv abx Code(s): J18.9 - PNEUMONIA, UNSPECIFIED ORGANISM Qualifiers: Pneumonia type: due to unspecified organism Laterality: right Lung location: unspecified part of lung Qualified Code(s): J18.9 - Pneumonia, unspecified organism Assessment/Plan HOLD anti HTN meds as Blood presure in on lower side
[2018-07-25] MEDS: ALBUTEROL SO4 2.5/IPRATROPIUM 0.5 INH SOL 3 ML VIAL.NEB. NEB PRN ×2 (17:32→20:30)
[2018-07-25] MEDS: ACETAMINOPHEN 650 MG/20.3 ML ORAL SOLUTION (CUPS) PO PRN (18:05)
[2018-07-25] MEDS: SODIUM CHLORIDE 1,000 ML IV SCH (23:50)
[2018-07-25] MEDS: ATORVASTATIN CA 40 MG TABLET (FP) GT SCH (23:51)
[2018-07-26 01:42] LABS: BASO % 0.2 % (0-2.0); EOS % 1.3 % (0-4.5); HEMATOCRIT 27.3 % (35.4-49); HEMOGLOBIN 8.9 GM/dL (11.7-16.9); LYMPH % 10.2 % (8-40); MCH 27.8 pg (25.7-33.7); MCHC 32.7 g/dl (32.0-35.9); MEAN CELL VOLUME 85.2 fl (80-96); MONO % 4.3 % (3.8-10.2); RDW 17.4 % (11.9-15.9)
[2018-07-26 02:20] LABS: PLATELET COUNT 304 K/MM3 (134-434)
[2018-07-26] MEDS ORDERED: PIPERACILLIN/TAZOBACTAM 3.375 GM VIAL IVPB ONE ×3 (02:36→18:04)
[2018-07-26] MEDS ORDERED: DEXTROSE 5%-WATER - 50 ML IVPB ONE ×3 (02:37→18:04)
[2018-07-26] MEDS: ACETAMINOPHEN 650 MG/20.3 ML ORAL SOLUTION (CUPS) PO PRN (02:54)
[2018-07-26] MEDS: PIPERACILLIN/TAZOB 3.375 GM 3.375 GM in DEXTROSE 5%-WATER - 50 ML IVPB SCH ×3 (02:55→18:08)
--- NOTE | 2018-07-26 08:22 | CON.GU ---
Consult Consult Specialty:: Referred by:: Roxanna Reason for Consultation:: hematuria - History of Present Illness Chief Complaint: SOB History of Present Illness: 67 y/o man from [facility] with a past medical history of CVA (R- residual deficits), Respiratory Failure with Hypoxia, s/p Trach, Pneumonia, HTN , CAD s/p PPM, COPD, MDD, TEX, s/p PEG, Constipation. Who was sent in for worsening respiratory distress. On arrival to the ED, patient was tachypneic, diaphoretic. Septic workup initiated. He was noted to have hematuria and cons req. 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) Cardio/Vascular: Yes: CAD, CHF, HTN, Hyperlipdemia, Other (Pacemaker) Pulmonary: Yes: COPD Hepatobiliary: Yes: Cholelithiasis, Hepatitis A (as a child) Renal/: Yes: BPH - Past Surgical History Past Surgical History: Yes: Colonoscopy - Alcohol/Substance Use Hx Alcohol Use: No - Smoking History Smoking history: Unknown if ever smoked Have you smoked in the past 12 months: No - Social History Usual Living Arrangement: Alf ADL: Support Services 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 History of Recent Travel: No Home Medications - Allergies Allergies/Adverse Reactions: Allergies Allergy/AdvReac Type Severity Reaction Status Date / Time No Known Allergies Allergy Verified 07/23/18 22:23 - Home Medications Home Medications: Ambulatory Orders Aspirin 81 mg GT DAILY 04/24/18 Atorvastatin Ca [Lipitor] 40 mg GT HS 04/24/18 Carvedilol 25 mg GT BID 04/24/18 Doxazosin Mesylate [Cardura -] 2 mg GT HS 04/24/18 Simethicone 40 mg GT TID 04/24/18 Polyethylene Glycol 3350 [Miralax 119 gm Btl -] 17 gm PEG DAILY bottle Acetaminophen [Acetaminophen ER] 650 mg GT Q6H PRN 06/28/18 Duloxetine HCl [Cymbalta] 20 mg GT DAILY 06/28/18 Ramipril [Altace] 1.25 mg GT DAILY 06/28/18 Ranitidine Oral Solution [Zantac Oral Solution -] 150 mg GT BID 06/28/18 Sennosides [Senna] 8.6 mg PO HS 06/28/18 Physical Exam- Vital Signs: Vital Signs Temperature 99.2 F 07/26/18 06:00 Pulse Rate 70 07/26/18 06:00 Respiratory Rate 14 07/26/18 06:40 Blood Pressure 121/62 07/26/18 06:00 O2 Sat by Pulse Oximetry (%) 98 07/25/18 21:00 Renal/: Yes: Villa Present (urine is yellow). No: Hematuria Kidneys: Yes: WNL Pelvis: Yes: WNL Testicles: Yes: WNL Labs: CBC, BMP 07/26/18 01:00 07/25/18 06:00 Problem List - Problems (1) Hematuria Assessment/Plan: resolving Code(s): R31.9 - HEMATURIA, UNSPECIFIED (2) Acute and chronic respiratory failure ([id number]) Code(s): J96.20 - ACUTE AND CHR RESP FAILURE, UNSP W HYPOXIA OR HYPERCAPNIA Qualifiers: Respiratory failure complication: unspecified whether with hypoxia or hypercapnia Qualified Code(s): J96.20 - Acute and chronic respiratory failure , unspecified whether with hypoxia or hypercapnia (3) Leukocytosis Code(s): D72.829 - ELEVATED WHITE BLOOD CELL COUNT, UNSPECIFIED Qualifiers: Leukocytosis type: unspecified Qualified Code(s): D72.829 - Elevated white blood cell count, unspecified (4) Pneumonia Code(s): J18.9 - PNEUMONIA, UNSPECIFIED ORGANISM Qualifiers: Pneumonia type: due to unspecified organism Laterality: right Lung location: unspecified part of lung Qualified Code(s): J18.9 - Pneumonia, unspecified organism (5) Sepsis Code(s): A41.9 - SEPSIS, UNSPECIFIED ORGANISM (6) BPH (benign prostatic hyperplasia) Code(s): N40.0 - BENIGN PROSTATIC HYPERPLASIA WITHOUT LOWER URINRY TRACT SYMP
[2018-07-26] MEDS ORDERED: DULoxetine HCL 20 MG CAPSULE.DR PO SCH (10:00)
--- NOTE | 2018-07-26 11:11 | PN ---
Progress Note, Physician Chief Complaint: Sepsis Respiratory Distress Lactic acidosis Hyperkalemia History of Present Illness: NAD afebrile cultures negative so far Seen by pulmonary and ID also seen by for hematuria- resolved drop in H/H - Current Medication List Current Medications: Active Medications Acetaminophen (Ofirmev Injection -) 1,000 mg IVPB Q6H PRN PRN Reason: PAIN OR FEVER Last Admin: 07/25/18 12:26 Dose: 1,000 mg Acetaminophen (Tylenol Oral Solution -) 650 mg PO Q6H PRN PRN Reason: PAIN LEVEL 6-10 Last Admin: 07/26/18 02:54 Dose: 650 mg Albuterol/Ipratropium (Duoneb -) 1 amp NEB Q4H PRN PRN Reason: SHORTNESS OF BREATH Last Admin: 07/25/18 20:30 Dose: 1 amp Atorvastatin Calcium (Lipitor -) 40 mg GT HS TRUDY Last Admin: 07/25/18 23:51 Dose: 40 mg Duloxetine HCl (Cymbalta -) 20 mg PO DAILY TRUDY Sodium Chloride (Normal Saline -) 1,000 mls @ 42 mls/hr IV ASDIR TRUDY Last Admin: 07/25/18 23:50 Dose: 42 mls/hr Vancomycin HCl (Vancomycin (Pre-Docked)) 1,000 mg in 250 mls @ 166.667 mls/hr IVPB Q12H TRUDY; Protocol Last Admin: 07/25/18 23:50 Dose: 166.667 mls/hr Piperacillin Sod/Tazobactam (Sod 3.375 gm/ Dextrose) 50 mls @ 100 mls/hr IVPB Q8H-IV TRUDY; Protocol Last Admin: 07/26/18 02:55 Dose: 100 mls/hr - Objective Vital Signs: Vital Signs Temperature 98.9 F 07/26/18 10:00 Pulse Rate 75 07/26/18 10:00 Respiratory Rate 24 H 07/26/18 10:00 Blood Pressure 136/65 07/26/18 10:00 O2 Sat by Pulse Oximetry (%) 98 07/25/18 21:00 Constitutional: Yes: Well Nourished, No Distress, Calm Cardiovascular: Yes: Regular Rate and Rhythm Respiratory: Yes: Mechanically Ventilated, Rhonchi (diffuse) Gastrointestinal: Yes: Normal Bowel Sounds, Soft Genitourinary: Yes: Gordon Present Musculoskeletal: Yes: Muscle Weakness, Other (right sided hemipeligia) Edema: No Peripheral Pulses WNL: Yes Neurological: Yes: Alert, Oriented Psychiatric: Yes: Alert, Oriented Labs: CBC, BMP 07/26/18 01:00 07/25/18 06:00 INR, PTT INR 1.41 (0.83-1.09) H 07/23/18 23:00 Problem List - Problems (1) Anemia Assessment/Plan: -monitor H/H -Hold AC for DVT ppx -Check Iron, thyroid and b12 -Stool OB -Hematology consult Code(s): D64.9 - ANEMIA, UNSPECIFIED (2) Acute and chronic respiratory failure ([id number]) Assessment/Plan: -[facility] went -Pulmonary consult -Bronchodilators prn Code(s): J96.20 - ACUTE AND CHR RESP FAILURE, UNSP W HYPOXIA OR HYPERCAPNIA Qualifiers: Respiratory failure complication: unspecified whether with hypoxia or hypercapnia Qualified Code(s): J96.20 - Acute and chronic respiratory failure , unspecified whether with hypoxia or hypercapnia (3) Hematuria Assessment/Plan: -Monitor for more bleeding -Seen by Code(s): R31.9 - HEMATURIA, UNSPECIFIED (4) Pneumonia Assessment/Plan: -ID and pulmonary on board -IV abx -Bronchodilators -afebrile -cultures negative Code(s): J18.9 - PNEUMONIA, UNSPECIFIED ORGANISM Qualifiers: Pneumonia type: due to unspecified organism Laterality: right Lung location: unspecified part of lung Qualified Code(s): J18.9 - Pneumonia, unspecified organism (5) Sepsis Assessment/Plan: -ID and pulmonary on board -IV abx -Bronchodilators -afebrile -cultures negative -Lactic acid normal -no leukocytosis Code(s): A41.9 - SEPSIS, UNSPECIFIED ORGANISM (6) BPH (benign prostatic hyperplasia) Assessment/Plan: -chronic gordon maintained Code(s): N40.0 - BENIGN PROSTATIC HYPERPLASIA WITHOUT LOWER URINRY TRACT SYMP (7) Functional quadriplegia Code(s): R53.2 - FUNCTIONAL QUADRIPLEGIA Assessment/Plan see problem list
[2018-07-26] MEDS: VANCOMYCIN 1 GRAM (PRE-DOCKED) 1,000 MG/250 ML BAG IVPB SCH (11:13)
--- NOTE | 2018-07-26 12:42 | PN ---
Progress Note (short form) - Note Progress Note: Awake on AC Mode of vent, 60% FiO2. Remains afebrile. No acute events overnight. Intake & Output 07/23/18 07/24/18 07/25/18 07/26/18 23:59 23:59 23:59 23:59 Intake Total 1659 2750 720 Output Total 1300 950 250 Balance 359 1800 470 Weight 170 lb 190 lb 0.615 oz Last Vital Signs Temp Pulse Resp BP Pulse Ox 98.9 F 75 19 136/65 98 07/26/18 10:00 07/26/18 10:00 07/26/18 12:08 07/26/18 10:00 07/25/18 21:00 Active Medications Acetaminophen (Ofirmev Injection -) 1,000 mg IVPB Q6H PRN PRN Reason: PAIN OR FEVER Last Admin: 07/25/18 12:26 Dose: 1,000 mg Acetaminophen (Tylenol Oral Solution -) 650 mg PO Q6H PRN PRN Reason: PAIN LEVEL 6-10 Last Admin: 07/26/18 02:54 Dose: 650 mg Albuterol/Ipratropium (Duoneb -) 1 amp NEB Q4H PRN PRN Reason: SHORTNESS OF BREATH Last Admin: 07/25/18 20:30 Dose: 1 amp Atorvastatin Calcium (Lipitor -) 40 mg GT HS TRUDY Last Admin: 07/25/18 23:51 Dose: 40 mg Duloxetine HCl (Cymbalta -) 20 mg PO DAILY TRUDY Last Admin: 07/26/18 11:11 Dose: Not Given Sodium Chloride (Normal Saline -) 1,000 mls @ 42 mls/hr IV ASDIR TRUDY Last Admin: 07/25/18 23:50 Dose: 42 mls/hr Vancomycin HCl (Vancomycin (Pre-Docked)) 1,000 mg in 250 mls @ 166.667 mls/hr IVPB Q12H TRUDY; Protocol Last Admin: 07/26/18 11:13 Dose: 166.667 mls/hr Piperacillin Sod/Tazobactam (Sod 3.375 gm/ Dextrose) 50 mls @ 100 mls/hr IVPB Q8H-IV TRUDY; Protocol Last Admin: 07/26/18 11:12 Dose: 100 mls/hr Gen: vented, awake Heart: RRR Lung: scattered rhonchi Abd: soft, nontender Ext: no edema Laboratory Results - last 24 hr 07/25/18 07/26/18 13:48 01:00 WBC 13.0 H RBC 3.20 L Hgb 8.9 L Hct 27.3 L MCV 85.2 MCH 27.8 MCHC 32.7 RDW 17.4 H Plt Count 304 MPV 9.0 Absolute Neuts (auto) 10.9 H Neutrophils % 84.0 H Lymphocytes % 10.2 Monocytes % 4.3 Eosinophils % 1.3 D Basophils % 0.2 Nucleated RBC % 0 Lactic Acid 1.7 ASSESSMENT AND PLAN: r/o Pneumonia UTI Sepsis Lactic Acidosis Chronic Respiratory Failure s/p Tracheostomy h/o CVA COPD CAD h/o PPM HTN - IV antibiotics per ID - f/u final cultures - IVF - chest PT/pulmonary toilet - inhaled bronchodilators - AC Mode of vent, taper FiO2 to keep SpO2 >90%. Can attempt wean trials when FiO2 < 50% - enteral feeds - DVT/GI prophylaxis Dr Vasquez
[2018-07-26] MEDS: ACETAMINOPHEN 1000 MG/100 ML VIAL (NON FORMULARY) IVPB PRN (13:45)
[2018-07-26 17:06] LABS: ALBUMIN 2.4 g/dl (3.4-5.0); BILIRUBIN,TOTAL 0.6 mg/dL (0.2-1); BLOOD UREA NITROGEN 16.5 mg/dL (7-18); CALCIUM 8.1 mg/dL (8.5-10.1); CREATININE 0.6 mg/dL (0.55-1.3); POTASSIUM 3.7 mmol/L (3.5-5.1); TOT PROT 6.9 g/dl (6.4-8.2)
--- NOTE | 2018-07-26 17:07 | CONSULT ---
Consultation: REQUESTING PROVIDER: CONSULT REQUEST: We have been asked to medically evaluate this patient for ( anemia). HISTORY OF PRESENT ILLNESS: History is taken partially from the patient, and medical records. The patient is a 67 year old man from [facility] with a past medical history of CVA ( right hemiparesis, Mar 2018), chronic respiratory failure, s/p tracheostomy, HTN, CAD, s/p PPM, COPD, s/p PEG, constipation. The patient is admitted for hypoxia, sepsis due to PNA. Hematology/Oncology was called for evaluation of anemia. The patient is currently complaining of cough, chronic right leg pain and discomfort around PEG tube. 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, comes from [facility] FH: mother and brother: DM, brother: CVA father: prostate cancer Allergies: NKDA REVIEW OF SYSTEMS: CONSTITUTIONAL: Absent: fever, chills HEENT: Absent: rhinorrhea, nasal congestion, difficulty swallowing CARDIOVASCULAR: Absent: chest pain RESPIRATORY: cough, Absent: shortness of breath, wheezing GASTROINTESTINAL:abdominal discomfort Absent: abdominal pain, abdominal distension, nausea, vomiting, diarrhea GENITOURINARY: Absent: dysuria, frequency, urgency, hesitancy, hematuria,genital pain MUSCULOSKELETAL: right leg pain Absent: myalgia, arthralgia, back pain, neck pain SKIN: Absent: rash, itching, pallor HEMATOLOGIC/IMMUNOLOGIC: Absent: easy bleeding, easy bruising, lymphadenopathy, frequent infections NEUROLOGIC: Absent: headache, focal weakness or paresthesias, mental status changes PSYCHIATRIC: Absent: anxiety, depression PHYSICAL EXAMINATION Vital Signs - 24 hr 07/25/18 07/25/18 07/25/18 18:00 18:15 21:00 Temperature 98.0 F Pulse Rate 71 Respiratory 19 20 Rate Blood Pressure 124/70 O2 Sat by Pulse 98 Oximetry (%) 07/25/18 07/26/18 07/26/18 22:35 02:00 02:15 Temperature 99.8 F H Pulse Rate 70 Respiratory 24 H 19 19 Rate Blood Pressure 144/55 L O2 Sat by Pulse Oximetry (%) 07/26/18 07/26/18 07/26/18 06:00 06:40 09:22 Temperature 99.2 F Pulse Rate 70 Respiratory 14 14 19 Rate Blood Pressure 121/62 O2 Sat by Pulse Oximetry (%) 07/26/18 07/26/18 07/26/18 10:00 12:08 14:00 Temperature 98.9 F 98.8 F Pulse Rate 75 70 Respiratory 24 H 19 22 H Rate Blood Pressure 136/65 132/69 O2 Sat by Pulse Oximetry (%) GENERAL: Awake, alert, and fully oriented, in no acute distress. HEAD: Normal with no signs of trauma. EYES: Extraocular movements intact, right eye externally abducted, sclera anicteric, conjunctiva clear. EARS, NOSE, THROAT: Oropharynx clear without exudates. Moist mucous membranes, NECK: Normal range of motion, supple without lymphadenopathy, JVD, + tracheostomy. LUNGS: Diminished breath sounds bilaterally, +crackles, occasional rhonchi. No accessory muscle use. HEART: Regular rate and rhythm, normal S1 and S2 without murmur, rub or gallop. ABDOMEN: Soft, nontender, not distended, normoactive bowel sounds, no guarding, no rebound, +PEG tube. MUSCULOSKELETAL: Normal range of motion at all joints. No bony deformities or tenderness. UPPER EXTREMITIES: No peripheral edema. LOWER EXTREMITIES: 2+ pulses, warm, no peripheral edema. NEUROLOGICAL: Awake, oriented x 3, slurred speech, motor in RUE, RLL 0/5, LUE, LLE 5/5. PSYCHIATRIC: Cooperative. Appropriate mood and affect. SKIN: Warm, dry, normal turgor, no rashes or lesions noted. TESTICLES: no massess, no erythema, no swelling, no lymphadenopathy Laboratory Results - last 24 hr 07/26/18 01:00 WBC 13.0 H RBC 3.20 L Hgb 8.9 L Hct 27.3 L MCV 85.2 MCH 27.8 MCHC 32.7 RDW 17.4 H Plt Count 304 MPV 9.0 Absolute Neuts (auto) 10.9 H Neutrophils % 84.0 H Lymphocytes % 10.2 Monocytes % 4.3 Eosinophils % 1.3 D Basophils % 0.2 Nucleated RBC % 0 Active Medications Generic Name Dose Route Start Last Admin Trade Name Freq PRN Reason Stop Dose Admin Acetaminophen 650 mg 07/26/18 15:31 Tylenol Oral Solution - GT Q6H PRN PAIN LEVEL 6-10 Albuterol/Ipratropium 1 amp 07/24/18 21:18 07/25/18 20:30 Duoneb - NEB 1 amp Q4H PRN Administration SHORTNESS OF BREATH Atorvastatin Calcium 40 mg 07/25/18 22:00 07/25/18 23:51 Lipitor - GT 40 mg HS TRUDY Administration Escitalopram Oxalate 10 mg 07/26/18 16:30 Lexapro Oral Solution - GT DAILY TRUDY Sodium Chloride 1,000 mls @ 42 mls/hr 07/24/18 21:18 07/25/18 23:50 Normal Saline - IV 42 mls/hr ASDIR TRUDY Administration Vancomycin HCl 1,000 mg in 250 mls @ 166.667 mls/hr 07/25/18 00:00 07/26/18 11:13 Vancomycin (Pre-Docked) IVPB 166.667 mls/hr Q12H TRUDY Administration Protocol Piperacillin Sod/Tazobactam 50 mls @ 100 mls/hr 07/25/18 02:00 07/26/18 11:12 Sod 3.375 gm/ Dextrose IVPB 100 mls/hr Q8H-IV TRUDY Administration Protocol Ranitidine HCl 150 mg 07/27/18 10:00 Zantac Oral Solution - GT DAILY TRUDY ASSESSMENT/PLAN: History is taken partially from the patient, and medical records. The patient is a 67 year old man from [facility] with a past medical history of CVA ( right hemiparesis, Mar 2018), chronic respiratory failure, s/p tracheostomy, HTN, CAD, s/p PPM, COPD, s/p PEG, constipation. The patient is admitted for hypoxia, sepsis due to PNA. anemia r/o PNA h/o of UTI sepsis LA chronic resp. failure COPD CAD h/o of PPM HTN hematuria Plan: no signs of acute bleeding, likely anemia of chronic disease, possible blood loss/hemolysis elevated ferritin, will f/u haptoglobin, iron studies albumin to globulin ratio reversed, f/u SPEP, IgG, IgA, IgM, electrophoresis, ret, LDH monitor for hematuria f/u FOBT Dispo: We will continue to follow the patient. Thank you for this consultative opportunity. Problem List - Problems (1) Acute and chronic respiratory failure ([id number]) Code(s): J96.20 - ACUTE AND CHR RESP FAILURE, UNSP W HYPOXIA OR HYPERCAPNIA Qualifiers: Respiratory failure complication: unspecified whether with hypoxia or hypercapnia Qualified Code(s): J96.20 - Acute and chronic respiratory failure , unspecified whether with hypoxia or hypercapnia (2) Anemia Code(s): D64.9 - ANEMIA, UNSPECIFIED (3) Hematuria Code(s): R31.9 - HEMATURIA, UNSPECIFIED (4) Leukocytosis Code(s): D72.829 - ELEVATED WHITE BLOOD CELL COUNT, UNSPECIFIED Qualifiers: Leukocytosis type: unspecified Qualified Code(s): D72.829 - Elevated white blood cell count, unspecified (5) Pneumonia Code(s): J18.9 - PNEUMONIA, UNSPECIFIED ORGANISM Qualifiers: Pneumonia type: due to unspecified organism Laterality: right Lung location: unspecified part of lung Qualified Code(s): J18.9 - Pneumonia, unspecified organism (6) Sepsis Code(s): A41.9 - SEPSIS, UNSPECIFIED ORGANISM (7) BPH (benign prostatic hyperplasia) Code(s): N40.0 - BENIGN PROSTATIC HYPERPLASIA WITHOUT LOWER URINRY TRACT SYMP (8) COPD (chronic obstructive pulmonary disease) Code(s): J44.9 - CHRONIC OBSTRUCTIVE PULMONARY DISEASE, UNSPECIFIED (9) CVA (cerebral vascular accident) Code(s): I63.9 - CEREBRAL INFARCTION, UNSPECIFIED (10) HTN (hypertension) Code(s): I10 - ESSENTIAL (PRIMARY) HYPERTENSION Visit type - Emergency Visit Emergency Visit: Yes ED Registration Date: 07/24/18 Care time: The patient presented to the Emergency Department on the above date and was hospitalized for further evaluation of their emergent condition. - New Patient This patient is new to me today: Yes Date on this admission: 07/26/18 - Critical Care Critical Care patient: No
[2018-07-26] MEDS: ESCITALOPRAM OXALATE 5 MG/5 ML GT SCH (18:45)
--- NOTE | 2018-07-26 20:29 | PN ---
Teaching Attending Note Name of Resident: Vandana Faith ATTENDING PHYSICIAN STATEMENT I saw and evaluated the patient. I reviewed the resident's note and discussed the case with the resident. I agree with the resident's findings and plan as documented. SUBJECTIVE: Patient seen and examined 67 year old presented with pneumonia, lactic acidosis, fall in Hb/HCt. Developed hematuria which has resolved . History of CVA , trach/vent dependent , COPD, CAD, HPL, Last Vital Signs Temp Pulse Resp BP Pulse Ox 97.8 F 70 22 H 128/97 100 07/26/18 18:34 07/26/18 18:34 07/26/18 18:34 07/26/18 18:34 07/26/18 09:00 HEENT: DANIEL, EOM Intact Trach/vent Cor: RSR, No murmurs, No gallops Lungs: rhonchi Abd: Soft, Normal bowel sounds, No organomegaly,PEG Ext:No significant edema Skin: No rashes, Integument intact CBC, BMP 07/26/18 01:00 07/26/18 14:45 Current Medications Generic Name Dose Route Start Last Admin Trade Name Freq PRN Reason Stop Dose Admin Acetaminophen 650 mg 07/26/18 15:31 Tylenol Oral Solution - GT Q6H PRN PAIN LEVEL 6-10 Albuterol/Ipratropium 1 amp 07/24/18 21:18 07/25/18 20:30 Duoneb - NEB 1 amp Q4H PRN Administration SHORTNESS OF BREATH Atorvastatin Calcium 40 mg 07/25/18 22:00 07/25/18 23:51 Lipitor - GT 40 mg HS TRUDY Administration Escitalopram Oxalate 10 mg 07/26/18 16:30 07/26/18 18:45 Lexapro Oral Solution - GT 10 ml DAILY TRUDY Administration Sodium Chloride 1,000 mls @ 42 mls/hr 07/24/18 21:18 07/25/18 23:50 Normal Saline - IV 42 mls/hr ASDIR TRUDY Administration Vancomycin HCl 1,000 mg in 250 mls @ 166.667 mls/hr 07/25/18 00:00 07/26/18 11:13 Vancomycin (Pre-Docked) IVPB 166.667 mls/hr Q12H TRUDY Administration Protocol Piperacillin Sod/Tazobactam 50 mls @ 100 mls/hr 07/25/18 02:00 07/26/18 18:08 Sod 3.375 gm/ Dextrose IVPB 100 mls/hr Q8H-IV TRUDY Administration Protocol Ranitidine HCl 150 mg 07/27/18 10:00 Zantac Oral Solution - GT DAILY TRUDY OBJECTIVE: Impression: anemia pneumonia COPD vent /trach s/p CVA CAD Lactic acidosis Hematuria Plan: Suspect chronic disease anemia with recent infection, superimposed hematuria. B- 12 , TSH normal . Protein studies to be obtained Occult blood should be checked for. ASSESSMENT AND PLAN:
[2018-07-26] MEDS: ACETAMINOPHEN 650 MG/20.3 ML ORAL SOLUTION (CUPS) GT PRN (20:52)
[2018-07-26] MEDS: ATORVASTATIN CA 40 MG TABLET (FP) GT SCH (21:00)
[2018-07-27] MEDS ORDERED: PIPERACILLIN/TAZOBACTAM 3.375 GM VIAL IVPB ONE ×3 (00:43→18:36)
[2018-07-27] MEDS ORDERED: DEXTROSE 5%-WATER - 50 ML IVPB ONE ×3 (00:44→18:36)
[2018-07-27] MEDS: VANCOMYCIN 1 GRAM (PRE-DOCKED) 1,000 MG/250 ML BAG IVPB SCH ×2 (00:57→13:38)
[2018-07-27] MEDS: ACETAMINOPHEN 650 MG/20.3 ML ORAL SOLUTION (CUPS) GT PRN ×3 (03:10→20:56)
[2018-07-27] MEDS: PIPERACILLIN/TAZOB 3.375 GM 3.375 GM in DEXTROSE 5%-WATER - 50 ML IVPB SCH ×3 (04:09→18:54)
[2018-07-27 08:13] LABS: ALBUMIN 2.5 g/dl (3.4-5.0); BILIRUBIN,TOTAL 0.5 mg/dL (0.2-1); BLOOD UREA NITROGEN 13.7 mg/dL (7-18); CALCIUM 8.6 mg/dL (8.5-10.1); CREATININE 0.5 mg/dL (0.55-1.3); POTASSIUM 3.6 mmol/L (3.5-5.1); TOT PROT 7.2 g/dl (6.4-8.2)
[2018-07-27 08:16] LABS: BASO % 0.4 % (0-2.0); EOS % 3.9 % (0-4.5); HEMATOCRIT 28.8 % (35.4-49); HEMOGLOBIN 9.7 GM/dL (11.7-16.9); LYMPH % 14.9 % (8-40); MCH 28.7 pg (25.7-33.7); MCHC 33.7 g/dl (32.0-35.9); MONO % 6.1 % (3.8-10.2); NEUT % 74.7 % (42.8-82.8); PLATELET COUNT 317 K/MM3 (134-434); RBC 3.38 M/mm3 (4.00-5.60); RDW 17.9 % (11.9-15.9)
[2018-07-27] MEDS ORDERED: PT OWN MED DRAWER 7, Y5N ONE (09:44)
[2018-07-27] MEDS: ESCITALOPRAM OXALATE 5 MG/5 ML GT SCH (09:52)
[2018-07-27] MEDS: SODIUM CHLORIDE 1,000 ML IV SCH (09:58)
[2018-07-27] MEDS ORDERED: RANITIDINE HCL 150 MG/10 ML UNIT-DOSE GT SCH (10:00)
--- NOTE | 2018-07-27 10:54 | PN ---
Progress Note, Physician Chief Complaint: Sepsis Respiratory Distress Lactic acidosis Hyperkalemia History of Present Illness: NAD afebrile cultures negative so far Seen by pulmonary and ID also seen by for hematuria- resolved H/H improved - Current Medication List Current Medications: Active Medications Acetaminophen (Tylenol Oral Solution -) 650 mg GT Q6H PRN PRN Reason: PAIN LEVEL 6-10 Last Admin: 07/27/18 09:50 Dose: 650 mg Albuterol/Ipratropium (Duoneb -) 1 amp NEB Q4H PRN PRN Reason: SHORTNESS OF BREATH Last Admin: 07/25/18 20:30 Dose: 1 amp Atorvastatin Calcium (Lipitor -) 40 mg GT HS TRUDY Last Admin: 07/26/18 21:00 Dose: 40 mg Escitalopram Oxalate (Lexapro Oral Solution -) 10 mg GT DAILY TRUDY Last Admin: 07/27/18 09:52 Dose: 10 ml Sodium Chloride (Normal Saline -) 1,000 mls @ 42 mls/hr IV ASDIR TRUDY Last Admin: 07/27/18 09:58 Dose: 42 mls/hr Vancomycin HCl (Vancomycin (Pre-Docked)) 1,000 mg in 250 mls @ 166.667 mls/hr IVPB Q12H TRUDY; Protocol Last Admin: 07/27/18 00:57 Dose: 166.667 mls/hr Piperacillin Sod/Tazobactam (Sod 3.375 gm/ Dextrose) 50 mls @ 100 mls/hr IVPB Q8H-IV TRUDY; Protocol Last Admin: 07/27/18 09:52 Dose: 100 mls/hr Ranitidine HCl (Zantac Oral Solution -) 150 mg GT DAILY TRUDY Last Admin: 07/27/18 09:50 Dose: 150 mg - Objective Vital Signs: Vital Signs Temperature 98.8 F 07/27/18 06:00 Pulse Rate 74 07/27/18 06:48 Respiratory Rate 22 H 07/27/18 06:47 Blood Pressure 132/76 07/27/18 06:00 O2 Sat by Pulse Oximetry (%) 99 07/27/18 06:48 Constitutional: Yes: Well Nourished, No Distress, Calm Cardiovascular: Yes: Regular Rate and Rhythm Respiratory: Yes: Mechanically Ventilated, Rhonchi (diffuse) Gastrointestinal: Yes: WNL, Other (G tube) Genitourinary: Yes: Gordon Present Musculoskeletal: Yes: Muscle Weakness, Other (Right hemiparesis) Extremities: Yes: WNL Edema: No Peripheral Pulses WNL: Yes Integumentary: Yes: WNL Neurological: Yes: Alert, Oriented Psychiatric: Yes: Alert, Oriented Labs: CBC, BMP 07/27/18 06:37 07/27/18 06:37 INR, PTT INR 1.41 (0.83-1.09) H 07/23/18 23:00 Problem List - Problems (1) Anemia Assessment/Plan: -monitor H/H -Hold AC for DVT ppx, apply scd's instead -Iron profile pending -thyroid and b12 normal -Stool OB pending -Hematology consult appreciated -SPEP ordered by hematology Code(s): D64.9 - ANEMIA, UNSPECIFIED (2) Acute and chronic respiratory failure ([id number]) [facility] -Bronchodilators prn Code(s): J96.20 - ACUTE AND CHR RESP FAILURE, UNSP W HYPOXIA OR HYPERCAPNIA Qualifiers: Respiratory failure complication: unspecified whether with hypoxia or hypercapnia Qualified Code(s): J96.20 - Acute and chronic respiratory failure , unspecified whether with hypoxia or hypercapnia (3) Hematuria Assessment/Plan: -resolved -Monitor for more bleeding -Seen by Code(s): R31.9 - HEMATURIA, UNSPECIFIED (4) Pneumonia Assessment/Plan: -ID and pulmonary on board -IV abx -Bronchodilators -afebrile -cultures negative Code(s): J18.9 - PNEUMONIA, UNSPECIFIED ORGANISM Qualifiers: Pneumonia type: due to unspecified organism Laterality: right Lung location: unspecified part of lung Qualified Code(s): J18.9 - Pneumonia, unspecified organism (5) Sepsis Assessment/Plan: -ID and pulmonary on board -IV abx -Bronchodilators -afebrile -cultures negative -Lactic acid normal -no leukocytosis Code(s): A41.9 - SEPSIS, UNSPECIFIED ORGANISM (6) BPH (benign prostatic hyperplasia) Assessment/Plan: -chronic gordon maintained Code(s): N40.0 - BENIGN PROSTATIC HYPERPLASIA WITHOUT LOWER URINRY TRACT SYMP (7) Functional quadriplegia Code(s): R53.2 - FUNCTIONAL QUADRIPLEGIA (8) Abnormal liver enzymes Assessment/Plan: -Likely 2/2 to abx -U/S abd -hepatitis profile -GI consult -monitor trend Code(s): R74.8 - ABNORMAL LEVELS OF OTHER SERUM ENZYMES Assessment/Plan see problem list
--- NOTE | 2018-07-27 13:51 | PN ---
Progress Note, Physician History of Present Illness: PULMONARY AWAKE,ON VENT SUPPORT AC MODE,COMFORTABLE,-RESP DISTRESS - Current Medication List Current Medications: Active Medications Acetaminophen (Tylenol Oral Solution -) 650 mg GT Q6H PRN PRN Reason: PAIN LEVEL 6-10 Last Admin: 07/27/18 09:50 Dose: 650 mg Albuterol/Ipratropium (Duoneb -) 1 amp NEB Q4H PRN PRN Reason: SHORTNESS OF BREATH Last Admin: 07/25/18 20:30 Dose: 1 amp Atorvastatin Calcium (Lipitor -) 40 mg GT HS TRUDY Last Admin: 07/26/18 21:00 Dose: 40 mg Escitalopram Oxalate (Lexapro Oral Solution -) 10 mg GT DAILY TRUDY Last Admin: 07/27/18 09:52 Dose: 10 ml Sodium Chloride (Normal Saline -) 1,000 mls @ 42 mls/hr IV ASDIR TRUDY Last Admin: 07/27/18 09:58 Dose: 42 mls/hr Vancomycin HCl (Vancomycin (Pre-Docked)) 1,000 mg in 250 mls @ 166.667 mls/hr IVPB Q12H TRUDY; Protocol Last Admin: 07/27/18 13:38 Dose: 166.667 mls/hr Piperacillin Sod/Tazobactam (Sod 3.375 gm/ Dextrose) 50 mls @ 100 mls/hr IVPB Q8H-IV TRUDY; Protocol Last Admin: 07/27/18 09:52 Dose: 100 mls/hr Ranitidine HCl (Zantac Oral Solution -) 150 mg GT DAILY TRUDY Last Admin: 07/27/18 09:50 Dose: 150 mg - Objective Vital Signs: Vital Signs Temperature 98.8 F 07/27/18 06:00 Pulse Rate 74 07/27/18 10:00 Respiratory Rate 22 H 07/27/18 06:47 Blood Pressure 132/76 07/27/18 06:00 O2 Sat by Pulse Oximetry (%) 99 07/27/18 06:48 Constitutional: Yes: Well Nourished, Calm Eyes: Yes: WNL HENT: Yes: WNL Neck: Yes: Supple (TRACH) Cardiovascular: Yes: Regular Rate and Rhythm, S1, S2 Respiratory: Yes: Rhonchi (FEW RHONCHI) Gastrointestinal: Yes: Normal Bowel Sounds, Soft Extremities: Yes: WNL Edema: No Labs: CBC, BMP 07/27/18 06:37 07/27/18 06:37 INR, PTT INR 1.41 (0.83-1.09) H 07/23/18 23:00 Problem List - Problems (1) Acute and chronic respiratory failure ([id number]) Code(s): J96.20 - ACUTE AND CHR RESP FAILURE, UNSP W HYPOXIA OR HYPERCAPNIA Qualifiers: Respiratory failure complication: unspecified whether with hypoxia or hypercapnia Qualified Code(s): J96.20 - Acute and chronic respiratory failure , unspecified whether with hypoxia or hypercapnia (2) Anemia Code(s): D64.9 - ANEMIA, UNSPECIFIED (3) Pneumonia Code(s): J18.9 - PNEUMONIA, UNSPECIFIED ORGANISM Qualifiers: Pneumonia type: due to unspecified organism Laterality: right Lung location: unspecified part of lung Qualified Code(s): J18.9 - Pneumonia, unspecified organism (4) BPH (benign prostatic hyperplasia) Code(s): N40.0 - BENIGN PROSTATIC HYPERPLASIA WITHOUT LOWER URINRY TRACT SYMP (5) CHF (congestive heart failure) Code(s): I50.9 - HEART FAILURE, UNSPECIFIED (6) CVA (cerebral vascular accident) Code(s): I63.9 - CEREBRAL INFARCTION, UNSPECIFIED (7) CVA, old, hemiparesis Code(s): I69.359 - HEMIPLGA FOLLOWING CEREBRAL INFARCTION AFFECTING UNSP SIDE (8) Functional quadriplegia Code(s): R53.2 - FUNCTIONAL QUADRIPLEGIA Assessment/Plan ASSESSMENT AND PLAN: r/o Pneumonia UTI Sepsis Lactic Acidosis Chronic Respiratory Failure s/p Tracheostomy h/o CVA COPD CAD h/o PPM HTN - IV antibiotics - IVF - trend lactate - chest PT/pulmonary toilet - inhaled bronchodilators - taper FiO2 to keep SpO2 >90% - spontaneous breathing trials as tolerated - enteral feeds - DVT/GI prophylaxis DR MOORE
--- NOTE | 2018-07-27 13:55 | CON.GI ---
Consult Consult Specialty:: Gastroenterology Referred by:: Elroy Handy NP Reason for Consultation:: Abn LFTs - History of Present Illness Chief Complaint: Fever and respiratory distress History of Present Illness: 67M was admitted with temp of 104 and respiratory distress from the [facility]. He is noted to have mild LFTs abnormalities. He had similar abnormalities when I first saw him in the setting of gallstones which were found to be asymptomatic. 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) Cardio/Vascular: Yes: CAD, CHF, HTN, Hyperlipdemia, Other (Pacemaker) Pulmonary: Yes: COPD, Pneumonia Hepatobiliary: Yes: Cholelithiasis, Hepatitis A (as a child) Renal/: Yes: BPH - Past Surgical History Past Surgical History: Yes: Colonoscopy Additional Surgical History: G tube insertion - Alcohol/Substance Use Hx Alcohol Use: No - Smoking History Smoking history: Unknown if ever smoked Have you smoked in the past 12 months: No - Social History Usual Living Arrangement: Halfway ADL: Support Services 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 Place of : Other ([facility]) History of Recent Travel: No Home Medications - Allergies Allergies/Adverse Reactions: Allergies Allergy/AdvReac Type Severity Reaction Status Date / Time No Known Allergies Allergy Verified 07/23/18 22:23 - Home Medications Home Medications: Ambulatory Orders Aspirin 81 mg GT DAILY 04/24/18 Atorvastatin Ca [Lipitor] 40 mg GT HS 04/24/18 Carvedilol 25 mg GT BID 04/24/18 Doxazosin Mesylate [Cardura -] 2 mg GT HS 04/24/18 Simethicone 40 mg GT TID 04/24/18 Polyethylene Glycol 3350 [Miralax 119 gm Btl -] 17 gm PEG DAILY bottle Acetaminophen [Acetaminophen ER] 650 mg GT Q6H PRN 06/28/18 Duloxetine HCl [Cymbalta] 20 mg GT DAILY 06/28/18 Ramipril [Altace] 1.25 mg GT DAILY 06/28/18 Ranitidine Oral Solution [Zantac Oral Solution -] 150 mg GT BID 06/28/18 Sennosides [Senna] 8.6 mg PO HS 06/28/18 Family Disease History - Family Disease History Family History: Unable to Obtain Review of Systems Unable to obtain ROS, reason: intubated Physical Exam-GI Vital Signs: Vital Signs Temperature 98.8 F 07/27/18 06:00 Pulse Rate 74 07/27/18 10:00 Respiratory Rate 22 H 07/27/18 06:47 Blood Pressure 132/76 07/27/18 06:00 O2 Sat by Pulse Oximetry (%) 99 07/27/18 06:48 CBC,CMP WBC 12.0 K/mm3 (4.0-10.0) H 07/27/18 06:37 RBC 3.38 M/mm3 (4.00-5.60) L 07/27/18 06:37 Hgb 9.7 GM/dL (11.7-16.9) L 07/27/18 06:37 Hct 28.8 % (35.4-49) L 07/27/18 06:37 MCV 85.0 fl (80-96) 07/27/18 06:37 MCH 28.7 pg (25.7-33.7) 07/27/18 06:37 MCHC 33.7 g/dl (32.0-35.9) 07/27/18 06:37 RDW 17.9 % (11.9-15.9) H 07/27/18 06:37 Plt Count 317 K/MM3 (134-434) 07/27/18 06:37 MPV 9.0 fl (7.5-11.1) 07/27/18 06:37 Absolute Neuts (auto) 9.0 K/mm3 (1.5-8.0) H 07/27/18 06:37 Neutrophils % 74.7 % (42.8-82.8) 07/27/18 06:37 Neutrophils % (Manual) 63.0 % (42.8-82.8) 07/23/18 23:00 Band Neutrophils % 11.0 % 07/23/18 23:00 Lymphocytes % 14.9 % (8-40) D 07/27/18 06:37 Lymphocytes % (Manual) 17.0 % (8-40) 07/23/18 23:00 Monocytes % 6.1 % (3.8-10.2) 07/27/18 06:37 Monocytes % (Manual) 8 % (3.8-10.2) D 07/23/18 23:00 Eosinophils % 3.9 % (0-4.5) D 07/27/18 06:37 Eosinophils % (Manual) 0.0 % (0-4.5) D 07/23/18 23:00 Basophils % 0.4 % (0-2.0) 07/27/18 06:37 Basophils % (Manual) 0.0 % (0-2.0) 07/23/18 23:00 Myelocytes % (Man) 0 % (0-2) 07/23/18 23:00 Promyelocytes % (Man) 0 % (0-2) 07/23/18 23:00 Blast Cells % (Manual) 0 % (0-0) 07/23/18 23:00 Nucleated RBC % 0 % (0-0) 07/27/18 06:37 Metamyelocytes 0 % (0-2) 07/23/18 23:00 Hypochromia 0 07/23/18 23:00 Toxic Granulation 0 07/23/18 23:00 Dohle Bodies 0 07/23/18 23:00 Platelet Estimate Normal 07/23/18 23:00 Polychromasia 0 07/23/18 23:00 Poikilocytosis 0 07/23/18 23:00 Basophilic Stippling 0 07/23/18 23:00 Anisocytosis 0 07/23/18 23:00 Microcytosis 0 07/23/18 23:00 Macrocytosis 0 07/23/18 23:00 Spherocytes 0 07/23/18 23:00 Sickle Cells 0 07/23/18 23:00 Target Cells 0 07/23/18 23:00 Tear Drop Cells 0 07/23/18 23:00 Ovalocytes 0 07/23/18 23:00 Stomatocytes 0 07/23/18 23:00 Helmet Cells 0 07/23/18 23:00 [place] Bodies 0 07/23/18 23:00 [place] Rings 0 07/23/18 23:00 [place] Cells 0 07/23/18 23:00 Acanthocytes (Spur) 0 07/23/18 23:00 Rouleaux 0 07/23/18 23:00 Fragmented RBCs 0 07/23/18 23:00 Schistocytes 0 07/23/18 23:00 Retic Count 0.91 % (0.5-1.5) 07/27/18 06:37 Sodium 138 mmol/L (136-145) 07/27/18 06:37 Potassium 3.6 mmol/L (3.5-5.1) 07/27/18 06:37 Chloride 103 mmol/L (98-107) 07/27/18 06:37 Carbon Dioxide 28 mmol/L (21-32) 07/27/18 06:37 Anion Gap 7 MMOL/L (8-16) L 07/27/18 06:37 BUN 13.7 mg/dL (7-18) 07/27/18 06:37 Creatinine 0.5 mg/dL (0.55-1.3) L 07/27/18 06:37 Est GFR (CKD-EPI)AfAm 130.88 07/27/18 06:37 Est GFR (CKD-EPI)NonAf 112.92 07/27/18 06:37 Random Glucose 134 mg/dL (74-106) H 07/27/18 06:37 Lactic Acid 1.7 mmol/L (0.4-2.0) 07/25/18 13:48 Calcium 8.6 mg/dL (8.5-10.1) 07/27/18 06:37 Phosphorus 3.1 mg/dL (2.5-4.9) 07/25/18 06:00 Magnesium 2.3 mg/dL (1.8-2.4) 07/25/18 06:00 Ferritin 2114.8 ng/ml (8-388) H 07/26/18 14:45 Total Bilirubin 0.5 mg/dL (0.2-1) 07/27/18 06:37 AST 43 U/L (15-37) H 07/27/18 06:37 ALT 70 U/L (13-61) H 07/27/18 06:37 Alkaline Phosphatase 137 U/L (45-117) H 07/27/18 06:37 LD Total 178 U/L (87-246) 07/27/18 06:37 Creatine Kinase 79 U/L (26-308) 07/23/18 23:00 CK-MB (CK-2) < 1.0 ng/mL (0.5-3.6) 07/23/18 23:00 Troponin I 0.04 ng/ml (0.00-0.05) 07/24/18 05:23 B-Natriuretic Peptide 4539.8 pg/ml (5-125) H 07/23/18 23:00 Total Protein 7.2 g/dl (6.4-8.2) 07/27/18 06:37 Albumin 2.5 g/dl (3.4-5.0) L 07/27/18 06:37 Vitamin B12 1158 pg/ml (193-986) H 07/26/18 14:45 TSH 1.28 uIU/ml (0.358-3.74) 07/26/18 14:45 Free T4 1.14 ng/dl (0.76-1.16) 07/26/18 14:45 Current Medications Generic Name Dose Route Start Last Admin Trade Name Freq PRN Reason Stop Dose Admin Acetaminophen 650 mg 07/26/18 15:31 07/27/18 09:50 Tylenol Oral Solution - GT 650 mg Q6H PRN Administration PAIN LEVEL 6-10 Albuterol/Ipratropium 1 amp 07/24/18 21:18 07/25/18 20:30 Duoneb - NEB 1 amp Q4H PRN Administration SHORTNESS OF BREATH Atorvastatin Calcium 40 mg 07/25/18 22:00 07/26/18 21:00 Lipitor - GT 40 mg HS TRUDY Administration Escitalopram Oxalate 10 mg 07/26/18 16:30 07/27/18 09:52 Lexapro Oral Solution - GT 10 ml DAILY TRUDY Administration Vancomycin HCl 1,000 mg in 250 mls @ 166.667 mls/hr 07/25/18 00:00 07/27/18 13:38 Vancomycin (Pre-Docked) IVPB 166.667 mls/hr Q12H TRUDY Administration Protocol Piperacillin Sod/Tazobactam 50 mls @ 100 mls/hr 07/25/18 02:00 07/27/18 18:54 Sod 3.375 gm/ Dextrose IVPB 100 mls/hr Q8H-IV TRUDY Administration Protocol Ranitidine HCl 150 mg 07/27/18 10:00 07/27/18 09:50 Zantac Oral Solution - GT 150 mg DAILY TRUDY Administration Constitutional: Yes: Calm Eyes: Yes: Conjunctiva Clear HENT: Yes: Atraumatic Neck: Yes: Trachea Midline, Other (mature tracheostomy) Cardiovascular: Yes: Regular Rate and Rhythm, Other (left PPM) Respiratory: Yes: CTA Bilaterally Gastrointestinal Inspection: Yes: Scars (LUQ PEG site with mature fistula is clean) ...Auscultate: Yes: Normoactive Bowel Sounds ...Palpate: Yes: Soft, Other (nontender) ...Rectal Exam: Yes: Guaiac Negative Neurological: Yes: Alert Labs: CBC, BMP 07/27/18 06:37 07/27/18 06:37 INR, PTT INR 1.41 (0.83-1.09) H 07/23/18 23:00 Laboratory Tests 07/23/18 07/24/18 07/25/18 23:00 05:23 06:00 Hgb 11.0 L Plt Count Total Bilirubin 1.0 AST 33 ALT 33 Alkaline Phosphatase 109 B-Natriuretic Peptide 4539.8 H 07/26/18 07/27/18 07/27/18 14:45 06:37 06:37 Hgb 9.7 L Plt Count 317 Total Bilirubin 0.6 0.5 AST 53 H 43 H ALT 72 H 70 H Alkaline Phosphatase 120 H 137 H B-Natriuretic Peptide Problem List - Problems (1) Abnormal liver enzymes Assessment/Plan: I believe that this fluctuations reflect hepatic congestion due to pulmonary congestion/cor pulmonale rather than gallstone passage but I will repeat a sonogram to exclude this. Code(s): R74.8 - ABNORMAL LEVELS OF OTHER SERUM ENZYMES (2) Gastrostomy in place Code(s): Z93.1 - GASTROSTOMY STATUS (3) Acute and chronic respiratory failure ([id number]) Code(s): J96.20 - ACUTE AND CHR RESP FAILURE, UNSP W HYPOXIA OR HYPERCAPNIA Qualifiers: Respiratory failure complication: unspecified whether with hypoxia or hypercapnia Qualified Code(s): J96.20 - Acute and chronic respiratory failure , unspecified whether with hypoxia or hypercapnia (4) COPD (chronic obstructive pulmonary disease) Code(s): J44.9 - CHRONIC OBSTRUCTIVE PULMONARY DISEASE, UNSPECIFIED (5) CVA (cerebral vascular accident) Code(s): I63.9 - CEREBRAL INFARCTION, UNSPECIFIED (6) Cholelithiasis without cholecystitis Code(s): K80.20 - CALCULUS OF GALLBLADDER W/O CHOLECYSTITIS W/O OBSTRUCTION (7) Anemia Assessment/Plan: The cause for this dwindling Hb is not clear as the stool is guaiac negative. This does not exclude intermittent bleeding and stools for occult blood will be checked. Continue PPI prophylaxis against stress gastritis. Code(s): D64.9 - ANEMIA, UNSPECIFIED Assessment/Plan Impression: - I believe that this fluctuations reflect hepatic congestion due to pulmonary congestion/cor pulmonale rather than gallstone passage - Anemia cause is unclear but will order more stools for occult blood Plan: -- Sonogram ordered to exclude CBD stone. -- Continue PPI
--- NOTE | 2018-07-27 17:50 | PN ---
Progress Note (short form) - Note Progress Note: Patient seen and examined Complains of RLE pains which apparently is a chronic condition secondary to contracture Last Vital Signs Temp Pulse Resp BP Pulse Ox 98.7 F 70 29 H 111/64 99 07/27/18 14:00 07/27/18 14:00 07/27/18 15:03 07/27/18 14:00 07/27/18 06:48 HEENT: DANIEL, EOM Intact Neck: trach Cor: RSR, No murmurs, No gallops Lungs: scattered rhonchi Abd: Soft, Normal bowel sounds, No organomegaly,PEG Ext:No significant edema contracted RLE CBC, BMP 07/27/18 06:37 07/27/18 06:37 Current Medications Generic Name Dose Route Start Last Admin Trade Name Freq PRN Reason Stop Dose Admin Acetaminophen 650 mg 07/26/18 15:31 07/27/18 09:50 Tylenol Oral Solution - GT 650 mg Q6H PRN Administration PAIN LEVEL 6-10 Albuterol/Ipratropium 1 amp 07/24/18 21:18 07/25/18 20:30 Duoneb - NEB 1 amp Q4H PRN Administration SHORTNESS OF BREATH Atorvastatin Calcium 40 mg 07/25/18 22:00 07/26/18 21:00 Lipitor - GT 40 mg HS TRUDY Administration Escitalopram Oxalate 10 mg 07/26/18 16:30 07/27/18 09:52 Lexapro Oral Solution - GT 10 ml DAILY TRUDY Administration Vancomycin HCl 1,000 mg in 250 mls @ 166.667 mls/hr 07/25/18 00:00 07/27/18 13:38 Vancomycin (Pre-Docked) IVPB 166.667 mls/hr Q12H TRUDY Administration Protocol Piperacillin Sod/Tazobactam 50 mls @ 100 mls/hr 07/25/18 02:00 07/27/18 09:52 Sod 3.375 gm/ Dextrose IVPB 100 mls/hr Q8H-IV TRUDY Administration Protocol Ranitidine HCl 150 mg 07/27/18 10:00 07/27/18 09:50 Zantac Oral Solution - GT 150 mg DAILY TRUDY Administration Impression: Chronic Disease anemia Sepsis Lactic acidosis Abnormal LFT's Trach/vent Pneumonia Awaiting protein studies GI follow up
[2018-07-27] MEDS: ATORVASTATIN CA 40 MG TABLET (FP) GT SCH (21:15)
[2018-07-27] MEDS: ALBUTEROL SO4 2.5/IPRATROPIUM 0.5 INH SOL 3 ML VIAL.NEB. NEB PRN (21:27)
[2018-07-27] MEDS: RANITIDINE HCL 150 MG/10 ML UNIT-DOSE NGT SCH (21:58)
[2018-07-28] MEDS ORDERED: PIPERACILLIN/TAZOBACTAM 3.375 GM VIAL IVPB ONE ×3 (00:51→17:36)
[2018-07-28] MEDS ORDERED: DEXTROSE 5%-WATER - 50 ML IVPB ONE ×3 (00:51→17:36)
[2018-07-28] MEDS: VANCOMYCIN 1 GRAM (PRE-DOCKED) 1,000 MG/250 ML BAG IVPB SCH ×2 (01:02→12:51)
[2018-07-28] MEDS: PIPERACILLIN/TAZOB 3.375 GM 3.375 GM in DEXTROSE 5%-WATER - 50 ML IVPB SCH ×3 (02:29→17:47)
[2018-07-28 04:09] LABS: SERUM IRON SATURATION 13 % (15-55); TOTAL IRON BINDING CAPACITY 188 ug/dL (250-450); UIBC 164 ug/dL (111-343)
[2018-07-28 08:56] LABS: ALBUMIN 2.3 g/dl (3.4-5.0); BILIRUBIN,DIRECT 0.1 mg/dL (0.0-0.2); BILIRUBIN,TOTAL 0.4 mg/dL (0.2-1); TOT PROT 6.6 g/dl (6.4-8.2)
[2018-07-28 08:59] LABS: NEUT % 74.4 % (42.8-82.8)
[2018-07-28 09:09] LABS: ALBUMIN 2.4 g/dl (3.4-5.0); BILIRUBIN,TOTAL 0.4 mg/dL (0.2-1); BLOOD UREA NITROGEN 12.2 mg/dL (7-18); CALCIUM 8.2 mg/dL (8.5-10.1); CREATININE 0.5 mg/dL (0.55-1.3); POTASSIUM 3.9 mmol/L (3.5-5.1); TOT PROT 6.8 g/dl (6.4-8.2)
[2018-07-28 09:55] LABS: BASO % 0.4 % (0-2.0); EOS % 4.8 % (0-4.5); HEMATOCRIT 27.6 % (35.4-49); HEMOGLOBIN 9.3 GM/dL (11.7-16.9); LYMPH % 14.5 % (8-40); MCH 28.6 pg (25.7-33.7); MCHC 33.6 g/dl (32.0-35.9); MEAN PLT VOLUME 8.9 fl (7.5-11.1); MONO % 5.9 % (3.8-10.2); RBC 3.24 M/mm3 (4.00-5.60); RDW 17.2 % (11.9-15.9)
[2018-07-28 10:02] LABS: PLATELET COUNT 369 K/MM3 (134-434)
[2018-07-28] MEDS ORDERED: PT OWN MED DRAWER 7, Y5N ONE (10:14)
--- NOTE | 2018-07-28 10:23 | PN ---
Progress Note (short form) - Note Progress Note: Awake on AC Mode of vent, 60% FiO2. Remains afebrile. No acute events overnight. Intake & Output 07/25/18 07/26/18 07/27/18 07/28/18 23:59 23:59 23:59 23:59 Intake Total 2750 2215 1530 718 Output Total 950 900 950 700 Balance 1800 1315 580 18 Weight 190 lb Last Vital Signs Temp Pulse Resp BP Pulse Ox 97.5 F L 70 22 H 135/74 99 07/28/18 06:00 07/28/18 06:00 07/28/18 06:00 07/28/18 06:00 07/27/18 21:00 Active Medications Acetaminophen (Tylenol Oral Solution -) 650 mg GT Q6H PRN PRN Reason: PAIN LEVEL 6-10 Last Admin: 07/27/18 20:56 Dose: 650 mg Albuterol/Ipratropium (Duoneb -) 1 amp NEB Q4H PRN PRN Reason: SHORTNESS OF BREATH Last Admin: 07/27/18 21:27 Dose: 1 amp Atorvastatin Calcium (Lipitor -) 40 mg GT HS TRUDY Last Admin: 07/27/18 21:15 Dose: 40 mg Escitalopram Oxalate (Lexapro Oral Solution -) 10 mg GT DAILY TRUDY Last Admin: 07/27/18 09:52 Dose: 10 ml Vancomycin HCl (Vancomycin (Pre-Docked)) 1,000 mg in 250 mls @ 166.667 mls/hr IVPB Q12H TRUDY; Protocol Last Admin: 07/28/18 01:02 Dose: 166.667 mls/hr Piperacillin Sod/Tazobactam (Sod 3.375 gm/ Dextrose) 50 mls @ 100 mls/hr IVPB Q8H-IV TRUDY; Protocol Last Admin: 07/28/18 02:29 Dose: 100 mls/hr Ranitidine HCl (Zantac Oral Solution -) 150 mg NGT BID TRUDY Last Admin: 07/27/18 21:58 Dose: 150 mg Gen: vented, awake Heart: RRR Lung: scattered rhonchi Abd: soft, nontender Ext: no edema Laboratory Results - last 24 hr 07/26/18 07/27/18 07/27/18 14:45 06:37 11:11 WBC RBC Hgb Hct MCV MCH MCHC RDW Plt Count MPV Absolute Neuts (auto) Neutrophils % Lymphocytes % Monocytes % Eosinophils % Basophils % Nucleated RBC % Haptoglobin 501 H Sodium Potassium Chloride Carbon Dioxide Anion Gap BUN Creatinine Est GFR (CKD-EPI)AfAm Est GFR (CKD-EPI)NonAf Random Glucose Calcium Iron 24 L TIBC 188 L Iron Saturation 13 L Total Bilirubin Direct Bilirubin AST ALT Alkaline Phosphatase C-Reactive Protein Total Protein Albumin Total Amylase Lipase Stool Occult Blood IgG 1000 07/27/18 07/28/18 07/28/18 19:15 06:50 06:50 WBC 11.0 H RBC 3.24 L Hgb 9.3 L Hct 27.6 L MCV 85.0 MCH 28.6 MCHC 33.6 RDW 17.2 H Plt Count 369 MPV 8.9 Absolute Neuts (auto) 8.2 H Neutrophils % 74.4 Lymphocytes % 14.5 Monocytes % 5.9 Eosinophils % 4.8 H Basophils % 0.4 Nucleated RBC % 0 Haptoglobin Sodium 136 Potassium 3.9 Chloride 103 Carbon Dioxide 28 Anion Gap 5 L BUN 12.2 Creatinine 0.5 L Est GFR (CKD-EPI)AfAm 130.88 Est GFR (CKD-EPI)NonAf 112.92 Random Glucose 114 H Calcium 8.2 L Iron TIBC Iron Saturation Total Bilirubin 0.4 Direct Bilirubin AST 26 ALT 55 Alkaline Phosphatase 117 C-Reactive Protein Total Protein 6.8 Albumin 2.4 L Total Amylase Lipase Stool Occult Blood Negative IgG 07/28/18 06:50 WBC RBC Hgb Hct MCV MCH MCHC RDW Plt Count MPV Absolute Neuts (auto) Neutrophils % Lymphocytes % Monocytes % Eosinophils % Basophils % Nucleated RBC % Haptoglobin Sodium Potassium Chloride Carbon Dioxide Anion Gap BUN Creatinine Est GFR (CKD-EPI)AfAm Est GFR (CKD-EPI)NonAf Random Glucose Calcium Iron TIBC Iron Saturation Total Bilirubin 0.4 Direct Bilirubin 0.1 AST 28 ALT 54 Alkaline Phosphatase 111 C-Reactive Protein 9.8 H Total Protein 6.6 Albumin 2.3 L Total Amylase 28 Lipase 135 Stool Occult Blood IgG ASSESSMENT AND PLAN: r/o Pneumonia UTI Sepsis Lactic Acidosis Chronic Respiratory Failure s/p Tracheostomy h/o CVA COPD CAD h/o PPM HTN - IV antibiotics per ID - f/u final cultures - IVF - chest PT/pulmonary toilet - inhaled bronchodilators - AC Mode of vent, taper FiO2 to keep SpO2 >90%. Can attempt wean trials when FiO2 < 50% - enteral feeds - DVT/GI prophylaxis - GI workup ongoing Dr Vasquez
[2018-07-28] MEDS: ACETAMINOPHEN 650 MG/20.3 ML ORAL SOLUTION (CUPS) GT PRN ×2 (10:27→21:53)
[2018-07-28] MEDS: RANITIDINE HCL 150 MG/10 ML UNIT-DOSE NGT SCH ×2 (10:27→21:53)
[2018-07-28] MEDS: ESCITALOPRAM OXALATE 5 MG/5 ML GT SCH (10:28)
[2018-07-28 11:42] LABS: MAGNESIUM 2.1 mg/dL (1.8-2.4)
--- NOTE | 2018-07-28 12:53 | PN ---
Progress Note, Physician Chief Complaint: Sepsis Lactic Acidosis Respiratory Distress History of Present Illness: Previous notes and events reviewed awake and alert NAD complain of pain to trach afebrile no complaints of chest pain - Current Medication List Current Medications: Active Medications Acetaminophen (Tylenol Oral Solution -) 650 mg GT Q6H PRN PRN Reason: PAIN LEVEL 6-10 Last Admin: 07/28/18 10:27 Dose: 650 mg Albuterol/Ipratropium (Duoneb -) 1 amp NEB Q4H PRN PRN Reason: SHORTNESS OF BREATH Last Admin: 07/27/18 21:27 Dose: 1 amp Atorvastatin Calcium (Lipitor -) 40 mg GT HS TRUDY Last Admin: 07/27/18 21:15 Dose: 40 mg Escitalopram Oxalate (Lexapro Oral Solution -) 10 mg GT DAILY TRUDY Last Admin: 07/28/18 10:28 Dose: 10 ml Vancomycin HCl (Vancomycin (Pre-Docked)) 1,000 mg in 250 mls @ 166.667 mls/hr IVPB Q12H TRUDY; Protocol Last Admin: 07/28/18 01:02 Dose: 166.667 mls/hr Piperacillin Sod/Tazobactam (Sod 3.375 gm/ Dextrose) 50 mls @ 100 mls/hr IVPB Q8H-IV TRUDY; Protocol Last Admin: 07/28/18 10:27 Dose: 100 mls/hr Ranitidine HCl (Zantac Oral Solution -) 150 mg NGT BID TRUDY Last Admin: 07/28/18 10:27 Dose: 150 mg - Objective Vital Signs: Vital Signs Temperature 97.5 F L 07/28/18 06:00 Pulse Rate 70 07/28/18 06:00 Respiratory Rate 22 H 07/28/18 06:00 Blood Pressure 135/74 07/28/18 06:00 O2 Sat by Pulse Oximetry (%) 99 07/27/18 21:00 Constitutional: Yes: No Distress, Calm Eyes: Yes: Conjunctiva Clear HENT: Yes: Atraumatic Neck: Yes: Other (neck) Cardiovascular: Yes: Regular Rate and Rhythm Respiratory: Yes: Diminished, Mechanically Ventilated Gastrointestinal: Yes: Normal Bowel Sounds, Soft, Other (PEG) Genitourinary: Yes: Villa Present Musculoskeletal: Yes: Muscle Weakness Extremities: Yes: WNL Edema: No Neurological: Yes: Alert, Pre-Existing Deficit Psychiatric: Yes: Alert Labs: CBC, BMP 07/28/18 06:50 07/28/18 06:50 INR, PTT INR 1.41 (0.83-1.09) H 07/23/18 23:00 Microbiology 07/23/18 23:00 Blood - Peripheral Venous Blood Culture - Preliminary NO GROWTH OBTAINED AFTER 96 HOURS, INCUBATION TO CONTINUE FOR 1 DAYS. 07/23/18 23:00 Blood - Peripheral Venous Blood Culture - Preliminary NO GROWTH OBTAINED AFTER 96 HOURS, INCUBATION TO CONTINUE FOR 1 DAYS. 07/24/18 17:30 Sputum - Endotrachea Suction/Ventilator Gram Stain - Final 07/24/18 17:30 Sputum - Endotrachea Suction/Ventilator Sputum Culture - Final NORMAL RESPIRATORY TRISHA 07/24/18 00:03 Urine - Urine - Catheterized Urine Culture - Final NO GROWTH OBTAINED 07/24/18 15:45 Urine - Urine [place] Legionella Antigen - Final 07/24/18 15:45 Urine - Urine [place] Streptococcus pneumoniae Antigen (M - Final Problem List - Problems (1) Abnormal liver enzymes Assessment/Plan: -improving -monitor LFTs -GI on board Code(s): R74.8 - ABNORMAL LEVELS OF OTHER SERUM ENZYMES (2) Acute and chronic respiratory failure ([id number]) Assessment/Plan: -mechanically ventilated -Pulm on board -keep SpO2 >90% -bronchodilators Code(s): J96.20 - ACUTE AND CHR RESP FAILURE, UNSP W HYPOXIA OR HYPERCAPNIA Qualifiers: Respiratory failure complication: unspecified whether with hypoxia or hypercapnia Qualified Code(s): J96.20 - Acute and chronic respiratory failure , unspecified whether with hypoxia or hypercapnia (3) Anemia Assessment/Plan: -monitor Hg daily -transfuse for Hg <8.0 -Stool OB neg -Heme on board Code(s): D64.9 - ANEMIA, UNSPECIFIED (4) Gastrostomy in place Code(s): Z93.1 - GASTROSTOMY STATUS (5) Pneumonia Assessment/Plan: -ID on board -Zosyn -afebrile -bronchodilators -keep SpO2 >90% -Pulm on oboard Code(s): J18.9 - PNEUMONIA, UNSPECIFIED ORGANISM Qualifiers: Pneumonia type: due to unspecified organism Laterality: right Lung location: unspecified part of lung Qualified Code(s): J18.9 - Pneumonia, unspecified organism (6) Sepsis Assessment/Plan: -LA 1.7 -ID on board -Zosyn -afebrile -BC and UC neg Code(s): A41.9 - SEPSIS, UNSPECIFIED ORGANISM (7) BPH (benign prostatic hyperplasia) Assessment/Plan: -FC Code(s): N40.0 - BENIGN PROSTATIC HYPERPLASIA WITHOUT LOWER URINRY TRACT SYMP (8) Functional quadriplegia Assessment/Plan: -fall precaution -PT Code(s): R53.2 - FUNCTIONAL QUADRIPLEGIA (9) HTN (hypertension) Assessment/Plan: -monitor BP Code(s): I10 - ESSENTIAL (PRIMARY) HYPERTENSION Assessment/Plan see problem list dvt ppx
--- NOTE | 2018-07-28 17:27 | PN ---
Progress Note, Physician History of Present Illness: LETHARGIC BUT RESPONSIVE ON VENTILATOR AFEBRILE WBC IMPROVED - Current Medication List Current Medications: Active Medications Acetaminophen (Tylenol Oral Solution -) 650 mg GT Q6H PRN PRN Reason: PAIN LEVEL 6-10 Last Admin: 07/28/18 10:27 Dose: 650 mg Albuterol/Ipratropium (Duoneb -) 1 amp NEB Q4H PRN PRN Reason: SHORTNESS OF BREATH Last Admin: 07/27/18 21:27 Dose: 1 amp Atorvastatin Calcium (Lipitor -) 40 mg GT HS TRUDY Last Admin: 07/27/18 21:15 Dose: 40 mg Escitalopram Oxalate (Lexapro Oral Solution -) 10 mg GT DAILY TRUDY Last Admin: 07/28/18 10:28 Dose: 10 ml Vancomycin HCl (Vancomycin (Pre-Docked)) 1,000 mg in 250 mls @ 166.667 mls/hr IVPB Q12H TRUDY; Protocol Last Admin: 07/28/18 12:51 Dose: 166.667 mls/hr Piperacillin Sod/Tazobactam (Sod 3.375 gm/ Dextrose) 50 mls @ 100 mls/hr IVPB Q8H-IV TRUDY; Protocol Last Admin: 07/28/18 10:27 Dose: 100 mls/hr Ranitidine HCl (Zantac Oral Solution -) 150 mg NGT BID TRUDY Last Admin: 07/28/18 10:27 Dose: 150 mg - Objective Vital Signs: Vital Signs Temperature 98.4 F 07/28/18 14:00 Pulse Rate 70 07/28/18 14:00 Respiratory Rate 24 H 07/28/18 15:20 Blood Pressure 120/70 07/28/18 14:00 O2 Sat by Pulse Oximetry (%) 96 07/28/18 09:00 Constitutional: Yes: No Distress Cardiovascular: Yes: Regular Rate and Rhythm, S1, S2 Respiratory: Yes: Mechanically Ventilated Gastrointestinal: Yes: Normal Bowel Sounds, Soft. No: Tenderness Edema: No Labs: CBC, BMP 07/28/18 06:50 07/28/18 06:50 INR, PTT INR 1.41 (0.83-1.09) H 07/23/18 23:00 Assessment/Plan CHRONIC RESP FAILURE PNEUMONIA COPD FEVER/ LEUKOCYTOSIS IMPROVED LACTIC ACIDOSIS RESOLVED CONTINUE ZOSYN
--- NOTE | 2018-07-28 21:05 | PN.GI ---
GI Progress Note Subjective: GI NOte: :LFTs continue to improve. GB has stone but no inflammation or ductal dilation on sono - Objective Vital Signs: Vital Signs Temperature 98.1 F 07/28/18 18:30 Pulse Rate 70 07/28/18 18:30 Respiratory Rate 21 H 07/28/18 19:00 Blood Pressure 146/72 07/28/18 18:30 O2 Sat by Pulse Oximetry (%) 96 07/28/18 09:00 Laboratory Tests 07/26/18 07/27/18 07/28/18 14:45 06:37 06:50 WBC 11.0 H Total Bilirubin AST 53 H ALT 70 H Alkaline Phosphatase 137 H Albumin 07/28/18 06:50 WBC Total Bilirubin 0.4 AST 28 ALT 54 Alkaline Phosphatase 111 Albumin 2.3 L Constitutional: Calm ...Auscultate: Yes: Normoactive Bowel Sounds ...Palpate: Yes: Soft, Other (nontender) Labs: CBC, BMP 07/28/18 06:50 07/28/18 06:50 INR, PTT INR 1.41 (0.83-1.09) H 07/23/18 23:00 Assessment/Plan Impression: - LFT fluctuations reflect hepatic congestion due to pulmonary congestion/cor pulmonale - Anemia cause is unclear but will order more stools for occult blood Plan: -- Sonogram reveals GB stone but GB wall and CBD are WNL. -- Continue PPI Problem List - Problems (1) Abnormal liver enzymes Code(s): R74.8 - ABNORMAL LEVELS OF OTHER SERUM ENZYMES (2) Gastrostomy in place Code(s): Z93.1 - GASTROSTOMY STATUS (3) Acute and chronic respiratory failure ([id number]) Code(s): J96.20 - ACUTE AND CHR RESP FAILURE, UNSP W HYPOXIA OR HYPERCAPNIA Qualifiers: Respiratory failure complication: unspecified whether with hypoxia or hypercapnia Qualified Code(s): J96.20 - Acute and chronic respiratory failure , unspecified whether with hypoxia or hypercapnia (4) COPD (chronic obstructive pulmonary disease) Code(s): J44.9 - CHRONIC OBSTRUCTIVE PULMONARY DISEASE, UNSPECIFIED (5) CVA (cerebral vascular accident) Code(s): I63.9 - CEREBRAL INFARCTION, UNSPECIFIED (6) Cholelithiasis without cholecystitis Code(s): K80.20 - CALCULUS OF GALLBLADDER W/O CHOLECYSTITIS W/O OBSTRUCTION (7) Anemia Code(s): D64.9 - ANEMIA, UNSPECIFIED
[2018-07-28] MEDS: ATORVASTATIN CA 40 MG TABLET (FP) GT SCH (21:53)
[2018-07-29 01:09] LABS: HEP.C VIRUS AB <0.1 s/co ratio (0.0-0.9)
[2018-07-29] MEDS ORDERED: PIPERACILLIN/TAZOBACTAM 3.375 GM VIAL IVPB ONE ×4 (01:13→18:09)
[2018-07-29] MEDS ORDERED: DEXTROSE 5%-WATER - 50 ML IVPB ONE ×4 (01:13→18:09)
[2018-07-29] MEDS: PIPERACILLIN/TAZOB 3.375 GM 3.375 GM in DEXTROSE 5%-WATER - 50 ML IVPB SCH ×3 (01:58→18:15)
[2018-07-29] MEDS: ACETAMINOPHEN 650 MG/20.3 ML ORAL SOLUTION (CUPS) GT PRN ×2 (05:58→16:10)
[2018-07-29 07:45] LABS: ALBUMIN 2.5 g/dl (3.4-5.0); BILIRUBIN,TOTAL 0.3 mg/dL (0.2-1); BLOOD UREA NITROGEN 11.7 mg/dL (7-18); CALCIUM 8.4 mg/dL (8.5-10.1); CREATININE 0.5 mg/dL (0.55-1.3); TOT PROT 6.8 g/dl (6.4-8.2)
[2018-07-29 09:36] LABS: BASO % 0.4 % (0-2.0); EOS % 4.8 % (0-4.5); HEMATOCRIT 28.8 % (35.4-49); HEMOGLOBIN 9.7 GM/dL (11.7-16.9); LYMPH % 15.8 % (8-40); MCH 29.1 pg (25.7-33.7); MCHC 33.8 g/dl (32.0-35.9); MEAN CELL VOLUME 86.1 fl (80-96); MEAN PLT VOLUME 8.9 fl (7.5-11.1); MONO % 6.4 % (3.8-10.2); NEUT % 72.6 % (42.8-82.8); PLATELET COUNT 401 K/MM3 (134-434); RBC 3.34 M/mm3 (4.00-5.60); RDW 17.5 % (11.9-15.9); WHITE BLOOD COUNT 10.5 K/mm3 (4.0-10.0)
[2018-07-29] MEDS ORDERED: PT OWN MED DRAWER 7, Y5N ONE (09:59)
[2018-07-29] MEDS: RANITIDINE HCL 150 MG/10 ML UNIT-DOSE NGT SCH ×2 (10:08→23:01)
[2018-07-29] MEDS: ESCITALOPRAM OXALATE 5 MG/5 ML GT SCH (10:08)
--- NOTE | 2018-07-29 11:14 | PN ---
Progress Note, Physician History of Present Illness: PULMONARY AWAKE,ON VENT SUPPORT AC MODE - Current Medication List Current Medications: Active Medications Acetaminophen (Tylenol Oral Solution -) 650 mg GT Q6H PRN PRN Reason: PAIN LEVEL 6-10 Last Admin: 07/29/18 05:58 Dose: 650 mg Albuterol/Ipratropium (Duoneb -) 1 amp NEB Q4H PRN PRN Reason: SHORTNESS OF BREATH Last Admin: 07/27/18 21:27 Dose: 1 amp Atorvastatin Calcium (Lipitor -) 40 mg GT HS TRUDY Last Admin: 07/28/18 21:53 Dose: 40 mg Escitalopram Oxalate (Lexapro Oral Solution -) 10 mg GT DAILY TRUDY Last Admin: 07/29/18 10:08 Dose: 10 ml Piperacillin Sod/Tazobactam (Sod 3.375 gm/ Dextrose) 50 mls @ 100 mls/hr IVPB Q8H-IV TRUDY; Protocol Last Admin: 07/29/18 10:07 Dose: 100 mls/hr Ranitidine HCl (Zantac Oral Solution -) 150 mg NGT BID TRUDY Last Admin: 07/29/18 10:08 Dose: 150 mg - Objective Vital Signs: Vital Signs Temperature 98.0 F 07/29/18 06:00 Pulse Rate 68 07/29/18 06:00 Respiratory Rate 21 H 07/29/18 06:00 Blood Pressure 129/69 07/29/18 06:00 O2 Sat by Pulse Oximetry (%) 99 07/29/18 00:37 Constitutional: Yes: Well Nourished, Calm Eyes: Yes: WNL HENT: Yes: WNL Neck: Yes: Supple (TRACH) Cardiovascular: Yes: Regular Rate and Rhythm, S1, S2 Respiratory: Yes: Rhonchi (SCATTERED MAXINE RHONCHI) Gastrointestinal: Yes: Normal Bowel Sounds, Soft Extremities: Yes: WNL Edema: No Labs: CBC, BMP 07/29/18 06:25 07/29/18 06:25 INR, PTT INR 1.41 (0.83-1.09) H 07/23/18 23:00 Problem List - Problems (1) Acute and chronic respiratory failure ([id number]) Code(s): J96.20 - ACUTE AND CHR RESP FAILURE, UNSP W HYPOXIA OR HYPERCAPNIA Qualifiers: Respiratory failure complication: unspecified whether with hypoxia or hypercapnia Qualified Code(s): J96.20 - Acute and chronic respiratory failure , unspecified whether with hypoxia or hypercapnia (2) Anemia Code(s): D64.9 - ANEMIA, UNSPECIFIED (3) Pneumonia Code(s): J18.9 - PNEUMONIA, UNSPECIFIED ORGANISM Qualifiers: Pneumonia type: due to unspecified organism Laterality: right Lung location: unspecified part of lung Qualified Code(s): J18.9 - Pneumonia, unspecified organism (4) BPH (benign prostatic hyperplasia) Code(s): N40.0 - BENIGN PROSTATIC HYPERPLASIA WITHOUT LOWER URINRY TRACT SYMP (5) CHF (congestive heart failure) Code(s): I50.9 - HEART FAILURE, UNSPECIFIED (6) CVA (cerebral vascular accident) Code(s): I63.9 - CEREBRAL INFARCTION, UNSPECIFIED (7) CVA, old, hemiparesis Code(s): I69.359 - HEMIPLGA FOLLOWING CEREBRAL INFARCTION AFFECTING UNSP SIDE (8) Functional quadriplegia Code(s): R53.2 - FUNCTIONAL QUADRIPLEGIA Assessment/Plan ASSESSMENT AND PLAN: r/o Pneumonia UTI Sepsis Lactic Acidosis improved Chronic Respiratory Failure s/p Tracheostomy h/o CVA COPD CAD h/o PPM HTN - IV antibiotics - IVF - chest PT/pulmonary toilet - inhaled bronchodilators - taper FiO2 to keep SpO2 >90% - spontaneous breathing trials as tolerated - enteral feeds - DVT/GI prophylaxis DR MOORE
[2018-07-29] MEDS: ALBUTEROL SO4 2.5/IPRATROPIUM 0.5 INH SOL 3 ML VIAL.NEB. NEB PRN ×2 (14:15→20:45)
--- NOTE | 2018-07-29 14:39 | PN ---
Progress Note, Physician Chief Complaint: AWAKE IN BED DENIES CP NO FEVERS - Current Medication List Current Medications: Active Medications Acetaminophen (Tylenol Oral Solution -) 650 mg GT Q6H PRN PRN Reason: PAIN LEVEL 6-10 Last Admin: 07/29/18 05:58 Dose: 650 mg Albuterol/Ipratropium (Duoneb -) 1 amp NEB Q4H PRN PRN Reason: SHORTNESS OF BREATH Last Admin: 07/27/18 21:27 Dose: 1 amp Atorvastatin Calcium (Lipitor -) 40 mg GT HS TRUDY Last Admin: 07/28/18 21:53 Dose: 40 mg Escitalopram Oxalate (Lexapro Oral Solution -) 10 mg GT DAILY TRUDY Last Admin: 07/29/18 10:08 Dose: 10 ml Piperacillin Sod/Tazobactam (Sod 3.375 gm/ Dextrose) 50 mls @ 100 mls/hr IVPB Q8H-IV TRUDY; Protocol Last Admin: 07/29/18 10:07 Dose: 100 mls/hr Ranitidine HCl (Zantac Oral Solution -) 150 mg NGT BID TRUDY Last Admin: 07/29/18 10:08 Dose: 150 mg - Objective Vital Signs: Vital Signs Temperature 98.2 F 07/29/18 12:36 Pulse Rate 70 07/29/18 12:36 Respiratory Rate 18 07/29/18 12:36 Blood Pressure 130/74 07/29/18 12:36 O2 Sat by Pulse Oximetry (%) 100 07/29/18 09:00 Constitutional: Yes: Other Eyes: Yes: Other HENT: Yes: Other (TRACHEOSTOMY) Neck: Yes: Other Cardiovascular: Yes: Regular Rate and Rhythm Respiratory: Yes: Mechanically Ventilated, Rhonchi Gastrointestinal: Yes: Soft Genitourinary: Yes: Page Present Musculoskeletal: Yes: Muscle Weakness Extremities: Yes: Other Edema: No Integumentary: Yes: Pressure Ulcer Wound/Incision: Yes: Dressing Dry and Intact Neurological: Yes: Pre-Existing Deficit ...Motor Strength: LLE, RLE Psychiatric: Yes: Other Labs: CBC, BMP 07/29/18 06:25 07/29/18 06:25 INR, PTT INR 1.41 (0.83-1.09) H 07/23/18 23:00 Problem List - Problems (1) Abnormal liver enzymes Code(s): R74.8 - ABNORMAL LEVELS OF OTHER SERUM ENZYMES (2) Acute and chronic respiratory failure ([id number]) Code(s): J96.20 - ACUTE AND CHR RESP FAILURE, UNSP W HYPOXIA OR HYPERCAPNIA Qualifiers: Respiratory failure complication: unspecified whether with hypoxia or hypercapnia Qualified Code(s): J96.20 - Acute and chronic respiratory failure , unspecified whether with hypoxia or hypercapnia (3) Anemia Code(s): D64.9 - ANEMIA, UNSPECIFIED (4) Gastrostomy in place Code(s): Z93.1 - GASTROSTOMY STATUS (5) Hematuria Code(s): R31.9 - HEMATURIA, UNSPECIFIED (6) Leukocytosis Code(s): D72.829 - ELEVATED WHITE BLOOD CELL COUNT, UNSPECIFIED Qualifiers: Leukocytosis type: unspecified Qualified Code(s): D72.829 - Elevated white blood cell count, unspecified (7) Pneumonia Code(s): J18.9 - PNEUMONIA, UNSPECIFIED ORGANISM Qualifiers: Pneumonia type: due to unspecified organism Laterality: right Lung location: unspecified part of lung Qualified Code(s): J18.9 - Pneumonia, unspecified organism (8) Sepsis Code(s): A41.9 - SEPSIS, UNSPECIFIED ORGANISM (9) Acute respiratory failure with hypoxia Code(s): J96.01 - ACUTE RESPIRATORY FAILURE WITH HYPOXIA (10) CVA, old, hemiparesis Code(s): I69.359 - HEMIPLGA FOLLOWING CEREBRAL INFARCTION AFFECTING UNSP SIDE Assessment/Plan DIARRHEA X 1 EPISODE WILL MONITOR PULM AND ID CONSULT AND FOLLOW UP MONITOR LABS PAGE RENEWED WILL D/W FAMILY ABOUT ADVANCED DIRECTIVES
--- NOTE | 2018-07-29 14:40 | PN ---
Progress Note, Physician History of Present Illness: AWAKE, ALERT NO ACUTE DISTRESS AFEBRILE WBC IMPROVED - Current Medication List Current Medications: Active Medications Acetaminophen (Tylenol Oral Solution -) 650 mg GT Q6H PRN PRN Reason: PAIN LEVEL 6-10 Last Admin: 07/29/18 05:58 Dose: 650 mg Albuterol/Ipratropium (Duoneb -) 1 amp NEB Q4H PRN PRN Reason: SHORTNESS OF BREATH Last Admin: 07/27/18 21:27 Dose: 1 amp Atorvastatin Calcium (Lipitor -) 40 mg GT HS TRUDY Last Admin: 07/28/18 21:53 Dose: 40 mg Escitalopram Oxalate (Lexapro Oral Solution -) 10 mg GT DAILY TRUDY Last Admin: 07/29/18 10:08 Dose: 10 ml Piperacillin Sod/Tazobactam (Sod 3.375 gm/ Dextrose) 50 mls @ 100 mls/hr IVPB Q8H-IV TRUDY; Protocol Last Admin: 07/29/18 10:07 Dose: 100 mls/hr Ranitidine HCl (Zantac Oral Solution -) 150 mg NGT BID TRUDY Last Admin: 07/29/18 10:08 Dose: 150 mg - Objective Vital Signs: Vital Signs Temperature 98.2 F 07/29/18 12:36 Pulse Rate 70 07/29/18 12:36 Respiratory Rate 18 07/29/18 12:36 Blood Pressure 130/74 07/29/18 12:36 O2 Sat by Pulse Oximetry (%) 100 07/29/18 09:00 Constitutional: Yes: No Distress Cardiovascular: Yes: Regular Rate and Rhythm, S1, S2 Respiratory: Yes: Diminished Gastrointestinal: Yes: Normal Bowel Sounds, Soft. No: Tenderness Edema: No Labs: CBC, BMP 07/29/18 06:25 07/29/18 06:25 INR, PTT INR 1.41 (0.83-1.09) H 07/23/18 23:00 Assessment/Plan CHRONIC RESP FAILURE PNEUMONIA COPD FEVER/ LEUKOCYTOSIS IMPROVED LACTIC ACIDOSIS RESOLVED CONTINUE ZOSYN
--- NOTE | 2018-07-29 15:22 | PN ---
Progress Note (short form) - Note Progress Note: Patient seen and examined Complaints of abdominal discomfort and of RLE pain Last Vital Signs Temp Pulse Resp BP Pulse Ox 98.4 F 70 22 H 110/60 100 07/29/18 14:00 07/29/18 14:00 07/29/18 14:15 07/29/18 14:00 07/29/18 09:00 HEENT: right eye deviation Oropharynx: No thrush, No mucositis Neck: trach Cor: RSR, No murmurs, No gallops Lungs: rhonchi Abd: Soft, Normal bowel sounds, No organomegaly,PEG Ext:No significant edema,contracture RLE Skin: No rashes, Integument intact CBC, BMP 07/29/18 06:25 07/29/18 06:25 Current Medications Generic Name Dose Route Start Last Admin Trade Name Freq PRN Reason Stop Dose Admin Acetaminophen 650 mg 07/26/18 15:31 07/29/18 05:58 Tylenol Oral Solution - GT 650 mg Q6H PRN Administration PAIN LEVEL 6-10 Albuterol/Ipratropium 1 amp 07/24/18 21:18 07/29/18 14:15 Duoneb - NEB 1 amp Q4H PRN Administration SHORTNESS OF BREATH Atorvastatin Calcium 40 mg 07/25/18 22:00 07/28/18 21:53 Lipitor - GT 40 mg HS TRUDY Administration Escitalopram Oxalate 10 mg 07/26/18 16:30 07/29/18 10:08 Lexapro Oral Solution - GT 10 ml DAILY TRUDY Administration Piperacillin Sod/Tazobactam 50 mls @ 100 mls/hr 07/25/18 02:00 07/29/18 10:07 Sod 3.375 gm/ Dextrose IVPB 100 mls/hr Q8H-IV TRUDY Administration Protocol Ranitidine HCl 150 mg 07/27/18 22:00 07/29/18 10:08 Zantac Oral Solution - NGT 150 mg BID TRUDY Administration Respiratory failure Trach/vent Pneumonia Lactic acidosis - resolved Anemia - chronic disease - no "M" spike , normal immunoglobulins Plan : current treatment management--ID
[2018-07-29] MEDS: ATORVASTATIN CA 40 MG TABLET (FP) GT SCH (23:01)
[2018-07-30] MEDS ORDERED: PIPERACILLIN/TAZOBACTAM 3.375 GM VIAL IVPB ONE ×3 (02:07→17:38)
[2018-07-30] MEDS ORDERED: DEXTROSE 5%-WATER - 50 ML IVPB ONE ×3 (02:07→17:38)
[2018-07-30] MEDS: PIPERACILLIN/TAZOB 3.375 GM 3.375 GM in DEXTROSE 5%-WATER - 50 ML IVPB SCH ×3 (02:20→17:56)
[2018-07-30] MEDS ORDERED: ALBUTEROL SO4 2.5/IPRATROPIUM 0.5 INH SOL 3 ML VIAL.NEB. NEB ONE (06:04)
[2018-07-30 08:01] LABS: BASO % 0.6 % (0-2.0); EOS % 4.6 % (0-4.5); HEMATOCRIT 26.9 % (35.4-49); HEMOGLOBIN 9.2 GM/dL (11.7-16.9); LYMPH % 20.4 % (8-40); MCHC 34.2 g/dl (32.0-35.9); MEAN CELL VOLUME 84.9 fl (80-96); MEAN PLT VOLUME 8.5 fl (7.5-11.1); MONO % 6.1 % (3.8-10.2); NEUT % 68.3 % (42.8-82.8); PLATELET COUNT 448 K/MM3 (134-434); RBC 3.17 M/mm3 (4.00-5.60); RDW 17.7 % (11.9-15.9); WHITE BLOOD COUNT 10.8 K/mm3 (4.0-10.0)
[2018-07-30] MEDS: ESCITALOPRAM OXALATE 5 MG/5 ML GT SCH (10:32)
[2018-07-30] MEDS: RANITIDINE HCL 150 MG/10 ML UNIT-DOSE NGT SCH ×2 (10:32→22:45)
--- NOTE | 2018-07-30 10:59 | PN ---
Progress Note, Physician Chief Complaint: AWAKE ALERT EVENTS AND NOTES REVIEWED - Current Medication List Current Medications: Active Medications Acetaminophen (Tylenol Oral Solution -) 650 mg GT Q6H PRN PRN Reason: PAIN LEVEL 6-10 Last Admin: 07/29/18 16:10 Dose: 650 mg Atorvastatin Calcium (Lipitor -) 40 mg GT HS [facility] Last Admin: 07/29/18 23:01 Dose: 40 mg Escitalopram Oxalate (Lexapro Oral Solution -) 10 mg GT DAILY [facility] Last Admin: 07/30/18 10:32 Dose: 5 ml Piperacillin Sod/Tazobactam (Sod 3.375 gm/ Dextrose) 50 mls @ 100 mls/hr IVPB Q8H-IV TRUDY; Protocol Last Admin: 07/30/18 10:32 Dose: 100 mls/hr Ranitidine HCl (Zantac Oral Solution -) 150 mg NGT BID [facility] Last Admin: 07/30/18 10:32 Dose: 150 mg - Objective Vital Signs: Vital Signs Temperature 97.6 F 07/30/18 09:53 Pulse Rate 72 07/30/18 09:53 Respiratory Rate 16 07/30/18 09:53 Blood Pressure 149/72 07/30/18 09:53 O2 Sat by Pulse Oximetry (%) 99 07/30/18 08:16 Constitutional: Yes: Mild Distress Eyes: Yes: WNL HENT: Yes: Other (TRACHEOSTOMY) Neck: Yes: WNL Cardiovascular: Yes: Regular Rate and Rhythm Respiratory: Yes: Mechanically Ventilated, Rhonchi Gastrointestinal: Yes: Soft Genitourinary: Yes: Villa Present Musculoskeletal: Yes: Muscle Weakness Extremities: Yes: Other Edema: No Peripheral Pulses WNL: Yes Integumentary: Yes: Pressure Ulcer, Other Wound/Incision: Yes: Dressing Dry and Intact Neurological: Yes: Pre-Existing Deficit ...Motor Strength: LLE, RLE Psychiatric: Yes: Other Labs: CBC, BMP 07/30/18 06:54 07/29/18 06:25 INR, PTT INR 1.41 (0.83-1.09) H 07/23/18 23:00 Problem List - Problems (1) Abnormal liver enzymes Code(s): R74.8 - ABNORMAL LEVELS OF OTHER SERUM ENZYMES (2) Acute and chronic respiratory failure ([id number]) Code(s): J96.20 - ACUTE AND CHR RESP FAILURE, UNSP W HYPOXIA OR HYPERCAPNIA Qualifiers: Respiratory failure complication: unspecified whether with hypoxia or hypercapnia Qualified Code(s): J96.20 - Acute and chronic respiratory failure , unspecified whether with hypoxia or hypercapnia (3) Anemia Code(s): D64.9 - ANEMIA, UNSPECIFIED (4) Gastrostomy in place Code(s): Z93.1 - GASTROSTOMY STATUS (5) Hematuria Code(s): R31.9 - HEMATURIA, UNSPECIFIED (6) Leukocytosis Code(s): D72.829 - ELEVATED WHITE BLOOD CELL COUNT, UNSPECIFIED Qualifiers: Leukocytosis type: unspecified Qualified Code(s): D72.829 - Elevated white blood cell count, unspecified (7) Pneumonia Code(s): J18.9 - PNEUMONIA, UNSPECIFIED ORGANISM Qualifiers: Pneumonia type: due to unspecified organism Laterality: right Lung location: unspecified part of lung Qualified Code(s): J18.9 - Pneumonia, unspecified organism (8) Sepsis Code(s): A41.9 - SEPSIS, UNSPECIFIED ORGANISM (9) Acute respiratory failure with hypoxia Code(s): J96.01 - ACUTE RESPIRATORY FAILURE WITH HYPOXIA (10) CVA, old, hemiparesis Code(s): I69.359 - HEMIPLGA FOLLOWING CEREBRAL INFARCTION AFFECTING UNSP SIDE Assessment/Plan IV ABX PER ID MONITOR LABS RESP SUPPORT DVT PROPHYLAXIS CHRONICALLY ILL GENTLEMAN WITH MULTIPLE MEDICAL PROBLEMS WILL TREAT INFECTIONS, WOUND CARE AND PULM SUPPORT. ADVANCED DIRECTIVES NEED TO REASSESSED WITH FAMILY.
--- NOTE | 2018-07-30 11:52 | PN ---
Progress Note (short form) - Note Progress Note: PULMONARY AWAKE,ON VENT SUPPORT AC MODE VSS/AFEBRILE Eyes: Yes: WNL HENT: Yes: WNL Neck: Yes: Supple (TRACH) Cardiovascular: Yes: Regular Rate and Rhythm, S1, S2 Respiratory: Yes: Rhonchi (SCATTERED MAXINE RHONCHI) Gastrointestinal: Yes: Normal Bowel Sounds, Soft Extremities: Yes: WNL Edema: No Labs/notes/images/meds reviewed Pneumonia UTI Sepsis Lactic Acidosis improved Chronic Respiratory Failure s/p Tracheostomy h/o CVA COPD CAD h/o PPM HTN - IV antibiotics - IVF - chest PT/pulmonary toilet - inhaled bronchodilators - taper FiO2 to keep SpO2 >90% - spontaneous breathing trials as tolerated - enteral feeds - DVT/GI prophylaxis Nicholas TRACY MD
[2018-07-30] MEDS: ACETAMINOPHEN 650 MG/20.3 ML ORAL SOLUTION (CUPS) GT PRN ×2 (12:04→17:51)
[2018-07-30] MEDS: ATORVASTATIN CA 40 MG TABLET (FP) GT SCH (22:45)
[2018-07-31] MEDS ORDERED: DEXTROSE 5%-WATER - 50 ML IVPB ONE ×3 (01:25→16:50)
[2018-07-31] MEDS ORDERED: PIPERACILLIN/TAZOBACTAM 3.375 GM VIAL IVPB ONE ×3 (01:25→16:50)
[2018-07-31] MEDS: ACETAMINOPHEN 650 MG/20.3 ML ORAL SOLUTION (CUPS) GT PRN ×2 (01:28→11:21)
[2018-07-31] MEDS: PIPERACILLIN/TAZOB 3.375 GM 3.375 GM in DEXTROSE 5%-WATER - 50 ML IVPB SCH ×3 (01:29→17:14)
[2018-07-31 07:36] LABS: BASO % 0.5 % (0-2.0); EOS % 5.2 % (0-4.5); HEMATOCRIT 30.2 % (35.4-49); HEMOGLOBIN 9.8 GM/dL (11.7-16.9); LYMPH % 19.3 % (8-40); MCH 27.7 pg (25.7-33.7); MCHC 32.4 g/dl (32.0-35.9); MEAN CELL VOLUME 85.4 fl (80-96); MEAN PLT VOLUME 8.4 fl (7.5-11.1); MONO % 5.8 % (3.8-10.2); NEUT % 69.2 % (42.8-82.8); RBC 3.54 M/mm3 (4.00-5.60); RDW 17.4 % (11.9-15.9); WHITE BLOOD COUNT 10.1 K/mm3 (4.0-10.0)
[2018-07-31 08:36] LABS: PLATELET COUNT 527 K/MM3 (134-434)
--- NOTE | 2018-07-31 09:32 | PN ---
Progress Note (short form) - Note Progress Note: PULMONARY AWAKE,ON VENT SUPPORT AC MODE/APPEARS STABLE VSS/AFEBRILE Eyes: Yes: WNL HENT: Yes: WNL Neck: Yes: Supple (TRACH) Cardiovascular: Yes: Regular Rate and Rhythm, S1, S2 Respiratory: Yes: Rhonchi (SCATTERED MAXINE RHONCHI) Gastrointestinal: Yes: Normal Bowel Sounds, Soft Extremities: Yes: WNL Edema: No Labs/notes/images/meds reviewed Pneumonia UTI Sepsis Lactic Acidosis improved Chronic Respiratory Failure s/p Tracheostomy h/o CVA COPD CAD h/o PPM HTN - IV antibiotics - IVF/same vent settings - chest PT/pulmonary toilet - inhaled bronchodilators - taper FiO2 to keep SpO2 >90% - spontaneous breathing trials as tolerated - enteral feeds - DVT/GI prophylaxis Nicholas TRACY MD
[2018-07-31] MEDS: RANITIDINE HCL 150 MG/10 ML UNIT-DOSE NGT SCH ×2 (11:20→21:41)
[2018-07-31] MEDS: ESCITALOPRAM OXALATE 5 MG/5 ML GT SCH (11:21)
--- NOTE | 2018-07-31 14:14 | PN ---
Progress Note, Physician Chief Complaint: AWAKE IN BED DENIES CP NO FEVERS - Current Medication List Current Medications: Active Medications Acetaminophen (Tylenol Oral Solution -) 650 mg GT Q6H PRN PRN Reason: PAIN LEVEL 6-10 Last Admin: 07/31/18 11:21 Dose: 650 mg Atorvastatin Calcium (Lipitor -) 40 mg GT HS TRUDY Last Admin: 07/30/18 22:45 Dose: 40 mg Escitalopram Oxalate (Lexapro Oral Solution -) 10 mg GT DAILY [facility] Last Admin: 07/31/18 11:21 Dose: 5 ml Piperacillin Sod/Tazobactam (Sod 3.375 gm/ Dextrose) 50 mls @ 100 mls/hr IVPB Q8H-IV TRUDY; Protocol Last Admin: 07/31/18 11:20 Dose: 100 mls/hr Ranitidine HCl (Zantac Oral Solution -) 150 mg NGT BID [facility] Last Admin: 07/31/18 11:20 Dose: 150 mg - Objective Vital Signs: Vital Signs Temperature 98.3 F 07/31/18 12:00 Pulse Rate 70 07/31/18 12:00 Respiratory Rate 16 07/31/18 12:00 Blood Pressure 131/69 07/31/18 12:00 O2 Sat by Pulse Oximetry (%) 98 07/31/18 08:22 Constitutional: Yes: No Distress Cardiovascular: Yes: Regular Rate and Rhythm Respiratory: Yes: Mechanically Ventilated Gastrointestinal: Yes: Soft Genitourinary: Yes: Page Present Musculoskeletal: Yes: Muscle Weakness Integumentary: Yes: Pressure Ulcer, Rash Wound/Incision: Yes: Dressing Dry and Intact Neurological: Yes: Confusion, Pre-Existing Deficit, Weakness Labs: CBC, BMP 07/31/18 06:28 07/29/18 06:25 INR, PTT INR 1.41 (0.83-1.09) H 07/23/18 23:00 Problem List - Problems (1) Abnormal liver enzymes Code(s): R74.8 - ABNORMAL LEVELS OF OTHER SERUM ENZYMES (2) Acute and chronic respiratory failure ([id number]) Code(s): J96.20 - ACUTE AND CHR RESP FAILURE, UNSP W HYPOXIA OR HYPERCAPNIA Qualifiers: Respiratory failure complication: unspecified whether with hypoxia or hypercapnia Qualified Code(s): J96.20 - Acute and chronic respiratory failure , unspecified whether with hypoxia or hypercapnia (3) Anemia Code(s): D64.9 - ANEMIA, UNSPECIFIED (4) Gastrostomy in place Code(s): Z93.1 - GASTROSTOMY STATUS (5) Hematuria Code(s): R31.9 - HEMATURIA, UNSPECIFIED (6) Leukocytosis Code(s): D72.829 - ELEVATED WHITE BLOOD CELL COUNT, UNSPECIFIED Qualifiers: Leukocytosis type: unspecified Qualified Code(s): D72.829 - Elevated white blood cell count, unspecified (7) Pneumonia Code(s): J18.9 - PNEUMONIA, UNSPECIFIED ORGANISM Qualifiers: Pneumonia type: due to unspecified organism Laterality: right Lung location: unspecified part of lung Qualified Code(s): J18.9 - Pneumonia, unspecified organism (8) Sepsis Code(s): A41.9 - SEPSIS, UNSPECIFIED ORGANISM (9) Acute respiratory failure with hypoxia Code(s): J96.01 - ACUTE RESPIRATORY FAILURE WITH HYPOXIA (10) CVA, old, hemiparesis Code(s): I69.359 - HEMIPLGA FOLLOWING CEREBRAL INFARCTION AFFECTING UNSP SIDE Assessment/Plan DIARRHEA X 1 EPISODE NO NEW EPISODES VENT SUPPORT IV ABX WILL MONITOR PULM AND ID CONSULT AND FOLLOW UP MONITOR LABS WOUND CARE INCREASE NUTRITION FOR WOUND CARE AND SKIN CARE PAGE RENEWED WILL D/W FAMILY ABOUT ADVANCED DIRECTIVES
[2018-07-31] MEDS: AMINO ACIDS/PROTEIN HYDROLYS 30 ML LIQUID.PKT GT SCH (17:14)
[2018-07-31] MEDS: ATORVASTATIN CA 40 MG TABLET (FP) GT SCH (21:41)
[2018-08-01] MEDS ORDERED: PIPERACILLIN/TAZOBACTAM 3.375 GM VIAL IVPB ONE ×3 (01:39→17:17)
[2018-08-01] MEDS ORDERED: DEXTROSE 5%-WATER - 50 ML IVPB ONE ×3 (01:39→17:17)
[2018-08-01] MEDS: PIPERACILLIN/TAZOB 3.375 GM 3.375 GM in DEXTROSE 5%-WATER - 50 ML IVPB SCH ×3 (02:18→17:24)
[2018-08-01 05:58] LABS: IGM IMMUNOGLOBULIN 114
[2018-08-01 07:41] LABS: ALBUMIN 2.9 g/dl (3.4-5.0); BILIRUBIN,TOTAL 0.4 mg/dL (0.2-1); BLOOD UREA NITROGEN 14.9 mg/dL (7-18); CALCIUM 8.8 mg/dL (8.5-10.1); CREATININE 0.6 mg/dL (0.55-1.3); POTASSIUM 4.7 mmol/L (3.5-5.1); TOT PROT 7.7 g/dl (6.4-8.2)
[2018-08-01] MEDS: AMINO ACIDS/PROTEIN HYDROLYS 30 ML LIQUID.PKT GT SCH ×2 (08:08→17:25)
[2018-08-01] MEDS ORDERED: PT OWN MED DRAWER 7, Y5N ONE (09:17)
[2018-08-01 10:02] LABS: HEMOGLOBIN 10.3 GM/dL (11.7-16.9); MCH 28.2 pg (25.7-33.7); MCHC 33.3 g/dl (32.0-35.9); MEAN CELL VOLUME 84.8 fl (80-96); MEAN PLT VOLUME 8.5 fl (7.5-11.1); RBC 3.66 M/mm3 (4.00-5.60); RDW 17.5 % (11.9-15.9); WHITE BLOOD COUNT 10.2 K/mm3 (4.0-10.0)
[2018-08-01] MEDS: ZINC SULFATE 220 MG CAPSULE (FP) GT SCH (10:18)
[2018-08-01] MEDS: RANITIDINE HCL 150 MG/10 ML UNIT-DOSE NGT SCH ×2 (10:18→22:06)
[2018-08-01] MEDS: ASCORBIC ACID 250 MG TABLET (FP) GT SCH (10:18)
[2018-08-01] MEDS: ESCITALOPRAM OXALATE 5 MG/5 ML GT SCH (10:18)
--- NOTE | 2018-08-01 10:28 | PN ---
Progress Note, Physician Chief Complaint: Sepsis Lactic Acidosis Respiratory Distress History of Present Illness: Previous notes and events reviewed awake and alert NAD denies chest pain IV ABX mechanically ventilated - Current Medication List Current Medications: Active Medications Acetaminophen (Tylenol Oral Solution -) 650 mg GT Q6H PRN PRN Reason: PAIN LEVEL 6-10 Last Admin: 07/31/18 11:21 Dose: 650 mg Amino Acids (Prosource No Carb Liquid Pkt) 30 ml GT BID@0800,1730 [facility] Last Admin: 08/01/18 08:08 Dose: 30 ml Ascorbic Acid (Vitamin C -) 250 mg GT DAILY [facility] Last Admin: 08/01/18 10:18 Dose: 250 mg Atorvastatin Calcium (Lipitor -) 40 mg GT HS [facility] Last Admin: 07/31/18 21:41 Dose: 40 mg Escitalopram Oxalate (Lexapro Oral Solution -) 10 mg GT DAILY [facility] Last Admin: 08/01/18 10:18 Dose: 5 ml Piperacillin Sod/Tazobactam (Sod 3.375 gm/ Dextrose) 50 mls @ 100 mls/hr IVPB Q8H-IV TRUDY; Protocol Last Admin: 08/01/18 10:18 Dose: 100 mls/hr Ranitidine HCl (Zantac Oral Solution -) 150 mg NGT BID [facility] Last Admin: 08/01/18 10:18 Dose: 150 mg Zinc Sulfate (Orazinc -) 220 mg GT DAILY [facility] Last Admin: 08/01/18 10:18 Dose: 220 mg - Objective Vital Signs: Vital Signs Temperature 98.7 F 08/01/18 06:00 Pulse Rate 70 08/01/18 06:00 Respiratory Rate 22 H 08/01/18 06:00 Blood Pressure 135/73 08/01/18 06:00 O2 Sat by Pulse Oximetry (%) 95 07/31/18 22:01 Constitutional: Yes: No Distress, Calm Eyes: Yes: Conjunctiva Clear HENT: Yes: Atraumatic Cardiovascular: Yes: Regular Rate and Rhythm Respiratory: Yes: Regular, CTA Bilaterally Gastrointestinal: Yes: Normal Bowel Sounds, Soft Genitourinary: Yes: Villa Present Musculoskeletal: Yes: Muscle Weakness Extremities: Yes: WNL Edema: No Neurological: Yes: Alert, Pre-Existing Deficit Psychiatric: Yes: Alert Labs: CBC, BMP 08/01/18 06:20 08/01/18 06:20 INR, PTT INR 1.41 (0.83-1.09) H 07/23/18 23:00 Active Medications Generic Name Dose Route Start Last Admin Trade Name Manuela PRN Reason Stop Dose Admin Acetaminophen 650 mg 07/26/18 15:31 07/31/18 11:21 Tylenol Oral Solution - GT 650 mg Q6H PRN Administration PAIN LEVEL 6-10 Amino Acids 30 ml 07/31/18 17:30 08/01/18 08:08 Prosource No Carb Liquid Pkt GT 30 ml BID@0800,1730 TRUDY Administration Ascorbic Acid 250 mg 08/01/18 10:00 08/01/18 10:18 Vitamin C - GT 250 mg DAILY TRUDY Administration Atorvastatin Calcium 40 mg 07/25/18 22:00 07/31/18 21:41 Lipitor - GT 40 mg HS TRUDY Administration Escitalopram Oxalate 10 mg 07/26/18 16:30 08/01/18 10:18 Lexapro Oral Solution - GT 5 ml DAILY TRUDY Administration Piperacillin Sod/Tazobactam 50 mls @ 100 mls/hr 07/25/18 02:00 08/01/18 10:18 Sod 3.375 gm/ Dextrose IVPB 100 mls/hr Q8H-IV TRUDY Administration Protocol Ranitidine HCl 150 mg 07/27/18 22:00 08/01/18 10:18 Zantac Oral Solution - NGT 150 mg BID TRUDY Administration Zinc Sulfate 220 mg 08/01/18 10:00 08/01/18 10:18 Orazinc - GT 220 mg DAILY TUR[facility] Administration Problem List - Problems (1) Abnormal liver enzymes Assessment/Plan: -improving -monitor LFTs -GI on board Code(s): R74.8 - ABNORMAL LEVELS OF OTHER SERUM ENZYMES (2) Acute and chronic respiratory failure ([id number]) Assessment/Plan: -mechanically ventilated -Pulm on board -keep SpO2 >90% -bronchodilators Code(s): J96.20 - ACUTE AND CHR RESP FAILURE, UNSP W HYPOXIA OR HYPERCAPNIA Qualifiers: Respiratory failure complication: unspecified whether with hypoxia or hypercapnia Qualified Code(s): J96.20 - Acute and chronic respiratory failure , unspecified whether with hypoxia or hypercapnia (3) Anemia Assessment/Plan: -Hg 10.3 -monitor Hg daily -transfuse for Hg <8.0 -Iron panel reviewed -Stool OB neg -Heme on board Code(s): D64.9 - ANEMIA, UNSPECIFIED (4) Gastrostomy in place Code(s): Z93.1 - GASTROSTOMY STATUS (5) Pneumonia Assessment/Plan: -ID on board -Zosyn -afebrile -bronchodilators -wbc 10.2 -keep SpO2 >90% -Pulm on oboard -CXR reviewed Code(s): J18.9 - PNEUMONIA, UNSPECIFIED ORGANISM Qualifiers: Pneumonia type: due to unspecified organism Laterality: right Lung location: unspecified part of lung Qualified Code(s): J18.9 - Pneumonia, unspecified organism (6) Sepsis Assessment/Plan: -LA 1.7 -ID on board -Zosyn -WBC 10.2 -afebrile -BC and UC neg Code(s): A41.9 - SEPSIS, UNSPECIFIED ORGANISM (7) BPH (benign prostatic hyperplasia) Assessment/Plan: -FC Code(s): N40.0 - BENIGN PROSTATIC HYPERPLASIA WITHOUT LOWER URINRY TRACT SYMP (8) Functional quadriplegia Assessment/Plan: -fall precaution -PT Code(s): R53.2 - FUNCTIONAL QUADRIPLEGIA (9) HTN (hypertension) Assessment/Plan: -monitor BP Code(s): I10 - ESSENTIAL (PRIMARY) HYPERTENSION Assessment/Plan see problem list dvt ppx return to SNF for discharge
[2018-08-01] MEDS: ACETAMINOPHEN 650 MG/20.3 ML ORAL SOLUTION (CUPS) GT PRN ×2 (11:21→17:23)
--- NOTE | 2018-08-01 11:45 | PN ---
Progress Note (short form) - Note Progress Note: PULMONARY Vented, awake on volume assist control. Vital Signs Period Temp Pulse Resp BP Sys/Richards Pulse Ox Last 24 Hr 98.2 F-98.9 F 70-80 16-22 125-142/69-81 95-95 Gen: vented, awake Heart: RRR Lung: decreased breath sounds at the bases Abd: soft, nontender Ext: no edema CBC, BMP 08/01/18 06:20 08/01/18 06:20 Active Medications Acetaminophen (Tylenol Oral Solution -) 650 mg GT Q6H PRN PRN Reason: PAIN LEVEL 6-10 Last Admin: 08/01/18 11:21 Dose: 650 mg Amino Acids (Prosource No Carb Liquid Pkt) 30 ml GT BID@0800,1730 [facility] Last Admin: 08/01/18 08:08 Dose: 30 ml Ascorbic Acid (Vitamin C -) 250 mg GT DAILY [facility] Last Admin: 08/01/18 10:18 Dose: 250 mg Atorvastatin Calcium (Lipitor -) 40 mg GT HS [facility] Last Admin: 07/31/18 21:41 Dose: 40 mg Escitalopram Oxalate (Lexapro Oral Solution -) 10 mg GT DAILY [facility] Last Admin: 08/01/18 10:18 Dose: 5 ml Piperacillin Sod/Tazobactam (Sod 3.375 gm/ Dextrose) 50 mls @ 100 mls/hr IVPB Q8H-IV TRUDY; Protocol Last Admin: 08/01/18 10:18 Dose: 100 mls/hr Ranitidine HCl (Zantac Oral Solution -) 150 mg NGT BID [facility] Last Admin: 08/01/18 10:18 Dose: 150 mg Zinc Sulfate (Orazinc -) 220 mg GT DAILY [facility] Last Admin: 08/01/18 10:18 Dose: 220 mg A/P Pneumonia UTI Sepsis Lactic Acidosis improved Chronic Respiratory Failure s/p Tracheostomy h/o CVA COPD CAD h/o PPM HTN - continue antibiotics per ID - chest PT/pulmonary toilet - inhaled bronchodilators - taper FiO2 to keep SpO2 >90% - spontaneous breathing trials as tolerated - enteral feeds - DVT/GI prophylaxis
[2018-08-01 11:47] LABS: PLATELET COUNT 581 K/MM3 (134-434)
[2018-08-01] MEDS ORDERED: MORPHINE SULFATE 2 MG/ML VIAL IVPUSH ONE (18:32)
[2018-08-01] MEDS: ATORVASTATIN CA 40 MG TABLET (FP) GT SCH (22:06)
[2018-08-02] MEDS ORDERED: PIPERACILLIN/TAZOBACTAM 3.375 GM VIAL IVPB ONE ×3 (01:24→16:45)
[2018-08-02] MEDS ORDERED: DEXTROSE 5%-WATER - 50 ML IVPB ONE ×3 (01:24→16:45)
[2018-08-02] MEDS: PIPERACILLIN/TAZOB 3.375 GM 3.375 GM in DEXTROSE 5%-WATER - 50 ML IVPB SCH ×3 (01:35→17:01)
[2018-08-02 07:16] LABS: HEMATOCRIT 29.8 % (35.4-49); MCH 28.4 pg (25.7-33.7); MCHC 33.7 g/dl (32.0-35.9); MEAN CELL VOLUME 84.2 fl (80-96); MEAN PLT VOLUME 8.2 fl (7.5-11.1); PLATELET COUNT 593 K/MM3 (134-434); RBC 3.53 M/mm3 (4.00-5.60); RDW 17.4 % (11.9-15.9); WHITE BLOOD COUNT 9.6 K/mm3 (4.0-10.0)
[2018-08-02 07:37] LABS: BILIRUBIN,TOTAL 0.3 mg/dL (0.2-1); BLOOD UREA NITROGEN 17.9 mg/dL (7-18); CREATININE 0.6 mg/dL (0.55-1.3); POTASSIUM 4.5 mmol/L (3.5-5.1); TOT PROT 7.6 g/dl (6.4-8.2)
[2018-08-02] MEDS: ACETAMINOPHEN 650 MG/20.3 ML ORAL SOLUTION (CUPS) GT PRN ×2 (08:29→16:47)
[2018-08-02] MEDS: AMINO ACIDS/PROTEIN HYDROLYS 30 ML LIQUID.PKT GT SCH ×2 (08:30→16:48)
[2018-08-02] MEDS: RANITIDINE HCL 150 MG/10 ML UNIT-DOSE NGT SCH ×2 (10:14→22:22)
[2018-08-02] MEDS: ZINC SULFATE 220 MG CAPSULE (FP) GT SCH (10:14)
[2018-08-02] MEDS: ASCORBIC ACID 250 MG TABLET (FP) GT SCH (10:15)
[2018-08-02] MEDS: ESCITALOPRAM OXALATE 5 MG/5 ML GT SCH (10:15)
--- NOTE | 2018-08-02 11:56 | PN ---
Progress Note (short form) - Note Progress Note: PULMONARY Vented, awake on volume assist control with 50% FiO2. No fevers recorded. Vital Signs Period Temp Pulse Resp BP Sys/Richards Pulse Ox Last 24 Hr 97.4 F-98.2 F 70-70 14-26 122-147/66-76 97-99 Gen: vented, awake Heart: RRR Lung: decreased breath sounds at the bases Abd: soft, nontender Ext: no edema CBC, BMP 08/02/18 06:42 08/02/18 06:42 Active Medications Acetaminophen (Tylenol Oral Solution -) 650 mg GT Q6H PRN PRN Reason: PAIN LEVEL 6-10 Last Admin: 08/02/18 08:29 Dose: 650 mg Amino Acids (Prosource No Carb Liquid Pkt) 30 ml GT BID@0800,1730 [facility] Last Admin: 08/02/18 08:30 Dose: 30 ml Ascorbic Acid (Vitamin C -) 250 mg GT DAILY [facility] Last Admin: 08/02/18 10:15 Dose: 250 mg Atorvastatin Calcium (Lipitor -) 40 mg GT HS [facility] Last Admin: 08/01/18 22:06 Dose: 40 mg Escitalopram Oxalate (Lexapro Oral Solution -) 10 mg GT DAILY [facility] Last Admin: 08/02/18 10:15 Dose: 10 ml Piperacillin Sod/Tazobactam (Sod 3.375 gm/ Dextrose) 50 mls @ 100 mls/hr IVPB Q8H-IV TRUDY; Protocol Last Admin: 08/02/18 10:14 Dose: 100 mls/hr Ranitidine HCl (Zantac Oral Solution -) 150 mg NGT BID [facility] Last Admin: 08/02/18 10:14 Dose: 150 mg Zinc Sulfate (Orazinc -) 220 mg GT DAILY [facility] Last Admin: 08/02/18 10:14 Dose: 220 mg A/P Pneumonia UTI Sepsis Lactic Acidosis improved Chronic Respiratory Failure s/p Tracheostomy h/o CVA COPD CAD h/o PPM HTN - continue antibiotics per ID - chest PT/pulmonary toilet - inhaled bronchodilators - taper FiO2 to keep SpO2 >90% - spontaneous breathing trials as tolerated - enteral feeds - DVT/GI prophylaxis
--- NOTE | 2018-08-02 13:14 | PN ---
Progress Note, Physician History of Present Illness: AWAKE, ALERT NO ACUTE DISTRESS AFEBRILE WBC IMPROVED WNL CULTURES NEGATIVE - Current Medication List Current Medications: Active Medications Acetaminophen (Tylenol Oral Solution -) 650 mg GT Q6H PRN PRN Reason: PAIN LEVEL 6-10 Last Admin: 08/02/18 08:29 Dose: 650 mg Amino Acids (Prosource No Carb Liquid Pkt) 30 ml GT BID@0800,1730 [facility] Last Admin: 08/02/18 08:30 Dose: 30 ml Ascorbic Acid (Vitamin C -) 250 mg GT DAILY [facility] Last Admin: 08/02/18 10:15 Dose: 250 mg Atorvastatin Calcium (Lipitor -) 40 mg GT HS [facility] Last Admin: 08/01/18 22:06 Dose: 40 mg Escitalopram Oxalate (Lexapro Oral Solution -) 10 mg GT DAILY [facility] Last Admin: 08/02/18 10:15 Dose: 10 ml Piperacillin Sod/Tazobactam (Sod 3.375 gm/ Dextrose) 50 mls @ 100 mls/hr IVPB Q8H-IV TRUDY; Protocol Last Admin: 08/02/18 10:14 Dose: 100 mls/hr Ranitidine HCl (Zantac Oral Solution -) 150 mg NGT BID [facility] Last Admin: 08/02/18 10:14 Dose: 150 mg Zinc Sulfate (Orazinc -) 220 mg GT DAILY [facility] Last Admin: 08/02/18 10:14 Dose: 220 mg - Objective Vital Signs: Vital Signs Temperature 97.4 F L 08/02/18 10:00 Pulse Rate 70 08/02/18 10:20 Respiratory Rate 24 H 08/02/18 10:10 Blood Pressure 132/72 08/02/18 10:00 O2 Sat by Pulse Oximetry (%) 97 08/02/18 10:20 Constitutional: Yes: No Distress Eyes: Yes: Conjunctiva Clear Cardiovascular: Yes: Regular Rate and Rhythm, S1, S2 Respiratory: Yes: Diminished Gastrointestinal: Yes: Normal Bowel Sounds, Soft. No: Tenderness Labs: CBC, BMP 08/02/18 06:42 08/02/18 06:42 INR, PTT INR 1.41 (0.83-1.09) H 07/23/18 23:00 Assessment/Plan CHRONIC RESP FAILURE PNEUMONIA COPD FEVER/ LEUKOCYTOSIS IMPROVED LACTIC ACIDOSIS RESOLVED DAY#10 ZOSYN D/C ANTIBIOTICS, OBSERVE OFF
--- NOTE | 2018-08-02 15:10 | PN ---
Progress Note, Physician Chief Complaint: Sepsis Lactic Acidosis Respiratory Distress History of Present Illness: Previous notes and events reviewed awake and alert NAD mechanically ventilated Hematuria with clots noted complain of R leg pain G tube clogged - Current Medication List Current Medications: Active Medications Acetaminophen (Tylenol Oral Solution -) 650 mg GT Q6H PRN PRN Reason: PAIN LEVEL 6-10 Last Admin: 08/02/18 08:29 Dose: 650 mg Amino Acids (Prosource No Carb Liquid Pkt) 30 ml GT BID@0800,1730 [facility] Last Admin: 08/02/18 08:30 Dose: 30 ml Ascorbic Acid (Vitamin C -) 250 mg GT DAILY [facility] Last Admin: 08/02/18 10:15 Dose: 250 mg Atorvastatin Calcium (Lipitor -) 40 mg GT HS [facility] Last Admin: 08/01/18 22:06 Dose: 40 mg Escitalopram Oxalate (Lexapro Oral Solution -) 10 mg GT DAILY [facility] Last Admin: 08/02/18 10:15 Dose: 10 ml Piperacillin Sod/Tazobactam (Sod 3.375 gm/ Dextrose) 50 mls @ 100 mls/hr IVPB Q8H-IV TRUDY; Protocol Last Admin: 08/02/18 10:14 Dose: 100 mls/hr Ranitidine HCl (Zantac Oral Solution -) 150 mg NGT BID [facility] Last Admin: 08/02/18 10:14 Dose: 150 mg Zinc Sulfate (Orazinc -) 220 mg GT DAILY [facility] Last Admin: 08/02/18 10:14 Dose: 220 mg - Objective Vital Signs: Vital Signs Temperature 98.9 F 08/02/18 14:00 Pulse Rate 70 08/02/18 14:00 Respiratory Rate 23 H 08/02/18 14:05 Blood Pressure 136/69 08/02/18 14:00 O2 Sat by Pulse Oximetry (%) 97 08/02/18 10:20 Constitutional: Yes: No Distress, Calm Eyes: Yes: Conjunctiva Clear HENT: Yes: Atraumatic Cardiovascular: Yes: Regular Rate and Rhythm Respiratory: Yes: Regular, CTA Bilaterally, Mechanically Ventilated Gastrointestinal: Yes: Normal Bowel Sounds, Soft Genitourinary: Yes: Villa Present, Hematuria Musculoskeletal: Yes: Muscle Weakness Extremities: Yes: WNL Edema: No Neurological: Yes: Alert, Pre-Existing Deficit Psychiatric: Yes: Alert Labs: CBC, BMP 08/02/18 06:42 08/02/18 06:42 INR, PTT INR 1.41 (0.83-1.09) H 07/23/18 23:00 Microbiology 07/23/18 23:00 Blood - Peripheral Venous Blood Culture - Final NO GROWTH AFTER 5 DAYS INCUBATION 07/23/18 23:00 Blood - Peripheral Venous Blood Culture - Final NO GROWTH AFTER 5 DAYS INCUBATION 07/24/18 17:30 Sputum - Endotrachea Suction/Ventilator Gram Stain - Final 07/24/18 17:30 Sputum - Endotrachea Suction/Ventilator Sputum Culture - Final NORMAL RESPIRATORY TRISHA 07/24/18 00:03 Urine - Urine - Catheterized Urine Culture - Final NO GROWTH OBTAINED 07/24/18 15:45 Urine - Urine [place] Legionella Antigen - Final 07/24/18 15:45 Urine - Urine [place] Streptococcus pneumoniae Antigen (M - Final Problem List - Problems (1) Abnormal liver enzymes Assessment/Plan: -improving -monitor LFTs -GI on board Code(s): R74.8 - ABNORMAL LEVELS OF OTHER SERUM ENZYMES (2) Acute and chronic respiratory failure ([id number]) Assessment/Plan: -mechanically ventilated -Pulm on board -keep SpO2 >90% -bronchodilators Code(s): J96.20 - ACUTE AND CHR RESP FAILURE, UNSP W HYPOXIA OR HYPERCAPNIA Qualifiers: Respiratory failure complication: unspecified whether with hypoxia or hypercapnia Qualified Code(s): J96.20 - Acute and chronic respiratory failure , unspecified whether with hypoxia or hypercapnia (3) Anemia Assessment/Plan: -Hg 10.0 -monitor Hg daily -transfuse for Hg <8.0 -Iron panel reviewed -Stool OB neg -Heme on board Code(s): D64.9 - ANEMIA, UNSPECIFIED (4) Gastrostomy in place Code(s): Z93.1 - GASTROSTOMY STATUS (5) Pneumonia Assessment/Plan: -ID on board -observe off antibiotics -afebrile -bronchodilators -no leukocytosis -keep SpO2 >90% -Pulm on oboard -CXR reviewed Code(s): J18.9 - PNEUMONIA, UNSPECIFIED ORGANISM Qualifiers: Pneumonia type: due to unspecified organism Laterality: right Lung location: unspecified part of lung Qualified Code(s): J18.9 - Pneumonia, unspecified organism (6) Sepsis Assessment/Plan: -LA 1.7 -ID on board -monitor off antibiotics -no leukocytosis -afebrile -BC and UC neg Code(s): A41.9 - SEPSIS, UNSPECIFIED ORGANISM (7) BPH (benign prostatic hyperplasia) Assessment/Plan: -FC Code(s): N40.0 - BENIGN PROSTATIC HYPERPLASIA WITHOUT LOWER URINRY TRACT SYMP (8) Functional quadriplegia Assessment/Plan: -fall precaution -PT Code(s): R53.2 - FUNCTIONAL QUADRIPLEGIA (9) HTN (hypertension) Assessment/Plan: -monitor BP Code(s): I10 - ESSENTIAL (PRIMARY) HYPERTENSION (10) Hematuria Assessment/Plan: -re-consulted Urology Code(s): R31.9 - HEMATURIA, UNSPECIFIED (11) Malfunction of gastrostomy tube Assessment/Plan: -re-call GI for G tube change Code(s): K94.23 - GASTROSTOMY MALFUNCTION (12) Right leg pain Assessment/Plan: -vascular US RLE -pain control Code(s): M79.604 - PAIN IN RIGHT LEG Assessment/Plan see progress note dvt ppx return to SNF for discharge
--- NOTE | 2018-08-02 16:27 | PN.GI ---
GI Progress Note Subjective: GI NOte: Recalled for obstructed G tube which could not be declogged. - Objective Vital Signs: Vital Signs Temperature 98.9 F 08/02/18 14:00 Pulse Rate 70 08/02/18 14:00 Respiratory Rate 23 H 08/02/18 14:05 Blood Pressure 136/69 08/02/18 14:00 O2 Sat by Pulse Oximetry (%) 97 08/02/18 10:20 Laboratory Tests 08/02/18 08/02/18 06:42 06:42 WBC 9.6 Hgb 10.0 L BUN 17.9 Creatinine 0.6 Albumin 3.0 L Laboratory Tests 07/26/18 07/26/18 07/27/18 14:45 14:45 06:37 Retic Count Haptoglobin 501 H Iron 24 L TIBC 188 L Iron Saturation 13 L Ferritin 2114.8 H Total Bilirubin AST ALT Alkaline Phosphatase Vitamin B12 1158 H 07/28/18 08/02/18 06:50 06:42 Retic Count 1.09 D Haptoglobin Iron TIBC Iron Saturation Ferritin Total Bilirubin 0.3 AST 18 ALT 30 Alkaline Phosphatase 115 Vitamin B12 Constitutional: No Distress Gastrointestinal Inspection: Yes: Other (PEG site clean, no fluctuance) Labs: CBC, BMP 08/02/18 06:42 08/02/18 06:42 INR, PTT INR 1.41 (0.83-1.09) H 07/23/18 23:00 Assessment/Plan Impression: - Clogged G tube removed and replaced with new 18Fr [employer] replacement gastrostostomy tube. Inflated with 10cc of sterile water - LFT have normalized. Again felt to reflect cor pulmonale - Anemia cause is unclear. Has low retic rate, high ferritin but low sat and TIBC. Stool guaiac negative x 2 by lab and once by me. Hb has been stable ? chronic disease Plan: -- The location of the G tibe within the stomach was confirmed by irrigation / auscultation. Will begin feedings. -- Continue PPI Problem List - Problems (1) Abnormal liver enzymes Code(s): R74.8 - ABNORMAL LEVELS OF OTHER SERUM ENZYMES (2) Gastrostomy in place Code(s): Z93.1 - GASTROSTOMY STATUS (3) Acute and chronic respiratory failure ([id number]) Code(s): J96.20 - ACUTE AND CHR RESP FAILURE, UNSP W HYPOXIA OR HYPERCAPNIA Qualifiers: Respiratory failure complication: unspecified whether with hypoxia or hypercapnia Qualified Code(s): J96.20 - Acute and chronic respiratory failure , unspecified whether with hypoxia or hypercapnia (4) COPD (chronic obstructive pulmonary disease) Code(s): J44.9 - CHRONIC OBSTRUCTIVE PULMONARY DISEASE, UNSPECIFIED (5) CVA (cerebral vascular accident) Code(s): I63.9 - CEREBRAL INFARCTION, UNSPECIFIED (6) Cholelithiasis without cholecystitis Code(s): K80.20 - CALCULUS OF GALLBLADDER W/O CHOLECYSTITIS W/O OBSTRUCTION (7) Anemia Code(s): D64.9 - ANEMIA, UNSPECIFIED
[2018-08-02] MEDS: ATORVASTATIN CA 40 MG TABLET (FP) GT SCH (22:22)
[2018-08-03] MEDS ORDERED: DEXTROSE 5%-WATER - 50 ML IVPB ONE ×2 (01:16→09:06)
[2018-08-03] MEDS ORDERED: PIPERACILLIN/TAZOBACTAM 3.375 GM VIAL IVPB ONE ×2 (01:16→09:06)
[2018-08-03] MEDS: PIPERACILLIN/TAZOB 3.375 GM 3.375 GM in DEXTROSE 5%-WATER - 50 ML IVPB SCH ×2 (02:06→13:03)
[2018-08-03 07:57] LABS: ALBUMIN 2.9 g/dl (3.4-5.0); BILIRUBIN,TOTAL 0.4 mg/dL (0.2-1); BLOOD UREA NITROGEN 20.8 mg/dL (7-18); CALCIUM 8.8 mg/dL (8.5-10.1); CREATININE 0.6 mg/dL (0.55-1.3); POTASSIUM 4.5 mmol/L (3.5-5.1); TOT PROT 7.7 g/dl (6.4-8.2)
[2018-08-03 08:21] LABS: HEMATOCRIT 30.7 % (35.4-49); HEMOGLOBIN 10.4 GM/dL (11.7-16.9); MCH 28.7 pg (25.7-33.7); MCHC 33.9 g/dl (32.0-35.9); MEAN CELL VOLUME 84.7 fl (80-96); MEAN PLT VOLUME 8.4 fl (7.5-11.1); PLATELET COUNT 600 K/MM3 (134-434); RBC 3.63 M/mm3 (4.00-5.60); RDW 17.3 % (11.9-15.9); WHITE BLOOD COUNT 10.1 K/mm3 (4.0-10.0)
[2018-08-03] MEDS ORDERED: PT OWN MED DRAWER 7, Y5N ONE (09:30)
--- NOTE | 2018-08-03 09:55 | PN ---
Progress Note, Physician Chief Complaint: Sepsis Respiratory Distress Lactic acidosis Hyperkalemia History of Present Illness: NAD afebrile cultures negative so far Seen by pulmonary and ID Hematuria returned , may be causing anemia H/H stable G tube replaced by GI liver fxn normal - Current Medication List Current Medications: Active Medications Acetaminophen (Tylenol Oral Solution -) 650 mg GT Q6H PRN PRN Reason: PAIN LEVEL 6-10 Last Admin: 08/02/18 16:47 Dose: 650 mg Amino Acids (Prosource No Carb Liquid Pkt) 30 ml GT BID@0800,1730 [facility] Last Admin: 08/02/18 16:48 Dose: 30 ml Ascorbic Acid (Vitamin C -) 250 mg GT DAILY [facility] Last Admin: 08/02/18 10:15 Dose: 250 mg Atorvastatin Calcium (Lipitor -) 40 mg GT HS [facility] Last Admin: 08/02/18 22:22 Dose: 40 mg Escitalopram Oxalate (Lexapro Oral Solution -) 10 mg GT DAILY [facility] Last Admin: 08/02/18 10:15 Dose: 10 ml Piperacillin Sod/Tazobactam (Sod 3.375 gm/ Dextrose) 50 mls @ 100 mls/hr IVPB Q8H-IV TRUDY; Protocol Last Admin: 08/03/18 02:06 Dose: 100 mls/hr Ranitidine HCl (Zantac Oral Solution -) 150 mg NGT BID [facility] Last Admin: 08/02/18 22:22 Dose: 150 mg Zinc Sulfate (Orazinc -) 220 mg GT DAILY [facility] Last Admin: 08/02/18 10:14 Dose: 220 mg - Objective Vital Signs: Vital Signs Temperature 97.8 F 08/03/18 06:14 Pulse Rate 76 08/03/18 08:27 Respiratory Rate 20 08/03/18 08:27 Blood Pressure 121/79 08/03/18 06:14 O2 Sat by Pulse Oximetry (%) 95 08/03/18 08:27 Constitutional: Yes: Well Nourished, Calm Cardiovascular: Yes: Regular Rate and Rhythm Respiratory: Yes: Mechanically Ventilated Gastrointestinal: Yes: WNL, Other (g tube) Genitourinary: Yes: Gordon Present Musculoskeletal: Yes: Other (generealized atrophy, right hemiparesis) Extremities: Yes: WNL Edema: No Peripheral Pulses WNL: Yes Neurological: Yes: Alert, Oriented Psychiatric: Yes: Alert, Oriented Labs: CBC, BMP 08/03/18 06:42 08/03/18 06:42 INR, PTT INR 1.41 (0.83-1.09) H 07/23/18 23:00 Problem List - Problems (1) Anemia Assessment/Plan: -monitor H/H -Hold AC for DVT ppx, apply scd's instead -Iron profile low Fe% -thyroid and b12 normal -Stool OB negative x 2 -Hematology consult appreciated -SPEP unremarkable -Start Ferrous sulfate GT daily -Also Venofer 200 mg loading dose -Cause of anemia- 2/2 to chronic blood loss vs chronic dz -Check U/S renal bladder Code(s): D64.9 - ANEMIA, UNSPECIFIED (2) Acute and chronic respiratory failure ([id number]) Assessment/Plan: -[facility] went -Pulmonary consult -Bronchodilators prn -IV abx dc'd Code(s): J96.20 - ACUTE AND CHR RESP FAILURE, UNSP W HYPOXIA OR HYPERCAPNIA Qualifiers: Respiratory failure complication: unspecified whether with hypoxia or hypercapnia Qualified Code(s): J96.20 - Acute and chronic respiratory failure , unspecified whether with hypoxia or hypercapnia (3) Hematuria Assessment/Plan: -intermittent -Monitor for more bleeding -Seen by -Renal Bladder U/S Code(s): R31.9 - HEMATURIA, UNSPECIFIED (4) Pneumonia Assessment/Plan: -ID and pulmonary on board -IV abx dc'd -Bronchodilators -afebrile -cultures negative Code(s): J18.9 - PNEUMONIA, UNSPECIFIED ORGANISM Qualifiers: Pneumonia type: due to unspecified organism Laterality: right Lung location: unspecified part of lung Qualified Code(s): J18.9 - Pneumonia, unspecified organism (5) Sepsis Assessment/Plan: -ID and pulmonary on board -IV abx dc'd -Bronchodilators -afebrile -cultures negative -Lactic acid normal -no leukocytosis Code(s): A41.9 - SEPSIS, UNSPECIFIED ORGANISM (6) BPH (benign prostatic hyperplasia) Assessment/Plan: -chronic gordon maintained Code(s): N40.0 - BENIGN PROSTATIC HYPERPLASIA WITHOUT LOWER URINRY TRACT SYMP (7) Functional quadriplegia Code(s): R53.2 - FUNCTIONAL QUADRIPLEGIA (8) Abnormal liver enzymes Assessment/Plan: -normalized -G tube replaced -Cor pulmonale? -hepatitis profile negative -GI consult -monitor trend Code(s): R74.8 - ABNORMAL LEVELS OF OTHER SERUM ENZYMES Assessment/Plan see problem list
[2018-08-03] MEDS ORDERED: IRON SUCROSE INJECTION 200 MG in SODIUM CHLORIDE 90 ML IVPB ONE (11:00)
[2018-08-03] MEDS: ACETAMINOPHEN 650 MG/20.3 ML ORAL SOLUTION (CUPS) GT PRN ×2 (11:02→18:34)
[2018-08-03] MEDS: RANITIDINE HCL 150 MG/10 ML UNIT-DOSE NGT SCH ×2 (11:03→22:10)
[2018-08-03] MEDS: FERROUS SO4 300 MG/5 ML ORAL SOLN UNIT DOSE CUPS GT SCH (11:03)
[2018-08-03] MEDS: AMINO ACIDS/PROTEIN HYDROLYS 30 ML LIQUID.PKT GT SCH ×2 (11:03→18:34)
[2018-08-03] MEDS: ZINC SULFATE 220 MG CAPSULE (FP) GT SCH (11:04)
[2018-08-03] MEDS: ESCITALOPRAM OXALATE 5 MG/5 ML GT SCH (11:04)
[2018-08-03] MEDS: ASCORBIC ACID 250 MG TABLET (FP) GT SCH (11:04)
--- NOTE | 2018-08-03 11:59 | PN ---
Progress Note, Physician History of Present Illness: pulmonary comfortable on vent support,-resp distress - Current Medication List Current Medications: Active Medications Acetaminophen (Tylenol Oral Solution -) 650 mg GT Q6H PRN PRN Reason: PAIN LEVEL 6-10 Last Admin: 08/03/18 11:02 Dose: 650 mg Amino Acids (Prosource No Carb Liquid Pkt) 30 ml GT BID@0800,1730 [facility] Last Admin: 08/03/18 11:03 Dose: 30 ml Ascorbic Acid (Vitamin C -) 250 mg GT DAILY [facility] Last Admin: 08/03/18 11:04 Dose: 250 mg Atorvastatin Calcium (Lipitor -) 40 mg GT HS [facility] Last Admin: 08/02/18 22:22 Dose: 40 mg Escitalopram Oxalate (Lexapro Oral Solution -) 10 mg GT DAILY [facility] Last Admin: 08/03/18 11:04 Dose: 10 ml Ferrous Sulfate (Feosol) 300 mg GT DAILY [facility] Last Admin: 08/03/18 11:03 Dose: 300 mg Piperacillin Sod/Tazobactam (Sod 3.375 gm/ Dextrose) 50 mls @ 100 mls/hr IVPB Q8H-IV TRUDY; Protocol Last Admin: 08/03/18 02:06 Dose: 100 mls/hr Iron Sucrose 200 mg/ Sodium (Chloride) 100 mls @ 100 mls/hr IVPB ONCE ONE Stop: 08/03/18 11:59 Last Admin: 08/03/18 11:02 Dose: 100 mls/hr Ranitidine HCl (Zantac Oral Solution -) 150 mg NGT BID [facility] Last Admin: 08/03/18 11:03 Dose: 150 mg Zinc Sulfate (Orazinc -) 220 mg GT DAILY [facility] Last Admin: 08/03/18 11:04 Dose: 220 mg - Objective Vital Signs: Vital Signs Temperature 97.8 F 08/03/18 06:14 Pulse Rate 70 08/03/18 10:00 Respiratory Rate 18 08/03/18 10:00 Blood Pressure 116/56 L 08/03/18 10:00 O2 Sat by Pulse Oximetry (%) 95 08/03/18 08:27 Constitutional: Yes: Well Nourished, Calm Eyes: Yes: WNL HENT: Yes: WNL Neck: Yes: Supple (trach) Cardiovascular: Yes: Regular Rate and Rhythm, S1, S2 Respiratory: Yes: Diminished Gastrointestinal: Yes: Normal Bowel Sounds, Soft Extremities: Yes: WNL Edema: No Labs: CBC, BMP 08/03/18 06:42 08/03/18 06:42 INR, PTT INR 1.41 (0.83-1.09) H 07/23/18 23:00 Problem List - Problems (1) Acute and chronic respiratory failure (wdoft-gr-[id number]) Code(s): J96.20 - ACUTE AND CHR RESP FAILURE, UNSP W HYPOXIA OR HYPERCAPNIA Qualifiers: Respiratory failure complication: unspecified whether with hypoxia or hypercapnia Qualified Code(s): J96.20 - Acute and chronic respiratory failure , unspecified whether with hypoxia or hypercapnia (2) Anemia Code(s): D64.9 - ANEMIA, UNSPECIFIED (3) Pneumonia Code(s): J18.9 - PNEUMONIA, UNSPECIFIED ORGANISM Qualifiers: Pneumonia type: due to unspecified organism Laterality: right Lung location: unspecified part of lung Qualified Code(s): J18.9 - Pneumonia, unspecified organism (4) BPH (benign prostatic hyperplasia) Code(s): N40.0 - BENIGN PROSTATIC HYPERPLASIA WITHOUT LOWER URINRY TRACT SYMP (5) CHF (congestive heart failure) Code(s): I50.9 - HEART FAILURE, UNSPECIFIED (6) CVA (cerebral vascular accident) Code(s): I63.9 - CEREBRAL INFARCTION, UNSPECIFIED (7) CVA, old, hemiparesis Code(s): I69.359 - HEMIPLGA FOLLOWING CEREBRAL INFARCTION AFFECTING UNSP SIDE (8) Functional quadriplegia Code(s): R53.2 - FUNCTIONAL QUADRIPLEGIA Assessment/Plan ASSESSMENT AND PLAN: Pneumonia UTI Sepsis Lactic Acidosis improved Chronic Respiratory Failure s/p Tracheostomy h/o CVA COPD CAD h/o PPM HTN - IV antibiotics as per id - IVF - chest PT/pulmonary toilet - inhaled bronchodilators - taper FiO2 to keep SpO2 >90% - spontaneous breathing trials as tolerated - enteral feeds - DVT/GI prophylaxis - chest x-ray DR MOORE
--- NOTE | 2018-08-03 16:48 | PN ---
LIZZ Kenny Note Chief Complaint: pt's hematuria recurred - Objective Vital Signs: Vital Signs Temperature 98.3 F 08/03/18 14:00 Pulse Rate 70 08/03/18 14:00 Respiratory Rate 28 H 08/03/18 16:00 Blood Pressure 145/74 08/03/18 14:00 O2 Sat by Pulse Oximetry (%) 95 08/03/18 08:27 Constitutional: Yes: Well Nourished, No Distress Gastrointestinal: Yes: WNL, Normal Bowel Sounds, Soft Genitourinary: Yes: Villa Present (blood tinged urine), Hematuria (minimal) Pelvis: Yes: WNL Testicles: Yes: WNL Scrotum: Yes: WNL Penis: Yes: WNL Labs/Additional Data: CBC, BMP 08/03/18 06:42 08/03/18 06:42 INR, PTT INR 1.41 (0.83-1.09) H 07/23/18 23:00 Blood Type Blood Type O POSITIVE 07/24/18 05:23 Antibody Screen Negative 07/24/18 02:30 Imaging - Results Ultrasound: Report Reviewed Problem List - Problems (1) Hematuria Assessment/Plan: consider cystoscopy/fulguration if worsens Code(s): R31.9 - HEMATURIA, UNSPECIFIED (2) Acute and chronic respiratory failure ([id number]) Code(s): J96.20 - ACUTE AND CHR RESP FAILURE, UNSP W HYPOXIA OR HYPERCAPNIA Qualifiers: Respiratory failure complication: unspecified whether with hypoxia or hypercapnia Qualified Code(s): J96.20 - Acute and chronic respiratory failure , unspecified whether with hypoxia or hypercapnia (3) Leukocytosis Code(s): D72.829 - ELEVATED WHITE BLOOD CELL COUNT, UNSPECIFIED Qualifiers: Leukocytosis type: unspecified Qualified Code(s): D72.829 - Elevated white blood cell count, unspecified (4) Pneumonia Code(s): J18.9 - PNEUMONIA, UNSPECIFIED ORGANISM Qualifiers: Pneumonia type: due to unspecified organism Laterality: right Lung location: unspecified part of lung Qualified Code(s): J18.9 - Pneumonia, unspecified organism (5) Sepsis Code(s): A41.9 - SEPSIS, UNSPECIFIED ORGANISM (6) BPH (benign prostatic hyperplasia) Code(s): N40.0 - BENIGN PROSTATIC HYPERPLASIA WITHOUT LOWER URINRY TRACT SYMP
[2018-08-03] MEDS: ATORVASTATIN CA 40 MG TABLET (FP) GT SCH (22:10)
[2018-08-03] MEDS ORDERED: ACETAMINOPHEN 325 MG TABLET (FP) PO ONE (23:58)
[2018-08-04 06:40] VITALS: PULSE 70
[2018-08-04] MEDS: ACETAMINOPHEN 650 MG/20.3 ML ORAL SOLUTION (CUPS) GT PRN ×2 (07:06→13:10)
[2018-08-04] MEDS: AMINO ACIDS/PROTEIN HYDROLYS 30 ML LIQUID.PKT GT SCH (09:38)
[2018-08-04] MEDS ORDERED: PT OWN MED DRAWER 7, Y5N ONE (10:49)
[2018-08-04] MEDS: ZINC SULFATE 220 MG CAPSULE (FP) GT SCH (10:58)
[2018-08-04] MEDS: FERROUS SO4 300 MG/5 ML ORAL SOLN UNIT DOSE CUPS GT SCH (10:59)
[2018-08-04] MEDS: ESCITALOPRAM OXALATE 5 MG/5 ML GT SCH (10:59)
[2018-08-04] MEDS: RANITIDINE HCL 150 MG/10 ML UNIT-DOSE NGT SCH (10:59)
[2018-08-04] MEDS: ASCORBIC ACID 250 MG TABLET (FP) GT SCH (11:00)
[2018-08-04 11:15] VITALS: TEMP 98.4
--- NOTE | 2018-08-04 11:28 | PN ---
Progress Note (short form) - Note Progress Note: PULMONARY Vented, awake on volume assist control with 50% FiO2. No fevers recorded. CXR showing LLL infiltrate. Vital Signs Period Temp Pulse Resp BP Sys/Richards Pulse Ox Last 24 Hr 97.6 F-99.0 F 70-71 14-28 132-155/69-91 98-100 Gen: vented, awake Heart: RRR Lung: decreased breath sounds at the bases Abd: soft, nontender Ext: no edema CBC, BMP 08/03/18 06:42 08/03/18 06:42 Active Medications Acetaminophen (Tylenol Oral Solution -) 650 mg GT Q6H PRN PRN Reason: PAIN LEVEL 6-10 Last Admin: 08/04/18 07:06 Dose: 650 mg Amino Acids (Prosource No Carb Liquid Pkt) 30 ml GT BID@0800,1730 [facility] Last Admin: 08/04/18 09:38 Dose: 30 ml Ascorbic Acid (Vitamin C -) 250 mg GT DAILY [facility] Last Admin: 08/04/18 11:00 Dose: 250 mg Atorvastatin Calcium (Lipitor -) 40 mg GT HS [facility] Last Admin: 08/03/18 22:10 Dose: 40 mg Escitalopram Oxalate (Lexapro Oral Solution -) 10 mg GT DAILY [facility] Last Admin: 08/04/18 10:59 Dose: 10 ml Ferrous Sulfate (Feosol) 300 mg GT DAILY [facility] Last Admin: 08/04/18 10:59 Dose: 300 mg Nystatin/Triamcinolone Acetonide (Mycolog Ii Cream -) 1 applic TP BID [facility] Ranitidine HCl (Zantac Oral Solution -) 150 mg NGT BID [facility] Last Admin: 08/04/18 10:59 Dose: 150 mg Zinc Sulfate (Orazinc -) 220 mg GT DAILY [facility] Last Admin: 08/04/18 10:58 Dose: 220 mg A/P Pneumonia UTI Sepsis Lactic Acidosis improved Chronic Respiratory Failure s/p Tracheostomy h/o CVA COPD CAD h/o PPM HTN - continue antibiotics per ID - suspect CXR findings from radiologic lag as infiltrate not seen on admission - repeat CXR as outpt - chest PT/pulmonary toilet - inhaled bronchodilators - taper FiO2 to keep SpO2 >90% - spontaneous breathing trials as tolerated - enteral feeds - DVT/GI prophylaxis
--- NOTE | 2018-08-04 11:57 | DS ---
Physical Examination Vital Signs: Vital Signs Temperature 98.4 F 08/04/18 10:00 Pulse Rate 70 08/04/18 10:00 Respiratory Rate 24 H 08/04/18 10:00 Blood Pressure 155/91 08/04/18 10:00 O2 Sat by Pulse Oximetry (%) 98 08/04/18 09:50 Findings/Remarks: CP: Reece Marinamichaelmaryjane (from [facility]) - Admission Chief Complaint: Respiratory Distress History of Present Illness: This is a 67 y/o man from [facility] with a past medical history of CVA (R - residual deficits), Respiratory Failure with Hypoxia, s/p Trach, Pneumonia, HTN, CAD s/p PPM, COPD, MDD, TEX, s/p PEG, Constipation. Who was sent in for worsening respiratory distress. On arrival to the ED, patient was tachypneic, diaphoretic. Septic workup initiated. ED course was noted for: (1) Sepsis- T Max 104, R 40, WBC 14 (2) K 5.3 (3) BNP 4500 (4) UA +2 Protein, +Trace leukocytes, +Trace ketones, +Trace blood, 85 WBC Constitutional: Yes: Calm Neck: Yes: Other (trach) Cardiovascular: Yes: Regular Rate and Rhythm, S1, S2 Respiratory: Yes: Diminished Gastrointestinal: Yes: Normal Bowel Sounds, Soft, Other (peg tube) Labs: CBC, BMP 08/03/18 06:42 08/03/18 06:42 Discharge Summary Reason For Visit: ACUTE ON CHRONIC RESPIRATORY FAILURE,LEUKOCYTOSIS Current Active Problems Abnormal liver enzymes (Acute) Acute and chronic respiratory failure ([id number]) (Acute) Anemia (Acute) Gastrostomy in place (Acute) Hematuria (Acute) Leukocytosis (Acute) Malfunction of gastrostomy tube (Acute) Pneumonia (Acute) Right leg pain (Acute) Sepsis (Acute) Other Procedures: right leg Doppler -no dvt Hospital Course: CP: Ashkanbienvenido Dontaemaryjane (from [facility]) - Admission Chief Complaint: Respiratory Distress History of Present Illness: This is a 67 y/o man from [facility] with a past medical history of CVA (R - residual deficits), Respiratory Failure with Hypoxia, s/p Trach, Pneumonia, HTN, CAD s/p PPM, COPD, MDD, TEX, s/p PEG, Constipation. Who was sent in for worsening respiratory distress. On arrival to the ED, patient was tachypneic, diaphoretic. Septic workup initiated. ED course was noted for: (1) Sepsis- T Max 104, R 40, WBC 14 (2) K 5.3 (3) BNP 4500 (4) UA +2 Protein, +Trace leukocytes, +Trace ketones, +Trace blood, 85 WBC HOSPITAL COURSE admitted for fever and leukocytosis and pneumonia completed 10 days of zosyn now improved hematuria slight - pink urine seen by urology outpatient follow up for possible cystoscopy no DVT in right lower leg anemia with hematuria - iron deficiency to get venofer two doses h/h stable Condition: Stable - Instructions Referrals: Michael Littlejohn MD [Staff Physician] - 1 Week (for hematuria) Disposition: NURSING HOME FACILITY - Home Medications Comprehensive Discharge Medication List: Ambulatory Orders Aspirin 81 mg GT DAILY 04/24/18 Atorvastatin Ca [Lipitor] 40 mg GT HS 04/24/18 Simethicone 40 mg GT TID 04/24/18 Acetaminophen [Acetaminophen ER] 650 mg GT Q6H PRN 06/28/18 Ranitidine Oral Solution [Zantac Oral Solution -] 150 mg GT BID 06/28/18 Amino Acids/Protein Hydrolys [Prosource No Carb Liquid Pkt] 30 ml GT BID@0800, 1730 packet 08/03/18 Ascorbic Acid [Vitamin C -] 250 mg GT DAILY tablet 08/03/18 Atorvastatin Ca [Lipitor] 40 mg GT HS tablet 08/03/18 Escitalopram Oxalate [Lexapro 5mg/5mL Oral Solution -] 10 mg GT DAILY ml Ranitidine Oral Solution [Zantac Oral Solution -] 150 mg NGT BID cup 08/03/18 Sennosides [Senna] 8.6 mg PO HS PRN #30 tab 08/03/18 Zinc Sulfate [Orazinc -] 220 mg GT DAILY capsule 08/03/18
[2018-08-04 12:20] LABS: BASO % 0.8 % (0-2.0); EOS % 5.1 % (0-4.5); HEMATOCRIT 31.8 % (35.4-49); HEMOGLOBIN 10.5 GM/dL (11.7-16.9); LYMPH % 17.6 % (8-40); MCH 28.1 pg (25.7-33.7); MEAN CELL VOLUME 85.1 fl (80-96); MEAN PLT VOLUME 8.4 fl (7.5-11.1); MONO % 6.4 % (3.8-10.2); NEUT % 70.1 % (42.8-82.8); PLATELET COUNT 622 K/MM3 (134-434); RBC 3.74 M/mm3 (4.00-5.60); RDW 17.5 % (11.9-15.9); WHITE BLOOD COUNT 11.2 K/mm3 (4.0-10.0)
[2018-08-04] MEDS ORDERED: IRON SUCROSE INJECTION 200 MG in SODIUM CHLORIDE 90 ML IVPB ONE (13:00)
[2018-08-04 15:00] VITALS: BP 149/77
[2018-08-04] MEDS ORDERED: NYSTATIN/TRIAMCINOLONE TOPICAL CREAM 15 GM TUBE TP SCH (22:00)
== END 2018-08-04 15:47 | DRG 870 ==
LOC: JER 22:11 → JERBED 07-24 00:39 → JICU 07-24 09:48 → J5S 07-24 21:31
PROVIDERS: ADMIT Family Medicine; ATTEND Family Medicine
PROC: 5A1955Z Respiratory Ventilation, Greater than 96 Consecutive Hours (ICD-10-PCS; principal; 2018-07-23)
DX: A41.9 Sepsis, unspecified organism (principal); J18.9 Pneumonia, unspecified organism; J96.21 Acute and chronic respiratory failure with hypoxia; R53.2 Functional quadriplegia; E87.2 Acidosis; N39.0 Urinary tract infection, site not specified; I69.351 Hemiplegia and hemiparesis following cerebral infarction affecting right dominant side; Z93.0 Tracheostomy status; Z93.1 Gastrostomy status; D72.829 Elevated white blood cell count, unspecified; J44.9 Chronic obstructive pulmonary disease, unspecified; I10 Essential (primary) hypertension; F32.9 Major depressive disorder, single episode, unspecified; I25.10 Atherosclerotic heart disease of native coronary artery without angina pectoris; R31.9 Hematuria, unspecified; N40.0 Benign prostatic hyperplasia without lower urinary tract symptoms; E87.5 Hyperkalemia; D64.9 Anemia, unspecified; K80.20 Calculus of gallbladder without cholecystitis without obstruction
CPT/HCPCS: 36415; 36600; 71045-TC-FY; 76705-TC; 76856-TC; 80048; 80053; 80074; 80076; 81003; 82150; 82272; 82550; 82553; 82607; 82728; 82784; 82803; 83010; 83540; 83550; 83605; 83615; 83690; 83735; 83880; 84100; 84155; 84165; 84439; 84443; 84484; 85025; 85027; 85044; 85610; 85730; 86140; 86850; 86900; 86901; 87040; 87070; 87086; 87205; 87899; 93005; 93010; 93971-TC; 94002; 94640; 99285-25; J0131; J1644; J1756; J7030

== ENCOUNTER 2020-02-05 11:53 | Emergency (ER) | payer OTHER ==
[2020-02-05 12:24] VITALS: BP 122/64; PULSE 70; TEMP 98.3; BMI 31.5
== END 2020-02-05 18:40 ==
LOC: JER 11:53
DX: K94.23 Gastrostomy malfunction (principal)
CPT/HCPCS: 74018-TC-FY; 99283-25